=== PATIENT | female | born 1940 | race Caucasian/White ===

== ENCOUNTER 2024-09-06 16:48 | Emergency (ER) | payer MEDICARE, SELFPAY ==
[2024-09-06 17:10] VITALS: BP 185/87; PULSE 69; RESP 18; TEMP 36.6; O2SAT 98; BMI 27.4
--- NOTE | 2024-09-06 18:11 | ECG_ITS ---
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 Measurements Intervals [place] Rate: 67 P: 22 KS: 114 QRS: 13 QRSD: 90 T: 30 QT: 386 QTc: 410 Interpretive Statements SINUS RHYTHM WITH SHORT [place] INTERVAL MODERATE VOLTAGE CRITERIA FOR LVH, CONSIDER NORMAL VARIANT [MEETS CRITERIA IN ONE OF: R(aVL), S(V1), R(V5), R(V5/V6)+S(V1)] No previous ECG available for comparison Electronically Signed On 09-06-2024 22:31:36 CDT by Rell Palomo M.D. [email or web address]
--- NOTE | 2024-09-06 18:11 | XRR_ITS ---
PROCEDURE INFORMATION: Exam: XR Chest Exam date and time: 09/06/2024 8:06 PM Age: 84 years old Clinical indication: Chest pressure; Patient HX: Chest pain TECHNIQUE: Imaging protocol: Radiologic exam of the chest. Views: 1 view. COMPARISON: No relevant prior studies available. FINDINGS: Lungs: There is no consolidation. Pleural spaces: No pleural effusion or pneumothorax. Heart/Mediastinum: Retrocardiac lucency suggestive of a large hiatal hernia. The heart and mediastinum are normal in size. Bones/joints: Unremarkable. XR/XR chest 1V portable [id number] IMPRESSION: Retrocardiac lucency suggestive of a large hiatal hernia. This may be further evaluated by CT scan of the chest if clinically indicated.
[2024-09-06 18:30] LABS: Basophils # 0.1 10^3/uL (0.0-0.1); Basophils % 0.8 %; Eosinophils # 0.2 10^3/uL (0.0-0.8); Hematocrit 33.7 % (36-47); Lymphocytes # 1.7 10^3/uL (0.8-4.8); Lymphocytes % 18.9 %; Mean Corpuscular HGB Conc 27.6 g/dL (30-55); Mean Corpuscular Volume 72.6 fl (85-98); Mean Platelet Volume 11.8 fL (7.4-10.4); Monocytes # 0.8 10^3/uL (0.2-0.9); Neutrophils # 6.29 10^3/uL (1.8-7.7); Neutrophils % 69.2 %; Nucleated Red Blood Cells % 0 %; Platelet Count 216 10^3/cmm (157-399); Red Blood Count 4.64 10^6/uL (3.85-5.65); Red Cell Distribution Width 19.3 % (12.1-15.1); White Blood Count 9.09 10^3/uL (3.29-11.43)
[2024-09-06 18:49] LABS: Alanine Aminotransferase 24 U/L (0-33); Albumin Level 4.3 g/dL (3.5-5.2); Alkaline Phosphatase 74 U/L (35-105); Anion Gap 16.5 (5-19); Aspartate Amino Transferase 27 U/L (0-32); Blood Urea Nitrogen 18 mg/dL (8-23); Calcium 9.2 mg/dL (8.5-10.5); Carbon Dioxide 26 mmol/L (22-29); Chloride 102 mmol/L (98-107); Creatinine Clr Calc Pharmacy 52.0558; Globulin 2.8 g/dL (1.3-4.6); Glucose 102 mg/dL (65-115); Osmolality Calculated 292 mOsm/kg (285-295); Potassium 4.5 mmol/L (3.5-5.1); Sodium 140 mmol/L (136-145); Total Bilirubin 0.2 mg/dL (0.15-1.2); Total Protein 7.1 g/dL (6.6-8.7)
[2024-09-06 18:50] LABS: Troponin(5th) Baseline 9 ng/L (0-10)
[2024-09-06 20:34] VITALS: BP 181/82; PULSE 68; RESP 16; O2SAT 96
[2024-09-06 20:39] LABS: Troponin 5 2HR 9.95 ng/L (0-10); Troponin 5 2HR Delta 0.95 ABS# (0-10)
--- NOTE | 2024-09-06 21:24 | W.ED.CHESTPA ---
HPI - Chest Pain General: Chief Complaint: Chest Pain Stated Complaint: chest pain Time Seen by Provider: 09/06/24 19:51 History of Present Illness: 84-year-old female presents to the emergency department complaining of gradual onset of left posterolateral chest pain that started about 5 days ago. It hurts worse when she lays on her left side or with certain movements. She reports the chest pain is not associated with exertion. No associated diaphoresis, swelling, orthopnea, cough, fever, chills, rashes, extremity pain/swelling/redness, shortness of breath, palpitations or other associated symptoms. She does have a history of coronary artery disease and hypertension. Her blood pressure was elevated on arrival. She is asymptomatic. No tearing sensation or other concern for aortic dissection or rupture. Patient feels that just left of her spine under the scapular region. Palpation in this area is very tender with lots of spasm. Denies any urinary symptoms. Associated symptoms: Deny abdominal pain, dyspnea, fever(s), nausea, syncope or vomiting Related Data Previous Rx's Medication Instructions Recorded camphor-methyl salicylate-menthol 1 applic topical TID PRN pain 5 09/06/24 3 %-15 %-5 % topical cream ([place] days #60 grams [place] Muscle Rub) cyclobenzaprine 5 mg tablet 5 mg PO TID PRN muscle spasm #14 09/06/24 tabs hydrocodone 5 mg-acetaminophen 325 0.5 tab PO Q6H PRN pain, severe 7 09/06/24 mg tablet days #14 tabs lidocaine 5 % topical patch 1 patch topical Q24H #15 ea 09/06/24 (Lidoderm) naproxen 250 mg tablet 250 mg PO BID PRN pain #14 tabs 09/06/24 Allergies Allergy/AdvReac Type Severity Reaction Status Date / Time No Known Allergies Allergy Verified 09/06/24 17:17 Review of Systems General: Reports: 10 or more systems reviewed and unremarkable except in HPI and below Const: Denies: fever(s), chills or body aches Eyes: Denies: change in vision ENMT: Denies: throat pain Card: Denies: chest pain, edema or syncope Resp: Denies: dyspnea or productive cough GI: Denies: abdominal pain, nausea, vomiting or diarrhea : Denies: flank pain, dysuria or urinary frequency Musc: Denies: neck pain, extremity pain or extremity swelling Skin/Breast: Denies: rash or erythema Neuro: Denies: headache(s), numbness in extremities, weakness in extremities, lack of coordination or difficulty walking Physical Exam Const: COMMON NORMALS: no limitations, alert and well nourished EXAM LIMITATIONS: no altered mental status HENMT: COMMON NORMALS: normocephalic, atraumatic and external ears normal HEAD & SCALP: normocephalic and atraumatic EXTERNAL EAR: Yes external ears normal MOUTH: no muffled voice Eye: COMMON NORMALS: EOMs intact bilaterally, conjunctivae normal and no scleral icterus CONJUNCTIVA: Yes conjunctivae normal Neck/C-Spine: COMMON NORMALS: no JVD GENERAL: Yes normal visual inspection and Yes trachea midline Resp: COMMON NORMALS: normal respiratory effort, No use of accessory muscles and clear to auscultation bilaterally AUSCULTATION: clear to auscultation bilaterally Cardio: COMMON NORMALS: no JVD, regular rate and regular rhythm RATE: regular rate RHYTHM: regular rhythm GI: COMMON NORMALS: Soft to palpation and non-tender PALPATION: Yes Soft to palpation and No Guarding due to palpation present (GI) Back/Pelvis: OTHER: Patient has significant myofascial spasm in her left thoracic paraspinal muscles. Patient endorses this is the pain she is feeling. The tenderness extends through the paraspinals up into the rhomboids and trapezius. No midline tenderness. The patient's ribs are nontender. Lungs are clear. Extremity: COMMON NORMALS: normal to inspection Neuro: COMMON NORMALS: moves all extremities, no focal motor deficits and no sensory deficits noted SENSORIUM/ORIENTATION: Yes alert SPEECH: speech normal Psych: COMMON NORMALS: mental status grossly normal, Normal thought process present, cooperative, normal affect and speech normal SPEECH: Yes normal speech THOUGHT PROCESS: Normal thought process present Skin: COMMON NORMALS: no rashes or lesions noted, turgor normal and no jaundice GENERAL SKIN EXAM: no rashes or lesions noted and turgor normal Course Vital Signs: Vital signs: Vital Signs Temperature 97.8 F 09/06/24 17:10 Pulse Rate 68 09/06/24 20:34 Respiratory Rate 16 09/06/24 20:34 Blood Pressure 181/82 09/06/24 20:34 Pulse Oximetry 96 09/06/24 20:34 Oxygen Delivery Me thod Room Air 09/06/24 20:34 MDM - Chest Pain Medical Decision Making Patient has reproducible tenderness in the periscapular and thoracic paraspinal muscles extending up into the lower paracervical myofascial regions. There is spasm and trigger points . Patient endorses this is reproducing her pain. When she said chest pain she was referring to this area of her posterior chest. She has not had any anterior chest pain. She does not have any anginal symptoms. She does not endorse any symptoms of having pneumonia or infectious etiology. Low suspicion for dissection. Because of her age I went ahead and did a workup. The troponin and delta troponin are normal. The chest x-ray my interpretation is no acute disease and no widened mediastinum. Her blood pressure is up. She seems to be asymptomatic in this regard. Ragona control her pain rather than treat the blood pressure at this time. EKG was obtained at 1702 and shows a sinus rhythm, rate 67, normal axis, LVH pattern, no concerning ST segment elevations or depressions, no ectopy. Discussed different options for pain treatment. 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 Will start with naproxen, Lidoderm, muscle rub. If this is not helping she can have Flexeril and half dose [place]. Will go ahead and give her a 5 mg Flexeril and a [place] tonight to get acute pain control so she can sleep well. Patient provided specific return precautions Patient was noted to have anemia with a hemoglobin of 9.3. MCV less than 80. She will need outpatient follow-up for this. She does not endorse any bleeding Lab Data 09/06/24 18:23 09/06/24 18: Laboratory Results WBC 9.09 10^3/uL (3.29-11.43) 09/06/24 18: RBC 4.64 10^6/uL (3.85-5.65) 09/06/24 18: Hgb 9.30 g/dL (11.27-16.99) L 09/06/24 18: Hct 33.7 % (36-47) L 09/06/24 18: MCV 72.6 fl (85-98) L 09/06/24 18: MCH 20.0 pg (27-33) L 09/06/24 18:23 MCHC 27.6 g/dL (30-55) L 09/06/24 18: RDW 19.3 % (12.1-15.1) H 09/06/24 18:23 Plt Count 216 10^3/cmm (157-399) 09/06/24 18:23 MPV 11.8 fL (7.4-10.4) H 09/06/24 18:23 Neut % (Auto) 69.2 % 09/06/24 18:23 Lymph % (Auto) 18.9 % 09/06/24 18:23 [place] % (Auto) 9.0 % 09/06/24 18:23 Eos % (Auto) 2.0 % 09/06/24 18: Baso % (Auto) 0.8 % 09/06/24 18: Neut # (Auto) 6.29 10^3/uL (1.8-7.7) 09/06/24 18: Lymph # (Auto) 1.7 10^3/uL (0.8-4.8) 09/06/24 18:23 Murray # (Auto) 0.8 10^3/uL (0.2-0.9) 09/06/24 18:23 Eos # (Auto) 0.2 10^3/uL (0.0-0.8) 09/06/24 18: Baso # (Auto) 0.1 10^3/uL (0.0-0.1) 09/06/24 18:23 Nucleated RBC % (auto) 0 % 09/06/24 18: Nucleated RBCs # 0.0 /100WBC 09/06/24 18:23 Sodium 140 mmol/L (136-145) 09/06/24 18:23 Potassium 4.5 mmol/L (3.5-5.1) 09/06/24 18:23 Chloride 102 mmol/L (98-107) 09/06/24 18:23 Carbon Dioxide 26 mmol/L (22-29) 09/06/24 18:23 Anion Gap 16.5 (5-19) 09/06/24 18:23 BUN 18 mg/dL (8-23) 09/06/24 18:23 Creatinine 0.7 mg/dL (0.5-0.9) 09/06/24 18:23 GFR Calculation Not Reportable 09/06/24 18:23 Glucose 102 mg/dL (65-115) 09/06/24 18:23 Calculated Osmolality 292 mOsm/kg (285-295) 09/06/24 18:23 Calcium 9.2 mg/dL (8.5-10.5) 09/06/24 18:23 Total Bilirubin 0.2 mg/dL (0.15-1.2) 09/06/24 18:23 AST 27 U/L (0-32) 09/06/24 18:23 ALT 24 U/L (0-33) 09/06/24 18:23 Alkaline Phosphatase 74 U/L (35-105) 09/06/24 18:23 Troponin T Baseline 9 ng/L (0-10) 09/06/24 18:23 Troponin T 120 Minute 9.95 ng/L (0-10) 09/06/24 20:15 Delta Troponin T 0.95 ABS# (0-10) 09/06/24 20:15 Total Protein 7.1 g/dL (6.6-8.7) 09/06/24 18:23 Albumin 4.3 g/dL (3.5-5.2) 09/06/24 18:23 Globulin 2.8 g/dL (1.3-4.6) 09/06/24 18:23 XR interpretation done by ED provider, pending radiology final review Discharge Plan Discharge Patient Disposition: Home Clinical Impression: Musculoskeletal chest pain, Elevated blood pressure reading, Microcytic anemia Condition: Stable Prescriptions: New cyclobenzaprine 5 mg tablet 5 mg PO TID PRN (Reason: muscle spasm) Qty: 14 0RF naproxen 250 mg tablet 250 mg PO BID PRN (Reason: pain) Qty: 14 0RF hydrocodone-acetaminophen 5-325 mg tablet 0.5 tab PO Q6H PRN (Reason: pain, severe) 7 Days Qty: 14 0RF lidocaine [Lidoderm] 5 % adhesive patch,medicated 1 patch topical Q24H Qty: 15 0RF Rx Instructions: leave on most painful area for up to 12 hrs [place] Muscle Rub 3-15-5 % cream 1 applic topical TID PRN (Reason: pain) 5 Days Qty: 60 0RF Discharge Orders: Discharge ED (Routine); Ordered 09/06/24 Ordered By: Edward Lam Patient Instructions: Chest Pain - Chest Wall, Chest Pain (ED), Hypertension (ED) Activity Restrictions/Additional Instructions: You did not have any signs of heart attack, heart failure, or pneumonia. You have significant muscle spasm and tenderness along the posterior chest. We suspect this is musculoskeletal cause. You may use a combination of lighted Derm patch, naproxen, and muscle rub for primary pain control. If you are having more severe pain you may take Flexeril muscle relaxer or hydrocodone. If the pain is changing, rapidly worsening, or becomes associated with shortness of breath, sweating, nausea, tearing sensation, passing out, dizziness, extreme weakness then you need to call 911 or return to the ER. Follow-up with your primary care doctor in 3 days to see how you are doing. Coding Level of Care Code ED [employer] for Jeevan Mcintosh
[2024-09-06] MEDS: HYDROcodone-acetaminophen 5-325 mg Tablet 1 TAB PO (21:35)
[2024-09-06] MEDS: cyclobenzaprine 10 mg Tablet 5 MG PO (21:35)
[2024-09-06] MEDS: ibuprofen 200 mg Tablet 400 MG PO (21:35)
[2024-09-06] MEDS: lidocaine 5% Patch 1 PATCH TOPICAL (21:35)
[2024-09-06 21:39] VITALS: BP 168/76; PULSE 86; RESP 16; O2SAT 98
[2024-09-06 21:40] VITALS: BP 168/76; PULSE 85; RESP 16; O2SAT 98
== END 2024-09-06 21:43 | disposition home or self-care (01) ==
PROVIDERS: Emergency Medicine; Emergency Provider Emergency Medicine
DX: R07.89 Other chest pain (principal); R03.0 Elevated blood-pressure reading, without diagnosis of hypertension; D50.9 Iron deficiency anemia, unspecified; M62.830 Muscle spasm of back
CPT/HCPCS: 36415; 71045; 80053; 84484; 85025; 93005; 99285

== ENCOUNTER 2024-11-23 03:05 | Inpatient (IN) | payer MEDICARE, SELFPAY ==
[2024-11-23] VITALS (17 sets, daily range): BP systolic 142–194; BP diastolic 60–93; PULSE 78–95; RESP 16–22; TEMP 36.7–37.3; O2SAT 91–98; BMI 28.6
--- NOTE | 2024-11-23 03:10 | XRR_ITS ---
PROCEDURE INFORMATION: Exam: XR Chest Exam date and time: 11/23/2024 3:30 AM Age: 84 years old Clinical indication: Other: Poss CVA; Patient HX: EMS arrival for possible CVA. ; Additional info: Stroke TECHNIQUE: Imaging protocol: Radiologic exam of the chest. Views: 1 view. COMPARISON: CR XR chest 1V portable [id number] 09/06/2024 8:06 PM FINDINGS: Lungs: Minimal bibasilar infiltrates versus atelectasis. Pleural spaces: Unremarkable. No pleural effusion. No pneumothorax. Heart/Mediastinum: Small hiatal hernia. Bones/joints: Unremarkable. XR/XR chest 1V portable [id number] IMPRESSION: Minimal bibasilar infiltrates versus atelectasis.
--- NOTE | 2024-11-23 03:10 | CTR_ITS ---
PROCEDURE INFORMATION: Exam: CTA Head With Contrast, Arteriography Exam date and time: 11/23/2024 3:12 AM Age: 84 years old Clinical indication: Stroke-like symptoms; Speech disturbance; Left facial droop; Lt upper extremity and lt lower extremity weakness; Additional info: EMS arrival for possible CVA. Left side facial droop, slurred speech, with left upper and lower ext weakness. Unknown last known well time. TECHNIQUE: Imaging protocol: Computed tomographic angiography of the head with contrast. Exam focused on the arteries. 3D rendering (Not supervised by radiologist): MIP and/or 3D reconstructed images were created by the technologist. Radiation optimization: All CT scans at this facility use at least one of these dose optimization techniques: automated exposure control; mA and/or kV adjustment per patient size (includes targeted exams where dose is matched to clinical indication); or iterative reconstruction. Contrast material: OMNI 350; Contrast volume: 100 ml; Contrast route: INTRAVENOUS (IV); COMPARISON: CT head thrombolytic [id number] 11/23/2024 3:07 AM RADIATION DOSE METRICS: Total DLP (mGy-cm): 471.31 FINDINGS: ANTERIOR CIRCULATION: Right internal carotid artery: Intracranial segment is patent with no significant stenosis. No aneurysm. Right middle cerebral artery: No occlusion or significant stenosis. No aneurysm. Right anterior cerebral artery: No occlusion or significant stenosis. No aneurysm. Left internal carotid artery: Intracranial segment is patent with no significant stenosis. No aneurysm. Left middle cerebral artery: No occlusion or significant stenosis. No aneurysm. Left anterior cerebral artery: No occlusion or significant stenosis. No aneurysm. POSTERIOR CIRCULATION: Right vertebral artery: No occlusion or significant stenosis. No aneurysm. Left vertebral artery: No occlusion or significant stenosis. No aneurysm. Smaller in caliber than the right vertebral artery although no focal stenosis Basilar artery: No occlusion or significant stenosis. No aneurysm. Right posterior cerebral artery: No occlusion or significant stenosis. No aneurysm. Left posterior cerebral artery: No occlusion or significant stenosis. No aneurysm. Brain: No definite mass, mass effect, or midline shift. Chronic small-vessel white matter changes bilaterally Cerebral ventricles: Mild ventricular prominence evidence for atrophy. Bones/joints: Unremarkable. No acute fracture. Soft tissues: Unremarkable. PROCEDURE INFORMATION: Exam: CTA Neck With Contrast Exam date and time: 11/23/2024 3:12 AM Age: 84 years old Clinical indication: Stroke-like symptoms; Speech disturbance; Left facial droop; Lt upper extremity and lt lower extremity weakness; Additional info: EMS arrival for possible CVA. Left side facial droop, slurred speech, with left upper and lower ext weakness. Unknown last known well time. TECHNIQUE: Imaging protocol: Computed tomographic angiography of the neck with contrast. Exam focused on the cervical segments of the vasculature. 3D rendering (Not supervised by radiologist): MIP and/or 3D reconstructed images were created by the technologist. Radiation optimization: All CT scans at this facility use at least one of these dose optimization techniques: automated exposure control; mA and/or kV adjustment per patient size (includes targeted exams where dose is matched to clinical indication); or iterative reconstruction. Contrast material: OMNI 350; Contrast volume: 100 ml; Contrast route: INTRAVENOUS (IV); COMPARISON: CT head thrombolytic [id number] 11/23/2024 3:07 AM RADIATION DOSE METRICS: Total DLP (mGy-cm): 471.31 FINDINGS: Right common carotid artery: No stenosis. No dissection or occlusion. Right internal carotid artery: No stenosis of the extracranial segment. No dissection or occlusion. Right external carotid artery: No occlusion or stenosis of the origin. Left common carotid artery: No stenosis. No dissection or occlusion. Left internal carotid artery: No stenosis of the extracranial segment. No dissection or occlusion. Left external carotid artery: No occlusion or stenosis of the origin. Right vertebral artery: No stenosis. No dissection or occlusion. Left vertebral artery: No stenosis. No dissection or occlusion. Soft tissues: Normal. No significant soft tissue swelling. Bones/joints: No acute fracture. CT/CT angio headne* [id number] IMPRESSION: No large vessel stenosis or occlusion. IMPRESSION: No stenosis or occlusion. REFERENCES: NASCET CRITERIA. The degree of stenosis in the cervical segment of the internal carotid artery is based on NASCET criteria. Normal is no stenosis. Mild is less than 50% stenosis. Moderate is 50-69% stenosis. Severe is 70% to 99% stenosis. Total occlusion is no detectable patent lumen.
[2024-11-23 03:11] LABS: Glucose Point of Care 134 mg/dL (70-110)
--- NOTE | 2024-11-23 03:11 | PC.NURSE ---
Per MD, pt doesn't have a witnessed LKWT, so no stroke activation at this time. Pt taken directly to CT on arrival.
--- NOTE | 2024-11-23 03:11 | CTR_ITS ---
PROCEDURE INFORMATION: Exam: CT Head Without Contrast Exam date and time: 11/23/2024 3:07 AM Age: 84 years old Clinical indication: Stroke-like symptoms; Speech disturbance; Left facial droop; Lt upper extremity and lt lower extremity weakness; Additional info: EMS arrival for possible CVA. Left side facial droop with left upper and lower ext weakness. Unknown last known well time. TECHNIQUE: Imaging protocol: Computed tomography of the head without contrast. Radiation optimization: All CT scans at this facility use at least one of these dose optimization techniques: automated exposure control; mA and/or kV adjustment per patient size (includes targeted exams where dose is matched to clinical indication); or iterative reconstruction. Other technique: STROKE PROTOCOL was implemented. COMPARISON: No relevant prior studies available. RADIATION DOSE METRICS: Total DLP (mGy-cm): 1268.18 FINDINGS: Brain: There is generalized atrophy. mild periventricular white matter low densities without mass effect compatible with chronic small vessel ischemic changes. No mass effect or midline shift. No hemorrhage. Cerebral ventricles: Prominence of the ventricles and cortical sulci. Paranasal sinuses: Visualized sinuses are unremarkable. No fluid levels. Mastoid air cells: Visualized mastoid air cells are well aerated. Bones: Unremarkable. No acute fracture. Soft tissues: Unremarkable. Vasculature: There are vascular atherosclerotic calcifications carotid siphons. Notes: If there is further clinical concern for intracranial pathology, MRI of the brain may be performed for further assessment. CT/CT head thrombolytic [id number] IMPRESSION: Genralized atrophy, No acute intracranial abnormality. ASSESSMENT: ASPECTS ([place] Stroke Program Early CT Score) is 10.
[2024-11-23] MEDS: iohexol 350 mg/mL 500 mL Btl (per mL) IV ×2 (03:23→15:34)
--- NOTE | 2024-11-23 03:43 | ED_ITS ---
HPI - Neuro Symptoms/Deficit 2 General: Chief Complaint: Neuro Symptoms/Deficit Stated Complaint: FALLS Time Seen by Provider: 11/23/24 03:10 History of Present Illness: Patient went to bed around 9:00 without deficits. Patient woke up from sleep around 2 AM and when she tried to get a bed she fell multiple times. There is no person in there to notify her last known well. Patient has obvious left- sided facial droop left arm and leg flaccidity. Patient does have slurred speech but has a Glascow coma score of 15 and is alert oriented x 3. Patient is not on any anticoagulation. Patient has no history of the same. Related Data Previous Rx's Medication Instructions Recorded cyclobenzaprine 5 mg tablet 5 mg PO TID PRN muscle spasm #14 09/06/24 tabs lidocaine 5 % topical patch 1 patch topical Q24H #15 ea 09/06/24 (Lidoderm) naproxen 250 mg tablet 250 mg PO BID PRN pain #14 tabs 09/06/24 Allergies Allergy/AdvReac Type Severity Reaction Status Date / Time No Known Allergies Allergy Verified 11/23/24 03:24 Review of Systems 2 General: Reports: 10 or more systems reviewed and unremarkable except in HPI and below NIH stroke score 2 NIHSS: Level Of Consciousness - 1a: 0 Level Of Consciousness Questions - 1b: Both Correct Level Of Consciousness Commands - 1c: Both Correct Best Gaze - 2: Normal Visual Byers - 3: No Visual Loss Facial Palsy - 4: P artial Paralysis Motor Arm Right - 5: No Drift Motor Arm Left - 5: Drift Motor Leg Right - 6: No Drift Motor Leg Left - 6: Drift Limb Ataxia - 7: Absent Sensory - 8: Normal Best Language - 9: No Aphasia Dysarthia - 10: Mild/Moderate Dysarthia Extinction And Inattention - 11: 0 Score: Total Score: 5 Physical Exam 2 Const: COMMON NORMALS: no acute distress, average body habitus, patient oriented x3, no limitations, healthy appearing, alert and well nourished HENMT: COMMON NORMALS: normocephalic, atraumatic, hearing grossly normal bilaterally, external ears normal, Normal external nose present and Normal nasal mucous membranes and turbinates present; oral mucous membranes not moist (Dry oral mucosal membranes) HEAD & SCALP: n ormocephalic and atraumatic NOSE: Normal external nose present and Normal nasal mucous membranes and turbinates present EXTERNAL EAR: Yes external ears normal Eye: COMMON NORMALS: Equal, round and reactive pupils present, EOMs intact bilaterally, conjunctivae normal and no scleral icterus CONJUNCTIVA: Yes conjunctivae normal PUPIL: Yes Equal, round and reactive pupils present Neck/C-Spine: COMMON NORMALS: full ROM, no lymphadenopathy, supple, no meningeal signs, no JVD and Thyroid normal THYROID: Thyroid normal Chest: COMMONS NORMALS: normal inspection of the chest and normal palpation of entire chest wall Resp: COMMON NORMALS: normal respiratory effort, No retractions, No use of accessory muscles and clear to auscultation bilaterally AUSCULTATION: clear to auscultation bilaterally Cardio: COMMON NORMALS: no JVD, regular rate, regular rhythm, S1 normal heart sound present, S2 normal heart sound present, No gallops present (Cardio), No clicks present (Cardio), No murmurs present (Cardio) and No rub (Cardio) R ATE: regular rate RHYTHM: regular rhythm HEART SOUNDS: S1 normal heart sound present and S2 normal heart sound present GI: COMMON NORMALS: Normal to inspection, nondistended, normoactive bowel sounds present, Soft to palpation, non-tender, No hepatosplenomegaly present and no masses PALPATION: Yes Soft to palpation and Yes No hepatosplenomegaly present Neuro: COMMON NORMALS: patient oriented x3 SENSORIUM/ORIENTATION: Yes alert MENINGEAL SIGNS: Yes no meningeal signs Course 2 Vital Signs: Vital signs: Vital Signs Temperature 98.6 F 11/23/24 03:22 Pulse Rate 87 11/23/24 03:22 Respiratory Rate 20 H 11/23/24 03:22 Blood Pressure 164/81 11/23/24 03:22 Pulse Oximetry 92 11/23/24 03:22 Oxygen Delivery Me thod Room Air 11/23/24 03:22 MDM - Neuro Symptoms/Deficit Medical Decision Making Chest x-ray, head CT, head and neck CTA, all essentially negative, chest x-ray showed minimal basilar infiltrates versus atelectasis. Patient's white count is normal. Patient is anemic with a hemoglobin of 6.71 approximately 2 months ago he was up in the nines. Patient does have left facial droop left arm weakness, Dr.Adimora Alessandro Barba was consulted who agreed to place patient inpatient [facility] for further evaluation and treatment. Medical Records I reviewed the patient's medical records. Lab Data I reviewed the patient's lab results. 11/23/24 03:40 11/23/24 03:40 Radiology Impressions Chest X-Ray 11/23/24 03:10 IMPRESSION: Minimal bibasilar infiltrates versus atelectasis. Head/Neck CTA 11/23/24 03:10 IMPRESSION: No large vessel stenosis or occlusion. IMPRESSION: No stenosis or occlusion. REFERENCES: NASCET CRITERIA. The degree of stenosis in the cervical segment of the internal carotid artery is based on NASCET criteria. Normal is no stenosis. Mild is less than 50% stenosis. Moderate is 50-69% stenosis. Severe is 70% to 99% stenosis. Total occlusion is no detectable patent lumen. ADDENDUM: 11/23/245 Addendum: Findings discussed with Dr. Rubalcava at 3:43 a.m. central time on 11/23/[address] 11/23/24 03:11 IMPRESSION: Genralized atrophy, No acute intracranial abnormality. ASSESSMENT: ASPECTS ([place] Stroke Program Early CT Score) is 10. ADDENDUM: 11/23/24 0332 Addendum: Exam discussed with Dr. Rubalcava at 3:30 a.m. central time on 11/23/2024 Laboratory Results WBC 5.08 10^3/uL (3.29-11.43) 11/23/24 03:40 RBC 3.44 10^6/uL (3.85-5.65) L 11/23/24 03:40 Hgb 6.70 g/dL (11.27-16.99) L 11/23/24 03:40 Hct 24.3 % (36-47) L 11/23/24 03:40 MCV 70.6 fl (85-98) L 11/23/24 03:40 MCH 19.5 pg (27-33) L 11/23/24 03:40 MCHC 27.6 g/dL (30-55) L 11/23/24 03:40 RDW 19.3 % (12.1-15.1) H 11/23/24 03:40 Plt Count 159 10^3/cmm (157-399) 11/23/24 03:40 MPV Not Reportable 11/23/24 03:40 Neut % (Auto) 73.8 % 11/23/24 03:40 Lymph % (Auto) 15.7 % 11/23/24 03:40 [place] % (Auto) 8.9 % 11/23/24 03:40 Eos % (Auto) 0.2 % 11/23/24 03:40 Baso % (Auto) 0.4 % 11/23/24 03:40 Neut # (Auto) 3.75 10^3/uL (1.8-7.7) 11/23/24 03:40 Lymph # (Auto) 0.8 10^3/uL (0.8-4.8) 11/23/24 03:40 [place] # (Auto) 0.5 10^3/uL (0.2-0.9) 11/23/24 03:40 Eos # (Auto) 0.0 10^3/uL (0.0-0.8) 11/23/24 03:40 Baso # (Auto) 0.0 10^3/uL (0.0-0.1) 11/23/24 03:40 Nucleated RBC % (auto) 0 % 11/23/24 03:40 Nucleated RBCs # 0.0 /100WBC 11/23/24 03:40 POC Glucose 134 mg/dL (70-110) H 11/23/24 03:07 All radiology interpretation(s) finalized by discharge Discharge Plan Discharge Patient Disposition: Admitted As Inpatient Clinical Impression: Cerebrovascular accident Qualifiers: CVA mechanism: unspecified Qualified Code(s): I63.9 - Cerebral infarction, unspecified Anemia Qualifiers: Anemia type: unspecified type Qualified Code(s): D64.9 - Anemia, unspecified Condition: Stable Coding Level of Care Code ED Swimmer for Jeevan Mcintosh
--- NOTE | 2024-11-23 04:01 | ECG_ITS ---
[facility] Date: 2024-11-23 Pat Name: Debby Velez Department: Room: Gender: Female Efficiency Expert: : 1940 Requested By: Danny Rubalcava Order Number: [id number] Amrit MD: Steven Gamez M.D. Measurements Intervals [place] Rate: 82 P: -8 OR: 130 QRS: 51 QRSD: 84 T: 53 QT: 389 QTc: 457 Interpretive Statements SINUS RHYTHM WITH OCCASIONAL SUPRAVENTRICULAR PREMATURE COMPLEXES Compared to ECG 09/06/2024 17:02:29 Short OR interval no longer present Electronically Signed On 11-24-2024 20:08:52 RESEARCH PHYSICIST by Steven Gamez M.D. [id number]
[2024-11-23 04:03] LABS: Basophils % 0.4 %; Eosinophils % 0.2 %; Hematocrit 24.3 % (36-47); Lymphocytes # 0.8 10^3/uL (0.8-4.8); Lymphocytes % 15.7 %; Mean Corpuscular HGB Conc 27.6 g/dL (30-55); Mean Corpuscular Hemoglobin 19.5 pg (27-33); Mean Corpuscular Volume 70.6 fl (85-98); Monocytes # 0.5 10^3/uL (0.2-0.9); Monocytes % 8.9 %; Neutrophils # 3.75 10^3/uL (1.8-7.7); Neutrophils % 73.8 %; Nucleated Red Blood Cells % 0 %; Platelet Count 159 10^3/cmm (157-399); Red Blood Count 3.44 10^6/uL (3.85-5.65); Red Cell Distribution Width 19.3 % (12.1-15.1); White Blood Count 5.08 10^3/uL (3.29-11.43)
[2024-11-23 04:13] LABS: INR 1.06 (0.8-1.2)
--- NOTE | 2024-11-23 04:13 | P.HP_ITS ---
Providers/Chief Complaint 2 Primary Care Provider: Cat Martínez DO Chief Complaint: FALLS History of Present Illness Debby Velez is a 84 year old female w/o much medical history, who was brought via the EMS on 11/23/2024 with concerns for an Acute CVA. The patient states that she went to bed at 9pm not feeling well and nauseated. She woke up at 2am to use the restroom. After using the restroom she attempted to get up, but fell backwards and hit the back of the toilet seat with her back. She denies any head trauma. Realizing that she could not walk, she crawled back to her bedroom where she then called EMS. She is AOx3. She has never had a CVA before. She endorses having a fever this weekend. She complains of constant nausea since 11/21 and she had dry heaves on 11/22, but she had no emesis, diarrhea, abdominal pain, melena, hematochezia, dysuria, hematuria, increased urinary urgency/frequency. She does say that she urinates a lot. She endorses constant dizziness, light headedness since 11/21, but she does not know whether she lost consciousness. She denies CP, palpitations, headaches, blurry vision, & she does not but she e In the ED, vital signs were significant for BP as high as 164/81mmHg and RR of up to 22. Her labs were significant for K+ of 3.6, Mag 1.4, Iron sat of 3.2% w/ ferritin of 2. Her CXR was concerning for infiltrates vs infection. CT head w/ no acute intracranial findings. CTA head and neck was negative for large vessel stenosis or occlusion. On admission, she complained of chest pain and was given Morphine w/ resolution of her CP. Her EKG showed NSR w/ no ST changes. 2 units prbc was ordered for blood transfusion. Review of Systems 2 Const: Reports: malaise; Denies: fever(s) or chills Eyes: Denies: change in vision ENMT: Reports: other (no sorethroat or dysphagia); Denies: odynophagia, ear or mastoid pain, ear discharge, nasal discharge or nasal congestion Card: Reports: lightheadedness; Denies: chest pain or palpitations Resp: Reports: non-productive cough; Denies: dyspnea or wheezing GI: Reports: nausea; Denies: abdominal pain, vomiting, diarrhea, hematochezia or melena : Denies: difficulty voiding, dysuria, urinary frequency, urinary urgency or hematuria Musc: Reports: other (no myalgias); Denies: joint pain Skin/Breast: Denies: rash or new lesions Neuro: Reports: dizziness, Slurred speech present and other (falls); Denies: headache(s) Psych: Denies: anxiety, depression, suicidal ideation or homicidal ideation Endo: Denies: cold intolerance or heat intolerance [place]/Lymph: Denies: easy bruising or easy bleeding All/Imm: Denies: food intolerance Medications/Allergies Home Medications Medication Instructions Recorded Confirmed Last Taken Type cyclobenzaprine 5 mg tablet 5 mg PO TID PRN muscle spasm #14 09/06/24 Unknown Rx tabs lidocaine 5 % topical patch 1 patch topical Q24H #15 ea 09/06/24 Unknown Rx (Lidoderm) naproxen 250 mg tablet 250 mg PO BID PRN pain #14 tabs 09/06/24 Unknown Rx Allergies Allergy/AdvReac Type Severity Reaction Status Date / Time No Known Allergies Allergy Verified 11/23/24 03:24 PFSH Acute 2 PFSH: Surgical History (Updated 11/23/24 @ 07:17 by Jen Miranda MD) History of right knee joint replacement Family History (Updated 11/23/24 @ 07:18 by Jen Miranda MD) Mother Leukemia Social History (Updated 11/23/24 @ 07:18 by Jen Miranda MD) Smoking and tobacco/nicotine status: never used tobacco/nicotine Alcohol intake: never Substance/Drug Use: never Vitals/I&O/Wt Last Vital Signs Temp 98.6 F 11/23/24 03:22 Pulse 87 11/23/24 03:22 Resp 20 H 11/23/24 03:22 BP 164/81 11/23/24 03:22 Pulse Ox 92 11/23/24 03:22 O2 Del Method Room Air 11/23/24 03:22 Weight last 48 hrs Weight 78.018 kg Physical Exam 2 Const: GENERAL APPEARANCE: cooperative and comfortable NUTRITIONAL APPEARANCE: overweight ORIENTATION/CONSCIOUSNESS: Yes awake, Yes oriented to person, Yes oriented to place and Yes oriented to time HENMT: HEAD & SCALP: normocephalic and atraumatic NOSE: Normal external nose present EXTERNAL EAR: Yes external ears normal MOUTH: Normal oral and palatal mucosa present THROAT: posterior oropharynx normal Eye: CONJUNCTIVA: Yes conjunctival abnormal positive bilateral pallor P UPIL: Yes Equal, round and reactive pupils present EOM: No EOM abnormal Neck/C-Spine: GENERAL: Yes normal visual inspection and Yes trachea midline THYROID: Thyroid normal CAROTIDS: No bruit CERVICAL SPINE: Yes cervical ROM normal Lymph: OTHER: No cervical or supraclavicular LAD Resp: OTHER: CTAB, no w/r/r. Cardio: OTHER: RRR, 2+ systolic murmurs in the RUSB and the LUSB. GI: AUSCULTATION: Yes normoactive bowel sounds PALPATION: Yes Soft to palpation, No Tenderness to palpation present (GI), No Guarding due to palpation present (GI), No Rigid due to palpation and Yes No hepatosplenomegaly present Extremity: GENERAL: No clubbing, No cyanosis and No edema Neuro: SENSORIUM/ORIENTATION: Yes alert, Yes oriented to person, Yes oriented to place and Yes oriented to time CRANIAL NERVES: Yes CN III (oculomotor) CN III laterality: bilateral (R. eye droop), Yes CN VII (facial) (L. facial droop), Yes CN XI (spinal accessory) and Yes CN XII (hypoglossal) SPEECH: abnormal speech Details: slurred SENSORY EXAM: Yes sensory level loss detected O THER: 0/5 strength and no sensation in L. uppe r extremity, Loss of sensation in L. lower extremity. Psych: APPEARANCE: Yes grossly normal ATTITUDE: Yes calm and Yes engaged ACTIVITY/MOTOR BEHAVIOR: Yes appropriate eye contact SPEECH: Yes slurred M OOD & AFFECT: Yes euthymic mood THOUGHT PROCESS: Normal thought process present THOUGHT CONTENT: Yes Normal thought content present A TTENTION/CONCENTRATION: Yes attention grossly intact MEMORY/COGNITION: Yes memory grossly intact Skin: GENERAL SKIN EXAM: no rashes or lesions noted Data 11/23/24 03:40 11/23/24 03:40 A&P Assessment and plan (1) Acute CVA (cerebrovascular accident): (2) Iron deficiency anemia: (3) Hypomagnesemia: Plan Debby Velez is a 84 year old female w/o much medical history, who was brought via the EMS on 11/23/2024 with concerns for an Acute CVA. In the ED, vital signs were significant for BP as high as 164/81mmHg and RR of up to 22. Her labs were significant for K+ of 3.6, Mag 1.4, Iron sat of 3.2% w/ ferritin of 2. Her CXR was concerning for infiltrates vs infection. CTA head and neck was negative for large vessel stenosis or occlusion. #Acute CVA: - MRI brain, ECHO, swallow study, A1c, lipid, TSH/free T4, COVID- 19/RSV/Influenza A&B, UA, UTox, & Trop T. -If MRI brain is done within the next 6 hours, and patient has a large vessel occlusion noted on MRI, consider transfer to intervention. - Continue Telemonitoring. - Aspirin #Acute Iron Deficiency Anemia -If patient has no infection consider IV iron - Nurse was instructed to order 2 prbcs. #Hypomagnesemia - 4g MgSO4 administered. #Infiltrate vs Pneumonia - F/u CT chest w/o contrast. DVT ppx: SCD for now Attestations 2 Medical Necessity Statement*: Patient is to be admitted for her acute stroke. Time Spent in Patient Care: >75mins spent on patient interview/exam, lab review/image review, plan formulation and coordination of care. Coding Level of Care Code 69605 Diagnoses Acute CVA (cerebrovascular accident) I63.9 Iron deficiency anemia D50.9 Hypomagnesemia E83.42
[2024-11-23 04:14] LABS: Partial Thromboplastin Time 26.3 SECONDS (23.9-36.7)
[2024-11-23 04:22] LABS: Alanine Aminotransferase 17 U/L (0-33); Albumin Level 3.5 g/dL (3.5-5.2); Alkaline Phosphatase 64 U/L (35-105); Anion Gap 15.6 (5-19); Aspartate Amino Transferase 25 U/L (0-32); Blood Urea Nitrogen 22 mg/dL (8-23); Calcium 8.2 mg/dL (8.5-10.5); Carbon Dioxide 25 mmol/L (22-29); Chloride 99 mmol/L (98-107); Creatinine Clr Calc Pharmacy 53.0866; Globulin 2.1 g/dL (1.3-4.6); Glucose 146 mg/dL (65-115); Magnesium 1.4 mg/dL (1.7-2.3); Osmolality Calculated 288 mOsm/kg (285-295); Potassium 3.6 mmol/L (3.5-5.1); Sodium 136 mmol/L (136-145); Total Bilirubin 0.3 mg/dL (0.15-1.2); Total Protein 5.6 g/dL (6.6-8.7)
[2024-11-23 04:24] LABS: Alcohol Level < 10 mg/dL (0-10)
[2024-11-23 04:25] LABS: Troponin(5th) Baseline 27 ng/L (0-10)
[2024-11-23 04:29] LABS: Lactic Sepsis W/Reflex 1.9 mmol/L (0.5-2.2)
[2024-11-23 04:45] LABS: Thyroid Stimulating Hormone 2.14 uIU/mL (0.27-4.20)
[2024-11-23 04:53] LABS: Folate Level 13.4 ng/mL (4.8-37.3)
[2024-11-23 04:54] LABS: Ferritin 20 ng/mL (15-150); Iron 12 ug/dL (37-145); Percent Saturation 3.2 % (20-50); Total Iron Binding Capacity 374 mcg/dl; Unsaturated Iron Binding 362 ug/dL (112-347); Vitamin B12 471 pg/mL (232-1245)
--- NOTE | 2024-11-23 05:13 | ECG_ITS ---
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 Measurements Intervals [place] Rate: 81 P: 47 ID: 139 QRS: 63 QRSD: 85 T: 60 QT: 386 QTc: 451 Interpretive Statements SINUS RHYTHM Compared to ECG 11/23/2024 04:01:58 No significant changes Electronically Signed On 11-24-2024 20:16:44 TEACHER'S ASSISTANT by Steven Gamez M.D. [email or web address]
[2024-11-23 05:33] LABS: Procalcitonin 0.14 ng/mL (0-0.5)
[2024-11-23] MEDS: morphine 4 mg/mL SDV 1 mL 2 MG IVP ×2 (05:50→12:02)
--- NOTE | 2024-11-23 06:07 | ECG_ITS ---
[facility] Date: 2024-11-23 Pat Name: Debby Velez Department: Room: 254 Gender: Female Rn New Graduate: : 1940 Requested By: Jen Miranda Order Number: [id number] Amrit MD: Steven Gamez M.D. Measurements Intervals [place] Rate: 80 P: 38 [place]: 143 QRS: 40 QRSD: 86 T: 31 QT: 396 QTc: 459 Interpretive Statements SINUS RHYTHM Compared to ECG 11/23/2024 05:13:30 No significant changes Electronically Signed On 11-24-2024 20:08:48 AIRLINE RESERVATION AGENT by Steven Gamez M.D. [email or web address]
--- NOTE | 2024-11-23 06:30 | MRR_ITS ---
PROCEDURE INFORMATION: Exam: MR Head Without Contrast Exam date and time: 11/23/2024 9:40 AM Age: 84 years old Clinical indication: Altered mental status/memory loss; Confusion or disorientation; Additional info: Concern for acute CVA TECHNIQUE: Imaging protocol: Magnetic resonance imaging of the head without contrast. COMPARISON: 1. CT head thrombolytic [id number] 11/23/2024 3:[address] angio headneck* [id number] 11/23/2024 3:12 AM FINDINGS: Brain: Large area of restricted diffusion in the posterior right frontal lobe deep white matter and suero matter, consistent with an acute right MCA territory infarct. There is subtle increased signal on T2 and FLAIR in this same. No intra-axial or extra-axial masses. No midline shift. No extra-axial fluid collections. The basilar cisterns are unremarkable. Normal flow voids are present. Seventh and eighth cranial nerve complexes are unremarkable. Multiple areas of increased signal intensity on T2 and FLAIR in the deep white matter, consistent with moderate microangiopathic change. No evidence for Chiari 1 malformation. No evidence for mesial temporal sclerosis. Cerebral ventricles: Insert new hydrocephalusThe ventricles are unremarkable. Bones: Multilevel degenerative changes of varying severity in the visualized spine. Paranasal sinuses: Paranasal sinuses are clear. Mastoid air cells: Mastoid air cells are clear bilaterally. Orbital cavities: Globes and lenses, extraocular muscles, and optic nerves are intact bilaterally. No acute intraorbital abnormality. Nasal cavity: Stable moderate left nasal septal deviation. Soft tissues: No acute abnormality of the extracranial soft tissues. MR/MR head wo con* [id number] IMPRESSION: 1. Consistent with a large, acute right MCA territory infarct involving the right frontal lobe. 2. Moderate white matter microangiopathic change.
--- NOTE | 2024-11-23 06:31 | USCV_ITS ---
Agustin Elliotdamien Age: 84 Gender: F : 1940 Exam Date: 11/23/2024 10:45 Ordering Phys: Jen Miranda MD Technologist: Alex Acosta [place] [facility] [place]: cva BP: 165 / 76 HR: 80 Rhythm: Sinus Technical Quality: Adequate MEASUREMENTS (Male / Female) Normal Values 2D ECHO LV Diastolic Diameter PLAX 3.8 cm 4.2 - 5.9 / 3.9 - 5.3 cm IVS Diastolic Thickness 1.2 cm 0.6 - 1.0 / 0.6 - 0.9 cm IVS Systolic Thickness 1.5 cm LVPW Diastolic Thickness 1.9 cm 0.6 - 1.0 / 0.6 - 0.9 cm LVPW Systolic Thickness 1.7 cm LVOT Diameter 2.0 cm LV Ejection Fraction 2D Teich 67.2 % LV Ejection Fraction MOD 4C 57.9 % LV Ejection Fraction MOD 2C 54.2 % LV Ejection Fraction 2C AL 54.0 % LA Diameter 3.2 cm RA Systolic Volume 4C AL 38.3 ml RA Systolic Volume 4C MOD 36.7 ml LA Sys Volume AL 66.7 cm cubed LA Sys Volume Index AL 36.7 cm cubed/m squared Aorta at Sinotubular Diameter 1.9 cm IVC Diameter 1.7 cm M-MODE LA Ao Ratio MM 1.3 AV Cusp Separation MM 1.7 cm DOPPLER AV Peak Velocity 148.0 cm/s LVOT Peak Velocity 139.0 cm/s AV Area Cont Eq vti 1.9 cm squared AV Area Cont Eq pk 3.0 cm squared MV Peak Velocity 125.0 cm/s MV Area PHT 4.0 cm squared Mitral E to A Ratio 0.8 TV Peak Velocity 265.7 cm/s TR Peak Velocity 300.0 cm/s TR Peak Gradient 36.0 mmHg TR Mean Velocity 259.0 cm/s TR Mean Gradient 27.4 mmHg TR Velocity Time Integral 101.3 cm PV Peak Velocity 123.7 cm/s RV Ejection Time 0.3 s FINDINGS Left Ventricle Left ventricle is normal size. LV systolic function is normal with EF of 55 to 60%. No regional wall motion abnormalities are seen. Grade 1 diastolic dysfunction. Right Ventricle Normal in size and function Right Atrium Normal in size Left Atrium Dilated Mitral Valve Moderate mitral annular calcification. Trace mitral regurgitation. Aortic Valve Grossly normal. No significant stenosis or regurgitation. Tricuspid Valve Mild tricuspid regurgitation. Insufficient TR jet to calculate RVSP Pulmonic Valve Trace pulmonic regurgitation. Pericardium Normal Aorta Normal in size IVC Appears to be normal CONCLUSIONS LV systolic function is normal with EF of 55-60% Grade 1 diastolic dysfunction Trace mitral regurgitation Mild tricuspid regurgitation Trace pulmonic regurgitation No comparison studies are available. Steven Gamez MD (Electronically Signed) Final Date: 23 November 2024 12:30 S
[2024-11-23 06:41] LABS: Troponin 5 2HR 30.99 ng/L (0-10); Troponin 5 2HR Delta 3.99 ABS# (0-10)
[2024-11-23] MEDS: magnesium sulfate premix 4 GM/100 ML PREMIX IV (06:45)
[2024-11-23 06:46] LABS: Phosphorus 2.5 mg/dL (2.5-4.5)
--- NOTE | 2024-11-23 07:57 | CTR_ITS ---
PROCEDURE INFORMATION: Exam: CT Chest Without Contrast; Diagnostic Exam date and time: 11/23/2024 9:21 AM Age: 84 years old Clinical indication: Shortness of breath; Additional info: Infiltrates vs infection TECHNIQUE: Imaging protocol: Diagnostic computed tomography of the chest without contrast. Radiation optimization: All CT scans at this facility use at least one of these dose optimization techniques: automated exposure control; mA and/or kV adjustment per patient size (includes targeted exams where dose is matched to clinical indication); or iterative reconstruction. COMPARISON: CR (CHEST, ) 11/23/2024 3:30 AM RADIATION DOSE METRICS: Total DLP (mGy-cm): 476.12 FINDINGS: Trachea: Tracheobronchial structures are patent. Lungs: There is a pleural-based area of ground-glass opacification in the lateral/inferior right upper lobe. While this could represent an area of pneumonitis, the appearance also raises suspicion for a pulmonary infarct. Evaluation for possible pulmonary embolism is limited due to lack of intravenous contrast. Dependent atelectasis in the lungs bilaterally. There is linear scarring in the right middle lobe, left lingula, and right lower lobe. No pulmonary parenchymal nodules or masses. Pleural spaces: No pneumothorax. Trace bilateral pleural effusions. Heart: Stable moderate enlargement of the heart. Calcification of the aortic valve and mitral valve annulus. Coronary arteries: Extensive atherosclerotic calcification in the coronary arteries. Esophagus: The esophagus is unremarkable. Mediastinal space: No mediastinal hematoma. No pneumomediastinum. Lymph nodes: Calcified subcarinal lymph node. No lymphadenopathy. Vasculature: Moderate atherosclerotic changes in the visualized arteries. No evidence for aortic aneurysm. Diaphragm: Large hiatal hernia. Liver: The visualized liver is unremarkable. Gallbladder and biliary ducts: Multiple stones in the gallbladder. No gallbladder wall thickening. No biliary ductal dilatation. Pancreas: The visualized pancreas is unremarkable. No pancreatic ductal dilatation. Spleen: The visualized spleen is unremarkable. Adrenal glands: The right and left adrenal glands are unremarkable. Kidneys: Multiple nonobstructing stones in the upper right kidney, the largest measures 5.1 mm. The visualized left kidney is unremarkable. Bones/joints: Degenerative changes in the spine and shoulders. 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 Soft tissues: No acute abnormality in the extrathoracic soft tissues. CT/CT chest wo con [id number] IMPRESSION: 1. There is a pleural-based area of ground-glass opacification in the lateral/inferior right upper lobe. While this could represent an area of pneumonitis, the appearance also raises suspicion for a pulmonary infarct. Evaluation for possible pulmonary embolism is limited due to lack of intravenous contrast. Further evaluation with CT angiogram of the chest or V/Q scan may be obtained as clinically indicated. 2. Trace bilateral pleural effusions. 3. Cholelithiasis. 4. Multiple nonobstructing stones in the upper right kidney, the largest measures 5.1 mm. 5. Large hiatal hernia. 6. Incidental/nonacute findings are listed in the report. COMMENTS: Urgent results were discussed with Dr. Kemp on 11/23/2024 at 11:14 AM SENIOR RESEARCH SCIENTIST.
[2024-11-23 08:36] LABS: Estmated Average Glucose 131; Hemoglobin A1C 6.2 % (4.0-6.0)
[2024-11-23 08:46] LABS: Chol HDL Ratio 3.37 mg/dL (0.0-4.40); Cholesterol 91 mg/dL (0-200); HDL Cholesterol 27 mg/dL (60-100); LDL Cholesterol Calculated 42 mg/dL (50-129); LDL HDL Ratio 1.56 RATIO (0.00-3.22); NT Pro B Type Natriuretic Pept 464 pg/mL (0-450); Thyroid Stimulating Hormone 2.18 uIU/mL (0.27-4.20); Triglycerides 110 mg/dL (0-150)
[2024-11-23] MEDS: sucralfate 1 gm/10 mL Oral Liq UDC PO ×2 (09:00→14:44)
[2024-11-23] MEDS: pantoprazole 40 mg SDV IVP ×2 (09:00→19:52)
[2024-11-23] MEDS: sodium chloride 0.9% 1,000 ML 75 ML IV (09:01)
[2024-11-23 09:07] LABS: Free T4 Free Thyroxine 1.19 ng/dL (0.82-1.77)
--- NOTE | 2024-11-23 11:10 | USR_ITS ---
PROCEDURE INFORMATION: Exam: US Duplex Lower Extremity Veins, Bilateral Exam date and time: 11/23/2024 12:49 PM Age: 84 years old Clinical indication: Edema, localized; Lower extremity, bilateral; Additional info: Swelling TECHNIQUE: Imaging protocol: Real-time duplex ultrasound of the bilateral extremities with 2-D suero scale, color Doppler flow and spectral waveform analysis including responses to compression and other maneuvers (when performed) with image documentation. Complete exam focused on the lower extremity veins. COMPARISON: No relevant prior studies available. FINDINGS: Right deep veins: The common femoral, femoral, proximal profunda femoral, popliteal, posterior tibial, and peroneal veins are patent without thrombus. Normal compressibility and/or augmentation response. Left deep veins: The common femoral, femoral, proximal profunda femoral, popliteal, posterior tibial, and peroneal veins are patent without thrombus. Normal compressibility and/or augmentation response. Superficial veins: Greater saphenous veins at the saphenofemoral junctions are patent bilaterally without thrombus. Soft tissues: Unremarkable as visualized. US/CV venous duplex [facility] [id number] IMPRESSION: No evidence for deep venous thrombosis in the right or left lower extremities.
--- NOTE | 2024-11-23 14:37 | P.PN_ITS ---
Subjective 2 Subjective: Patient was examined this morning, grandson is at bedside, she is alert to person, to place, not to time she has significant left facial droop, left-sided hemiplegia, she does have some motion in her left leg but significantly diminished compared to the right, does have word finding difficulty, slurring of her words, discussed with patient and grandson at bedside, she does report NSAID use at home, denies bloody or black stools, she is requiring oxygen, has not required oxygen at home -Discussed with patient and grandson, th at she has had a large right CVA, likely MCA territory MRI of the brain is pending, continue to conservatively manage, fluid therapy, statin therapy, permissive hypertension PT OT and continue to clinically monitor -The issue is is that her hemoglobin is down to 6.7 and she has evidence of iron deficiency anemia, which may be evidence of slow GI bleed I placed on Protonix, will transfuse her 1 unit PRBC, monitor hemoglobin closely, maintain hemoglobin greater than 7 -However other interventions such as asp irin or Plavix are relatively contraindicated given her acute anemia, it would be ideal to do an EGD, however given her acute CVA she has a high risk of complications, but will consider based on clinical progress at least aspirin -CT of the chest shows right upper lobe lateral inferior groundglass opacification, likely aspiration, but could be pneumonitis, there is concern for pulmonary infarct, elevated troponins, D-dimer 2, patient did complain of chest pain the afternoon, we will go ahead and proceed with CT angiogram the chest -Chest pain complaints this afternoon, w orkup as above, repeat EKG, continue troponin series, - will keep patient n.p.o. as given her significant left-sided facial droop, slurring her words, Vitals/I&O/Wt Last Vital Signs Temp 98.1 F 11/23/24 12:25 Pulse 83 11/23/24 12:25 Resp 16 11/23/24 12:25 BP 163/72 11/23/24 12:25 Pulse Ox 96 11/23/24 12:47 O2 Del Method Nasal Cannula 11/23/24 12:47 O2 Flow Rate 2 11/23/24 12:47 11/22/24 11/23/24 11/23/24 22:59 06:59 14:59 Intake Total 100 / 100 Balance 100 / 100 Weight last 48 hrs Weight 77.201 kg Weight 78.018 kg Weight 77.201 kg Weight 78.018 kg Physical Exam 2 Const: COMMON NORMALS: no acute distress ORIENTATION/CONSCIOUSNESS: Yes awake, Yes oriented to person and Yes oriented to place; not oriented to time Eye: COMMON NORMALS: Equal, round and reactive pupils present PUPIL: Yes Equal, round and reactive pupils present Neck/C-Spine: OTHER: Left facial droop, slurring of the words Resp: COMMON NORMALS: normal respiratory effort, No retractions, No use of accessory muscles and clear to auscultation bilaterally AUSCULTATION: clear to auscultation bilaterally Cardio: COMMON NORMALS: regular rate, regular rhythm, S1 normal heart sound present and S2 normal heart sound present RATE: regular rate RHYTHM: r egular rhythm HEART SOUNDS: S1 normal heart sound present and S2 normal heart sound present GI: COMMON NORMALS: Normal to inspection, nondistended, normoactive bowel sounds present and non-tender Extremity: COMMON NORMALS: no pedal edema Neuro: SENSORIUM/ORIENTATION: Yes oriented to person, Yes oriented to place and No oriented to time OTHER: Left upper extremity strength significantly diminished strength DGR to 5 Psych: COMMON NORMALS: mental status grossly normal Data 11/23/24 03:40 11/23/24 03:40 A&P Assessment and plan (1) Acute right MCA stroke: (2) Acute anemia: (3) GI bleed: (4) Acute hypoxic respiratory failure: (5) COVID-19: (6) NSTEMI (non-ST elevated myocardial infarction): (7) D-dimer, elevated: (8) Aspiration pneumonia: Plan Acute right MCA CVA MR/MR head wo con* [id number] IMPRESSION: 1. Consistent with a large, acute right MCA territory infarct involving the right frontal lobe. 2. Moderate white matter microangiopathic change. -CTA head and neck no large vessel occlusion -CT had no acute bleed -Out of tPA window -Plan -IV fluids -Statins -Transfuse 1 unit PRBC -Neuro checks, NIH stroke scale, aspiration precautions -PT OT -Cardiac -Allow for permissive hypertension treat systolic of greater than 220?if greater than 120 -Will consider aspirin however there is concerns for acute anemia and GI bleed -Full code -S CDs for DVT prophylaxis, Lovenox on hold given acute anemia Acute anemia -Concerns for slow GI bleed -Evidence of iron deficiency anemia -Continue Protonix 40 IV twice daily -Hemoccult stool, monitor hemodynamics -Transfuse 1 unit PRBC recheck hemoglobin COVID-19 -Is on 2 L, afebrile no leukocytosis CT chest findings given groundglass opacities -Given acute CVA we will hold off on treatment with steroids, remdesivir -But will consider based on clinical progress CT chest 1. There is a pleural-based area of ground-glass opacification in the lateral/inferior right upper lobe. While this could represent an area of pneumonitis, the appearance also raises suspicion for a pulmonary infarct. Evaluation for possible pulmonary embolism is limited due to lack of intravenous contrast. Further evaluation with CT angiogram of the chest or V/Q scan may be obtained as clinically indicated. -Given chest pain complaints, elevated D-dimer, elevated troponins, order CT angiogram the chest -Continue IV fluids Concerns for aspiration pneumonia -Given CVA as above, CT chest findings -Aspiration precautions, n.p.o. -Continue Zosyn Elevated D-dimer, as above NSTEMI, chest pain complaints -Serial EKGs,*troponins, telemetry monitoring Attestations 2 Medical Necessity Statement*: Patient requires hospitalization for acute right MCA CVA, acute anemia, COVID- 19, aspiration pneumonia, elevated D-dimer, NSTEMI Diagnoses Acute right MCA stroke I63.511 Acute anemia D64.9 GI bleed K92.2 Acute hypoxic respiratory failure J96.01 COVID-19 U07.1 NSTEMI (non-ST elevated myocardial infarction) I21.4 D-dimer, elevated R79.89 Aspiration pneumonia J69.0
--- NOTE | 2024-11-23 14:59 | PC.NURSE ---
at approx. 1450 pt c/o cp, notified dr. liriano, recieved order for ekg.
[2024-11-23 15:02] LABS: D Dimer 2.03 ug/mLFEU (0-0.59)
--- NOTE | 2024-11-23 15:07 | ECG_ITS ---
[facility] Date: 2024-11-23 Pat Name: Debby Velez Department: Room: 254 Gender: Female Kinesiology Internship: : 1940 Requested By: Santhosh Kemp Order Number: [id number] Marcus MD: Steven Gamez M.D. Measurements Intervals [place] Rate: 82 P: 26 SD: 138 QRS: 26 QRSD: 89 T: 29 QT: 403 QTc: 472 Interpretive Statements SINUS RHYTHM Compared to ECG 11/23/2024 06:07:54 No significant changes Electronically Signed On 11-24-2024 20:07:08 LOG PROCESSOR OPERATOR by Steven Gamez M.D. [email or web address]
--- NOTE | 2024-11-23 15:09 | CTR_ITS ---
PROCEDURE INFORMATION: Exam: CTA Chest With Contrast Exam date and time: 11/23/2024 3:23 PM Age: 84 years old Clinical indication: Pain; Chest pressure; Additional info: Chest pain, hypoxia, nstemi TECHNIQUE: Imaging protocol: Computed tomographic angiography of the chest with contrast. Exam focused on the arteries. 3D rendering (Not supervised by radiologist): MIP and/or 3D reconstructed images were created by the technologist. Radiation optimization: All CT scans at this facility use at least one of these dose optimization techniques: automated exposure control; mA and/or kV adjustment per patient size (includes targeted exams where dose is matched to clinical indication); or iterative reconstruction. Contrast material: [id number]; Contrast volume: 74 ml; Contrast route: INTRAVENOUS (IV); COMPARISON: CT chest wo con [id number] 11/23/2024 9:21 AM RADIATION DOSE METRICS: Total DLP (mGy-cm): 365.51 FINDINGS: Pulmonary arteries: Normal. No pulmonary emboli. Aorta: Unremarkable. No aortic aneurysm. No aortic dissection. Lungs: There is mild bilateral lower lobe and right upper lobe atelectasis. There is also mild compressive atelectasis within the medial left lower lobe secondary to a hiatal hernia. No consolidating infiltrates. Pleural spaces: There is a small anterior left pneumothorax. There are trace bilateral pleural effusions, [id number]-right Heart: The heart is mildly enlarged. Lymph nodes: Calcified mediastinal lymph nodes are noted. No pathologically enlarged lymph nodes Diaphragm: A large hiatal hernia is noted Gallbladder and biliary ducts: There is cholelithiasis and probable gallbladder sludge with mild gallbladder distension. Bones/joints: There are acute, mildly displaced fractures of the left lateral 6th, 7th, 8th, and 9th ribs which are nonsegmental. There are degenerative changes of the thoracic spine with calcification of the anterior longitudinal ligament which can be seen with diffuse idiopathic skeletal hyperostosis Soft tissues: Unremarkable. CT/CT angio chest PE protcl [id number] IMPRESSION: 1. Acute, mildly displaced nonsegmental fractures of the left lateral 6th, 7th, 8th and 9th ribs with a small anterior left pneumothorax. 2. Trace bilateral pleural effusions and mild bilateral lower lobe and right upper lobe atelectasis. 3. No CT evidence of pulmonary embolus 4. Cholelithiasis with probable gallbladder sludge and mild gallbladder distension. Clinical correlation is suggested and if further evaluation is indicated, follow-up gallbladder ultrasound could be obtained 5. Large hiatal hernia
[2024-11-23 15:26] LABS: Influenza A NEGATIVE (Negative); Influenza B NEGATIVE (Negative); Respiratory Syncytial Virus Ce NEGATIVE (Negative)
[2024-11-23 15:29] LABS: Covid PCR Positive (Negative)
[2024-11-23 16:51] LABS: Basophils % 0.2 %; Hematocrit 29.7 % (36-47); Lymphocytes # 0.9 10^3/uL (0.8-4.8); Lymphocytes % 14.9 %; Mean Corpuscular HGB Conc 28.6 g/dL (30-55); Mean Corpuscular Hemoglobin 20.6 pg (27-33); Mean Corpuscular Volume 72.1 fl (85-98); Mean Platelet Volume 11.3 fL (7.4-10.4); Monocytes # 0.6 10^3/uL (0.2-0.9); Monocytes % 9.8 %; Neutrophils # 4.53 10^3/uL (1.8-7.7); Nucleated Red Blood Cells % 0 %; Platelet Count 155 10^3/cmm (157-399); Red Blood Count 4.12 10^6/uL (3.85-5.65); Red Cell Distribution Width 20.6 % (12.1-15.1); White Blood Count 6.12 10^3/uL (3.29-11.43)
[2024-11-23 17:08] LABS: Troponin 5 6HR 24.45 ng/L (0-10)
[2024-11-23 17:09] LABS: Troponin 5 6HR Delta -2.5 ng/L (0-12)
[2024-11-23] MEDS: piperacillin-tazobactam 3.375 GM in sodium chloride 0.9% (plus) 50 ML IV (17:13)
[2024-11-23] MEDS: HYDROmorphone 1 mg/mL INJ 1 mL IVP ×2 (17:18→21:06)
--- NOTE | 2024-11-23 21:00 | XRR_ITS ---
PROCEDURE INFORMATION: Exam: XR Chest Exam date and time: 11/23/2024 8:54 PM Age: 84 years old Clinical indication: Shortness of breath; Additional info: Small anterior left pneumothorax; Multiple lt rib fractures; Covid+ TECHNIQUE: Imaging protocol: Radiologic exam of the chest. Views: 1 view. COMPARISON: CT angio chest PE protcl [id number] 11/23/2024 3:23 PM FINDINGS: Lungs: Mild bibasilar atelectasis. Pleural spaces: Miniscule left apical pneumothorax with 3 mm maximum pleural separation. Trace bilateral pleural effusions. Heart/Mediastinum: Unremarkable. No cardiomegaly. Vasculature: Tortuous thoracic aorta with atherosclerotic calcifications. Bones/joints: Several left lateral rib fractures are again seen, better assessed on recent prior CTA. XR/XR chest 1V portable [id number] IMPRESSION: 1. Miniscule left apical pneumothorax with 3 mm pleural separation. 2. Bibasilar atelectasis with trace bilateral pleural effusions.
[2024-11-24] VITALS (15 sets, daily range): BP systolic 136–185; BP diastolic 60–83; PULSE 68–100; RESP 14–20; TEMP 36.7–37.1; O2SAT 92–97
[2024-11-24] MEDS: piperacillin-tazobactam 3.375 GM in sodium chloride 0.9% (plus) 50 ML IV ×3 (00:50→17:32)
[2024-11-24] MEDS: sodium chloride 0.9% 1,000 ML 75 ML IV ×2 (03:48→17:33)
[2024-11-24 03:50] LABS: Bilirubin Urine Negative (Negative); Blood Urine Negative (Negative); Glucose Urine UA Negative (Normal); Ketones Urine 1+ (Negative); Leukocyte Esterase Urine Negative (Negative); Nitrate Urine Negative (Negative); Protein Urine Trace (Negative); Urine Appearance Clear (CLEAR); Urine Color Yellow (Yellow); Urobilinogen Urine 0.2 mg/dL (Negative); pH Urine 5.5 (5-7)
[2024-11-24 03:55] LABS: Add Urine Microscopic? YES; Bacteria Urine None Seen /hpf; Hyaline Casts Urine 0-4 /lpf; RBC Urine 0-2 /hpf (0-2); Squamous Epithelial Cell Urine 0-5 /hpf (0-5); WBC Urine 0-5 /hpf (0-5)
[2024-11-24 03:59] LABS: Amphetamines Screen Urine Negative (Negative); Barbiturates Screen Urine Negative (Negative); Benzodiazepines Screen Urine Negative (Negative); Cocaine Screen Urine Negative (Negative); Opiate Screen Urine Positive (Negative); PCP Screen Urine Negative (Negative); THC Screen Urine Negative (Negative)
[2024-11-24 04:04] LABS: Specific Gravity, Urine 1.051 (1.005-1.030)
[2024-11-24] MEDS: HYDROmorphone 1 mg/mL INJ 1 mL IVP ×2 (04:43→19:47)
[2024-11-24 05:44] LABS: Basophils % 0.2 %; Hematocrit 28.9 % (36-47); Lymphocytes % 16.9 %; Mean Corpuscular HGB Conc 27.3 g/dL (30-55); Mean Corpuscular Hemoglobin 20.3 pg (27-33); Mean Corpuscular Volume 74.3 fl (85-98); Monocytes # 0.8 10^3/uL (0.2-0.9); Monocytes % 13.7 %; Neutrophils # 4.06 10^3/uL (1.8-7.7); Neutrophils % 68.7 %; Nucleated Red Blood Cells % 0 %; Platelet Count 137 10^3/cmm (157-399); Red Blood Count 3.89 10^6/uL (3.85-5.65); Red Cell Distribution Width 20.7 % (12.1-15.1); White Blood Count 5.91 10^3/uL (3.29-11.43)
[2024-11-24 05:48] LABS: Mean Platelet Volume 10.6 fL (7.4-10.4)
--- NOTE | 2024-11-24 06:00 | XRR_ITS ---
PROCEDURE INFORMATION: Exam: XR Chest Exam date and time: 11/24/2024 7:01 AM Age: 84 years old Clinical indication: Condition or disease; Lung condition and disease; Pneumothorax; Additional info: Ptx TECHNIQUE: Imaging protocol: Radiologic exam of the chest. Views: 1 view. COMPARISON: CR (CHEST, ) 11/23/2024 8:54 PM FINDINGS: Lungs: No large focal consolidation. Pleural spaces: No large pleural effusion. Questionable trace residual left apical pneumothorax. Heart/Mediastinum: Cardiomediastinal silhouette is midline and stable in size. Vasculature: Mild calcific disease of the aortic knob. Bones/joints: Osseous structures are unchanged. Known rib fracture deformities are poorly visualized. XR/XR chest 1V portable [id number] IMPRESSION: Questionable trace residual left apical pneumothorax.
[2024-11-24 06:02] LABS: Anion Gap 18.2 (5-19); Blood Urea Nitrogen 18 mg/dL (8-23); Calcium 7.9 mg/dL (8.5-10.5); Carbon Dioxide 23 mmol/L (22-29); Chloride 103 mmol/L (98-107); Glucose 115 mg/dL (65-115); Osmolality Calculated 293 mOsm/kg (285-295); Phosphorus 3.9 mg/dL (2.5-4.5); Potassium 4.2 mmol/L (3.5-5.1); Sodium 140 mmol/L (136-145)
[2024-11-24] MEDS: pantoprazole 40 mg SDV IVP ×2 (10:39→19:30)
[2024-11-24] MEDS: acetaminophen 325 mg Tablet 650 MG PO (12:12)
--- NOTE | 2024-11-24 15:20 | P.PN_ITS ---
Subjective 2 Subjective: Patient was seen this morning, she is more alert and awake she can follow commands she has more mobility of her left upper and left lower extremity, she is able to raise both against gravity, she can follow commands, continues to have word finding difficulty left facial droop, slurring of her words, afebrile overnight, on 2 L, hypertensive Vitals/I&O/Wt Last Vital Signs Temp 98.3 F 11/24/24 12:00 Pulse 84 11/24/24 12:00 Resp 18 11/24/24 12:00 BP 182/81 11/24/24 12:00 Pulse Ox 93 11/24/24 12:00 O2 Del Method Nasal Cannula 11/24/24 09:14 O2 Flow Rate 2 11/24/24 09:14 11/24/24 11/24/24 11/24/24 06:59 14:59 22:59 Intake Total 625 / 1550 0 / 0 Balance 625 / 1550 0 / 0 Weight last 48 hrs Weight 76.43 kg Weight 77.201 kg Weight 78.018 kg Weight 77.201 kg Weight 78.018 kg Physical Exam 2 Const: COMMON NORMALS: no acute distress Eye: COMMON NORMALS: Equal, round and reactive pupils present PUPIL: Yes Equal, round and reactive pupils present Resp: COMMON NORMALS: normal respiratory effort, No retractions, No use of accessory muscles and clear to auscultation bilaterally AUSCULTATION: clear to auscultation bilaterally Cardio: COMMON NORMALS: regular rate, regular rhythm, S1 normal heart sound present and S2 normal heart sound present RATE: regular rate RHYTHM: r egular rhythm HEART SOUNDS: S1 normal heart sound present and S2 normal heart sound present GI: COMMON NORMALS: Normal to inspection, nondistended, normoactive bowel sounds present and non-tender Extremity: COMMON NORMALS: no pedal edema Neuro: OTHER: Left facial droop, left upper extremity strength 1 out of 5, left lower extremity strength 1 out of 5, but can follow commands can hold them against gravity, word finding difficulty Urinary Catheter Management: Cu[place]ra: Cath Placed During This Visit: yes Reason for Continuing Indwelling Catheter: Acute Urinary Retention or Obstruction Urinary Catheter Date of Insertion: 11/24/24 Urinary Catheter Time of Insertion: 03:42 Data 11/24/24 03:30 11/24/24 03:30 A&P Assessment and plan (1) Acute right MCA stroke: (2) Acute anemia: (3) GI bleed: (4) Acute hypoxic respiratory failure: (5) COVID-19: (6) NSTEMI (non-ST elevated myocardial infarction): (7) D-dimer, elevated: (8) Aspiration pneumonia: (9) Pneumothorax on left: (10) Left rib fracture: Plan Acute right MCA CVA MR/MR head wo con* [id number] IMPRESSION: 1. Consistent with a large, acute right MCA territory infarct involving the right frontal lobe. 2. Moderate white matter microangiopathic change. -CTA head and neck no large vessel occlusion -CT had no acute bleed -Out of tPA window -Left-sided hemiplegia -Plan -IV fluids -Statins -Neuro checks, NIH stroke scale, aspiration precautions -PT OT -Cardiac -Allow for permissive hypertension treat systolic of greater than 220?if greater than 120 -Will consider aspirin however there is concerns for acute anemia and GI bleed -Full code -S CDs for DVT prophylaxis, Lovenox on hold given acute anemia Acute anemia -Concerns for slow GI bleed -Evidence of iron deficiency anemia -Continue Protonix 40 IV twice daily -Hemoccult stool, monitor hemodynamics -Status post 1 unit PRBC, ? Hemoglobin now 7.9 will transfuse another unit PRBC COVID-19 -Is on 2 L, afebrile no leukocytosis CT chest findings given groundglass opacities -Given acute CVA we will hold off on treatment with steroids, remdesivir -But will consider based on clinical progress Small anterior left pneumothorax -Chest x-ray this morning questionable trace residual left apical pneumothorax -Likely traumatic from rib fractures -Continue to do daily chest x-rays -Currently on 2 L, resting comfortably Rib fractures Acute, mildly displaced nonsegmental fractures of the left lateral 6th, 7th, 8th and 9th ribs -Continue conservative intervention -Morphine for pain control Concerns for aspiration pneumonia -Given CVA as above, CT chest findings -Aspiration precautions, n.p.o. -Continue Zosyn Elevated D-dimer, as above NSTEMI, chest pain complaints -Serial EKGs,*troponins, telemetry monitoring Attestations 2 Medical Necessity Statement*: Patient requires hospitalization for acute right MCA CVA, acute anemia, small anterior left pneumothorax, rib fractures, aspiration pneumonia Diagnoses Acute right MCA stroke I63.511 Acute anemia D64.9 GI bleed K92.2 Acute hypoxic respiratory failure J96.01 COVID-19 U07.1 NSTEMI (non-ST elevated myocardial infarction) I21.4 D-dimer, elevated R79.89 Aspiration pneumonia J69.0 Pneumothorax on left J93.9 Left rib fracture S22.32XA
[2024-11-24 16:45] LABS: Hematocrit 33.4 % (36-47)
[2024-11-24] MEDS: hyDRALAzine 20 mg/mL INJ 1 mL IVP (20:16)
[2024-11-24 21:01] LABS: Glucose Point of Care 118 mg/dL (70-110)
[2024-11-24] MEDS: hyDRALAzine 20 mg/mL INJ 1 mL 10 MG IVP (23:46)
[2024-11-25] VITALS (13 sets, daily range): BP systolic 161–189; BP diastolic 69–85; PULSE 87–108; RESP 14–20; TEMP 36.6–37.3; O2SAT 92–100
[2024-11-25] MEDS: piperacillin-tazobactam 3.375 GM in sodium chloride 0.9% (plus) 50 ML IV ×3 (00:31→18:00)
[2024-11-25] MEDS: HYDROmorphone 1 mg/mL INJ 1 mL IVP ×3 (00:43→22:39)
[2024-11-25 00:56] LABS: Glucose Point of Care 117 mg/dL (70-110)
[2024-11-25 03:52] LABS: Basophils % 0.4 %; Eosinophils % 0.3 %; Hematocrit 34.8 % (36-47); Lymphocytes % 13.7 %; Mean Corpuscular HGB Conc 28.4 g/dL (30-55); Mean Corpuscular Hemoglobin 21.5 pg (27-33); Mean Corpuscular Volume 75.5 fl (85-98); Monocytes # 0.9 10^3/uL (0.2-0.9); Monocytes % 12.2 %; Neutrophils # 5.18 10^3/uL (1.8-7.7); Neutrophils % 70.8 %; Nucleated Red Blood Cells % 0 %; Platelet Count 124 10^3/cmm (157-399); Positive M 1; Red Blood Count 4.61 10^6/uL (3.85-5.65); Red Cell Distribution Width 20.6 % (12.1-15.1); White Blood Count 7.31 10^3/uL (3.29-11.43)
[2024-11-25 04:17] LABS: Mean Platelet Volume 10.6 fL (7.4-10.4)
[2024-11-25 04:23] LABS: Blood Urea Nitrogen 18 mg/dL (8-23); Calcium 8.2 mg/dL (8.5-10.5); Carbon Dioxide 21 mmol/L (22-29); Chloride 105 mmol/L (98-107); Creatinine Clr Calc Pharmacy 53.6463; Glucose 132 mg/dL (65-115); Magnesium 1.8 mg/dL (1.7-2.3); Osmolality Calculated 296 mOsm/kg (285-295); Phosphorus 2.8 mg/dL (2.5-4.5); Sodium 141 mmol/L (136-145)
[2024-11-25 04:24] LABS: Anion Gap 19.3 (5-19); Potassium 4.3 mmol/L (3.5-5.1)
[2024-11-25] MEDS: sodium chloride 0.9% 1,000 ML 75 ML IV (04:35)
[2024-11-25 04:37] LABS: Glucose Point of Care 117 mg/dL (70-110)
--- NOTE | 2024-11-25 06:33 | FL_ITS ---
WS: [id number] Modified barium swallow, 11/25/2024 Clinical Data: Oropharyngeal dysphagia Comparison: None. Fluoroscopy time: 2min [id number] # of spot films: 0 Findings: The patient had increased oral preparation but there was premature spillage to the vallecula and even tually piriform sinuses. There is penetration with thin liquids but no aspiration. There is minimal p haryngeal residue which did clear with swallowing. The barium tablet passed normally from the oral ca vity into the hypopharynx and then the esophagus. The esophagus demonstrated dysmotility with persist ent tertiary contractions and the barium tablet remained at the gastroesophageal junction. FL/FL barium swallow modifd [id number] Impression: 1. Increased oral preparation. 2. Premature spillage into the vallecula and piriform sinuses. 3. Penetration with thin liquids but no aspiration. 4. Long hesitation of the barium tablet at the gastroesophageal junction.
--- NOTE | 2024-11-25 08:41 | XR_ITS ---
WS: [id number] Portable AP upright chest, 11/25/2024 Clinical Data: pneumthorax Comparison: Portable chest, 11/24/2024 Findings: The minimal left apical pneumothorax has not changed. No nodules, masses or effusions are s een. The heart is normal. The pulmonary vascularity is not increased. No pneumonia is seen. The left lateral rib fractures remain the same. The aortic arch shows tortuosity as does the descending thora cic aorta. There are monitor leads on the chest wall. XR/XR chest 1V portable [id number] Impression: 1. No change in small apical left pneumothorax. 2. No change in multiple left lateral rib fractures. 3. Atherosclerosis.
[2024-11-25 08:42] LABS: Glucose Point of Care 117 mg/dL (70-110)
[2024-11-25] MEDS: pantoprazole 40 mg SDV IVP ×2 (08:44→21:07)
--- NOTE | 2024-11-25 10:27 | PC.CHAP ---
Pastoral Care Encounter/Spiritual Assessment Type of Contact [] Declined assessment technician visit [] Patient/Family/Request visit [] Outpatient visit [] Follow-up visit [] Physician referral [] Code/Alert [x] Routine visit [] Staff referral [] Actively dying [] Patient sleeping [] Family support [] [] Out of room [] Palliative care [] [] Receiving care in room [] Pre-surgical visit [] Trauma [] Long length of stay [] ICU visit [] Other: Relational/Emotional Strength [] Patient feels connected with others/family/visitors/staff [] Distress [] Loneliness/isolation [] Abandonment Spirituality of Patient [] Person of Katherine [] Attends Judaism of their Katherine [] Believes in Prayer [] Reads Bible or Buddhism materials [] There are Spiritual issues to be addressed Garage Hand Interventions [x] Prayer [] Active listening [] Non-anxious presence [] Spiritual/emotional support [] Crisis/trauma care [] Spiritual counseling [] Bereavement support [] Provided bereavement packet [] Provided Bible/devotional materials [] Provided toy/stuffed animal, coloring book to patient or family member [] Provided Communion [] Anointing/[place] [] Salvation [] Completed spiritual assessment [] Other: Impact on Illness or Injury [] Angry [] Fearful [] Anxious [] Often cries [] Exhaustion [] Unable to work [] Unable to attend cheondoism [] Unable to walk/stand [] Unable to read [] Unable to drive [] Unable to eat/drink [] Unable to sleep [] Unable to be with family [] Patient intubated [] Other: Summary precaution Time spent with patient
--- NOTE | 2024-11-25 10:28 | PC.CHAP ---
Pastoral Care Encounter/Spiritual Assessment Type of Contact [] Declined project engineering director visit [] Patient/Family/Request visit [] Outpatient visit [] Follow-up visit [] Physician referral [] Code/Alert [x] Routine visit [] Staff referral [] Actively dying [x] Patient sleeping [] Family support [] [] Out of room [] Palliative care [] [] Receiving care in room [] Pre-surgical visit [] Trauma [] Long length of stay [] ICU visit [] Other: Relational/Emotional Strength [] Patient feels connected with others/family/visitors/staff [] Distress [] Loneliness/isolation [] Abandonment Spirituality of Patient [] Person of Katherine [] Attends Confucianism of their [place] [] Believes in Prayer [] Reads Bible or Episcopalian materials [] There are Spiritual issues to be addressed Client Advisor Interventions [x] Prayer [] Active listening [] Non-anxious presence [] Spiritual/emotional support [] Crisis/trauma care [] Spiritual counseling [] Bereavement support [] Provided bereavement packet [] Provided Bible/devotional materials [] Provided toy/stuffed animal, coloring book to patient or family member [] Provided Communion [] Anointing/[place] [] Salvation [] Completed spiritual assessment [] Other: Impact on Illness or Injury [] Angry [] Fearful [] Anxious [] Often cries [] Exhaustion [] Unable to work [] Unable to attend yarsanism [] Unable to walk/stand [] Unable to read [] Unable to drive [] Unable to eat/drink [] Unable to sleep [] Unable to be with family [] Patient intubated [] Other: Summary Time spent with patient
--- NOTE | 2024-11-25 12:35 | PC.OT ---
OT tx attempted at 1145. Pt off the floor for barium swallow study. Therapist will attempt again at later time if possible.
--- NOTE | 2024-11-25 12:59 | PC.SOCIAL ---
IMM Updated Updated pt's daughter on IMM. No questions voiced. Provided pt a copy. Initialed, dated, & timed a copy & placed in chart.
[2024-11-25 13:13] LABS: Glucose Point of Care 143 mg/dL (70-110)
[2024-11-25] MEDS: sucralfate 1 gm/10 mL Oral Liq UDC PO ×2 (14:39→21:07)
[2024-11-25] MEDS: dextrose 5%-sod chloride 0.9% 1,000 ML 50 ML IV (14:39)
[2024-11-25] MEDS: aspirin 81 mg EC Tablet PO (14:39)
--- NOTE | 2024-11-25 16:27 | P.PN_ITS ---
Subjective 2 Subjective: - Patient was examined this morning, fam luis members at bedside, -She she is sitting up to the side of e bed, her left upper left lower extremity strength is improving, she is much more alert and awake to person, to place, not to time she can follow commands -Discussed with the patient about trying I have modified barium swallow today, swallow eval -Discussed with family that overall she is clinically improving, hemoglobin has stabilized, she is on 2 L, has been a febrile, -Ultimately the question is that will mingo e require a PEG tube placement will have speech therapy work with her, will see how she does with a swallow eval -She does have a daughter and a son who I spoke to today, each personally, and individually, as they do not get along, - Vitals/I&O/Wt Last Vital Signs Temp 99 F 11/25/24 12:00 Pulse 100 11/25/24 12:00 Resp 14 11/25/24 12:00 BP 189/69 11/25/24 12:00 Pulse Ox 97 11/25/24 12:00 O2 Del Method Nasal Cannula 11/25/24 08:00 O2 Flow Rate 2 11/25/24 07:49 11/25/24 11/25/24 11/25/24 06:59 14:59 22:59 Intake Total 1050 / 2500 50 / 50 Output Total 300 / 1050 Balance 750 / 1450 50 / 50 Weight last 48 hrs Weight 79.742 kg Weight 76.43 kg Physical Exam 2 Const: COMMON NORMALS: no acute distress ORIENTATION/CONSCIOUSNESS: Yes awake, Yes oriented to person and Yes oriented to place; not oriented to time Resp: COMMON NORMALS: normal respiratory effort, No retractions, No use of accessory muscles and clear to auscultation bilaterally AUSCULTATION: clear to auscultation bilaterally Cardio: COMMON NORMALS: regular rate, regular rhythm, S1 normal heart sound present and S2 normal heart sound present RATE: regular rate RHYTHM: r egular rhythm HEART SOUNDS: S1 normal heart sound present and S2 normal heart sound present GI: COMMON NORMALS: Normal to inspection, nondistended, normoactive bowel sounds present and non-tender Extremity: COMMON NORMALS: no pedal edema Neuro: SENSORIUM/ORIENTATION: Yes oriented to person, Yes oriented to place and No oriented to time OTHER: Left facial droop, slurring of her words, pupils equal round reactive to light, left upper extremity strength 2 out of 5 left lower extremity length 2 out of 5, able to sit up in a chair Psych: COMMON NORMALS: mental status grossly normal Urinary Catheter Management: Cuadra: Cath Placed During This Visit: yes Reason for Continuing Indwelling Catheter: Acute Urinary Retention or Obstruction Urinary Catheter Date of Insertion: 11/24/24 Urinary Catheter Time of Insertion: 03:42 Data 11/25/24 03:01 11/25/24 03:01 A&P Assessment and plan (1) Acute right MCA stroke: (2) Acute anemia: (3) GI bleed: (4) Acute hypoxic respiratory failure: (5) COVID-19: (6) NSTEMI (non-ST elevated myocardial infarction): (7) D-dimer, elevated: (8) Aspiration pneumonia: (9) Pneumothorax on left: (10) Left rib fracture: Plan Acute right MCA CVA MR/MR head wo con* [id number] IMPRESSION: 1. Consistent with a large, acute right MCA territory infarct involving the right frontal lobe. 2. Moderate white matter microangiopathic change. -CTA head and neck no large vessel occlusion -CT had no acute bleed -Out of tPA window -Left-sided hemiplegia, improving -Plan -IV fluids -Statins -Aspirin -Neuro checks, NIH stroke scale, aspiration precautions -PT OT -Allow for permissive hypertension treat systolic of greater than 220?if greater than 120 -Will consider aspirin however there is concerns for acute anemia and GI bleed -Full code -S CDs for DVT prophylaxis, Lovenox on hold given acute anemia Acute anemia -Concerns for slow GI bleed -Evidence of iron deficiency anemia -Continue Protonix 40 IV twice daily -Hemoccult stool, monitor hemodynamics -Status post 2 unit PRBC, ? Hemoglobin now 9.9 will transfuse another unit PRBC COVID-19 -Is on 2 L, afebrile no leukocytosis CT chest findings given groundglass opacities -Given acute CVA we will hold off on treatment with steroids, remdesivir -But will consider based on clinical progress Small anterior left pneumothorax -Chest x-ray this morning questionable trace residual left apical pneumothorax -Likely traumatic from rib fractures -Continue to do daily chest x-rays -Currently on 2 L, resting comfortably Rib fractures Acute, mildly displaced nonsegmental fractures of the left lateral 6th, 7th, 8th and 9th ribs -Continue conservative intervention -Morphine for pain control Concerns for aspiration pneumonia -Given CVA as above, CT chest findings -Aspiration precautions, n.p.o. modified barium swallow speech therapy eval -Continue Zosyn Elevated D-dimer, as above NSTEMI, chest pain complaints -Serial EKGs,*troponins, telemetry monitoring Plan for today IV fluids, IV antibiotics, monitor hemoglobin, modified barium swallow speech therapy eval PT OT eval, spoke to patient's daughter extensively, extensive family meeting, spoke to patient's son extensive family meeting, will await decision about PEG tube placement hopefully by tomorrow after patient's speech therapy eval Attestations 2 Medical Necessity Statement*: Patient requires hospitalization for acute CVA, acute anemia, COVID-19 left anterior left pneumothorax, rib fractures, aspiration pneumonia and High MDM includes number and complexity of problems actively addressed during encounter, amount and/or complexity of data reviewed/ordered and described risk of complication, morbidity or mortality of management as documented Diagnoses Acute right MCA stroke I63.511 Acute anemia D64.9 GI bleed K92.2 Acute hypoxic respiratory failure J96.01 COVID-19 U07.1 NSTEMI (non-ST elevated myocardial infarction) I21.4 D-dimer, elevated R79.89 Aspiration pneumonia J69.0 Pneumothorax on left J93.9 Left rib fracture S22.32XA
[2024-11-25 16:41] LABS: Glucose Point of Care 139 mg/dL (70-110)
[2024-11-25 20:09] LABS: Glucose Point of Care 150 mg/dL (70-110)
[2024-11-25] MEDS: amlodipine 5 mg Tablet PO (21:07)
[2024-11-25] MEDS: ondansetron 2 mg/ML SDV 2 mL 4 MG IVP (21:25)
[2024-11-25 23:12] LABS: Glucose Point of Care 151 mg/dL (70-110)
[2024-11-26] VITALS (8 sets, daily range): BP systolic 150–180; BP diastolic 73–88; PULSE 66–96; RESP 14–18; TEMP 36.7–36.9; O2SAT 95–98
[2024-11-26] MEDS: sucralfate 1 gm/10 mL Oral Liq UDC PO ×4 (01:08→19:42)
[2024-11-26] MEDS: piperacillin-tazobactam 3.375 GM in sodium chloride 0.9% (plus) 50 ML IV ×3 (01:08→16:47)
[2024-11-26 03:19] LABS: Glucose Point of Care 115 mg/dL (70-110)
[2024-11-26 05:32] LABS: Blood Urea Nitrogen 18 mg/dL (8-23); Calcium 8.1 mg/dL (8.5-10.5); Carbon Dioxide 19 mmol/L (22-29); Chloride 109 mmol/L (98-107); Creatinine Clr Calc Pharmacy 53.6463; Glucose 126 mg/dL (65-115); Magnesium 1.8 mg/dL (1.7-2.3); Osmolality Calculated 293 mOsm/kg (285-295); Phosphorus 2.8 mg/dL (2.5-4.5); Sodium 140 mmol/L (136-145)
[2024-11-26 06:37] LABS: Glucose Point of Care 124 mg/dL (70-110)
[2024-11-26] MEDS: pantoprazole 40 mg SDV IVP ×2 (07:59→19:42)
[2024-11-26] MEDS: aspirin 81 mg EC Tablet PO (07:59)
[2024-11-26 09:07] LABS: Basophils % 0.4 %; Eosinophils % 0.6 %; Lymphocytes # 0.9 10^3/uL (0.8-4.8); Lymphocytes % 16.1 %; Mean Corpuscular HGB Conc 27.9 g/dL (30-55); Mean Corpuscular Hemoglobin 21.2 pg (27-33); Mean Corpuscular Volume 75.9 fl (85-98); Monocytes # 0.5 10^3/uL (0.2-0.9); Monocytes % 10.1 %; Neutrophils # 3.77 10^3/uL (1.8-7.7); Neutrophils % 71.5 %; Nucleated Red Blood Cells % 0 %; Platelet Count 145 10^3/cmm (157-399); Red Blood Count 4.48 10^6/uL (3.85-5.65); Red Cell Distribution Width 21.7 % (12.1-15.1); White Blood Count 5.27 10^3/uL (3.29-11.43)
[2024-11-26] MEDS: dextrose 5%-sod chloride 0.9% 1,000 ML 50 ML IV (10:49)
[2024-11-26 11:14] LABS: Glucose Point of Care 151 mg/dL (70-110)
--- NOTE | 2024-11-26 15:22 | P.PN_ITS ---
Subjective 2 Subjective: - Patient was seen this morning -She is alert to person, to place, to ti me she follows commands she is sitting up in a chair -She reports her left upper extremity st rength has significantly improved, she is able to squeeze my finger her strength is about 3 out of 5 -Her left lower extremity strength is si gnificant improved she is able to raise her leg against gravity -She does have a persistent left facial droop, no slurring of her words, does have some degree of word finding difficulty -But follows all commands, ? She is participating with speech therapy, her diet has been advanced to dysphagia level 6 diet, however she does have coughing episodes, nausea episodes, does have a poor appetite -Spoke to speech therapy, as patient's d iet is advanced but continues to have poor appetite, minimal feeding -I spoke to Asha in detail about her s troke, her right MCA stroke residual left-sided deficits the issue being her swallowing her poor appetite, if she wants to do well I do not believe that the diet that she is currently on will provide enough nutrition for her given that she has increased demands with physical therapy, she is about 4 days out of her stroke, I would recommend for her to have a PEG tube placed for minimal nutrition, we could continue to work with speech therapy, and as her appetite improves, her diet is advanced, and her oral intake improves hopefully that will be enough nutrition to satisfy her increased requirements # After discussing risks and benefits, she voiced understanding, all questions answered, she tells me she wants to go ahead and proceed with PEG tube placement, she does have good understanding -I have had multiple discussions with jhon sweet's family member her daughter is not at bedside currently I do not have a number for her to discuss the case in detail -But patient's son was present, I also s poke to patient's son in detail, he does feel that Krupa is improving, we discussed the need for PEG tube placement so that she can have her minimal nutritional requirements, while speech therapy worked with her swallowing hopefully her diet improves so that she does not require the PEG tube long-term however she is 4 days out of her stroke and her appetite remains poor her intake is poor, she continues to require IV fluids she is going to need a form of nutrition for the next few weeks, and fluid intake -After discussing the risk and benefits of all options he voiced understanding, all questions answered, agreed to proceed -Patient's son wants patient to be trans ferred to detention closer to the rest of the family, near [facility] -Mathematical Statistician present, discussed transfer, case management will help in transfer -Spoke to general surgery about the case n.p.o. over midnight for PEG tube placement hopefully tomorrow, given her GI bleed and her anemia, hopefully EGD can be done at the same time, Vitals/I&O/Wt Last Vital Signs Temp 98.4 F 11/26/24 11:38 Pulse 91 11/26/24 11:38 Resp 15 11/26/24 11:38 BP 150/73 11/26/24 11:38 Pulse Ox 95 11/26/24 11:38 O2 Del Method Nasal Cannula 11/26/24 11:38 O2 Flow Rate 2 11/26/24 08:02 11/26/24 11/26/24 11/26/24 06:59 14:59 22:59 Intake Total 50 / 1150 1170 / 1170 Output Total 200 / 900 Balance -150 / 250 1170 / 1170 Weight last 48 hrs Weight 80.195 kg Weight 79.742 kg Physical Exam 2 Const: COMMON NORMALS: no acute distress and patient oriented x3 Resp: COMMON NORMALS: normal respiratory effort, No retractions, No use of accessory muscles and clear to auscultation bilaterally AUSCULTATION: clear to auscultation bilaterally Cardio: COMMON NORMALS: regular rate, regular rhythm, S1 normal heart sound present and S2 normal heart sound present RATE: regular rate RHYTHM: r egular rhythm HEART SOUNDS: S1 normal heart sound present and S2 normal heart sound present GI: COMMON NORMALS: Normal to inspection, nondistended, normoactive bowel sounds present and non-tender Extremity: COMMON NORMALS: no pedal edema Neuro: COMMON NORMALS: patient oriented x3 Psych: COMMON NORMALS: mental status grossly normal Urinary Catheter Management: Cuadra: Cath Placed During This Visit: yes Reason for Continuing Indwelling Catheter: Acute Urinary Retention or Obstruction Urinary Catheter Date of Insertion: 11/24/24 Urinary Catheter Time of Insertion: 03:42 Data 11/26/24 08:51 11/26/24 04:31 A&P Assessment and plan (1) Acute right MCA stroke: (2) Acute anemia: (3) GI bleed: (4) Acute hypoxic respiratory failure: (5) COVID-19: (6) NSTEMI (non-ST elevated myocardial infarction): (7) D-dimer, elevated: (8) Aspiration pneumonia: (9) Pneumothorax on left: (10) Left rib fracture: Plan Acute right MCA CVA MR/MR head wo con* [id number] IMPRESSION: 1. Consistent with a large, acute right MCA territory infarct involving the right frontal lobe. 2. Moderate white matter microangiopathic change. -CTA head and neck no large vessel occlusion -CT had no acute bleed -Out of tPA window -Left-sided hemiplegia, improving -Plan -IV fluids -Statins -Aspirin -Neuro checks, NIH stroke scale, aspiration precautions -PT OT -Allow for permissive hypertension treat systolic of greater than 220?if greater than 120 -Will consider aspirin however there is concerns for acute anemia and GI bleed -Full code -S CDs for DVT prophylaxis, Lovenox on hold given acute anemia Acute anemia -Concerns for slow GI bleed -Evidence of iron deficiency anemia -Continue Protonix 40 IV twice daily -Hemoccult stool, monitor hemodynamics -Status post 2 unit PRBC, ? Hemoglobin now 9.9 COVID-19 -Is on 2 L, afebrile no leukocytosis CT chest findings given groundglass opacities -Given acute CVA we will hold off on treatment with steroids, remdesivir -But will consider based on clinical progress Small anterior left pneumothorax -Chest x-ray this morning pending -Likely traumatic from rib fractures -Continue to do daily chest x-rays -Currently on 2 L, resting comfortably Rib fractures Acute, mildly displaced nonsegmental fractures of the left lateral 6th, 7th, 8th and 9th ribs -Continue conservative intervention -Morphine for pain control Concerns for aspiration pneumonia -Given CVA as above, CT chest findings -Aspiration precautions, seen by speech therapy FL/FL barium swallow modifd [id number] Impression: 1. Increased oral preparation. 2. Premature spillage into the vallecula and piriform sinuses. 3. Penetration with thin liquids but no aspiration. 4. Long hesitation of the barium tablet at the gastroesophageal junction. -Continue Zosyn -Currently on dysphagia level 4 diet Elevated D-dimer, as above NSTEMI, chest pain complaints -Serial EKGs,*troponins, telemetry monitoring Plan for today IV fluids,Monitor respiratory status closely, continue PT OT, speech therapy eval, IV fluids Attestations 2 Medical Necessity Statement*: Patient requires hospitalization for acute CVA, residual right-sided deficits, pneumothorax, anemia, rib fractures, Diagnoses Acute right MCA stroke I63.511 Acute anemia D64.9 GI bleed K92.2 Acute hypoxic respiratory failure J96.01 COVID-19 U07.1 NSTEMI (non-ST elevated myocardial infarction) I21.4 D-dimer, elevated R79.89 Aspiration pneumonia J69.0 Pneumothorax on left J93.9 Left rib fracture S22.32XA
--- NOTE | 2024-11-26 15:31 | XRR_ITS ---
PROCEDURE INFORMATION: Exam: XR Chest Exam date and time: 11/26/2024 3:39 PM Age: 84 years old Clinical indication: Other: F/u pneumothorax; Additional info: Left anterior ptx TECHNIQUE: Imaging protocol: Radiologic exam of the chest. Views: 1 view. COMPARISON: CR XR chest 1V portable [id number] 11/25/2024 9:05 AM FINDINGS: Lungs: No focal consolidation. Focal airspace opacity in the peripheral mid right lung, slightly more prominent in comparison to prior exams. Pleural spaces: Suspected trace residual left apical pneumothorax, decreased since prior, and may be better appreciable by CT. No evidence of pleural effusion. Heart/Mediastinum: Cardiomediastinal silhouette is within normal limits. Bones/joints: Multiple left-sided rib fractures. XR/XR chest 1V portable [id number] IMPRESSION: 1. Suspected trace residual left apical pneumothorax, decreased since prior, and may be better appreciable by CT. 2. Focal airspace opacity in the peripheral mid right lung, slightly more prominent in comparison to prior exams. Developing infection or a pulmonary infarct secondary to a subsegmental PE beyond the resolution of CT would be difficult to exclude.
--- NOTE | 2024-11-26 17:20 | PC.NUTR ---
if PEG is placed, intiatite enteral nutrition following desired needs 100% of needs via EN: -continuous: jevity 1.5 @ 60 ml/hr x24 hours (1440 ml/day) (2160 kcals and 93 g/pro) -bolus: jevity 1.5 @ 360 ml q4 -FWF: 150 ml q4 50% of needs via EN: -continuous: Jevity 1.5 @ 30 ml/hr x24 hours (720 ml/day) -bolus: Jevity 1.5 @ 240 ml q8 -FWF: 75 ml q4
[2024-11-26 17:21] LABS: Glucose Point of Care 140 mg/dL (70-110)
--- NOTE | 2024-11-26 18:39 | PC.NURSE ---
Bibi's daughter is Lila Velez her phone number is [phone].
[2024-11-26] MEDS: amlodipine 5 mg Tablet PO (19:42)
[2024-11-26 20:16] LABS: Glucose Point of Care 139 mg/dL (70-110)
[2024-11-26 23:44] LABS: Glucose Point of Care 134 mg/dL (70-110)
[2024-11-27] VITALS (8 sets, daily range): BP systolic 129–157; BP diastolic 63–73; PULSE 80–91; RESP 14–17; TEMP 36.7–37; O2SAT 92–98
[2024-11-27] MEDS: piperacillin-tazobactam 3.375 GM in sodium chloride 0.9% (plus) 50 ML IV ×2 (01:05→10:36)
[2024-11-27] MEDS: sucralfate 1 gm/10 mL Oral Liq UDC PO ×4 (01:05→20:26)
[2024-11-27 03:24] LABS: Glucose Point of Care 131 mg/dL (70-110)
[2024-11-27] MEDS: dextrose 5%-sod chloride 0.9% 1,000 ML 50 ML IV (05:33)
--- NOTE | 2024-11-27 06:00 | XRR_ITS ---
PROCEDURE INFORMATION: Exam: XR Chest Exam date and time: 11/27/2024 7:40 AM Age: 84 years old Clinical indication: Other: F/u; Additional info: Left anterior ptx TECHNIQUE: Imaging protocol: Radiologic exam of the chest. Views: 1 view. COMPARISON: CR XR chest 1V portable [id number] 11/26/2024 3:39 PM FINDINGS: Lungs: Persistent mild patchy airspace opacities in the bilateral lung bases. Pleural spaces: No large pleural effusion. No evidence of pneumothorax on current study. Heart/Mediastinum: Cardiomediastinal silhouette is midline and stable in size. Bones/joints: No distinct acute osseous findings. XR/XR chest 1V portable [id number] IMPRESSION: 1. Persistent mild patchy airspace opacities in the bilateral lung bases. 2. No evidence of pneumothorax on current study.
[2024-11-27 06:22] LABS: Basophils % 0.3 %; Eosinophils # 0.1 10^3/uL (0.0-0.8); Hematocrit 29.3 % (36-47); Lymphocytes # 0.6 10^3/uL (0.8-4.8); Lymphocytes % 20.8 %; Mean Corpuscular Hemoglobin 22.1 pg (27-33); Mean Corpuscular Volume 76.1 fl (85-98); Monocytes # 0.4 10^3/uL (0.2-0.9); Neutrophils # 1.92 10^3/uL (1.8-7.7); Neutrophils % 62.6 %; Nucleated Red Blood Cells % 0 %; Platelet Count 134 10^3/cmm (157-399); Red Blood Count 3.85 10^6/uL (3.85-5.65); Red Cell Distribution Width 21.8 % (12.1-15.1); White Blood Count 3.07 10^3/uL (3.29-11.43)
[2024-11-27 06:34] LABS: Anion Gap 12.4 (5-19); Blood Urea Nitrogen 15 mg/dL (8-23); Calcium 8.1 mg/dL (8.5-10.5); Carbon Dioxide 25 mmol/L (22-29); Chloride 106 mmol/L (98-107); Creatinine Clr Calc Pharmacy 54.1173; Glucose 129 mg/dL (65-115); Osmolality Calculated 293 mOsm/kg (285-295); Potassium 3.4 mmol/L (3.5-5.1); Sodium 140 mmol/L (136-145)
[2024-11-27 07:07] LABS: Glucose Point of Care 120 mg/dL (70-110)
--- NOTE | 2024-11-27 07:37 | P.CONIM_ITS ---
Providers/Reason For Consult 2 Consulting Physician/Specialty*: Dr. Saúl Bowman, DO/General Surgery Reason for Consult*: Dysphagia secondary to CVA Attending Physician: Santhosh Kemp MD Primary Care Provider: Cat Martínez DO History of Present Illness History of Present Illness Debby Velez is a 84 year old female who presented to the hospital with hemiparesis secondary to a an acute right MCA CVA. She also has acute iron deficiency anemia along with COVID. She is on isolation precautions. She is awake alert and oriented x 3 however she is slightly confused. HPI and review of systems are limited secondary to this.. She reports that ever since 11/21/2024 she has had epigastric pain in a band across her upper abdomen. She is unsure when her last bowel movement was. Review of Systems 2 General: Reports: 10 or more systems reviewed and unremarkable except in HPI and below (Review of systems is limited secondary to patient's confusion following CVA) Medications/Allergies Home Medications Medication Instructions Recorded Confirmed Last Taken Type metoprolol succinate 50 mg 50 mg PO DAILY 11/23/24 11/23/24 Unknown History tablet,extended release 24 hr simvastatin 20 mg tablet 20 mg PO DAILY 11/23/24 11/23/24 Unknown History Allergies Allergy/AdvReac Type Severity Reaction Status Date / Time No Known Allergies Allergy Verified 11/23/24 03:24 Current Medications Generic Name Dose Route Start Last Admin Trade Name Freq PRN Reason Stop Dose Admin Acetaminophen 650 mg 11/23/24 08:06 11/24/24 12:12 Acetaminophen 325 Mg Tablet PO 650 mg Q6H PRN Administration Mild/Mod Pain Or Temp >/= 101 Amlodipine Besylate 5 mg 11/25/24 21:00 11/26/24 19:42 Amlodipine 5 Mg Tablet PO 5 mg Q24H YAQUELIN Administration Aspirin 81 mg 11/25/24 13:50 11/26/24 07:59 Aspirin 81 Mg Ec Tablet PO 81 mg DAILY YAQUELIN Administration Hydromorphone HCl 1 mg 11/23/24 16:37 11/25/24 22:39 Hydromorphone 1 Mg/Ml Inj 1 Ml IVP 1 mg Q4H PRN Administration PAIN Piperacillin Sod/Tazobactam 50 mls @ 12.5 mls/hr 11/23/24 15:00 11/27/24 05:14 Sod 3.375 gm/ Sodium Chloride IV Infused Q8H YAQUELIN Infusion Dextrose/Sodium Chloride 1,000 mls @ 50 mls/hr 11/25/24 13:45 11/27/24 05:33 Dextrose 5%-Sod Chloride 0.9% IV 50 mls/hr .Q20H YAQUELIN Administration Ondansetron HCl 4 mg 11/23/24 08:06 11/25/24 21:25 Ondansetron 2 Mg/Ml Sdv 2 Ml IVP 4 mg Q8H PRN Administration vomiting, or N/V if npo Pantoprazole Sodium 40 mg 11/23/24 08:15 11/26/24 19:42 Pantoprazole 40 Mg Sdv IVP 40 mg Q12H YAQUELIN Administration Sucralfate 1 gm 11/25/24 14:00 11/27/24 01:05 Sucralfate 1 Gm/10 Ml Oral Liq Udc PO 1 gm Q6H YAQUELIN Administration PFSH Acute 2 PFSH: Surgical History History of right knee joint replacement Family History Mother Leukemia Social History Smoking and tobacco/nicotine status: never used tobacco/nicotine Alcohol intake: never Substance/Drug Use: never Vitals/I&O/Wt Last Vital Signs Temp 98.6 F 11/27/24 04:00 Pulse 91 11/27/24 04:00 Resp 17 11/27/24 04:00 BP 156/69 11/27/24 04:00 Pulse Ox 92 11/27/24 04:00 O2 Del Method Nasal Cannula 11/27/24 04:00 O2 Flow Rate 2 11/27/24 04:00 11/26/24 11/27/24 11/27/24 22:59 06:59 14:59 Intake Total 170 / 1340 1106.667 / 2446.667 Output Total 1000 / 1000 200 / 1200 Balance -830 / 340 906.667 / 1246.667 Weight last 48 hrs Weight 179 lb Weight 176 lb 12.8 oz Physical Exam 2 Narrative: General : Patient is well developed , no acute distress, oriented x3 Head : Normal cephalic, a-traumatic. Ears : Pinnae and external canal are normal. Hearing is normal. Eyes : PERRLA, Sclera and injection are normal. No conjunctival discharge. Nose : Mucous membranes are without erythema. Throat : buccal mucosa is normal, gums are without significant recession or hypertrophy. Lungs : Equal chest rise bilaterally, no use of accessory muscles, trachea is midline. Cor : Rate and rhythm are normal. Abdomen : Soft, ND, NT, no g/r/m Extremities : No edema, no cyanosis or clubbing, dorsalis pedis pulses are present bilaterally, non-tender to palpation of calves. . Back : non-tender to palpation, no CVA tenderness. Neuro : Right MCA CVA Urinary Catheter Management: Cuadra: Cath Placed During This Visit: yes Reason for Continuing Indwelling Catheter: Acute Urinary Retention or Obstruction Urinary Catheter Date of Insertion: 11/24/24 Urinary Catheter Time of Insertion: 03:42 Data 11/27/24 06:00 11/27/24 06:00 A&P Assessment and plan (1) GI bleed: (2) Iron deficiency anemia: (3) Acute anemia: (4) Dysphagia: (5) Acute right MCA stroke: Plan I am going out of town and Dr. Conteh will be covering for general surgery. I have discussed this patient with him. Plan is for EGD and PEG tube placement tomorrow morning Okay for diet today N.p.o. after midnight Medical management per hospitalist Coding Level of Care Code 99687 Diagnoses GI bleed K92.2 Iron deficiency anemia D50.9 Acute anemia D64.9 Dysphagia R13.10 Acute right MCA stroke I63.511
--- NOTE | 2024-11-27 10:31 | PC.SOCIAL ---
IMM Update Pg. 2 of IMM updated. Initialed, dated, and timed, copy placed in chart. Copy provided at bedside.
[2024-11-27] MEDS: pantoprazole 40 mg SDV IVP ×2 (10:36→20:26)
[2024-11-27] MEDS: aspirin 81 mg EC Tablet PO (10:36)
[2024-11-27] MEDS: HYDROmorphone 1 mg/mL INJ 1 mL IVP (10:37)
[2024-11-27 11:24] LABS: Glucose Point of Care 129 mg/dL (70-110)
--- NOTE | 2024-11-27 14:14 | P.PN_ITS ---
Subjective 2 Subjective: patient was seen this morning, daughter at bedside, i again had a detail discussion. Debby has had a poor appetitie and coutinue to have episodes of cough with her meals. Daughter at bedside is giving her water, discussed with daughter the importance of adhering to mild to moderately thickened fluids to decrease risk of aspiration. Her cxray shows bilateral infiltrates and continuous to have a cough i am high suspicious that she coutinue to have microaspiration. Patient and daughter are would like to avoid peg tube and are hesitant. I had a detailed discussion that as she is on a dysphagia level diet, she has a poor appetite, and she has a risk of aspiration she will need a peg tube placement for feeding so she can get her calorie intake, protein intake, eletrolytes she needs. My worries is that she needs the energy, muscle, calories for increased demands of physical therapy and rehab.If we want her to do well overall she will need peg tiue feeding, for her minimal requirements, while speech therapy continuos to work on her swallowing over a few weeks. If we want her to do well after her stroke in terms of rehab, energy, decrease risk of readmission, decrease risk of dehydration, muscle loss, malnutrition, risk of aspiration, she will need temporary nutrition via peg tube. Patient has developed stage 1 pressure sore, we need to ensure repositioning and increased protein intake. Patient would like to go to [facility] after extensive discussion. Vitals/I&O/Wt Last Vital Signs Temp 98.0 F 11/27/24 11:46 Pulse 87 11/27/24 11:46 Resp 14 11/27/24 11:46 BP 144/67 11/27/24 11:46 Pulse Ox 94 11/27/24 11:46 O2 Del Method Nasal Cannula 11/27/24 11:46 O2 Flow Rate 2 11/27/24 08:42 11/26/24 11/27/24 11/27/24 22:59 06:59 14:59 Intake Total 170 / 1340 1106.667 / 2446.667 Output Total 1000 / 1000 200 / 1200 Balance -830 / 340 906.667 / 1246.667 Weight last 48 hrs Weight 81.193 kg Weight 80.195 kg Physical Exam 2 Const: COMMON NORMALS: no acute distress ORIENTATION/CONSCIOUSNESS: Yes awake, Yes oriented to person and Yes oriented to place Neck/C-Spine: COMMON NORMALS: no JVD Resp: COMMON NORMALS: normal respiratory effort, No retractions, No use of accessory muscles and clear to auscultation bilaterally AUSCULTATION: clear to auscultation bilaterally Cardio: COMMON NORMALS: no JVD, regular rate, regular rhythm, S1 normal heart sound present and S2 normal heart sound present RATE: regular rate RHYTHM: regular rhythm HEART SOUNDS: S1 normal heart sound present and S2 normal heart sound present GI: COMMON NORMALS: Normal to inspection, nondistended, normoactive bowel sounds present and non-tender Extremity: COMMON NORMALS: no pedal edema Neuro: SENSORIUM/ORIENTATION: Yes oriented to person and Yes oriented to place Urinary Catheter Management: Cuadra: Cath Placed During This Visit: yes Reason for Continuing Indwelling Catheter: Acute Urinary Retention or Obstruction Urinary Catheter Date of Insertion: 11/24/24 Urinary Catheter Time of Insertion: 03:42 Data 11/27/24 06:00 11/27/24 06:00 A&P Assessment and plan (1) Acute right MCA stroke: (2) Acute anemia: (3) GI bleed: (4) Acute hypoxic respiratory failure: (5) COVID-19: (6) NSTEMI (non-ST elevated myocardial infarction): (7) D-dimer, elevated: (8) Aspiration pneumonia: (9) Pneumothorax on left: (10) Left rib fracture: Plan Acute right MCA CVA MR/MR head wo con* [id number] IMPRESSION: 1. Consistent with a large, acute right MCA territory infarct involving the right frontal lobe. 2. Moderate white matter microangiopathic change. -CTA head and neck no large vessel occlusion -CT had no acute bleed -Out of tPA window -Left-sided hemiplegia, improving -Plan -Statins -Aspirin -Neuro checks, NIH stroke scale, aspiration precautions -PT OT -Allow for permissive hypertension treat systolic of greater than 220?if greater than 120 -Will consider aspirin however there is concerns for acute anemia and GI bleed -Full code -S CDs for DVT prophylaxis, Lovenox on hold given acute anemia Acute anemia -Concerns for slow GI bleed -Evidence of iron deficiency anemia -Continue Protonix 40 IV twice daily -Hemoccult stool, monitor hemodynamics -Status post 2 unit PRBC, ? Hemoglobin now 9.9 COVID-19 -Is on 2 L, afebrile no leukocytosis CT chest findings given groundglass opacities -Given acute CVA we will hold off on treatment with steroids, remdesivir -But will consider based on clinical progress Small anterior left pneumothorax -Chest x-ray this morning resolved -Likely traumatic from rib fractures -Continue to do daily chest x-rays -Currently on 2 L, resting comfortably Rib fractures Acute, mildly displaced nonsegmental fractures of the left lateral 6th, 7th, 8th and 9th ribs -Continue conservative intervention -Morphine for pain control Concerns for aspiration pneumonia -Given CVA as above, CT chest findings -Aspiration precautions, seen by speech therapy FL/FL barium swallow modifd [id number] Impression: 1. Increased oral preparation. 2. Premature spillage into the vallecula and piriform sinuses. 3. Penetration with thin liquids but no aspiration. 4. Long hesitation of the barium tablet at the gastroesophageal junction. -Continue Zosyn -Currently on dysphagia level 4 diet Elevated D-dimer, as above NSTEMI, chest pain complaints -Serial EKGs,*troponins, telemetry monitoring Plan for today pt ot, speech therapy Attestations 2 Medical Necessity Statement*: patient requires hospitalization for acute cva Diagnoses Acute right MCA stroke I63.511 Acute anemia D64.9 GI bleed K92.2 Acute hypoxic respiratory failure J96.01 COVID-19 U07.1 NSTEMI (non-ST elevated myocardial infarction) I21.4 D-dimer, elevated R79.89 Aspiration pneumonia J69.0 Pneumothorax on left J93.9 Left rib fracture S22.32XA
[2024-11-27] MEDS: metoclopramide 5 mg/mL SDV 2 mL IVP (14:45)
[2024-11-27] MEDS: HYDROcodone-acetaminophen 5-325 mg Tablet 1 TAB PO (14:46)
[2024-11-27 16:48] LABS: Glucose Point of Care 133 mg/dL (70-110)
[2024-11-27] MEDS: amoxicillin-clav 875-125 mg Tablet 1 TAB PO (17:21)
[2024-11-27] MEDS: atorvastatin 40 mg Tablet PO (20:26)
[2024-11-27] MEDS: mirtazapine 15 mg Tablet PO (20:26)
[2024-11-27] MEDS: amlodipine 5 mg Tablet PO (20:26)
[2024-11-27 23:27] LABS: Glucose Point of Care 102 mg/dL (70-110)
[2024-11-28] VITALS (8 sets, daily range): BP systolic 135–179; BP diastolic 69–78; PULSE 83–103; RESP 15–18; TEMP 36.4–37.4; O2SAT 93–98
[2024-11-28] MEDS: sucralfate 1 gm/10 mL Oral Liq UDC PO ×4 (01:39→20:01)
[2024-11-28 04:42] LABS: Glucose Point of Care 115 mg/dL (70-110)
[2024-11-28 05:25] LABS: Basophils % 0.4 %; Eosinophils # 0.1 10^3/uL (0.0-0.8); Eosinophils % 4.3 %; Hematocrit 29.7 % (36-47); Lymphocytes # 0.7 10^3/uL (0.8-4.8); Lymphocytes % 24.3 %; Monocytes # 0.4 10^3/uL (0.2-0.9); Neutrophils # 1.56 10^3/uL (1.8-7.7); Neutrophils % 56.6 %; Nucleated Red Blood Cells % 0 %; Platelet Count 133 10^3/cmm (157-399); Red Blood Count 3.91 10^6/uL (3.85-5.65); Red Cell Distribution Width 21.9 % (12.1-15.1); White Blood Count 2.76 10^3/uL (3.29-11.43)
[2024-11-28 05:46] LABS: Anion Gap 9.3 (5-19); Blood Urea Nitrogen 15 mg/dL (8-23); Calcium 8.4 mg/dL (8.5-10.5); Carbon Dioxide 27 mmol/L (22-29); Chloride 108 mmol/L (98-107); Creatinine Clr Calc Pharmacy 54.2057; Glucose 100 mg/dL (65-115); Osmolality Calculated 293 mOsm/kg (285-295); Potassium 3.3 mmol/L (3.5-5.1); Sodium 141 mmol/L (136-145)
[2024-11-28] MEDS: pantoprazole 40 mg SDV IVP ×2 (08:41→20:01)
[2024-11-28] MEDS: lidocaine 1% 5 ML in potassium chloride premix 100 ML 52.5 ML IV (08:41)
[2024-11-28] MEDS: aspirin 81 mg EC Tablet PO (08:42)
[2024-11-28] MEDS: amoxicillin-clav 875-125 mg Tablet 1 TAB PO ×2 (08:42→17:22)
[2024-11-28] MEDS: chlorthalidone 25 mg Tablet PO (08:45)
[2024-11-28 10:54] LABS: Glucose Point of Care 96 mg/dL (70-110)
--- NOTE | 2024-11-28 14:22 | P.PN_ITS ---
Subjective 2 Subjective: - Patient was examined this morning -She is alert to person, to place, not t o time, but follows commands -Overnight afebrile, normotensive, -She has no significant complaints this morning -We had a detailed discussion with her a bout her malnutrition, her poor oral intake, and her CVA her risk of aspiration -She is unsure about PEG tube placement -I asked her what is her reservations ar e about her PEG tube placement to help with nutrition, she tells me she does not know about it, she is worried about it hurting -I had a detailed discussion with her ab out the risks and benefits of PEG tube placement, and have had these multiple discussion with her and her family, however at the end of that she tells me that she is still unsure and for now she would hope want to hold off on PEG tube placement -I discussed with her that certainly thi s is up to her, she is of sound mind and she can make her own decisions -And we can continue to encourage p.o. i ntake monitor nutritional status and certainly can consider PEG tube placement as outpatient -However my concern is her present malnu trition and her poor oral intake her risk of dehydration muscle loss, we would rather prevent this from happening and get ahead of this then starting it too late -I would rather optimize her nutrition s o she does well with physical therapy, does well with rehab, so that she could hopefully progress with physical therapy, and do well for from her CVA, and do well overall -But my worry is is that if her nutritio nal status is not progressing or is the same as it has been over the last few days she will develop bedsores, protein calorie malnutrition, physical deconditioning, dehydration, electrolyte abnormalities, vitamin deficiencies and overall not do well after her acute CVA, and I am also worried about her high risk of aspiration as her chest x-ray continues to show bilateral infiltrates in both lungs, and we have to adhere to her dysphagia level 6 diet moderately thickened -However after this detailed discussion she tells me she wants to think about it, and see how she does with oral nutrition -I discussed her case in detail with sagar araujo, who also feels that patient is not getting enough calorie/ nutritions, not enough protein, will try to optimize her protein shakes, different regimens to ensure that she can get her protein shakes potentially mixed with milkshake -Discussed with speech therapy who is al so concerned about patient is aspiration risk, her not getting enough nutrition, -I also discussed the case with patient' s daughter, I discussed my concerns and nutritions concerns, speech therapy is concerned however they want to continue working on oral nutrition, discussed plans on working on placing her at [place], agreeable there was plans on EGD placement today family is wondering why it was canceled, discussed anesthesia's concerns of aerosolization of COVID Vitals/I&O/Wt Last Vital Signs Temp 98.1 F 11/28/24 11:15 Pulse 83 11/28/24 13:23 Resp 16 11/28/24 11:15 BP 158/78 11/28/24 11:15 Pulse Ox 96 11/28/24 11:15 O2 Del Method Room Air 11/28/24 11:15 O2 Flow Rate 2 11/28/24 08:03 11/27/24 11/28/24 11/28/24 22:59 06:59 14:59 Intake Total 240 / 876.667 465 / 465 Output Total 800 / 800 400 / 1200 Balance -560 / 76.667 -400 / -323.333 465 / 465 Weight last 48 hrs Weight 82.724 kg Weight 81.465 kg Weight 81.193 kg Physical Exam 2 Const: COMMON NORMALS: no acute distress HENMT: OTHER: Left facial droop Resp: COMMON NORMALS: normal respiratory effort, No retractions and No use of accessory muscles AUSCULTATION: wheezes Cardio: COMMON NORMALS: regular rate, regular rhythm, S1 normal heart sound present and S2 normal heart sound present RATE: regular rate RHYTHM: r egular rhythm HEART SOUNDS: S1 normal heart sound present and S2 normal heart sound present GI: COMMON NORMALS: Normal to inspection, nondistended, normoactive bowel sounds present and non-tender Extremity: COMMON NORMALS: no pedal edema Neuro: OTHER: Alert to person, to place, not to time Psych: COMMON NORMALS: mental status grossly normal Urinary Catheter Management: Cuadra: Cath Placed During This Visit: yes Reason for Continuing Indwelling Catheter: Acute Urinary Retention or Obstruction Urinary Catheter Date of Insertion: 11/24/24 Urinary Catheter Time of Insertion: 03:42 Data 11/28/24 04:59 11/28/24 04:59 A&P Assessment and plan (1) Acute right MCA stroke: (2) Acute anemia: (3) GI bleed: (4) Acute hypoxic respiratory failure: (5) COVID-19: (6) NSTEMI (non-ST elevated myocardial infarction): (7) D-dimer, elevated: (8) Aspiration pneumonia: (9) Pneumothorax on left: (10) Left rib fracture: Plan Acute right MCA CVA MR/MR head wo con* [id number] IMPRESSION: 1. Consistent with a large, acute right MCA territory infarct involving the right frontal lobe. 2. Moderate white matter microangiopathic change. -CTA head and neck no large vessel occlusion -CT had no acute bleed -Out of tPA window -Left-sided hemiplegia, improving -Plan -Statins -Aspirin -Neuro checks, NIH stroke scale, aspiration precautions -PT OT ? Will require intermediate placement ? Patient declines PEG tube placement for nutrition ? Speech therapy consulted ? Dietary consulted ? Patient is high risk of malnutrition, dehydration, aspiration -Completed permissive hypertension add on p.o. blood pressure medications -\ -S CDs for DVT prophylaxis, Lovenox on hold given acute anemia Acute anemia -Concerns for slow GI bleed -Evidence of iron deficiency anemia -Continue Protonix 40 IV twice daily -Hemoccult stool, monitor hemodynamics -Status post 2 unit PRBC, ? Hemoglobin now 8.5 COVID-19, relatively asymptomatic -Is on 2 L, afebrile no leukocytosis, no shortness of breath CT chest findings given groundglass opacities -Given acute CVA we will hold off on treatment with steroids, remdesivir Small anterior left pneumothorax -Chest x-ray this morning resolved -Likely traumatic from rib fractures -Continue to do daily chest x-rays -Currently on 2 L, resting comfortably Rib fractures Acute, mildly displaced nonsegmental fractures of the left lateral 6th, 7th, 8th and 9th ribs -Continue conservative intervention -Morphine for pain control Concerns for aspiration pneumonia -Given CVA as above, CT chest findings -Aspiration precautions, seen by speech therapy FL/FL barium swallow modifd [id number] Impression: 1. Increased oral preparation. 2. Premature spillage into the vallecula and piriform sinuses. 3. Penetration with thin liquids but no aspiration. 4. Long hesitation of the barium tablet at the gastroesophageal junction. -De-escalate to Augmentin -Currently on dysphagia level 6 diet, mildly thickened, discussed with family to not give her thin liquids due to high aspiration risk Elevated D-dimer, as above NSTEMI, chest pain complaints -Serial EKGs,*troponins, telemetry monitoring Plan for today pt ot, speech therapy Attestations 2 Medical Necessity Statement*: Patient requires hospitalization for acute CVA Diagnoses Acute right MCA stroke I63.511 Acute anemia D64.9 GI bleed K92.2 Acute hypoxic respiratory failure J96.01 COVID-19 U07.1 NSTEMI (non-ST elevated myocardial infarction) I21.4 D-dimer, elevated R79.89 Aspiration pneumonia J69.0 Pneumothorax on left J93.9 Left rib fracture S22.32XA
--- NOTE | 2024-11-28 14:52 | ECG_ITS ---
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 Measurements Intervals [place] Rate: 100 P: 34 IA: 124 QRS: 43 QRSD: 86 T: 53 QT: 363 QTc: 470 Interpretive Statements SINUS TACHYCARDIA WITH OCCASIONAL VENTRICULAR PREMATURE COMPLEXES NONSPECIFIC ST & T-WAVE ABNORMALITY Compared to ECG 11/23/2024 15:07:24 Ventricular premature complex(es) now present T-wave abnormality now present Sinus rhythm no longer present Electronically Signed On 11-28-2024 16:07:50 STORAGE MANAGER by Steven Gamez M.D. [email or web address]
--- NOTE | 2024-11-28 15:01 | PC.NURSE ---
Pt complaining of chest pain, midsternal and non raidiating. States, Feels like my chest is caving in. EKG done at this time. Dr. Kemp advised. Awaiting further orders.
--- NOTE | 2024-11-28 15:03 | XRR_ITS ---
PROCEDURE INFORMATION: Exam: XR Chest Exam date and time: 11/28/2024 3:44 PM Age: 84 years old Clinical indication: Shortness of breath; Additional info: SOB TECHNIQUE: Imaging protocol: Radiologic exam of the chest. Views: 1 view. COMPARISON: CR (CHEST, ) 11/27/2024 7:40 AM FINDINGS: Lungs: New/increasing left basilar consolidation is present, consistent with atelectasis, edema, and/or pneumonia. There is mild right basilar atelectasis versus pneumonitis improved compared to the prior film. Pulmonary vascularity is within normal limits. Pleural spaces: There is a probable small left pleural effusion. There is no evidence of pneumothorax. Heart/Mediastinum: The heart is enlarged. Bones/joints: No acute abnormality. XR/XR chest 1V portable [id number] IMPRESSION: 1. New/increasing left basilar consolidation is present, consistent with atelectasis, edema, and/or pneumonia. Larger left pleural effusion. 2. There is mild right basilar atelectasis versus pneumonitis improved compared to the prior film.
--- NOTE | 2024-11-28 15:03 | USCV_ITS ---
Agustin Elliotdamien Age: 84 Gender: F : 1940 Exam Date: 11/28/2024 15:21 Ordering Phys: Santhosh Kemp MD Technologist: NANO Exam Location: [facility] – [place] Indication: Swelling HISTORY: Lower extremity swelling. PROCEDURES: Venous duplex imaging was performed in bilateral lower extremities. The following venous structures were evaluated: common femoral vein, profunda vein, proximal portion of the greater saphenous vein, superficial femoral vein, and the popliteal vein. In addition, the posterior tibial and peroneal trunk were evaluated. Serial compression, augmentation maneuvers, and spectral Doppler flow evaluation were performed. FINDINGS: No evidence of DVT seen in any vessel visualized at this time. CONCLUSIONS No evidence of right lower extremity DVT. No evidence of left lower extremity DVT. Nestor Parada MD (Electronically Signed) Final Date: 29 November 2024 08:50 S
[2024-11-28] MEDS: HYDROcodone-acetaminophen 5-325 mg Tablet 1 TAB PO (15:12)
[2024-11-28 16:29] LABS: Troponin(5th) Baseline 13 ng/L (0-10)
[2024-11-28 16:37] LABS: NT Pro B Type Natriuretic Pept 785 pg/mL (0-450)
[2024-11-28 16:40] LABS: Glucose Point of Care 105 mg/dL (70-110)
--- NOTE | 2024-11-28 17:03 | ECG_ITS ---
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 Measurements Intervals [place] Rate: 95 P: 40 VA: 139 QRS: 48 QRSD: 84 T: 36 QT: 364 QTc: 458 Interpretive Statements SINUS RHYTHM NONSPECIFIC T-WAVE ABNORMALITY Compared to ECG 11/28/2024 14:58:42 Sinus tachycardia no longer present Ventricular premature complex(es) no longer present T-wave abnormality still present Electronically Signed On 12-01-2024 13:35:55 BUSINESS ANALYTICS SPECIALIST by Rell Palomo M.D. [id number]
[2024-11-28 18:20] LABS: Troponin 5 2HR 13.67 ng/L (0-10); Troponin 5 2HR Delta 0.67 ABS# (0-10)
[2024-11-28] MEDS: atorvastatin 40 mg Tablet PO (20:01)
[2024-11-28] MEDS: mirtazapine 15 mg Tablet PO (20:01)
[2024-11-28] MEDS: amlodipine 5 mg Tablet PO (20:01)
[2024-11-28 20:25] LABS: Glucose Point of Care 100 mg/dL (70-110)
--- NOTE | 2024-11-28 21:03 | ECG_ITS ---
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 Measurements Intervals [place] Rate: 88 P: 28 MS: 134 QRS: 47 QRSD: 84 T: 10 QT: 373 QTc: 452 Interpretive Statements SINUS RHYTHM NONSPECIFIC T-WAVE ABNORMALITY Compared to ECG 11/28/2024 16:59:07 No significant changes Electronically Signed On 12-01-2024 13:35:58 BUN PANNER by Rell Palomo M.D. [id number]
[2024-11-28 22:24] LABS: Troponin 5 6HR 13.36 ng/L (0-10); Troponin 5 6HR Delta 0.36 ng/L (0-12)
[2024-11-29] VITALS (9 sets, daily range): BP systolic 110–183; BP diastolic 57–81; PULSE 88–95; RESP 16–24; TEMP 36.4–37.1; O2SAT 92–96
[2024-11-29 01:23] LABS: Glucose Point of Care 93 mg/dL (70-110)
[2024-11-29 05:00] LABS: Basophils % 0.3 %; Eosinophils % 1.3 %; Hematocrit 31.4 % (36-47); Lymphocytes # 0.7 10^3/uL (0.8-4.8); Lymphocytes % 22.9 %; Mean Corpuscular HGB Conc 28.7 g/dL (30-55); Mean Corpuscular Hemoglobin 21.4 pg (27-33); Mean Corpuscular Volume 74.8 fl (85-98); Mean Platelet Volume 11.2 fL (7.4-10.4); Monocytes # 0.4 10^3/uL (0.2-0.9); Monocytes % 13.8 %; Neutrophils # 1.94 10^3/uL (1.8-7.7); Neutrophils % 60.8 %; Nucleated Red Blood Cells % 0 %; Platelet Count 130 10^3/cmm (157-399); Red Cell Distribution Width 21.8 % (12.1-15.1); White Blood Count 3.19 10^3/uL (3.29-11.43)
[2024-11-29 05:22] LABS: Alanine Aminotransferase 19 U/L (0-33); Alkaline Phosphatase 63 U/L (35-105); Anion Gap 15.4 (5-19); Aspartate Amino Transferase 29 U/L (0-32); Blood Urea Nitrogen 15 mg/dL (8-23); Calcium 8.5 mg/dL (8.5-10.5); Carbon Dioxide 26 mmol/L (22-29); Chloride 103 mmol/L (98-107); Creatinine Clr Calc Pharmacy 54.6475; Globulin 2.8 g/dL (1.3-4.6); Glucose 94 mg/dL (65-115); Magnesium 1.5 mg/dL (1.7-2.3); Osmolality Calculated 293 mOsm/kg (285-295); Phosphorus 3.3 mg/dL (2.5-4.5); Potassium 3.4 mmol/L (3.5-5.1); Sodium 141 mmol/L (136-145); Total Bilirubin 0.5 mg/dL (0.15-1.2); Total Protein 5.8 g/dL (6.6-8.7)
[2024-11-29 05:23] LABS: Slide Review Slide Review Perform
[2024-11-29 05:58] LABS: Glucose Point of Care 90 mg/dL (70-110)
[2024-11-29] MEDS: lidocaine 1% 5 ML in potassium chloride premix 100 ML 52.5 ML IV (09:25)
[2024-11-29] MEDS: amoxicillin-clav 875-125 mg Tablet 1 TAB PO (09:25)
[2024-11-29] MEDS: HYDROcodone-acetaminophen 5-325 mg Tablet 1 TAB PO (09:26)
[2024-11-29] MEDS: aspirin 81 mg EC Tablet PO (09:26)
[2024-11-29] MEDS: magnesium sulfate premix 1 GM/100 ML PIGGYBACK IV (09:26)
[2024-11-29] MEDS: pantoprazole 40 mg SDV IVP ×2 (09:26→21:29)
[2024-11-29] MEDS: FUROsemide 10 mg/mL SDV 2mL 20 MG IVP ×2 (09:27→14:48)
[2024-11-29] MEDS: amlodipine 5 mg Tablet PO ×2 (09:27)
[2024-11-29] MEDS: amlodipine 5 mg Tablet 10 MG PO (09:27)
[2024-11-29] MEDS: sucralfate 1 gm/10 mL Oral Liq UDC PO (09:27)
[2024-11-29] MEDS: chlorthalidone 25 mg Tablet PO (10:15)
--- NOTE | 2024-11-29 10:18 | PC.SOCIAL ---
IMM Updated Updated pt on IMM. No questions voiced. Provided pt a copy. Initialed, dated, & timed copy in chart.
[2024-11-29 10:50] LABS: Glucose Point of Care 103 mg/dL (70-110)
[2024-11-29 11:16] LABS: NT Pro B Type Natriuretic Pept 525 pg/mL (0-450); Procalcitonin 0.12 ng/mL (0-0.5)
[2024-11-29 11:27] LABS: C Reactive Protein 16.1 mg/L (0.0-4.9)
[2024-11-29] MEDS: piperacillin-tazobactam 3.375 GM in sodium chloride 0.9% (plus) 50 ML IV ×2 (11:39→16:51)
--- NOTE | 2024-11-29 13:48 | PC.NURSE ---
Daughter administered thinned liquids to the patient, despite the care plan indicating thickened liquids. This RN discussed importance of adhering to the thickened liquid protocol to prevent aspiration and ensure safety. Daughter states, there is thickener in the window if we need it. Notified Dr. Kemp.
--- NOTE | 2024-11-29 14:27 | P.PN_ITS ---
Subjective 2 Subjective: Patient was seen this morning, he is alert to person, to place, not to time, she did work with physical therapy this morning, does complain of left-sided chest wall pain, discussed her rib fractures, she does report that her cough is increasing, discussed my concerns for her developing a left lower lobe infiltrate pneumonia, likely related to aspiration in combination related to atelectasis from her rib fractures, will start antibiotics 1 dose IV Lasix, will monitor her respiratory status closely, discussed with nursing staff up out of bed into a chair, reposition every 2 hours, as her pneumothorax has resolved, she has been started on flutter valve, incentive spirometer Vitals/I&O/Wt Last Vital Signs Temp 98.6 F 11/29/24 11:16 Pulse 93 11/29/24 14:03 Resp 18 11/29/24 14:03 BP 163/81 11/29/24 11:16 Pulse Ox 93 11/29/24 14:03 O2 Del Method Nasal Cannula 11/29/24 14:03 O2 Flow Rate 3 11/29/24 14:03 11/28/24 11/29/24 11/29/24 22:59 06:59 14:59 Intake Total 160 / 625 120 / 745 305 / 305 Output Total 1200 / 1200 400 / 1600 Balance -1040 / -575 -280 / -855 305 / 305 Weight last 48 hrs Weight 82.826 kg Weight 82.724 kg Weight 81.465 kg Physical Exam 2 Const: COMMON NORMALS: no acute distress Resp: COMMON NORMALS: normal respiratory effort, No retractions and No use of accessory muscles OTHER: Left lower extremity, wheezing, crackles Cardio: COMMON NORMALS: regular rate, regular rhythm, S1 normal heart sound present and S2 normal heart sound present RATE: regular rate RHYTHM: r egular rhythm HEART SOUNDS: S1 normal heart sound present and S2 normal heart sound present GI: COMMON NORMALS: Normal to inspection, nondistended, normoactive bowel sounds present and non-tender Extremity: COMMON NORMALS: capillary refill normal and no pedal edema Psych: COMMON NORMALS: mental status grossly normal Urinary Catheter Management: Cuadra: Cath Placed During This Visit: yes Reason for Continuing Indwelling Catheter: Acute Urinary Retention or Obstruction Urinary Catheter Date of Insertion: 11/24/24 Urinary Catheter Time of Insertion: 03:42 Data 11/29/24 04:31 11/29/24 04:31 A&P Assessment and plan (1) Acute right MCA stroke: (2) Acute anemia: (3) GI bleed: (4) Acute hypoxic respiratory failure: (5) COVID-19: (6) NSTEMI (non-ST elevated myocardial infarction): (7) D-dimer, elevated: (8) Aspiration pneumonia: (9) Pneumothorax on left: (10) Left rib fracture: Plan Acute right MCA CVA MR/MR head wo con* [id number] IMPRESSION: 1. Consistent with a large, acute right MCA territory infarct involving the right frontal lobe. 2. Moderate white matter microangiopathic change. -CTA head and neck no large vessel occlusion -CT had no acute bleed -Out of tPA window -Left-sided hemiplegia, improving -Plan -Statins -Aspirin -Neuro checks, NIH stroke scale, aspiration precautions -PT OT ? Will require group home placement ? Patient declines PEG tube placement for nutrition ? Speech therapy consulted ? Dietary consulted ? Patient is high risk of malnutrition, dehydration, aspiration -Completed permissive hypertension add on p.o. blood pressure medications -SCDs for DVT prophylaxis, Lovenox on hold given acute anemia Acute anemia -Concerns for slow GI bleed -Evidence of iron deficiency anemia -Continue Protonix 40 IV twice daily -Hemoccult stool, monitor hemodynamics -Status post 2 unit PRBC, ? Hemoglobin now 8.5 COVID-19, relatively asymptomatic -Is on 2 L, afebrile no leukocytosis, no shortness of breath CT chest findings given groundglass opacities -Given acute CVA we will hold off on treatment with steroids, remdesivir Small anterior left pneumothorax -Chest x-ray this morning resolved -Likely traumatic from rib fractures -Continue to do daily chest x-rays -Currently on 2 L, resting comfortably Rib fractures, complains of left-sided chest discomfort Acute, mildly displaced nonsegmental fractures of the left lateral 6th, 7th, 8th and 9th ribs -Continue conservative intervention -Morphine for pain control Concerns for aspiration pneumonia -Given CVA as above, CT chest findings -Aspiration precautions, seen by speech therapy FL/FL barium swallow modifd 10060 Impression: 1. Increased oral preparation. 2. Premature spillage into the vallecula and piriform sinuses. 3. Penetration with thin liquids but no aspiration. 4. Long hesitation of the barium tablet at the gastroesophageal junction. -De-escalate to Augmentin -Currently on dysphagia level 6 diet, mildly thickened, discussed with family to not give her thin liquids due to high aspiration risk Now with developing pneumonia left lower lobe with pulmonary edema, left pleural effusion -Start Zosyn -Incentive spirometer -Flutter valve -Up out of bed -Lasix Elevated D-dimer, as above NSTEMI, chest pain complaints -Serial EKGs,*troponins, telemetry monitoring Sacral DTI, monitor Plan for today pt ot, speech therapy Attestations 2 Medical Necessity Statement*: Patient requires hospitalization for acute right-sided CVA, acute anemia, small anterior left pneumothorax, rib fractures, aspiration pneumonia now developing left lower lobe pneumonia with pulm edema left pleural effusion Diagnoses Acute right MCA stroke I63.511 Acute anemia D64.9 GI bleed K92.2 Acute hypoxic respiratory failure J96.01 COVID-19 U07.1 NSTEMI (non-ST elevated myocardial infarction) I21.4 D-dimer, elevated R79.89 Aspiration pneumonia J69.0 Pneumothorax on left J93.9 Left rib fracture S22.32XA
[2024-11-29] MEDS: lisinopril 20 mg Tablet 10 MG PO (14:48)
[2024-11-29] MEDS: potassium chloride ER 20 mEq Tablet PO (14:48)
[2024-11-29 15:04] LABS: Glucose Point of Care 98 mg/dL (70-110)
[2024-11-29] MEDS: morphine 4 mg/mL SDV 1 mL 2 MG IVP (17:20)
[2024-11-29 18:08] LABS: Bilirubin Urine Negative (Negative); Blood Urine Negative (Negative); Glucose Urine UA Negative (Normal); Ketones Urine 2+ (Negative); Leukocyte Esterase Urine Negative (Negative); Nitrate Urine Negative (Negative); Protein Urine Negative (Negative); Specific Gravity, Urine 1.015 (1.005-1.030); Urine Appearance Clear (CLEAR); Urine Color Yellow (Yellow); pH Urine 5.5 (5-7)
[2024-11-29 18:11] LABS: Add Urine Microscopic? YES; Bacteria Urine None Seen /hpf; Hyaline Casts Urine 8.26 /lpf; RBC Urine 0-2 /hpf (0-2); Squamous Epithelial Cell Urine 0-5 /hpf (0-5); WBC Urine 0-5 /hpf (0-5)
[2024-11-29 18:22] LABS: Add Urine Culture? No; UA Slide Review UA Slide Review Perf
[2024-11-29] MEDS: mirtazapine 15 mg Tablet PO (21:29)
[2024-11-29] MEDS: atorvastatin 40 mg Tablet PO (21:29)
[2024-11-30] VITALS (11 sets, daily range): BP systolic 106–119; BP diastolic 50–84; PULSE 87–101; RESP 15–22; TEMP 36.4–37.6; O2SAT 90–95
[2024-11-30] MEDS: morphine 4 mg/mL SDV 1 mL 2 MG IVP ×2 (01:02→14:56)
[2024-11-30] MEDS: piperacillin-tazobactam 3.375 GM in sodium chloride 0.9% (plus) 50 ML IV ×3 (02:55→18:00)
[2024-11-30] MEDS: lisinopril 20 mg Tablet 10 MG PO ×2 (02:55→14:19)
[2024-11-30 03:21] LABS: Basophils % 0.8 %; Eosinophils % 0.8 %; Hematocrit 33.1 % (36-47); Lymphocytes # 0.7 10^3/uL (0.8-4.8); Lymphocytes % 19.3 %; Mean Corpuscular Hemoglobin 21.6 pg (27-33); Mean Corpuscular Volume 74.5 fl (85-98); Mean Platelet Volume 11.5 fL (7.4-10.4); Monocytes # 0.6 10^3/uL (0.2-0.9); Monocytes % 14.4 %; Neutrophils # 2.46 10^3/uL (1.8-7.7); Neutrophils % 64.2 %; Nucleated Red Blood Cells % 0 %; Platelet Count 141 10^3/cmm (157-399); Red Blood Count 4.44 10^6/uL (3.85-5.65); Red Cell Distribution Width 22.4 % (12.1-15.1); White Blood Count 3.83 10^3/uL (3.29-11.43)
[2024-11-30 03:46] LABS: Alanine Aminotransferase 19 U/L (0-33); Albumin Level 3.2 g/dL (3.5-5.2); Alkaline Phosphatase 74 U/L (35-105); Aspartate Amino Transferase 32 U/L (0-32); Blood Urea Nitrogen 25 mg/dL (8-23); Calcium 8.3 mg/dL (8.5-10.5); Carbon Dioxide 24 mmol/L (22-29); Chloride 98 mmol/L (98-107); Creatinine Clr Calc Pharmacy 54.6475; Globulin 2.4 g/dL (1.3-4.6); Glucose 93 mg/dL (65-115); Magnesium 1.8 mg/dL (1.7-2.3); Osmolality Calculated 292 mOsm/kg (285-295); Phosphorus 4.9 mg/dL (2.5-4.5); Sodium 139 mmol/L (136-145); Total Bilirubin 0.5 mg/dL (0.15-1.2); Total Protein 5.6 g/dL (6.6-8.7)
[2024-11-30 04:04] LABS: Anion Gap 20.5 (5-19); Potassium 3.5 mmol/L (3.5-5.1)
[2024-11-30] MEDS: chlorthalidone 25 mg Tablet PO (08:36)
[2024-11-30] MEDS: aspirin 81 mg EC Tablet PO (08:36)
[2024-11-30] MEDS: pantoprazole 40 mg SDV IVP ×2 (08:36→20:21)
[2024-11-30] MEDS: amlodipine 5 mg Tablet 10 MG PO (08:36)
[2024-11-30] MEDS: ondansetron 2 mg/ML SDV 2 mL 4 MG IVP (08:39)
[2024-11-30 09:27] LABS: NT Pro B Type Natriuretic Pept 447 pg/mL (0-450)
[2024-11-30 10:34] LABS: Glucose Point of Care 92 mg/dL (70-110)
--- NOTE | 2024-11-30 14:35 | P.PN_ITS ---
Subjective 2 Subjective: Patient was seen this morning she is alert to person, to place, not to time she follows all commands, no acute events overnight she tells me she is breathing much easier, reports poor appetite she did not have much of her breakfast this morning, nursing staff report that she had a little bit of dinner, no breakfast this morning, discussed importance with patient about proving her diet improving protein intake, as she has a high risk of developing dehydration, protein calorie malnutrition, physical deconditioning after acute CVA and she is declining PEG tube placement, she voices understanding she does not like the protein shakes, discussed changing out the flavor Vitals/I&O/Wt Last Vital Signs Temp 98.2 F 11/30/24 11:56 Pulse 98 11/30/24 11:56 Resp 15 11/30/24 11:56 BP 113/56 11/30/24 11:56 Pulse Ox 90 11/30/24 11:56 O2 Del Method Room Air 11/30/24 11:56 O2 Flow Rate 3 11/30/24 08:32 11/29/24 11/30/24 11/30/24 22:59 06:59 14:59 Intake Total 180 / 485 80 / 80 Output Total 1600 / 1600 275 / 1875 Balance -1420 / -1115 -275 / -1390 80 / 80 Weight last 48 hrs Weight 79.52 kg Weight 82.826 kg Physical Exam 2 Const: COMMON NORMALS: no acute distress and patient oriented x3 Resp: COMMON NORMALS: normal respiratory effort, No retractions, No use of accessory muscles and clear to auscultation bilaterally AUSCULTATION: clear to auscultation bilaterally Cardio: COMMON NORMALS: regular rate, regular rhythm, S1 normal heart sound present and S2 normal heart sound present RATE: regular rate RHYTHM: r egular rhythm HEART SOUNDS: S1 normal heart sound present and S2 normal heart sound present GI: COMMON NORMALS: Normal to inspection, nondistended, normoactive bowel sounds present and non-tender Extremity: COMMON NORMALS: no pedal edema Neuro: COMMON NORMALS: patient oriented x3 Psych: COMMON NORMALS: mental status grossly normal Urinary Catheter Management: Cuadra: Cath Placed During This Visit: yes Reason for Continuing Indwelling Catheter: Other Urinary Catheter Date of Insertion: 11/24/24 Urinary Catheter Time of Insertion: 03:42 Data 11/30/24 03:12 11/30/24 03:12 A&P Assessment and plan (1) Acute right MCA stroke: (2) Acute anemia: (3) GI bleed: (4) Acute hypoxic respiratory failure: (5) COVID-19: (6) NSTEMI (non-ST elevated myocardial infarction): (7) D-dimer, elevated: (8) Aspiration pneumonia: (9) Pneumothorax on left: (10) Left rib fracture: Plan Acute right MCA CVA MR/MR head wo con* [id number] IMPRESSION: 1. Consistent with a large, acute right MCA territory infarct involving the right frontal lobe. 2. Moderate white matter microangiopathic change. -CTA head and neck no large vessel occlusion -CT had no acute bleed -Out of tPA window -Left-sided hemiplegia, improving -Plan -Statins -Aspirin -Neuro checks, NIH stroke scale, aspiration precautions -PT OT ? Will require correction placement ? Patient declines PEG tube placement for nutrition -Continues to have poor oral nutrition, poor oral intake ? Speech therapy consulted ? Dietary consulted ? Patient is high risk of malnutrition, dehydration, aspiration -Completed permissive hypertension add on p.o. blood pressure medications -SCDs for DVT prophylaxis, Lovenox on hold given acute anemia Fluid overload -Status post 2 doses of IV Lasix -Fluid overload has resolved, looks euvolemic Acute anemia -Concerns for slow GI bleed -Evidence of iron deficiency anemia -Continue Protonix 40 IV twice daily -Hemoccult stool, monitor hemodynamics -Status post 2 unit PRBC, ? Hemoglobin now 8.5 COVID-19, relatively asymptomatic -Is on 2 L, afebrile no leukocytosis, no shortness of breath CT chest findings given groundglass opacities -Given acute CVA we will hold off on treatment with steroids, remdesivir Small anterior left pneumothorax -Chest x-ray this morning resolved -Likely traumatic from rib fractures -Continue to do daily chest x-rays -Currently on 2 L, resting comfortably Rib fractures, complains of left-sided chest discomfort Acute, mildly displaced nonsegmental fractures of the left lateral 6th, 7th, 8th and 9th ribs -Continue conservative intervention -Morphine for pain control Concerns for aspiration pneumonia -Given CVA as above, CT chest findings -Aspiration precautions, seen by speech therapy FL/FL barium swallow modifd [id number] Impression: 1. Increased oral preparation. 2. Premature spillage into the vallecula and piriform sinuses. 3. Penetration with thin liquids but no aspiration. 4. Long hesitation of the barium tablet at the gastroesophageal junction. -De-escalate to Augmentin -Currently on dysphagia level 6 diet, mildly thickened, discussed with family to not give her thin liquids due to high aspiration risk Now with developing pneumonia left lower lobe with pulmonary edema, left pleural effusion -Start Zosyn -Incentive spirometer -Flutter valve -Up out of bed -Lasix Elevated D-dimer, as above NSTEMI, chest pain complaints -Serial EKGs,*troponins, telemetry monitoring Sacral DTI, monitor Plan for today pt ot, speech therapy, continue IV antibiotics, PT OT encourage p.o. intake continue Remeron Attestations 2 Medical Necessity Statement*: Patient requires hospitalization for acute CVA, left-sided weakness, poor oral intake, aspiration ammonia, fluid overload Diagnoses Acute right MCA stroke I63.511 Acute anemia D64.9 GI bleed K92.2 Acute hypoxic respiratory failure J96.01 COVID-19 U07.1 NSTEMI (non-ST elevated myocardial infarction) I21.4 D-dimer, elevated R79.89 Aspiration pneumonia J69.0 Pneumothorax on left J93.9 Left rib fracture S22.32XA
[2024-11-30 16:33] LABS: Glucose Point of Care 96 mg/dL (70-110)
[2024-11-30] MEDS: atorvastatin 40 mg Tablet PO (20:21)
[2024-11-30] MEDS: mirtazapine 15 mg Tablet PO (20:21)
[2024-12-01] VITALS (10 sets, daily range): BP systolic 118–151; BP diastolic 51–73; PULSE 87–102; RESP 15–20; TEMP 36.3–37.5; O2SAT 90–96
[2024-12-01] MEDS: piperacillin-tazobactam 3.375 GM in sodium chloride 0.9% (plus) 50 ML IV ×3 (02:33→19:10)
[2024-12-01] MEDS: lisinopril 20 mg Tablet 10 MG PO ×2 (02:34→14:02)
[2024-12-01 02:38] LABS: Glucose Point of Care 107 mg/dL (70-110)
[2024-12-01 04:42] LABS: Basophils % 0.3 %; Eosinophils % 0.9 %; Hematocrit 31.9 % (36-47); Lymphocytes # 0.8 10^3/uL (0.8-4.8); Lymphocytes % 21.7 %; Mean Corpuscular HGB Conc 28.8 g/dL (30-55); Mean Corpuscular Hemoglobin 21.4 pg (27-33); Mean Corpuscular Volume 74.2 fl (85-98); Monocytes # 0.5 10^3/uL (0.2-0.9); Neutrophils # 2.11 10^3/uL (1.8-7.7); Neutrophils % 60.9 %; Nucleated Red Blood Cells % 0 %; Platelet Count 126 10^3/cmm (157-399); White Blood Count 3.46 10^3/uL (3.29-11.43)
[2024-12-01 04:45] LABS: Mean Platelet Volume 10.4 fL (7.4-10.4)
[2024-12-01 05:12] LABS: Alanine Aminotransferase 16 U/L (0-33); Alkaline Phosphatase 66 U/L (35-105); Anion Gap 25.4 (5-19); Aspartate Amino Transferase 28 U/L (0-32); Blood Urea Nitrogen 41 mg/dL (8-23); Calcium 8.3 mg/dL (8.5-10.5); Carbon Dioxide 28 mmol/L (22-29); Chloride 94 mmol/L (98-107); Creatinine Clr Calc Pharmacy 42.3633; Globulin 2.7 g/dL (1.3-4.6); Glucose 86 mg/dL (65-115); Osmolality Calculated 307 mOsm/kg (285-295); Potassium 3.4 mmol/L (3.5-5.1); Sodium 144 mmol/L (136-145); Total Bilirubin 0.5 mg/dL (0.15-1.2); Total Protein 5.7 g/dL (6.6-8.7)
[2024-12-01 06:23] LABS: Glucose Point of Care 93 mg/dL (70-110)
[2024-12-01] MEDS: pantoprazole 40 mg SDV IVP ×2 (09:31→20:49)
[2024-12-01] MEDS: potassium chloride ER 20 mEq Tablet 40 MEQ PO (09:31)
[2024-12-01] MEDS: aspirin 81 mg EC Tablet PO (09:32)
[2024-12-01] MEDS: chlorthalidone 25 mg Tablet PO (09:32)
[2024-12-01] MEDS: amlodipine 5 mg Tablet 10 MG PO (09:32)
[2024-12-01] MEDS: metoclopramide 5 mg/mL SDV 2 mL IVP (09:32)
[2024-12-01 11:57] LABS: Glucose Point of Care 96 mg/dL (70-110)
--- NOTE | 2024-12-01 14:13 | PM.CONSULT ---
Providers/Reason For Consult Consulting Physician/Specialty*: dr. vega general surgery Reason for Consult*: PEG tube placement Attending Physician: Santhosh Kemp MD Primary Care Provider: Cat Martínez DO History of Present Illness History of Present Illness Debby Velez is a 84 year old female who presented with an acute stroke. Surgery consulted for PEG placement. Patient has to some extent tolerated a dysphagia diet. Patient has been unsure about proceeding with PEG. In addition, she tested positive for COVID and per nursing had been coughing. She is now off COVID precautions. Oral intake is now minimal and patient and family would now like to reconsider a PEG tube for feeding access. No abdominal surgeries. Albumin 3.0. Medications/Allergies Home Medications Medication Instructions Recorded Confirmed Last Taken Type metoprolol succinate 50 mg 50 mg PO DAILY 11/23/24 11/23/24 Unknown History tablet,extended release 24 hr simvastatin 20 mg tablet 20 mg PO DAILY 11/23/24 11/23/24 Unknown History Allergies Allergy/AdvReac Type Severity Reaction Status Date / Time No Known Allergies Allergy Verified 11/23/24 03:24 Current Medications Generic Name Dose Route Start Last Admin Trade Name Freq PRN Reason Stop Dose Admin Acetaminophen 650 mg 11/23/24 08:06 11/24/24 12:12 Acetaminophen 325 Mg Tablet PO 650 mg Q6H PRN Administration Mild/Mod Pain Or Temp >/= 101 Amlodipine Besylate 10 mg 11/29/24 09:00 12/01/24 09:32 Amlodipine 5 Mg Tablet PO 10 mg Q24H YAQUELIN Administration Aspirin 81 mg 11/25/24 13:50 12/01/24 09:32 Aspirin 81 Mg Ec Tablet PO 81 mg DAILY YAQUELIN Administration Atorvastatin Calcium 40 mg 11/27/24 21:00 11/30/24 20:21 Atorvastatin 40 Mg Tablet PO 40 mg BEDTIME YAQUELIN Administration Chlorthalidone 25 mg 11/28/24 09:00 12/01/24 09:32 Chlorthalidone 25 Mg Tablet PO 25 mg DAILY YAQUELIN Administration Piperacillin Sod/Tazobactam 50 mls @ 12.5 mls/hr 11/29/24 11:00 12/01/24 11:02 Sod 3.375 gm/ Sodium Chloride IV 12.5 mls/hr Q8H YAQUELIN Administration Protocol Lisinopril 10 mg 11/29/24 14:30 12/01/24 14:02 Lisinopril 20 Mg Tablet PO 10 mg Q12H YAQUELIN Administration Metoclopramide HCl 5 mg 11/25/24 13:47 12/01/24 09:32 Metoclopramide 5 Mg/Ml Sdv 2 Ml IVP 5 mg Q6H PRN Administration NAUSEA AND VOMITING Mirtazapine 15 mg 11/27/24 21:00 11/30/24 20:21 Mirtazapine 15 Mg Tablet PO 15 mg BEDTIME YAQUELIN Administration Morphine Sulfate 2 mg 11/29/24 10:44 11/30/24 14:56 Morphine 4 Mg/Ml Sdv 1 Ml IVP 2 mg Q4H PRN Administration SEVERE PAIN Ondansetron HCl 4 mg 11/23/24 08:06 11/30/24 08:39 Ondansetron 2 Mg/Ml Sdv 2 Ml IVP 4 mg Q8H PRN Administration vomiting, or N/V if npo Pantoprazole Sodium 40 mg 11/23/24 08:15 12/01/24 09:31 Pantoprazole 40 Mg Sdv IVP 40 mg Q12H YAQUELIN Administration PFSH Acute PFSH: Surgical History History of right knee joint replacement Family History Mother Leukemia Social History Smoking and tobacco/nicotine status: never used tobacco/nicotine Alcohol intake: never Substance/Drug Use: never Vitals/I&O/Wt Last Vital Signs Temp 97.9 F 12/01/24 11:46 Pulse 88 12/01/24 11:46 Resp 18 12/01/24 11:46 BP 131/73 12/01/24 11:46 Pulse Ox 96 12/01/24 11:46 O2 Del Method Nasal Cannula 12/01/24 11:46 O2 Flow Rate 3 12/01/24 11:46 11/30/24 12/01/24 12/01/24 22:59 06:59 14:59 Intake Total 220 / 300 50 / 350 60 / 60 Output Total 500 / 500 400 / 900 Balance -280 / -200 -350 / -550 60 / 60 Weight last 48 hrs Weight 171 lb 1.6 oz Weight 175 lb 5 oz Physical Exam Narrative: 2L NC unlabored breathing RRR Abdomen soft, nt, nd Urinary Catheter Management: Cuadra: Cath Placed During This Visit: yes Reason for Continuing Indwelling Catheter: Other Urinary Catheter Date of Insertion: 11/24/24 Urinary Catheter Time of Insertion: 03:42 Data 12/01/24 02:47 12/01/24 02:47 A&P Assessment and plan (1) Acute right MCA stroke: Plan 84 yo female whom surgery was consulted for PEG placement. I had a discussion with the daughter. She is concerned that the patient has had reservations with regards to proceeding with PEG placement. I explained that one option is to place a dubhoff tube for feeding access. If after 6 weeks she is not able to swallow, we can proceed with PEG tube placement. Patient's daughter and patient agreed with this plan. I also explained that if she is unable to be placed becuase of the dubhoff tube, we can plan to place the PEG tube on Monday. Discussed with hospitalist and correctional casework specialist. mountain services manager will look into options Monday and present them to the family. Coding Level of Care Code 25591 Diagnoses Acute right MCA stroke I63.511 Time Spent (min) 30
--- NOTE | 2024-12-01 14:57 | CTR_ITS ---
PROCEDURE INFORMATION: Exam: CT Head Without Contrast Exam date and time: 12/01/2024 4:21 PM Age: 84 years old Clinical indication: Altered mental status/memory loss; Additional info: AMS TECHNIQUE: Imaging protocol: Computed tomography of the head without contrast. Radiation optimization: All CT scans at this facility use at least one of these dose optimization techniques: automated exposure control; mA and/or kV adjustment per patient size (includes targeted exams where dose is matched to clinical indication); or iterative reconstruction. COMPARISON: MR head wo con* [id number] 11/23/2024 9:40 AM RADIATION DOSE METRICS: Total DLP (mGy-cm): 1127.08 FINDINGS: Brain: Evolving infarct in the posterior right MCA territory involving the right frontal lobe with no hemorrhagic transformation. No new infarct. There are bilateral periventricular white matter and centrum semiovale hypodensities, consistent with chronic ischemic small vessel disease. No intracranial bleed or mass effect. Cerebral ventricles: No ventriculomegaly. Paranasal sinuses: Mild mucosal disease of the right maxillary sinus and bilateral ethmoid air cells. Mastoid air cells: Visualized mastoid air cells are well aerated. Bones: Benign hyperostosis frontalis is present. Soft tissues: Unremarkable. CT/CT head wo con* [id number] IMPRESSION: Evolving right posterior MCA territory infarct with no hemorrhagic transformation. No new infarct. No significant mass effect.
--- NOTE | 2024-12-01 15:44 | XRR_ITS ---
PROCEDURE INFORMATION: Exam: XR Chest Exam date and time: 12/01/2024 4:09 PM Age: 84 years old Clinical indication: Device placement; Ng tube; Additional info: Dobhoff placement TECHNIQUE: Imaging protocol: Radiologic exam of the chest. Views: 1 view. COMPARISON: CR XR chest 1V portable [id number] 11/28/2024 3:44 PM FINDINGS: Tubes, catheters and devices: Tip of the feeding tube is in the distal mediastinum, likely in the hiatal herniated stomach. Lungs: Improved aeration of the left lung base consolidation. Pleural spaces: Small left pleural effusion. Heart/Mediastinum: Unremarkable. No cardiomegaly. Bones/joints: Unremarkable. Soft tissues: Surgical changes in the left upper chest. XR/XR chest 1V portable [id number] IMPRESSION: Tip of the feeding tube is in the distal mediastinum, likely in the hiatal herniated stomach.
[2024-12-01 15:48] LABS: Glucose Point of Care 110 mg/dL (70-110)
--- NOTE | 2024-12-01 16:10 | P.PN_ITS ---
Subjective 2 Subjective: - Patient was seen this morning -According to nursing staff patient did not have much of an appetite last night for dinner, and has not had much of an appetite this morning for breakfast as poor oral intake -I spoke to Asha in detail this jamie tam, she continues to have a poor appetite, her creatinine is up to 1.0, some component could be from diuresis, however she continues to have a poor appetite, despite being put on an appetite stimulant, speech therapy, dietary eval -Although she has made progress in my op inion with speech therapy, she is just not getting enough calories has poor appetite -Discussed the risk and benefits of PEG tube placement, discussed her initial reservations, after extensive discussion she was agreeable but will have family meeting with her daughter in the afternoon -Patient and daughter was seen this afte rnoon, daughter voices concern that her mom conditioning is worsening, her appetite has declined, she is less mobile, she is more bedbound, she tells me her mom was doing well on Monday but her condition has decreased over the last few days, she is observed her mom's poor appetite, her repeat coughing with liquids, discussed with me about proceeding with PEG tube placement -I had a detailed discussion with falguni t and daughter about PEG tube placement, risks and benefits discussed, they voiced understanding, all questions are, agreed to proceed -Discussed my opinion the PEG tube would serve to allow for her to get good nutrition, so that she could do well with physical therapy, so we could optimize her progress and improvement from her stroke optimize her physical therapy meanwhile speech therapy could continue to work on her swallowing so her diet could be advanced -I am still highly suspicious as she con tinues to aspirate as her x-ray seems to show worsening infiltrate on the left, I had to put her on Zosyn due to concern for aspiration discussed adhering to moderately thickened, also she is third spacing fluids that she received fluid therapy when she came in I had to diurese her, -She also has a stage II decubitus ulcer now, will have to reposition optimize her nutritional status, optimize her protein status -I understands patient's family's initia l hesitation about placing a PEG tube, now it has been about 8 days since her initial stroke, she has suffered complications of recurrent aspiration, recurrent pneumonia requiring IV antibiotics, deconditioning, decrease in her progress from her stroke, protein calorie malnutrition, poor appetite, in my opinion she is developing muscle loss, as she is developing temporal muscle wasting, thinning of her muscle and of her under her clavicles, she is developing stage II decubitus ulcer, -In my opinion optimizing her nutrition with a PEG tube would help with her clinical condition, allow her to work with speech therapy, physical therapy optimize her nutritional status and allow her to progress forward from her stroke -Discussed other options of hospice, how ever they want to continue with medical intervention -Spoke to general surgery DR. Conteh, Dr Bhaskar Conteh wants to wait 6 weeks from her stroke to put in a PEG tube, he tells me that he would prefer a Dobbhoff tube in the short-term, in his practice he feels uncomfortable placing a PEG tube so soon after a stroke, also expressed concerns of anesthesia of patient's COVID positivity, -Discussed my concerns about putting a D obbhoff tube in terms of adequate nutrition, risk of aspiration with Dobbhoff tube, speech therapy would have trouble working with her swallowing as she has a Dobbhoff tube in, she would have trouble with speech therapy, as she is already progressed to dysphagia level 6 diet moderately thickened, discussed long-term complications of Dobbhoff tube including erosion of the nasal bone, discomfort, she is already quite discomfortable with the rib fractures, risk of her pulling out the tube, risk of esophageal perforation, my initial concerns for GI bleed and irritation with a Dobbhoff tube, and local nursing homes will not likely take her due to no good long-term source of nutrition and they will not likely take her with the Dobbhoff tube in place -After detailed discussion with general surgery, Dr. Conteh wanted me to discus with family possibility of Dobbhoff tube -I went up and spoke to patient's daught er and patient about Dobbhoff tube, they are worried about her not progressing from her stroke specifically with her swallowing and the risk of aspiration, they have elected to decline Dobbhoff tube -Spoke to nursing staff patient has had behaviors of pulling on her IVs, her in discomfort, high risk of her pulling out Dobbhoff tube -Dr. Conteh and we had the discussion ab out this, discussion about the long-term complications of Dobbhoff tube, issues with nursing homes taking patient with Dobbhoff tube, I do not believe nursing homes will take her with a Dobbhoff tube Dr. Conteh said he would talk to the patient and daughter about this -I was told by Dr. Conteh that after dis cussion with patient's family that they want to do a trial of Dobbhoff tube, Dobbhoff tube be placed and managed by Dr. Conteh Vitals/I&O/Wt Last Vital Signs Temp 99.0 F 12/01/24 15:15 Pulse 89 12/01/24 15:15 Resp 17 12/01/24 15:15 BP 118/70 12/01/24 15:15 Pulse Ox 91 12/01/24 15:15 O2 Del Method Nasal Cannula 12/01/24 15:15 O2 Flow Rate 3 12/01/24 15:15 12/01/24 12/01/24 12/01/24 06:59 14:59 22:59 Intake Total 50 / 350 90 / 90 Output Total 400 / 900 Balance -350 / -550 90 / 90 Weight last 48 hrs Weight 77.61 kg Weight 79.52 kg Physical Exam 2 Const: COMMON NORMALS: no acute distress ORIENTATION/CONSCIOUSNESS: Yes awake, Yes oriented to person and Yes oriented to place; not oriented to time Resp: COMMON NORMALS: normal respiratory effort, No retractions, No use of accessory muscles and clear to auscultation bilaterally AUSCULTATION: clear to auscultation bilaterally Cardio: COMMON NORMALS: regular rate, regular rhythm, S1 normal heart sound present and S2 normal heart sound present RATE: regular rate RHYTHM: r egular rhythm HEART SOUNDS: S1 normal heart sound present and S2 normal heart sound present GI: COMMON NORMALS: Normal to inspection, nondistended, normoactive bowel sounds present and non-tender Extremity: COMMON NORMALS: no pedal edema Neuro: SENSORIUM/ORIENTATION: Yes oriented to person, Yes oriented to place and No oriented to time Psych: COMMON NORMALS: mental status grossly normal Skin: NARRATIVE SKIN EXAM: Stage II decubitus ulcer Urinary Catheter Management: Cuadra: Cath Placed During This Visit: yes Reason for Continuing Indwelling Catheter: Other Urinary Catheter Date of Insertion: 11/24/24 Urinary Catheter Time of Insertion: 03:42 Data 12/02/24 05:30 01/06/25 05:30 A&P Assessment and plan (1) Acute right MCA stroke: (2) Acute anemia: (3) GI bleed: (4) Acute hypoxic respiratory failure: (5) COVID-19: (6) NSTEMI (non-ST elevated myocardial infarction): (7) D-dimer, elevated: (8) Aspiration pneumonia: (9) Pneumothorax on left: (10) Left rib fracture: Plan Acute right MCA CVA MR/MR head wo con* [id number] IMPRESSION: 1. Consistent with a large, acute right MCA territory infarct involving the right frontal lobe. 2. Moderate white matter microangiopathic change. -CTA head and neck no large vessel occlusion -CT had no acute bleed -Out of tPA window -Left-sided hemiplegia, improving -Plan -Statins -Aspirin -Neuro checks, NIH stroke scale, aspiration precautions -PT OT ? Will require chcf placement ? Plan on top of tube placement -Continues to have poor oral nutrition, poor oral intake ? Speech therapy consulted ? Dietary consulted ? Patient is high risk of malnutrition, dehydration, aspiration -Completed permissive hypertension add on p.o. blood pressure medications -SCDs for DVT prophylaxis, Lovenox on hold given acute anemia Fluid overload -Status post 2 doses of IV Lasix -Fluid overload has resolved, looks euvolemic Acute anemia -Concerns for slow GI bleed -Evidence of iron deficiency anemia -Continue Protonix 40 IV twice daily -Hemoccult stool, monitor hemodynamics -Status post 2 unit PRBC, ? Hemoglobin now 8.5 COVID-19, relatively asymptomatic -Is on 2 L, afebrile no leukocytosis, no shortness of breath CT chest findings given groundglass opacities -Given acute CVA we will hold off on treatment with steroids, remdesivir Small anterior left pneumothorax -Chest x-ray this morning resolved -Likely traumatic from rib fractures -Continue to do daily chest x-rays -Currently on 2 L, resting comfortably Rib fractures, complains of left-sided chest discomfort Acute, mildly displaced nonsegmental fractures of the left lateral 6th, 7th, 8th and 9th ribs -Continue conservative intervention -Morphine for pain control Concerns for aspiration pneumonia -Given CVA as above, CT chest findings -Aspiration precautions, seen by speech therapy FL/FL barium swallow modifd [id number] Impression: 1. Increased oral preparation. 2. Premature spillage into the vallecula and piriform sinuses. 3. Penetration with thin liquids but no aspiration. 4. Long hesitation of the barium tablet at the gastroesophageal junction. -De-escalate to Augmentin -Currently on dysphagia level 6 diet, mildly thickened, discussed with family to not give her thin liquids due to high aspiration risk Now with developing pneumonia left lower lobe with pulmonary edema, left pleural effusion -Start Zosyn -Incentive spirometer -Flutter valve -Up out of bed -Lasix Elevated D-dimer, as above NSTEMI, chest pain complaints -Serial EKGs,*troponins, telemetry monitoring Sacral DTI, stage II, continue repositioning Plan for today pt ot, speech therapy, continue IV antibiotics, PT OT encourage p.o. intake continue Remeron Attestations 2 Medical Necessity Statement*: Patient requires hospitalization for CVA, poor appetite, aspiration pneumonia Diagnoses Acute right MCA stroke I63.511 Acute anemia D64.9 GI bleed K92.2 Acute hypoxic respiratory failure J96.01 COVID-19 U07.1 NSTEMI (non-ST elevated myocardial infarction) I21.4 D-dimer, elevated R79.89 Aspiration pneumonia J69.0 Pneumothorax on left J93.9 Left rib fracture S22.32XA
--- NOTE | 2024-12-01 20:29 | PC.NURSE ---
Addendum entered by Alla Del Toro RN 12/01/24 20:54: IV access reinstated. Patient states she does not think she can swallow her medications at this time and did not want to attempt to do so, until feeding tube has been properly placed. Original Note: Medication Administration: Zosyn paused due to loss of IV access.
--- NOTE | 2024-12-01 21:00 | XRR_ITS ---
PROCEDURE INFORMATION: Exam: XR Chest Exam date and time: 12/01/2024 9:12 PM Age: 84 years old Clinical indication: Device placement; Patient HX: Check placement of dobhoff ng tube. ; Additional info: Tube placement TECHNIQUE: Imaging protocol: Radiologic exam of the chest. Views: 1 view. COMPARISON: CR (CHEST, ) 12/01/2024 4:09 PM FINDINGS: Tubes, catheters and devices: Enteric tube tip seen in the region of the mid thorax, repositioning advised. Lungs: Patchy bilateral mid to lower lung field [id number]-right airspace infiltrates. Pleural spaces: Trace left pleural effusion. Heart/Mediastinum: Cardiomegaly. Vasculature: Aortic atherosclerotic calcifications. Diaphragm: Air density seen beneath the right hemidiaphragm new compared to prior exam, findings may reflect colonic interposition, consider further evaluation with CT if concern for free air exists. Bones/joints: Unremarkable. XR/XR chest 1V portable [id number] IMPRESSION: 1. Enteric tube tip seen in the region of the mid thorax, repositioning advised. 2. Air density seen beneath the right hemidiaphragm new compared to prior exam, findings may reflect colonic interposition, consider further evaluation with CT if concern for free air exists. 3. Cardiomegaly. 4. Aortic atherosclerotic calcifications. 5. Patchy bilateral mid to lower lung field [id number]-right airspace infiltrates. 6. Trace left pleural effusion.
--- NOTE | 2024-12-01 23:16 | PC.NURSE ---
Addendum entered by Alla Del Toro RN 12/02/24 00:12: Post X-Ray, gave telephone order to advance tube an additional 10cm and reobtain xray. Original Note: Per Dr. Alexandra, feeding tube is in mid thorax region, via xray. Gave this nurse telephone orders to advance feeding tube 6-7 cm and reobtain xray for placement.
--- NOTE | 2024-12-01 23:35 | XRR_ITS ---
PROCEDURE INFORMATION: Exam: XR Chest Exam date and time: 12/01/2024 11:47 PM Age: 84 years old Clinical indication: Device placement; Patient HX: Check S/P repositioning of dobhoff ng tube. ; Additional info: Feeding tube placement TECHNIQUE: Imaging protocol: Radiologic exam of the chest. Views: 1 view. COMPARISON: CR (CHEST, ) 12/01/2024 9:12 PM FINDINGS: Tubes, catheters and devices: Dobbhoff tube is again seen above the diaphragm, advancement advised. Lungs: Patchy bilateral mid to lower lung field airspace infiltrates. Pleural spaces: Small left pleural effusion. Heart/Mediastinum: Unremarkable. No cardiomegaly. Bones/joints: Unremarkable. XR/XR chest 1V portable [id number] IMPRESSION: 1. Dobbhoff tube is again seen above the diaphragm, advancement advised. 2. Patchy bilateral mid to lower lung field airspace infiltrates. 3. Small left pleural effusion.
[2024-12-01] MEDS: morphine 4 mg/mL SDV 1 mL 2 MG IVP (23:44)
[2024-12-01] MEDS: ketorolac 30 mg/mL INJ 15 MG IVP (23:59)
[2024-12-02] VITALS (11 sets, daily range): BP systolic 113–148; BP diastolic 58–76; PULSE 78–100; RESP 14–18; TEMP 36.4–37.2; O2SAT 90–97
[2024-12-02 00:39] LABS: Glucose Point of Care 102 mg/dL (70-110)
--- NOTE | 2024-12-02 00:43 | XRR_ITS ---
PROCEDURE INFORMATION: Exam: XR Chest Exam date and time: 12/02/2024 12:31 AM Age: 84 years old Clinical indication: Device placement; Patient HX: Check S/P further repositioning of dobhoff ng tube. ; Additional info: Feeding tube placement TECHNIQUE: Imaging protocol: Radiologic exam of the chest. Views: 1 view. COMPARISON: CR (CHEST, ) 12/01/2024 11:47 PM FINDINGS: Tubes, catheters and devices: Dobbhoff tube is again seen above the diaphragm, advancement advised. Finding may be within a hiatal hernia, however, this is not seen with certainty on this exam. Lungs: Patchy bilateral mid to lower lung field airspace infiltrates again seen. Pleural spaces: Small left pleural effusion. Heart/Mediastinum: See Tubes, catheters and devices finding. Bones/joints: Unremarkable. Other findings: Stable additional findings. XR/XR chest 1V portable [id number] IMPRESSION: 1. Dobbhoff tube is again seen above the diaphragm, advancement advised. Finding may be within a hiatal hernia, however, this is not seen with certainty on this exam. 2. Stable additional findings.
[2024-12-02] MEDS: piperacillin-tazobactam 3.375 GM in sodium chloride 0.9% (plus) 50 ML IV ×3 (03:00→19:08)
[2024-12-02 06:22] LABS: Basophils % 0.8 %; Eosinophils % 0.8 %; Hematocrit 32.8 % (36-47); Lymphocytes # 0.9 10^3/uL (0.8-4.8); Lymphocytes % 21.9 %; Mean Corpuscular HGB Conc 28.4 g/dL (30-55); Mean Corpuscular Hemoglobin 21.5 pg (27-33); Mean Corpuscular Volume 75.9 fl (85-98); Monocytes # 0.6 10^3/uL (0.2-0.9); Monocytes % 15.4 %; Neutrophils # 2.36 10^3/uL (1.8-7.7); Neutrophils % 60.6 %; Nucleated Red Blood Cells % 0 %; Platelet Count 150 10^3/cmm (157-399); Red Blood Count 4.32 10^6/uL (3.85-5.65); Red Cell Distribution Width 22.3 % (12.1-15.1); White Blood Count 3.89 10^3/uL (3.29-11.43)
[2024-12-02 06:25] LABS: Glucose Point of Care 91 mg/dL (70-110)
[2024-12-02 06:39] LABS: Alanine Aminotransferase 16 U/L (0-33); Alkaline Phosphatase 72 U/L (35-105); Anion Gap 20.1 (5-19); Aspartate Amino Transferase 30 U/L (0-32); Blood Urea Nitrogen 56 mg/dL (8-23); C Reactive Protein 13.7 mg/L (0.0-4.9); Calcium 8.7 mg/dL (8.5-10.5); Carbon Dioxide 25 mmol/L (22-29); Chloride 105 mmol/L (98-107); Creatinine Clr Calc Pharmacy 35.0279; Globulin 2.9 g/dL (1.3-4.6); Glucose 93 mg/dL (65-115); Magnesium 2.3 mg/dL (1.7-2.3); Osmolality Calculated 317 mOsm/kg (285-295); Phosphorus 3.9 mg/dL (2.5-4.5); Potassium 4.1 mmol/L (3.5-5.1); Sodium 146 mmol/L (136-145); Total Bilirubin 0.6 mg/dL (0.15-1.2); Total Protein 5.9 g/dL (6.6-8.7)
[2024-12-02 06:42] LABS: Slide Review Slide Review Perform
--- NOTE | 2024-12-02 07:00 | XR_ITS ---
WS: [id number] PORTABLE CHEST HISTORY: sob COMPARISON: Earlier the same day and 12/01/2024 Dobbhoff tube remains above the diaphragm and may potentially be within the hernia. Large hernia was previously noted on the CT from 11/23/2024. Patchy opacifications throughout both lungs without improvement. Mild thickening along the RIGHT fiss ure. No pleural effusion or pneumothorax. Cardiac size: Normal. Mediastinum/Aorta: Atherosclerosis aorta. Osteopenia. [employer] shunt catheter noted over the RIGHT chest. XR/XR chest 1V portable [id number] IMPRESSION: 1. Continued bilateral scattered opacifications. Combination of pneumonia and pneumonitis possible edema. No progression. Mild improvement since 12/01/2023. 2. Dobbhoff tube continues to terminate above the diaphragm. This is probably within a large hiatal hernia.
[2024-12-02 07:17] LABS: NT Pro B Type Natriuretic Pept 348 pg/mL (0-450); Procalcitonin 0.25 ng/mL (0-0.5)
--- NOTE | 2024-12-02 08:49 | PC.NUTR ---
Consult for tube feeds received. Recommend Jevity 1.5 beginning @ 20mls/hr, increasing 10mls Q8H as tolerated, monitoring electrolytes 2/2 poor appetite x 9 days, with water flushes of 120mls Q4H or per MD discretion.
[2024-12-02] MEDS: aspirin 81 mg EC Tablet PO (10:49)
[2024-12-02] MEDS: chlorthalidone 25 mg Tablet PO (10:49)
[2024-12-02] MEDS: sennosides-docusate Tablet 2 TAB PO (10:49)
[2024-12-02] MEDS: amlodipine 5 mg Tablet 10 MG PO (10:49)
[2024-12-02] MEDS: pantoprazole 40 mg SDV IVP ×2 (10:50→20:44)
[2024-12-02] MEDS: polyethylene glycol 3350 Pkt 17 gm PO (10:50)
[2024-12-02] MEDS: sodium chloride 0.9% 1,000 ML 50 ML IV (10:53)
[2024-12-02 11:29] LABS: Glucose Point of Care 114 mg/dL (70-110)
--- NOTE | 2024-12-02 11:30 | P.PN_ITS ---
Subjective 2 Subjective: TFs were not started. Tip in hiatal hernia. Tube removed. Daughter at bedside Vitals/I&O/Wt Last Vital Signs Temp 98.0 F 12/02/24 07:21 Pulse 88 12/02/24 07:21 Resp 17 12/02/24 07:21 BP 126/63 12/02/24 07:21 Pulse Ox 90 12/02/24 07:21 O2 Del Method Nasal Cannula 12/02/24 07:21 O2 Flow Rate 3 12/02/24 07:21 12/01/24 12/02/24 12/02/24 22:59 06:59 14:59 Intake Total 66.458 / 156.458 33.542 / 190.000 50 / 50 Output Total 300 / 300 Balance 66.458 / 156.458 -266.458 / -110.000 50 / 50 Weight last 48 hrs Weight 168 lb 4.8 oz Weight 171 lb 1.6 oz Physical Exam 2 Narrative: Chest: Unlabored breathing room air. No lymphadenopathy. Heart: Regular rate and rhythm. Abdomen: Soft, nontender, nondistended. No masses or lymphadenopathy. Urinary Catheter Management: Cuadra: Cath Placed During This Visit: yes Reason for Continuing Indwelling Catheter: Assist Healing of Perineal & Sacral Wounds- Incontinent Patients Urinary Catheter Date of Insertion: 11/24/24 Urinary Catheter Time of Insertion: 03:42 Data 12/02/24 05:30 12/02/24 05:30 A&P Assessment and plan (1) Acute right MCA stroke: Plan 84-year-old female whom surgery was consulted for PEG placement. Will proceed with PEG placement 12/03/24. Discussed risk and benefits with daughter who agrees to proceed. Attestations 2 Medical Necessity Statement*: NA Coding Level of Care Code 81483 Diagnoses Acute right MCA stroke I63.511 Time Spent (min) 30
--- NOTE | 2024-12-02 12:39 | PC.SOCIAL ---
IMM Update pg 2 of IMM Updated and reviewed w/ patient and her daughter. Copy provided and copy dated, initialed and placed in chart.
--- NOTE | 2024-12-02 14:47 | P.PN_ITS ---
Subjective 2 Subjective: Patient was seen this morning -She is sitting up to a chair alert to natalia pablo, to place, she follows all commands -She was also seen with her daughter at bedside -Her Dobbhoff tube, terminates likely wi thin the hiatal hernia, trouble advancing overnight -Discussed with general surgery, plan on PEG tube placement tomorrow, -Discussed with patient and daughter abo ut removing Dobbhoff tube starting on dysphagia level 6 diet, proceeding with PEG tube placement tomorrow -With daughter at bedside I did detailed discussion with Debby about PEG tube placement -Overall for her right posterior MCA str bozena she has made significant progress although in the last few days, it has been a bit stagnant -However she continues to have poor appe tite, she is developing dehydration, HEATHER, DTI's, poor appetite, protein calorie malnutrition, muscle loss -I think overall in order for her to hav e positive gains, positive outcome from her PT OT, to optimize her physical therapy, her nutritional status, and ultimately her swallowing and speech therapy status I think that this will help her overall ? Discussed with risk and benefits of PEG tube placement, she voiced understanding, all questions answered, daughter and Elliotla agreed to proceed -Plan on PEG tube placement tomorrow Vitals/I&O/Wt Last Vital Signs Temp 98.0 F 12/02/24 11:29 Pulse 93 12/02/24 12:43 Resp 16 12/02/24 12:43 BP 148/72 12/02/24 11:29 Pulse Ox 94 12/02/24 14:00 O2 Del Method Nasal Cannula 12/02/24 14:00 O2 Flow Rate 3 12/02/24 14:00 12/01/24 12/02/24 12/02/24 22:59 06:59 14:59 Intake Total 66.458 / 156.458 33.542 / 190.000 90 / 90 Output Total 300 / 300 Balance 66.458 / 156.458 -266.458 / -110.000 90 / 90 Weight last 48 hrs Weight 76.34 kg Weight 77.61 kg Physical Exam 2 Const: COMMON NORMALS: no acute distress and patient oriented x3 Resp: COMMON NORMALS: normal respiratory effort, No retractions and No use of accessory muscles AUSCULTATION: wheezes Cardio: COMMON NORMALS: regular rate, regular rhythm, S1 normal heart sound present and S2 normal heart sound present RATE: regular rate RHYTHM: r egular rhythm HEART SOUNDS: S1 normal heart sound present and S2 normal heart sound present GI: COMMON NORMALS: Normal to inspection, nondistended, normoactive bowel sounds present and non-tender Extremity: COMMON NORMALS: no pedal edema Neuro: COMMON NORMALS: patient oriented x3 Psych: COMMON NORMALS: mental status grossly normal Urinary Catheter Management: Cuadra: Cath Placed During This Visit: yes Reason for Continuing Indwelling Catheter: Assist Healing of Perineal & Sacral Wounds- Incontinent Patients Urinary Catheter Date of Insertion: 11/24/24 Urinary Catheter Time of Insertion: 03:42 Data 12/02/24 05:30 12/02/24 05:30 A&P Assessment and plan (1) Acute right MCA stroke: (2) Acute anemia: (3) GI bleed: (4) Acute hypoxic respiratory failure: (5) COVID-19: (6) NSTEMI (non-ST elevated myocardial infarction): (7) D-dimer, elevated: (8) Aspiration pneumonia: (9) Pneumothorax on left: (10) Left rib fracture: Plan Acute right MCA CVA MR/MR head wo con* [id number] IMPRESSION: 1. Consistent with a large, acute right MCA territory infarct involving the right frontal lobe. 2. Moderate white matter microangiopathic change. -CTA head and neck no large vessel occlusion -CT had no acute bleed -Out of tPA window -Repeat head CT 12/01/2024 - CT/CT head wo con* [id number] IMPRESSION: Evolving right posterior MCA territory infarct with no hemorrhagic transformation. No new infarct. No significant mass effect. -Left-sided hemiplegia, improving, continues to have dysphagia -Plan -Statins -Aspirin -Neuro checks, NIH stroke scale, aspiration precautions -PT OT ? Will require shelter placement, has been approved, awaiting PEG tube placement ? Failed trial of Dobbhoff -Plan on PEG tube placement tomorrow, n.p.o. midnight -Continues to have poor oral nutrition, poor oral intake ? Speech therapy consulted ? Dietary consulted ? Patient is high risk of malnutrition, dehydration, aspiration -Completed permissive hypertension add on p.o. blood pressure medications -SCDs for DVT prophylaxis, Lovenox on hold given acute anemia Fluid overload -Status post 2 doses of IV Lasix -Fluid overload has resolved, looks euvolemic Acute anemia -Concerns for slow GI bleed -Evidence of iron deficiency anemia -Continue Protonix 40 IV twice daily -Hemoccult stool, monitor hemodynamics -Status post 2 unit PRBC, ? Hemoglobin now 8.5 -Plan on EGD tomorrow with PEG tube placement COVID-19, relatively asymptomatic -Is on 2 L, afebrile no leukocytosis, no shortness of breath CT chest findings given groundglass opacities -Given acute CVA we will hold off on treatment with steroids, remdesivir Small anterior left pneumothorax -Chest x-ray this morning resolved -Likely traumatic from rib fractures -Currently on 2 L, resting comfortably Rib fractures, complains of left-sided chest discomfort Acute, mildly displaced nonsegmental fractures of the left lateral 6th, 7th, 8th and 9th ribs -Continue conservative intervention -Morphine for pain control Concerns for aspiration pneumonia -Given CVA as above, CT chest findings -Aspiration precautions, seen by speech therapy FL/FL barium swallow modifd [id number] Impression: 1. Increased oral preparation. 2. Premature spillage into the vallecula and piriform sinuses. 3. Penetration with thin liquids but no aspiration. 4. Long hesitation of the barium tablet at the gastroesophageal junction. -De-escalate to Augmentin -Currently on dysphagia level 6 diet, mildly thickened, discussed with family to not give her thin liquids due to high aspiration risk Now with developing pneumonia left lower lobe with pulmonary edema, left pleural effusion - Zosyn -Incentive spirometer -Flutter valve -Up out of bed -Lasix on hold Elevated D-dimer, as above NSTEMI, chest pain complaints -Serial EKGs,*troponins, telemetry monitoring Sacral DTI, stage II, continue repositioning Plan for today pt ot, speech therapy, remove Dobbhoff, continue IV Zosyn, creatinine up to 1.2 will start her on gentle IV hydration Attestations 2 Medical Necessity Statement*: Patient requires hospitalization for CVA, pneumonia, aspiration, rib fractures Diagnoses Acute right MCA stroke I63.511 Acute anemia D64.9 GI bleed K92.2 Acute hypoxic respiratory failure J96.01 COVID-19 U07.1 NSTEMI (non-ST elevated myocardial infarction) I21.4 D-dimer, elevated R79.89 Aspiration pneumonia J69.0 Pneumothorax on left J93.9 Left rib fracture S22.32XA
[2024-12-02 15:45] LABS: Glucose Point of Care 98 mg/dL (70-110)
[2024-12-02] MEDS: lisinopril 20 mg Tablet 10 MG PO (15:55)
[2024-12-02] MEDS: atorvastatin 40 mg Tablet PO (20:44)
[2024-12-02] MEDS: mirtazapine 15 mg Tablet PO (20:44)
[2024-12-02 21:07] LABS: Glucose Point of Care 90 mg/dL (70-110)
[2024-12-02] MEDS: morphine 4 mg/mL SDV 1 mL 2 MG IVP (23:48)
[2024-12-03] VITALS (21 sets, daily range): BP systolic 118–157; BP diastolic 57–73; PULSE 77–95; RESP 16–20; TEMP 36.3–36.9; O2SAT 90–99
[2024-12-03] MEDS: lisinopril 20 mg Tablet 10 MG PO ×2 (03:20→16:25)
[2024-12-03] MEDS: piperacillin-tazobactam 3.375 GM in sodium chloride 0.9% (plus) 50 ML IV ×2 (03:20→12:07)
[2024-12-03] MEDS: sodium chloride 0.9% 1,000 ML 50 ML IV ×2 (03:24→22:48)
[2024-12-03 03:36] LABS: Glucose Point of Care 103 mg/dL (70-110)
[2024-12-03 06:11] LABS: Basophils % 0.8 %; Eosinophils % 0.8 %; Hematocrit 37.8 % (36-47); Lymphocytes # 0.9 10^3/uL (0.8-4.8); Lymphocytes % 22.4 %; Mean Corpuscular HGB Conc 27.5 g/dL (30-55); Mean Corpuscular Hemoglobin 21.8 pg (27-33); Mean Corpuscular Volume 79.1 fl (85-98); Monocytes # 0.6 10^3/uL (0.2-0.9); Monocytes % 14.8 %; Neutrophils # 2.38 10^3/uL (1.8-7.7); Neutrophils % 60.4 %; Nucleated Red Blood Cells % 0 %; Platelet Count 159 10^3/cmm (157-399); Red Blood Count 4.78 10^6/uL (3.85-5.65); Red Cell Distribution Width 22.6 % (12.1-15.1); White Blood Count 3.93 10^3/uL (3.29-11.43)
[2024-12-03 06:41] LABS: Alanine Aminotransferase 19 U/L (0-33); Albumin Level 3.2 g/dL (3.5-5.2); Alkaline Phosphatase 82 U/L (35-105); Anion Gap 16.5 (5-19); Aspartate Amino Transferase 30 U/L (0-32); Blood Urea Nitrogen 47 mg/dL (8-23); C Reactive Protein 13.1 mg/L (0.0-4.9); Calcium 9.1 mg/dL (8.5-10.5); Carbon Dioxide 26 mmol/L (22-29); Chloride 108 mmol/L (98-107); Creatinine Clr Calc Pharmacy 46.4551; Globulin 3.3 g/dL (1.3-4.6); Glucose 99 mg/dL (65-115); Magnesium 2.1 mg/dL (1.7-2.3); Osmolality Calculated 316 mOsm/kg (285-295); Phosphorus 2.8 mg/dL (2.5-4.5); Potassium 3.5 mmol/L (3.5-5.1); Sodium 147 mmol/L (136-145); Total Bilirubin 0.7 mg/dL (0.15-1.2); Total Protein 6.5 g/dL (6.6-8.7)
[2024-12-03 06:48] LABS: NT Pro B Type Natriuretic Pept 324 pg/mL (0-450); Procalcitonin 0.16 ng/mL (0-0.5)
--- NOTE | 2024-12-03 06:49 | P.ANESASSM_ITS ---
Pre-Anesthetic Assessment Height/Weight: Height 1.65 m Weight 75.478 kg Temp Pulse Resp BP Pulse Ox O2 Del Method O2 Flow Rate 97.4 F L 94 18 157/73 94 Nasal Cannula 3 12/03/24 06:29 12/03/24 06:29 12/03/24 06:29 12/03/24 06:29 12/03/24 06:29 12/03/24 06:29 12/03/24 06:29 Operation Date: 11/28/24 08:15 Proposed Procedures p PEG Tube Insertion(Not Applicable) - Ron Conteh MD Operation Date: 11/28/24 15:10 Proposed Procedures p EGD(Not Applicable) - Ron Conteh MD s PEG Tube Insertion(Not Applicable) - Ron Conteh MD Operation Date: 12/03/24 07:00 Proposed Procedures p PEG Tube Insertion(Not Applicable) - Ron Conteh MD Familial anesthetic complications: none Was Beta Fito taken within 24 hours: N/A Was Clonidine taken within 24 hours: N/A Last intake: Intake Last Liquid Date 12/02/24 Last Liquid Time 22:00 Last Solid Date 12/02/24 Last Solid Time 20:00 Social No alcohol and No tobacco Exam alert, oriented x 3 and regular rate & rhythm Diminished BBS Airway Submandibular: within normal limits Cervical ROM: within normal limits Mallampati: Class II Dentition: false History/ROS No significant history except as noted and No significant complaints Pulmonary Cough and Shortness of Breath CV/HEM Anemia, Coronary Artery Disease, Congestive Heart Failure and Hypertension None reported Hepatic None reported GI GI bleed Dysphagia Metabolic None reported Musc/skel Lower Back Pain, Osteoarthritis/DJD and Weakness (left sided weakness post stroke) Right sided mouth drooping left sided rib fractures Neuropsych Cerebrovascular Accident Anesthetic Plan ASA status: 4 Anesthesia: General and MAC Risk of > 500 ml blood loss (7ml/kg in children): No Medications/Allergies Home Medications Medication Instructions Recorded Confirmed Last Taken Type metoprolol succinate 50 mg 50 mg PO DAILY 11/23/24 11/23/24 Unknown History tablet,extended release 24 hr simvastatin 20 mg tablet 20 mg PO DAILY 11/23/24 11/23/24 Unknown History Allergies Allergy/AdvReac Type Severity Reaction Status Date / Time No Known Allergies Allergy Verified 11/23/24 03:24 Current Medications Generic Name Dose Route Start Last Admin Trade Name Freq PRN Reason Stop Dose Admin Acetaminophen 650 mg 11/23/24 08:06 11/24/24 12:12 Acetaminophen 325 Mg Tablet PO 650 mg Q6H PRN Administration Mild/Mod Pain Or Temp >/= 101 Amlodipine Besylate 10 mg 11/29/24 09:00 12/02/24 10:49 Amlodipine 5 Mg Tablet PO 10 mg Q24H YAQUELIN Administration Aspirin 81 mg 11/25/24 13:50 12/02/24 10:49 Aspirin 81 Mg Ec Tablet PO 81 mg DAILY YAQUELIN Administration Atorvastatin Calcium 40 mg 11/27/24 21:00 12/02/24 20:44 Atorvastatin 40 Mg Tablet PO 40 mg BEDTIME YAQUELIN Administration Chlorthalidone 25 mg 11/28/24 09:00 12/02/24 10:49 Chlorthalidone 25 Mg Tablet PO 25 mg DAILY YAQUELIN Administration Piperacillin Sod/Tazobactam 50 mls @ 12.5 mls/hr 11/29/24 11:00 12/03/24 03:20 Sod 3.375 gm/ Sodium Chloride IV 12.5 mls/hr Q8H YAQUELIN Administration Protocol Sodium Chloride 1,000 mls @ 50 mls/hr 12/02/24 08:45 12/03/24 03:24 Sodium Chloride 0.9% IV 50 mls/hr .Q20H YAQUELIN Administration Lisinopril 10 mg 11/29/24 14:30 12/03/24 03:20 Lisinopril 20 Mg Tablet PO 10 mg Q12H YAQUELIN Administration Metoclopramide HCl 5 mg 11/25/24 13:47 12/01/24 09:32 Metoclopramide 5 Mg/Ml Sdv 2 Ml IVP 5 mg Q6H PRN Administration NAUSEA AND VOMITING Mirtazapine 15 mg 11/27/24 21:00 12/02/24 20:44 Mirtazapine 15 Mg Tablet PO 15 mg BEDTIME YAQUELIN Administration Morphine Sulfate 2 mg 11/29/24 10:44 12/02/24 23:48 Morphine 4 Mg/Ml Sdv 1 Ml IVP 2 mg Q4H PRN Administration SEVERE PAIN Ondansetron HCl 4 mg 11/23/24 08:06 11/30/24 08:39 Ondansetron 2 Mg/Ml Sdv 2 Ml IVP 4 mg Q8H PRN Administration vomiting, or N/V if npo Pantoprazole Sodium 40 mg 11/23/24 08:15 12/02/24 20:44 Pantoprazole 40 Mg Sdv IVP 40 mg Q12H YAQUELIN Administration Polyethylene Glycol 17 gm 12/01/24 15:25 12/02/24 10:50 Polyethylene Glycol 3350 Pkt 17 Gm PO 17 gm DAILY YAQUELIN Administration Senna/Docusate Sodium 2 tab 12/02/24 09:00 12/02/24 10:49 Sennosides-Docusate Tablet PO 2 tab DAILY YAQUELIN Administration PFSH Anesthesia Surgical History History of right knee joint replacement Family History Mother Leukemia Social History Smoking and tobacco/nicotine status: never used tobacco/nicotine Alcohol intake: never Substance/Drug Use: never Data Anesthesia 12/02/24 05:30 12/03/24 05:42 Short CBC 12/02/24 Range/Units 05:30 WBC 3.89 (3.29-11.43) 10^3/uL Hgb 9.30 L (11.27-16.99) g/dL Hct 32.8 L (36-47) % MCV 75.9 L (85-98) fl Plt Count 150 L (157-399) 10^3/cmm Neut % (Auto) 60.6 % Neut # (Auto) 2.36 (1.8-7.7) 10^3/uL BMP 12/02/24 12/03/24 05:30 05:42 Sodium 146 H 147 H Potassium 4.1 3.5 Chloride 105 108 H Carbon Dioxide 25 26 BUN 56 H 47 H Creatinine 1.2 H 0.9 Glucose 93 99 Calcium 8.7 9.1 Cardiac Enzymes 12/02/24 12/03/24 Range/Units 05:30 05:42 NT-Pro-B Natriuret Pep 348 324 (0-450) pg/mL Liver Function 12/02/24 12/03/24 Range/Units 05:30 05:42 Total Bilirubin 0.6 0.7 (0.15-1.2) mg/dL AST 30 30 (0-32) U/L ALT 16 19 (0-33) U/L Alkaline Phosphatase 72 82 (35-105) U/L Albumin 3.0 L 3.2 L (3.5-5.2) g/dL Coags 12/02/24 12/03/24 05:30 05:42 C-Reactive Protein 13.7 H 13.1 H Cardiac Studies: 2 Echocardiogram 11/23/24
--- NOTE | 2024-12-03 06:59 | W.PM.OPSFHP ---
Same Day Surgery H&P Indication for Procedure/HPI DATE OF PROCEDURE: December 03, 2024 CHIEF COMPLAINT/INDICATIONFOR SURGICAL PROCEDURE: dysphagia PREOP DIAGNOSIS: stroke PLANNED PROCEDURE: Operation Date: 11/28/24 08:15 Proposed Procedures p PEG Tube Insertion(Not Applicable) - Ron Conteh MD Operation Date: 11/28/24 15:10 Proposed Procedures p EGD(Not Applicable) - Ron Conteh MD s PEG Tube Insertion(Not Applicable) - Ron Conteh MD Operation Date: 12/03/24 07:00 Proposed Procedures p PEG Tube Insertion(Not Applicable) - Ron Conteh MD Medications/Allergies* Home Medications Medication Instructions Recorded Confirmed Type metoprolol succinate 50 mg 50 mg PO DAILY 11/23/24 11/23/24 History tablet,extended release 24 hr simvastatin 20 mg tablet 20 mg PO DAILY 11/23/24 11/23/24 History Allergies/Adverse Reactions Allergy/AdvReac Type Severity Reaction Status Date / Time No Known Allergies Allergy Verified 11/23/24 03:24 Current Medications: Generic Name Dose Route Start Last Admin Trade Name Freq PRN Reason Stop Dose Admin Acetaminophen 650 mg 11/23/24 08:06 11/24/24 12:12 Acetaminophen 325 Mg Tablet PO 650 mg Q6H PRN Administration Mild/Mod Pain Or Temp >/= 101 Amlodipine Besylate 10 mg 11/29/24 09:00 12/02/24 10:49 Amlodipine 5 Mg Tablet PO 10 mg Q24H YAQUELIN Administration Aspirin 81 mg 11/25/24 13:50 12/02/24 10:49 Aspirin 81 Mg Ec Tablet PO 81 mg DAILY YAQUELIN Administration Atorvastatin Calcium 40 mg 11/27/24 21:00 12/02/24 20:44 Atorvastatin 40 Mg Tablet PO 40 mg BEDTIME YAQUELIN Administration Chlorthalidone 25 mg 11/28/24 09:00 12/02/24 10:49 Chlorthalidone 25 Mg Tablet PO 25 mg DAILY YAQUELIN Administration Piperacillin Sod/Tazobactam 50 mls @ 12.5 mls/hr 11/29/24 11:00 12/03/24 03:20 Sod 3.375 gm/ Sodium Chloride IV 12.5 mls/hr Q8H YAQUELIN Administration Protocol Sodium Chloride 1,000 mls @ 50 mls/hr 12/02/24 08:45 12/03/24 03:24 Sodium Chloride 0.9% IV 50 mls/hr .Q20H YAQUELIN Administration Lisinopril 10 mg 11/29/24 14:30 12/03/24 03:20 Lisinopril 20 Mg Tablet PO 10 mg Q12H YAQUELIN Administration Metoclopramide HCl 5 mg 11/25/24 13:47 12/01/24 09:32 Metoclopramide 5 Mg/Ml Sdv 2 Ml IVP 5 mg Q6H PRN Administration NAUSEA AND VOMITING Mirtazapine 15 mg 11/27/24 21:00 12/02/24 20:44 Mirtazapine 15 Mg Tablet PO 15 mg BEDTIME YAQUELIN Administration Morphine Sulfate 2 mg 11/29/24 10:44 12/02/24 23:48 Morphine 4 Mg/Ml Sdv 1 Ml IVP 2 mg Q4H PRN Administration SEVERE PAIN Ondansetron HCl 4 mg 11/23/24 08:06 11/30/24 08:39 Ondansetron 2 Mg/Ml Sdv 2 Ml IVP 4 mg Q8H PRN Administration vomiting, or N/V if npo Pantoprazole Sodium 40 mg 11/23/24 08:15 12/02/24 20:44 Pantoprazole 40 Mg Sdv IVP 40 mg Q12H YAQUELIN Administration Polyethylene Glycol 17 gm 12/01/24 15:25 12/02/24 10:50 Polyethylene Glycol 3350 Pkt 17 Gm PO 17 gm DAILY YAQUELIN Administration Senna/Docusate Sodium 2 tab 12/02/24 09:00 12/02/24 10:49 Sennosides-Docusate Tablet PO 2 tab DAILY YAQUELIN Administration Pertinent History/Comorbid Conditions* Surgical History (Updated 11/23/24 @ 07:17 by Jen Miranda MD) History of right knee joint replacement Family History (Updated 11/23/24 @ 07:18 by Jen Miranda MD) Leukemia Mother Social History Smoking and tobacco/nicotine status: never used tobacco/nicotine Alcohol intake: never Substance/Drug Use: never Pertinent Exam Findings alert, oriented x 3, clear to auscultation bilaterally, regular rate & rhythm and procedure specific exam findings abdomen soft, nt, nd Recommendations Surgery/Procedure today Other Plans: Proceed with PEG. Consented daughter Coding Level of Care Code Acute Code for Chg Fwjerry
[2024-12-03 07:09] LABS: Slide Review Slide Review Perform
--- NOTE | 2024-12-03 08:09 | P.PN_ITS ---
Subjective 2 Subjective: PEG placed today EGD normal Vitals/I&O/Wt Last Vital Signs Temp 97.4 F L 12/03/24 06:29 Pulse 94 12/03/24 06:29 Resp 18 12/03/24 06:29 BP 157/73 12/03/24 06:29 Pulse Ox 94 12/03/24 06:29 O2 Del Method Nasal Cannula 12/03/24 06:29 O2 Flow Rate 3 12/03/24 06:29 12/02/24 12/03/24 12/03/24 22:59 06:59 14:59 Intake Total 150 / 240 875.833 / 1115.833 Output Total 950 / 950 Balance 150 / 240 -74.167 / 165.833 Weight last 48 hrs Weight 166 lb 6.4 oz Weight 168 lb 4.8 oz Physical Exam 2 Narrative: Abdomen soft, nt, nd. PEG 4.5cm at the skin level. Urinary Catheter Management: Cuadra: Cath Placed During This Visit: yes Reason for Continuing Indwelling Catheter: Other Urinary Catheter Date of Insertion: 11/24/24 Urinary Catheter Time of Insertion: 03:42 Data 12/03/24 05:42 12/03/24 05:42 A&P Assessment and plan (1) Dysphagia: Plan PEG placed. EGD normal. Ok to use PEG for meds first 24hrs. OK to star feeds after 24hrs. Advance feeds as tolerated. Attestations 2 Medical Necessity Statement*: NA Coding Level of Care Code 11949 Diagnoses Dysphagia R13.10 Time Spent (min) 30
[2024-12-03] MEDS: morphine 4 mg/mL SDV 1 mL 2 MG IVP ×3 (11:04→22:52)
--- NOTE | 2024-12-03 13:43 | P.PN_ITS ---
Subjective 2 Subjective: Patient was seen this morning, status post PEG tube placement, she is alert to person, place not to time she is complaining of left-sided rib pain discussed giving her IV morphine, daughters at bedside, plan on monitoring her today, but start tube feeding tomorrow morning, seeing how she tolerates that, potentially discharging 24-48 hrs. thereafter Vitals/I&O/Wt Last Vital Signs Temp 97.8 F 12/03/24 12:15 Pulse 87 12/03/24 12:15 Resp 17 12/03/24 12:15 BP 129/66 12/03/24 12:15 Pulse Ox 93 12/03/24 12:15 O2 Del Method Nasal Cannula 12/03/24 12:15 O2 Flow Rate 3 12/03/24 11:15 12/02/24 12/03/24 12/03/24 22:59 06:59 14:59 Intake Total 150 / 240 875.833 / 1115.833 50 / 50 Output Total 950 / 950 Balance 150 / 240 -74.167 / 165.833 50 / 50 Weight last 48 hrs Weight 75.478 kg Weight 76.34 kg Physical Exam 2 Const: COMMON NORMALS: no acute distress ORIENTATION/CONSCIOUSNESS: Yes awake, Yes oriented to person and Yes oriented to place Resp: COMMON NORMALS: normal respiratory effort, No retractions, No use of accessory muscles and clear to auscultation bilaterally AUSCULTATION: clear to auscultation bilaterally Cardio: COMMON NORMALS: regular rate, regular rhythm, S1 normal heart sound present and S2 normal heart sound present RATE: regular rate RHYTHM: r egular rhythm HEART SOUNDS: S1 normal heart sound present and S2 normal heart sound present GI: COMMON NORMALS: Normal to inspection, nondistended, normoactive bowel sounds present and non-tender Extremity: COMMON NORMALS: no pedal edema Neuro: SENSORIUM/ORIENTATION: Yes oriented to person and Yes oriented to place Psych: COMMON NORMALS: mental status grossly normal Urinary Catheter Management: Cuadra: Cath Placed During This Visit: yes Reason for Continuing Indwelling Catheter: Other Urinary Catheter Date of Insertion: 11/24/24 Urinary Catheter Time of Insertion: 03:42 Data 12/03/24 05:42 12/03/24 05:42 A&P Assessment and plan (1) Acute right MCA stroke: (2) Acute anemia: (3) GI bleed: (4) Acute hypoxic respiratory failure: (5) COVID-19: (6) NSTEMI (non-ST elevated myocardial infarction): (7) D-dimer, elevated: (8) Aspiration pneumonia: (9) Pneumothorax on left: (10) Left rib fracture: Plan Acute right MCA CVA MR/MR head wo con* [id number] IMPRESSION: 1. Consistent with a large, acute right MCA territory infarct involving the right frontal lobe. 2. Moderate white matter microangiopathic change. -CTA head and neck no large vessel occlusion -CT had no acute bleed -Out of tPA window -Repeat head CT 12/01/2024 - CT/CT head wo con* [id number] IMPRESSION: Evolving right posterior MCA territory infarct with no hemorrhagic transformation. No new infarct. No significant mass effect. -Left-sided hemiplegia, improving, continues to have dysphagia -Plan -Statins -Aspirin -Neuro checks, NIH stroke scale, aspiration precautions -PT OT ? PEG tube placed, will start tube feeds tomorrow -Continues to have poor oral nutrition, poor oral intake ? Speech therapy consulted ? Dietary consulted ? Patient is high risk of malnutrition, dehydration, aspiration -Completed permissive hypertension add on p.o. blood pressure medications -SCDs for DVT prophylaxis, Lovenox on hold given acute anemia Fluid overload, resolved -Status post 2 doses of IV Lasix -Fluid overload has resolved, looks euvolemic Acute anemia -Concerns for slow GI bleed -Evidence of iron deficiency anemia -Continue Protonix 40 IV twice daily -Hemoccult stool, monitor hemodynamics -Status post 2 unit PRBC, ? Hemoglobin improving -EGD no acute findings COVID-19, relatively asymptomatic -Is on 2 L, afebrile no leukocytosis, no shortness of breath CT chest findings given groundglass opacities -Given acute CVA we will hold off on treatment with steroids, remdesivir Small anterior left pneumothorax -Chest x-ray this morning resolved -Likely traumatic from rib fractures -Currently on 2 L, resting comfortably Rib fractures, complains of left-sided chest discomfort Acute, mildly displaced nonsegmental fractures of the left lateral 6th, 7th, 8th and 9th ribs -Continue conservative intervention -Morphine for pain control Concerns for aspiration pneumonia -Given CVA as above, CT chest findings -Aspiration precautions, seen by speech therapy FL/FL barium swallow modifd [id number] Impression: 1. Increased oral preparation. 2. Premature spillage into the vallecula and piriform sinuses. 3. Penetration with thin liquids but no aspiration. 4. Long hesitation of the barium tablet at the gastroesophageal junction. -De-escalate to Augmentin -Currently on dysphagia level 6 diet, mildly thickened, discussed with family to not give her thin liquids due to high aspiration risk Now with developing pneumonia left lower lobe with pulmonary edema, left pleural effusion - Zosyn -Incentive spirometer -Flutter valve -Up out of bed -Lasix on hold Elevated D-dimer, as above NSTEMI, chest pain complaints -Serial EKGs,*troponins, telemetry monitoring Sacral DTI, stage II, continue repositioning Plan for today a tube placed today, EGD no acute findings, as EGD is within normal limits, will start Lovenox for DVT prophylaxis, continue IV antibiotics today this evening and switch to p.o. antibiotics Attestations 2 Medical Necessity Statement*: Patient requires hospitalization for acute CVA, poor nutrition, aspiration overnight, rib fractures, pneumothorax Diagnoses Acute right MCA stroke I63.511 Acute anemia D64.9 GI bleed K92.2 Acute hypoxic respiratory failure J96.01 COVID-19 U07.1 NSTEMI (non-ST elevated myocardial infarction) I21.4 D-dimer, elevated R79.89 Aspiration pneumonia J69.0 Pneumothorax on left J93.9 Left rib fracture S22.32XA
--- NOTE | 2024-12-03 13:48 | ANE.PACU2 ---
Inpatient post-anesthesia follow up: Airway intact: Yes Vital signs: Temperature 97.8 F Pulse Rate 87 Respiratory Rate 17 Blood Pressure 129/66 Pulse Oximetry 93 Oxygen Delivery Me thod Nasal Cannula Oxygen Flow Rate 3 Fraction of Inspir ed Oxygen Hydration adequate: Yes Pain level: 2 Mental status: Baseline
[2024-12-03] MEDS: enoxaparin 40 mg/0.4 mL Syringe SUBCUT (17:32)
[2024-12-03] MEDS: amoxicillin-clav 875-125 mg Tablet 1 TAB PO (17:33)
[2024-12-03] MEDS: mirtazapine 15 mg Tablet PO (21:13)
[2024-12-03] MEDS: atorvastatin 40 mg Tablet PO (21:13)
[2024-12-03] MEDS: pantoprazole 40 mg SDV IVP (21:13)
[2024-12-04] VITALS (17 sets, daily range): BP systolic 121–159; BP diastolic 58–86; PULSE 81–108; RESP 15–22; TEMP 36.4–37.1; O2SAT 93–97
[2024-12-04] MEDS: lisinopril 20 mg Tablet 10 MG PO ×2 (03:14→16:24)
[2024-12-04] MEDS: morphine 4 mg/mL SDV 1 mL 2 MG IVP ×3 (03:35→20:51)
[2024-12-04 05:51] LABS: Basophils % 0.6 %; Eosinophils % 1.1 %; Hematocrit 33.6 % (36-47); Lymphocytes # 0.8 10^3/uL (0.8-4.8); Lymphocytes % 22.8 %; Mean Corpuscular Hemoglobin 21.1 pg (27-33); Mean Corpuscular Volume 75.5 fl (85-98); Monocytes # 0.4 10^3/uL (0.2-0.9); Monocytes % 11.9 %; Neutrophils # 2.28 10^3/uL (1.8-7.7); Neutrophils % 63.3 %; Nucleated Red Blood Cells % 0 %; Platelet Count 183 10^3/cmm (157-399); Red Blood Count 4.45 10^6/uL (3.85-5.65); Red Cell Distribution Width 22.5 % (12.1-15.1)
[2024-12-04 06:15] LABS: Alanine Aminotransferase 15 U/L (0-33); Albumin Level 3.2 g/dL (3.5-5.2); Alkaline Phosphatase 81 U/L (35-105); Anion Gap 17.5 (5-19); Aspartate Amino Transferase 25 U/L (0-32); Blood Urea Nitrogen 41 mg/dL (8-23); C Reactive Protein 10.1 mg/L (0.0-4.9); Calcium 8.8 mg/dL (8.5-10.5); Carbon Dioxide 26 mmol/L (22-29); Chloride 109 mmol/L (98-107); Creatinine Clr Calc Pharmacy 71.2733; Globulin 2.9 g/dL (1.3-4.6); Glucose 93 mg/dL (65-115); Magnesium 1.9 mg/dL (1.7-2.3); Osmolality Calculated 318 mOsm/kg (285-295); Phosphorus 2.6 mg/dL (2.5-4.5); Potassium 3.5 mmol/L (3.5-5.1); Sodium 149 mmol/L (136-145); Total Bilirubin 0.5 mg/dL (0.15-1.2); Total Protein 6.1 g/dL (6.6-8.7)
[2024-12-04 06:21] LABS: NT Pro B Type Natriuretic Pept 320 pg/mL (0-450); Procalcitonin 0.15 ng/mL (0-0.5)
[2024-12-04 07:08] LABS: Slide Review Slide Review Perform
--- NOTE | 2024-12-04 08:12 | PC.NUTR ---
Consult for tube feeds received. Recommend Jevity 1.5 beginning @ 20mls/hr, increasing 10mls Q8H as tolerated to goal rate of 40 mls/hr, monitoring electrolytes, with water flushes of 120mls Q4H or per MD discretion.
[2024-12-04] MEDS: amlodipine 5 mg Tablet 10 MG PO (09:36)
[2024-12-04] MEDS: pantoprazole 40 mg SDV IVP ×2 (09:36→20:52)
[2024-12-04] MEDS: sennosides-docusate Tablet 2 TAB PO (09:36)
[2024-12-04] MEDS: aspirin 81 mg EC Tablet PO (09:36)
[2024-12-04] MEDS: polyethylene glycol 3350 Pkt 17 gm PO (09:36)
[2024-12-04] MEDS: amoxicillin-clav 875-125 mg Tablet 1 TAB PO ×2 (09:37→17:57)
--- NOTE | 2024-12-04 10:19 | PC.SOCIAL ---
IMM Update pg 2 of IMM Updated and reviewed w/ patient. Copy provided and copy dated, initialed and placed in chart.
[2024-12-04] MEDS: chlorthalidone 25 mg Tablet PO (10:33)
--- NOTE | 2024-12-04 12:54 | P.PN_ITS ---
Subjective 2 Subjective: PEG tube in place 4.5 cm at skin level. Vitals/I&O/Wt Last Vital Signs Temp 98.2 F 12/04/24 08:00 Pulse 81 12/04/24 09:16 Resp 16 12/04/24 10:33 BP 138/62 12/04/24 08:00 Pulse Ox 94 12/04/24 10:33 O2 Del Method Nasal Cannula 12/04/24 09:16 O2 Flow Rate 2 12/04/24 09:16 12/03/24 12/04/24 12/04/24 22:59 06:59 14:59 Intake Total 950 / 1000 120 / 1120 Output Total 850 / 850 400 / 1250 Balance 100 / 150 -280 / -130 Weight last 48 hrs Weight 295 lb 8 oz Weight 166 lb 6.4 oz Physical Exam 2 Narrative: Chest: Unlabored breathing room air. No lymphadenopathy. Heart: Regular rate and rhythm. Abdomen: Soft, nontender, nondistended. No masses or lymphadenopathy. Back 4.5 cm skin level. Abdominal binder reapplied. Urinary Catheter Management: Cuadra: Cath Placed During This Visit: yes Reason for Continuing Indwelling Catheter: Other Urinary Catheter Date of Insertion: 11/24/24 Urinary Catheter Time of Insertion: 03:42 Data 12/04/24 05:10 12/04/24 05:10 A&P Assessment and plan (1) Dysphagia: Plan 84-year-old female who presented with a CVA. Okay to use PEG for feeds. Advance as tolerated. Attestations 2 Medical Necessity Statement*: N/A Coding Level of Care Code Acute Code for Chg Fwd Diagnoses Dysphagia R13.10
--- NOTE | 2024-12-04 15:29 | P.PN_ITS ---
Subjective 2 Subjective: Patient was seen this morning Vitals/I&O/Wt Last Vital Signs Temp 97.6 F 12/04/24 15:02 Pulse 94 12/04/24 15:02 Resp 17 12/04/24 15:02 BP 121/71 12/04/24 15:02 Pulse Ox 93 12/04/24 12:00 O2 Del Method Nasal Cannula 12/04/24 12:00 O2 Flow Rate 2 12/04/24 09:16 12/04/24 12/04/24 12/04/24 06:59 14:59 22:59 Intake Total 120 / 1120 Output Total 400 / 1250 Balance -280 / -130 Weight last 48 hrs Weight 134.037 kg Weight 75.478 kg Physical Exam 2 Const: COMMON NORMALS: no acute distress ORIENTATION/CONSCIOUSNESS: Yes awake, Yes oriented to person and Yes oriented to place Resp: COMMON NORMALS: normal respiratory effort, No retractions, No use of accessory muscles and clear to auscultation bilaterally AUSCULTATION: clear to auscultation bilaterally Cardio: COMMON NORMALS: regular rate, regular rhythm, S1 normal heart sound present and S2 normal heart sound present RATE: regular rate RHYTHM: r egular rhythm HEART SOUNDS: S1 normal heart sound present and S2 normal heart sound present GI: COMMON NORMALS: Normal to inspection, nondistended, normoactive bowel sounds present and non-tender OTHER: peg tube in place Extremity: COMMON NORMALS: no pedal edema Neuro: SENSORIUM/ORIENTATION: Yes oriented to person and Yes oriented to place Urinary Catheter Management: Cuadra: Cath Placed During This Visit: yes Reason for Continuing Indwelling Catheter: Other Urinary Catheter Date of Insertion: 11/24/24 Urinary Catheter Time of Insertion: 03:42 Data 12/04/24 05:10 12/04/24 05:10 A&P Assessment and plan (1) Acute right MCA stroke: (2) Acute anemia: (3) GI bleed: (4) Acute hypoxic respiratory failure: (5) COVID-19: (6) NSTEMI (non-ST elevated myocardial infarction): (7) D-dimer, elevated: (8) Aspiration pneumonia: (9) Pneumothorax on left: (10) Left rib fracture: Plan Acute right MCA CVA MR/MR head wo con* [id number] IMPRESSION: 1. Consistent with a large, acute right MCA territory infarct involving the right frontal lobe. 2. Moderate white matter microangiopathic change. -CTA head and neck no large vessel occlusion -CT had no acute bleed -Out of tPA window -Repeat head CT 12/01/2024 - CT/CT head wo con* [id number] IMPRESSION: Evolving right posterior MCA territory infarct with no hemorrhagic transformation. No new infarct. No significant mass effect. -Left-sided hemiplegia, improving, continues to have dysphagia -Plan -Statins -Aspirin -Neuro checks, NIH stroke scale, aspiration precautions -PT OT ? PEG tube placed, will start tube feeds, titrate as tolerated -Continues to have poor oral nutrition, poor oral intake ? Speech therapy consulted ? Dietary consulted -Completed permissive hypertension add on p.o. blood pressure medications -SCDs for DVT prophylaxis, Lovenox Fluid overload, resolved -Status post 2 doses of IV Lasix -Fluid overload has resolved, looks euvolemic Acute anemia -Concerns for slow GI bleed -Evidence of iron deficiency anemia -Continue Protonix 40 IV twice daily -Hemoccult stool, monitor hemodynamics -Status post 2 unit PRBC, ? Hemoglobin improving -EGD no acute findings COVID-19, relatively asymptomatic -Is on 2 L, afebrile no leukocytosis, no shortness of breath CT chest findings given groundglass opacities -Given acute CVA we will hold off on treatment with steroids, remdesivir Small anterior left pneumothorax -Chest x-ray this morning resolved -Likely traumatic from rib fractures -Currently on 2 L, resting comfortably Rib fractures, complains of left-sided chest discomfort Acute, mildly displaced nonsegmental fractures of the left lateral 6th, 7th, 8th and 9th ribs -Continue conservative intervention -Morphine for pain control Concerns for aspiration pneumonia -Given CVA as above, CT chest findings -Aspiration precautions, seen by speech therapy FL/FL barium swallow modifd [id number] Impression: 1. Increased oral preparation. 2. Premature spillage into the vallecula and piriform sinuses. 3. Penetration with thin liquids but no aspiration. 4. Long hesitation of the barium tablet at the gastroesophageal junction. -De-escalate to Augmentin -Currently on dysphagia level 6 diet, mildly thickened, discussed with family to not give her thin liquids due to high aspiration risk Now with developing pneumonia left lower lobe with pulmonary edema, left pleural effusion -Augmentin -Incentive spirometer -Flutter valve -Up out of bed -Lasix on hold Elevated D-dimer, as above NSTEMI, chest pain complaints -Serial EKGs,*troponins, telemetry monitoring Sacral DTI, stage II, continue repositioning Plan for today continue PEG tube Feedings, PT OT, speech therapy eval Attestations 2 Medical Necessity Statement*: Patient requires hospitalization for malnutrition requiring PEG tube placement acute CVA Diagnoses Acute right MCA stroke I63.511 Acute anemia D64.9 GI bleed K92.2 Acute hypoxic respiratory failure J96.01 COVID-19 U07.1 NSTEMI (non-ST elevated myocardial infarction) I21.4 D-dimer, elevated R79.89 Aspiration pneumonia J69.0 Pneumothorax on left J93.9 Left rib fracture S22.32XA
--- NOTE | 2024-12-04 15:29 | PC.NURSE ---
Stroke coordingator- rounds on patient today. Gave family stroke booklet.
[2024-12-04] MEDS: enoxaparin 40 mg/0.4 mL Syringe SUBCUT (17:57)
[2024-12-04 20:45] LABS: Glucose Point of Care 123 mg/dL (70-110)
[2024-12-04] MEDS: mirtazapine 15 mg Tablet PO (20:52)
[2024-12-04] MEDS: atorvastatin 40 mg Tablet PO (20:52)
[2024-12-05 03:31] VITALS: BP 155/73; PULSE 87; RESP 17; TEMP 36.9; O2SAT 96
[2024-12-05 05:43] LABS: Basophils % 0.4 %; Eosinophils % 0.6 %; Hematocrit 37.4 % (36-47); Lymphocytes # 0.8 10^3/uL (0.8-4.8); Lymphocytes % 16.1 %; Mean Corpuscular HGB Conc 27.8 g/dL (30-55); Mean Corpuscular Hemoglobin 21.4 pg (27-33); Monocytes # 0.6 10^3/uL (0.2-0.9); Monocytes % 11.2 %; Neutrophils # 3.56 10^3/uL (1.8-7.7); Neutrophils % 70.9 %; Nucleated Red Blood Cells % 0 %; Platelet Count 214 10^3/cmm (157-399); Red Blood Count 4.86 10^6/uL (3.85-5.65); Red Cell Distribution Width 22.8 % (12.1-15.1); White Blood Count 5.02 10^3/uL (3.29-11.43)
[2024-12-05 06:04] LABS: Alanine Aminotransferase 16 U/L (0-33); Albumin Level 3.1 g/dL (3.5-5.2); Alkaline Phosphatase 89 U/L (35-105); C Reactive Protein 9.5 mg/L (0.0-4.9); Chloride 109 mmol/L (98-107); Potassium 3.1 mmol/L (3.5-5.1); Sodium 147 mmol/L (136-145)
[2024-12-05 06:27] LABS: Anion Gap 15.1 (5-19); Aspartate Amino Transferase 25 U/L (0-32); Blood Urea Nitrogen 32 mg/dL (8-23); Calcium 9.3 mg/dL (8.5-10.5); Carbon Dioxide 26 mmol/L (22-29); Creatinine Clr Calc Pharmacy 51.7613; Globulin 3.2 g/dL (1.3-4.6); Glucose 165 mg/dL (65-115); Magnesium 1.8 mg/dL (1.7-2.3); Osmolality Calculated 315 mOsm/kg (285-295); Phosphorus 1.8 mg/dL (2.5-4.5); Total Bilirubin 0.5 mg/dL (0.15-1.2); Total Protein 6.3 g/dL (6.6-8.7)
[2024-12-05 06:51] LABS: NT Pro B Type Natriuretic Pept 444 pg/mL (0-450)
[2024-12-05 08:00] VITALS: BP 152/74; PULSE 97; RESP 18; TEMP 36.6; O2SAT 95
[2024-12-05 08:38] VITALS: PULSE 82; RESP 16; O2SAT 96
[2024-12-05] MEDS: chlorthalidone 25 mg Tablet PO (09:22)
[2024-12-05] MEDS: amlodipine 5 mg Tablet 10 MG PO (09:22)
[2024-12-05] MEDS: amoxicillin-clav 875-125 mg Tablet 1 TAB PO ×2 (09:22→16:53)
[2024-12-05] MEDS: lisinopril 20 mg Tablet 10 MG PO (09:23)
[2024-12-05] MEDS: pantoprazole 40 mg SDV IVP (09:23)
[2024-12-05] MEDS: aspirin 81 mg EC Tablet PO (09:24)
[2024-12-05] MEDS: potassium phosphate (mEq K) 40 MEQ in sodium chloride 0.9% (100 ml) 100 ML 27.25 MEQ IV (11:11)
[2024-12-05 11:49] VITALS: BP 155/95; PULSE 91; RESP 16; TEMP 36.8; O2SAT 98
[2024-12-05] MEDS: acetaminophen 325 mg Tablet 650 MG PO (14:42)
--- NOTE | 2024-12-05 14:51 | PM.DCS ---
Discharge Providers Date of Admission: 11/23/24 04:17 Date of Discharge: December 05, 2024 Attending Provider at Admission: Jen Miranda MD Attending Provider at Discharge: Santhosh Melo MD Primary Care Provider: Cat Martínez DO Diagnoses at Discharge Discharge Diagnosis (1) Acute right MCA stroke: Status: Acute (2) Acute anemia: Status: Acute (3) GI bleed: Status: Acute (4) Acute hypoxic respiratory failure: Status: Acute (5) COVID-19: Status: Acute (6) NSTEMI (non-ST elevated myocardial infarction): Status: Acute (7) D-dimer, elevated: Status: Acute (8) Aspiration pneumonia: Status: Acute (9) Pneumothorax on left: Status: Acute (10) Left rib fracture: Status: Acute Reason for Visit Reason for Visit: FALLS Hospital Course Hospital Course This is a 84-year-old female who presents [facility]'s for concerns for acute CVA Patient was admitted to [facility] for acute MCA CVA, left-sided hemiplegia, CTA no large vessel occlusion, out of tPA window, medically managed on aspirin, statin, permissive hypertension, PT OT, speech therapy eval. Overall patient has slow clinical improvement, improving left upper left lower extremity strength, speech slowly improving, continue to have intermittent dysphagia, managed on dysphagia level 6 diet mildly thickened. At times she would have a mild left facial droop, mild slurring of her words, mild word finding difficulty and receptive aphasia which is overall improving. Her left upper left lower extremity strength continues to improve. Due to persistent intermittent dysphagia, episodes of aspiration, poor appetite, PEG tube was placed. Level she was discharged to assisted facility for PT OT, speech therapy, PEG tube feedings, follow-up with neurology as outpatient. Discharged on aspirin, statin, blood pressure medications with a close follow-up with neurology as outpatient Patient's hospitalization was complicated by acute anemia, evidence of iron deficiency anemia, EGD no acute findings, she did require 2 units PRBC during hospitalization, discharged with Protonix, iron supplementation with close follow-up with primary care provider as outpatient COVID-19, relative asymptomatic Found to have a small anterior left pneumothorax likely secondary to traumatic rib fractures, has resolved on imaging Rib fractures, left-sided chest pain, medically managed, discharged on hydrocodone for pain control Concerns for aspiration pneumonia, discharged on p.o. antibiotics, PEG tube feedings as above, aspiration precautions, dysphagia level 6 diet mildly thickened Sacral DTI, stage II, continue repositioning, wound care Physical Exam Const: COMMON NORMALS: no acute distress ORIENTATION/CONSCIOUSNESS: Yes awake, Yes oriented to person and Yes oriented to place; not oriented to time HENMT: COMMON NORMALS: normocephalic HEAD & SCALP: normocephalic Resp: COMMON NORMALS: normal respiratory effort, No retractions, No use of accessory muscles and clear to auscultation bilaterally AUSCULTATION: clear to auscultation bilaterally Cardio: COMMON NORMALS: regular rate, regular rhythm, S1 normal heart sound present and S2 normal heart sound present RATE: regular rate RHYTHM: regular rhythm HEART SOUNDS: S1 normal heart sound present and S2 normal heart sound present GI: COMMON NORMALS: Normal to inspection, nondistended, normoactive bowel sounds present OTHER: PEG tube in place Extremity: COMMON NORMALS: no pedal edema Neuro: SENSORIUM/ORIENTATION: Yes oriented to person, Yes oriented to place and No oriented to time OTHER: Left upper extremity strength 3 out of 5, decreased coordination Left lower extremity strength 3 out of 5, decreased coordination Left facial droop mild Does at times have word finding difficulty Urinary Catheter Management: Cuadra: Cath Placed During This Visit: yes Reason for Continuing Indwelling Catheter: Acute Urinary Retention or Obstruction Urinary Catheter Date of Insertion: 11/24/24 Urinary Catheter Time of Insertion: 03:42 Discharge Data Studies Completed and Pending Completed Studies During Hospitalization Category Date Time Status CT angio chest PE protcl 29089 Stat Cat Scan 11/23/24 15:[address] angio headneck* 79797/[id number] Stat Cat Scan 11/23/24 03:[address] chest wo con 22935 Routine Cat Scan 11/23/24 07:[address] head thrombolytic 80104 Stat Cat Scan 11/23/24 03:[address] head wo con* 64083 Routine Cat Scan 12/01/24 14:57 Completed CXRP [XR chest 1V portable 42444] Routine Exams 12/01/24 21:00 Completed CXRP [XR chest 1V portable 31508] Stat Exams 12/01/24 15:44 Completed FL barium swallow modifd 38852 Routine Exams 11/25/24 06:33 Completed XR chest 1V portable 47980 QAM Exams 11/27/24 06:00 Completed XR chest 1V portable 65508 QAM Exams 11/24/24 06:00 Completed XR chest 1V portable 36450 Routine Exams 11/28/24 15:03 Completed XR chest 1V portable [id number] Routine Exams 12/02/24 07:00 Completed XR chest 1V portable 39921 Routine Exams 11/23/24 21:00 Completed XR chest 1V portable 60994 Routine Exams 11/25/24 08:41 Completed XR chest 1V portable 93142 Routine Exams 11/26/24 15:31 Completed XR chest 1V portable 52408 Stat Exams 12/01/24 23:35 Completed XR chest 1V portable 85926 Stat Exams 12/02/24 00:43 Completed XR chest 1V portable 68802 Stat Exams 11/23/24 03:10 Completed MR head wo con* 75866 Stat MRI 11/23/24 06:30 [place] [id number] Routine Ultrasound 11/28/24 15:03 [place] [address] Routine Ultrasound 11/23/24 11:10 Completed CV. echo complete* 67612 Routine Ultrasound 11/23/24 06:31 Completed Pending at discharge Category Date Time Status C Reactive Protein AM LABS Lab 12/06/24 04:00 Ordered C Reactive Protein AM LABS Lab 12/07/24 04:00 Ordered Complete Blood Count w/Auto AM LABS Lab 12/06/24 04:00 Ordered Complete Blood Count w/Auto AM LABS Lab 12/07/24 04:00 Ordered Comprehensive Metabolic Panel AM LABS Lab 12/06/24 04:00 Ordered Comprehensive Metabolic Panel AM LABS Lab 12/07/24 04:00 Ordered Magnesium AM LABS Lab 12/06/24 04:00 Ordered Magnesium AM LABS Lab 12/07/24 04:00 Ordered NT Pro B Type Natriuretic Pept QAM Lab 12/06/24 06:00 Ordered NT Pro B Type Natriuretic Pept QAM Lab 12/07/24 06:00 Ordered Occult Blood Stool [Immunochemical Fecal OCB] Routine Lab 11/23/24 15:35 Uncollected Phosphorus AM LABS Lab 12/06/24 04:00 Ordered Phosphorus AM LABS Lab 12/07/24 04:00 Ordered Radiology Impressions Head/Neck CTA 11/23/24 03:10 IMPRESSION: No large vessel stenosis or occlusion. IMPRESSION: No stenosis or occlusion. REFERENCES: NASCET CRITERIA. The degree of stenosis in the cervical segment of the internal carotid artery is based on NASCET criteria. Normal is no stenosis. Mild is less than 50% stenosis. Moderate is 50-69% stenosis. Severe is 70% to 99% stenosis. Total occlusion is no detectable patent lumen. ADDENDUM: 11/23/24 6105 Addendum: Findings discussed with Dr. Rubalcava at 3:43 a.m. central time on 11/23/2024 Head MRI 11/23/24 06:30 IMPRESSION: 1. Consistent with a large, acute right MCA territory infarct involving the right frontal lobe. 2. Moderate white matter microangiopathic change. ADDENDUM: 11/23/24 1112 THIS REPORT CONTAINS FINDINGS THAT MAY BE CRITICAL TO PATIENT CARE. The findings were verbally communicated via telephone conference with Dr. Melo at 11:10 AM [employer] on 11/23/2024. The findings were acknowledged and understood. Chest CT 11/23/24 07:57 IMPRESSION: 1. There is a pleural-based area of ground-glass opacification in the lateral/inferior right upper lobe. While this could represent an area of pneumonitis, the appearance also raises suspicion for a pulmonary infarct. Evaluation for possible pulmonary embolism is limited due to lack of intravenous contrast. Further evaluation with CT angiogram of the chest or V/Q scan may be obtained as clinically indicated. 2. Trace bilateral pleural effusions. 3. Cholelithiasis. 4. Multiple nonobstructing stones in the upper right kidney, the largest measures 5.1 mm. 5. Large hiatal hernia. 6. Incidental/nonacute findings are listed in the report. COMMENTS: Urgent results were discussed with Dr. Melo on 11/23/2024 at 11:14 AM [employer]. Chest CTA 11/23/24 15:09 IMPRESSION: 1. Acute, mildly displaced nonsegmental fractures of the left lateral 6th, 7th, 8th and 9th ribs with a small anterior left pneumothorax. 2. Trace bilateral pleural effusions and mild bilateral lower lobe and right upper lobe atelectasis. 3. No CT evidence of pulmonary embolus 4. Cholelithiasis with probable gallbladder sludge and mild gallbladder distension. Clinical correlation is suggested and if further evaluation is indicated, follow-up gallbladder ultrasound could be obtained 5. Large hiatal hernia ADDENDUM: 11/23/24 7624 COMMENT: THIS REPORT CONTAINS FINDINGS THAT MAY BE CRITICAL TO PATIENT CARE. The exam findings were verbally communicated by me to SANTHOSH MELO via telephone conference at 4:05 PM [employer] on 11/23/2024. The findings were acknowledged and understood. Modified Barium Swallow 11/25/24 06:33 Impression: 1. Increased oral preparation. 2. Premature spillage into the vallecula and piriform sinuses. 3. Penetration with thin liquids but no aspiration. 4. Long hesitation of the barium tablet at the gastroesophageal junction. Head CT 12/01/24 14:57 IMPRESSION: Evolving right posterior MCA territory infarct with no hemorrhagic transformation. No new infarct. No significant mass effect. Chest X-Ray 12/02/24 07:00 IMPRESSION: 1. Continued bilateral scattered opacifications. Combination of pneumonia and pneumonitis possible edema. No progression. Mild improvement since 12/01/2023. 2. Dobbhoff tube continues to terminate above the diaphragm. This is probably within a large hiatal hernia. Laboratory Results WBC 5.02 10^3/uL (3.29-11.43) 12/05/24 04:35 RBC 4.86 10^6/uL (3.85-5.65) 12/05/24 04:35 Hgb 10.40 g/dL (11.27-16.99) L 12/05/24 04:35 Hct 37.4 % (36-47) 12/05/24 04:35 MCV 77.0 fl (85-98) L 12/05/24 04:35 MCH 21.4 pg (27-33) L 12/05/24 04:35 MCHC 27.8 g/dL (30-55) L 12/05/24 04:35 RDW 22.8 % (12.1-15.1) H 12/05/24 04:35 Plt Count 214 10^3/cmm (157-399) 12/05/24 04:35 MPV Not Reportable 12/05/24 04:35 Neut % (Auto) 70.9 % 12/05/24 04:35 Lymph % (Auto) 16.1 % 12/05/24 04:35 Lucas % (Auto) 11.2 % 12/05/24 04:35 Eos % (Auto) 0.6 % 12/05/24 04:35 Baso % (Auto) 0.4 % 12/05/24 04:35 Neut # (Auto) 3.56 10^3/uL (1.8-7.7) 12/05/24 04:35 Lymph # (Auto) 0.8 10^3/uL (0.8-4.8) 12/05/24 04:35 Lucas # (Auto) 0.6 10^3/uL (0.2-0.9) 12/05/24 04:35 Eos # (Auto) 0.0 10^3/uL (0.0-0.8) 12/05/24 04:35 Baso # (Auto) 0.0 10^3/uL (0.0-0.1) 12/05/24 04:35 Nucleated RBC % (auto) 0 % 12/05/24 04:35 Nucleated RBCs # 0.0 /100WBC 12/05/24 04:35 PT 14.20 SECONDS (12.1-14.9) 11/23/24 03:40 INR 1.06 (0.8-1.2) 11/23/24 03:40 APTT 26.3 SECONDS (23.9-36.7) 11/23/24 03:40 D-Dimer 2.03 ug/mLFEU (0-0.59) H 11/23/24 03:40 Sodium 147 mmol/L (136-145) H 12/05/24 04:35 Potassium 3.1 mmol/L (3.5-5.1) L 12/05/24 04:35 Chloride 109 mmol/L (98-107) H 12/05/24 04:35 Carbon Dioxide 26 mmol/L (22-29) 12/05/24 04:35 Anion Gap 15.1 (5-19) 12/05/24 04:35 BUN 32 mg/dL (8-23) H 12/05/24 04:35 Creatinine 0.7 mg/dL (0.5-0.9) 12/05/24 04:35 GFR Calculation Not Reportable 12/05/24 04:35 Glucose 165 mg/dL (65-115) H 12/05/24 04:35 POC Glucose 123 mg/dL (70-110) H 12/04/24 20:30 Estimat Average Glucose 131 11/23/24 03:40 Hemoglobin A1c 6.2 % (4.0-6.0) H 11/23/24 03:40 Calculated Osmolality 315 mOsm/kg (285-295) H 12/05/24 04:35 Lactic Acid 1.9 mmol/L (0.5-2.2) 11/23/24 03:40 Calcium 9.3 mg/dL (8.5-10.5) 12/05/24 04:35 Phosphorus 1.8 mg/dL (2.5-4.5) L 12/05/24 04:35 Magnesium 1.8 mg/dL (1.7-2.3) 12/05/24 04:35 Iron 12 ug/dL (37-145) L 11/23/24 03:40 TIBC 374 mcg/dl 11/23/24 03:40 % Saturation 3.2 % (20-50) L 11/23/24 03:40 Unsat Iron Binding 362 ug/dL (112-347) H 11/23/24 03:40 Ferritin 20 ng/mL (15-150) 11/23/24 03:40 Total Bilirubin 0.5 mg/dL (0.15-1.2) 12/05/24 04:35 AST 25 U/L (0-32) 12/05/24 04:35 ALT 16 U/L (0-33) 12/05/24 04:35 Alkaline Phosphatase 89 U/L (35-105) 12/05/24 04:35 Troponin T Baseline 13 ng/L (0-10) H 11/28/24 15:51 Troponin T 120 Minute 13.67 ng/L (0-10) H 11/28/24 17:32 Delta Troponin T 0.67 ABS# (0-10) 11/28/24 17:32 Troponin T Hi Sens 6Hr 13.36 ng/L (0-10) H 11/28/24 21:50 Troponin T Hi Sens 6Hr Delta 0.36 ng/L (0-12) 11/28/24 21:50 C-Reactive Protein 9.5 mg/L (0.0-4.9) H 12/05/24 04:35 NT-Pro-B Natriuret Pep 444 pg/mL (0-450) 12/05/24 04:35 Total Protein 6.3 g/dL (6.6-8.7) L 12/05/24 04:35 Albumin 3.1 g/dL (3.5-5.2) L 12/05/24 04:35 Globulin 3.2 g/dL (1.3-4.6) 12/05/24 04:35 Triglycerides 110 mg/dL (0-150) 11/23/24 03:40 Cholesterol 91 mg/dL (0-200) 11/23/24 03:40 LDL Cholesterol, Calc 42 mg/dL (50-129) L 11/23/24 03:40 HDL Cholesterol 27 mg/dL (60-100) L 11/23/24 03:40 LDL/HDL Ratio 1.56 RATIO (0.00-3.22) 11/23/24 03:40 Cholesterol/HDL Ratio 3.37 mg/dL (0.0-4.40) 11/23/24 03:40 Vitamin B12 471 pg/mL (232-1245) 11/23/24 03:40 Folate 13.4 ng/mL (4.8-37.3) 11/23/24 03:40 Procalcitonin 0.15 ng/mL (0-0.5) 12/04/24 05:10 TSH 2.14 uIU/mL (0.27-4.20) 11/23/24 03:40 TSH 2.18 uIU/mL (0.27-4.20) 11/23/24 03:40 Free T4 1.19 ng/dL (0.82-1.77) 11/23/24 03:40 Urine Color Yellow (Yellow) 11/29/24 15:12 Urine Appearance Clear (CLEAR) 11/29/24 15:12 Urine pH 5.5 (5-7) 11/29/24 15:12 Ur Specific [place] 1.015 (1.005-1.030) 11/29/24 15:12 Urine Protein Negative (Negative) 11/29/24 15:12 Urine Glucose (UA) Negative (Normal) 11/29/24 15:12 Urine Ketones 2+ (Negative) H 11/29/24 15:12 Urine Blood Negative (Negative) 11/29/24 15:12 Urine Nitrate Negative (Negative) 11/29/24 15:12 Urine Bilirubin Negative (Negative) 11/29/24 15:12 Urine Urobilinogen 1.0 mg/dL (Negative) 11/29/24 15:12 Ur Leukocyte Esterase Negative (Negative) 11/29/24 15:12 Urine RBC 0-2 /hpf (0-2) 11/29/24 15:12 Urine WBC 0-5 /hpf (0-5) 11/29/24 15:12 Ur Squamous Epith Cells 0-5 /hpf (0-5) 11/29/24 15:12 Amorphous Sediment Not Reportable 11/29/24 15:12 Urine Bacteria None seen /hpf (NONE) 11/29/24 15:12 Hyaline Casts 8.26 /lpf 11/29/24 15:12 Urine Opiates Screen Positive ng/mL (Negative) H 11/24/24 03:35 Ur Barbiturates Screen Negative ng/mL (Negative) 11/24/24 03:35 Ur Phencyclidine Scrn Negative ng/mL (Negative) 11/24/24 03:35 Ur Amphetamines Screen Negative ng/mL (Negative) 11/24/24 03:35 U Benzodiazepines Scrn Negative ng/mL (Negative) 11/24/24 03:35 Urine Cocaine Screen Negative ng/mL (Negative) 11/24/24 03:35 U Marijuana (THC) Screen Negative ng/mL (Negative) 11/24/24 03:35 Ethyl Alcohol < 10 mg/dL (0-10) 11/23/24 03:40 Coronavirus (PCR) Positive (Negative) A 11/23/24 12:25 Influenza A (PCR) Negative (Negative) 11/23/24 12:25 Influenza Type B (PCR) Negative (Negative) 11/23/24 12:25 RSV (PCR) Negative (Negative) 11/23/24 12:25 Blood Type A Positive 11/23/24 06:15 Rho(D) Type Rh positive 11/23/24 06:15 Antibody Screen Negative 11/23/24 06:15 Crossmatch See Detail 11/23/24 06:15 Vitals Last Vital Signs Temp 98.2 F 12/05/24 11:49 Pulse 91 12/05/24 11:49 Resp 16 12/05/24 11:49 BP 155/95 12/05/24 11:49 Pulse Ox 98 12/05/24 11:49 O2 Del Method Nasal Cannula 12/05/24 14:00 O2 Flow Rate 2 12/05/24 14:00 Discharge Plan Discharge Patient Disposition: Xfer SNF Condition: Stable Prescriptions: New hydrocodone-acetaminophen 5-325 mg tablet 1 tab PO Q8H PRN (Reason: pain) 7 Days Qty: 21 0RF aspirin 81 mg Tablet,Delayed Release (Dr/Ec) 81 mg PO DAILY 30 Days Qty: 30 0RF amlodipine 10 mg tablet 10 mg PO Q24H 30 Days Qty: 30 0RF sennosides-docusate sodium [Stool Softener-Laxative] 8.6-50 mg Tablet 1 tab PO DAILY 30 Days Qty: 30 0RF mirtazapine 15 mg Tablet 15 mg PO BEDTIME 30 Days Qty: 30 0RF atorvastatin 40 mg Tablet 40 mg PO BEDTIME 30 Days Qty: 30 0RF chlorthalidone 25 mg Tablet 25 mg PO DAILY 30 Days Qty: 30 0RF lisinopril 20 mg Tablet 20 mg PO Q12H 30 Days Qty: 60 0RF polyethylene glycol 3350 17 gram Powder In Packet 17 g PO DAILY PRN (Reason: constipation) 30 Days Qty: 30 0RF amoxicillin-pot clavulanate 875-125 mg Tablet 1 tab PO BID 3 Days Qty: 6 0RF pantoprazole [Protonix] 40 mg tablet,delayed release (DR/EC) 40 mg PO DAILY 28 Days Qty: 28 0RF ferrous sulfate 324 mg (65 mg iron) tablet,delayed release (DR/EC) 324 mg PO BID 30 Days Qty: 60 0RF Discontinued metoprolol succinate 50 mg tablet extended release 24 hr 50 mg PO DAILY simvastatin 20 mg tablet 20 mg PO DAILY Discharge Orders: Discharge Order (Routine); Ordered 12/05/24 Ordered By: Santhosh Melo Referrals: [facility] [Outside] Trever Alejandro MD [Physician] - 1 week Discharge Diet: As Directed Discharge Activity: Increase activity as tolerated Patient Instructions: Opioid Safety Activity Restrictions/Additional Instructions: - Dysphagia level 6 diet, mildly thickened, work with speech therapy, aspiration precautions -PEG tube feedings -Bolus tube feedings, Jevity 1.5, 4.5 cartons per day, with free water flushes 60 mL before and after feedings, -Regimen 8 AM 1 carton (240 mL) Noon 1 carton 4 PM 1 carton 8 PM 1.5 cartons (360 mL) -Continue aspirin, statin, blood pressure management -Follow-up with neurology -Follow-up with primary care 1 week -Monitor blood pressures closely -As she has rib fractures, monitor for pain, requires 2 L -Monitor hemoglobin -A1c 6.2, she is prediabetic, monitor blood sugars -Please use hydrocodone sparingly for pain -Patient has a stage I 2 sacral DTI, continue repositioning every 2 hours, continue to monitor closely, wound care Discharge Attestations Time Spent in Discharge Care*: greater than 30 min Quality Metrics Clinical Quality Measures [ Cerebrovascular Accident { Contraindication to Antithrombotic: None; antithrombotic prescribed; Contraindication to Anticoagulation: Overlap treatment not indicated; Contraindication to Statin: None; Statin prescribed; Reason stroke education not provided: Stroke education provided to patient;}. No reported AMI, CVA or VTE this stay] Coding Level of Care Code 72893 Total time (in minutes) for Discharge: 45 Diagnoses Acute right MCA stroke I63.511 Acute anemia D64.9 GI bleed K92.2 Acute hypoxic respiratory failure J96.01 COVID-19 U07.1 NSTEMI (non-ST elevated myocardial infarction) I21.4 D-dimer, elevated R79.89 Aspiration pneumonia J69.0 Pneumothorax on left J93.9 Left rib fracture S22.32XA
[2024-12-05 15:39] VITALS: BP 146/72; PULSE 100; RESP 17; TEMP 36.9; O2SAT 97
[2024-12-05] MEDS: enoxaparin 40 mg/0.4 mL Syringe SUBCUT (16:53)
== END 2024-12-05 18:03 | disposition skilled nursing facility (03) | DRG 64 ==
LOC: ER 04:17 → MEDSURG 04:34
PROVIDERS: Student in an Organized Health Care Education/Training Program; Admitting Provider Internal Medicine; Emergency Provider Emergency Medicine; PCP Family Medicine; Visit Provider Family Medicine
PROC: 0DH63UZ Insertion of Feeding Device into Stomach, Percutaneous Approach (ICD-10-PCS; CPT 43246; principal; 2024-12-03 07:00)
DX: I63.511 Cerebral infarction due to unspecified occlusion or stenosis of right middle cerebral artery (principal); I21.4 Non-ST elevation (NSTEMI) myocardial infarction; J96.01 Acute respiratory failure with hypoxia; U07.1 COVID-19; J69.0 Pneumonitis due to inhalation of food and vomit; J18.9 Pneumonia, unspecified organism; S22.42XA Multiple fractures of ribs, left side, initial encounter for closed fracture; G81.94 Hemiplegia, unspecified affecting left nondominant side; K92.2 Gastrointestinal hemorrhage, unspecified; J93.9 Pneumothorax, unspecified; E46 Unspecified protein-calorie malnutrition; J90 Pleural effusion, not elsewhere classified; R29.810 Facial weakness; R47.01 Aphasia; R29.715 NIHSS score 15; D50.9 Iron deficiency anemia, unspecified; R79.1 Abnormal coagulation profile; R13.10 Dysphagia, unspecified; L89.322 Pressure ulcer of left buttock, stage 2; L89.312 Pressure ulcer of right buttock, stage 2; E83.42 Hypomagnesemia; I10 Essential (primary) hypertension; E87.70 Fluid overload, unspecified; W18.30XA Fall on same level, unspecified, initial encounter; Y92.002 Bathroom of unspecified non-institutional (private) residence as the place of occurrence of the external cause; Z68.27 Body mass index [BMI] 27.0-27.9, adult
CPT/HCPCS: 36415; 36416; 36430; 43246; 51702; 70450; 70496; 70498; 70551; 71045; 71250; 71275; 74230; 80048; 80053; 80061; 80306; 80307; 81001; 82607; 82728; 82746; 82962; 83036; 83540; 83550; 83605; 83735; 83880; 84100; 84145; 84439; 84443; 84484; 85014; 85018; 85025; 85378; 85610; 85730; 86140; 86850; 86900; 86920; 87637; 92507; 92523; 92526; 92610; 92611; 93005; 93010; 93306; 93970; 94664; 96372; 97110; 97116; 97161; 97165; 97530; 97535; 99232; 99254; 99285; J0360; J1171; J1650; J1885; J1940; J2270; J2405; J2470; J2543; J2704; J2765; J3475; J3480; J7030; J7042; P9016

== ENCOUNTER → 2025-01-10 07:53 | Outpatient (BNVA) | payer MEDICARE, SELFPAY | PROVIDERS: PCP Family Medicine; Visit Provider Student in an Organized Health Care Education/Training Program | DX: Z93.1 Gastrostomy status (principal) | CPT/HCPCS: 99214 ==

== ENCOUNTER 2025-01-17 16:37 | Outpatient (CLI) | payer MEDICARE, SELFPAY ==
[2025-01-17 17:09] LABS: Basophils % 0.5 %; Eosinophils # 0.1 10^3/uL (0.0-0.8); Eosinophils % 0.8 %; Hematocrit 43.5 % (36-47); Lymphocytes # 1.1 10^3/uL (0.8-4.8); Lymphocytes % 12.6 %; Mean Corpuscular HGB Conc 30.6 g/dL (30-55); Mean Corpuscular Hemoglobin 23.5 pg (27-33); Monocytes # 0.8 10^3/uL (0.2-0.9); Monocytes % 8.9 %; Nucleated Red Blood Cells % 0 %; Platelet Count 292 10^3/cmm (157-399); Red Blood Count 5.65 10^6/uL (3.85-5.65); Red Cell Distribution Width 27.5 % (12.1-15.1)
[2025-01-17 17:26] LABS: Alanine Aminotransferase 207 U/L (0-33); Albumin Level 3.4 g/dL (3.5-5.2); Alkaline Phosphatase 946 U/L (35-105); Anion Gap 22.8 (5-19); Aspartate Amino Transferase 243 U/L (0-32); Blood Urea Nitrogen 21 mg/dL (8-23); Carbon Dioxide 23 mmol/L (22-29); Chloride 92 mmol/L (98-107); Globulin 4.6 g/dL (1.3-4.6); Glucose 157 mg/dL (65-115); Osmolality Calculated 284 mOsm/kg (285-295); Potassium 3.8 mmol/L (3.5-5.1); Sodium 134 mmol/L (136-145)
[2025-01-17 17:31] LABS: Slide Review Slide Review Perform; Total Bilirubin 7.7 mg/dL (0.15-1.2)
== END 2025-01-17 16:38 | disposition home or self-care (01) ==
LOC: LAB 16:38
PROVIDERS: PCP Family Medicine; Visit Provider Family Medicine
DX: R17 Unspecified jaundice (principal); D64.9 Anemia, unspecified
CPT/HCPCS: 80053; 85025

== ENCOUNTER 2025-01-17 18:44 | Emergency (ER) | payer MEDICARE, SELFPAY ==
[2025-01-17 18:50] VITALS: BP 118/81; PULSE 112; RESP 18; TEMP 36.9; O2SAT 98; BMI 23.3
--- NOTE | 2025-01-17 19:00 | ECG_ITS ---
[facility] [place] [facility] Date: 2025-01[facility]17 Pat Name: Debby Velez Department: Room: Gender: Female Reed Dipper: : 1940 Requested By: Cat Alvarez Order Number: [id number] Reading MD: SHAWNA HENDERSON Measurements Intervals [place] Rate: 113 P: 67 NJ: 142 QRS: 61 QRSD: 93 T: 211 QT: 319 QTc: 438 Interpretive Statements SINUS TACHYCARDIA ST DEVIATION AND MODERATE T-WAVE ABNORMALITY, CONSIDER ANTEROLATERAL ISCHEMIA [-0.1+ mV T-WAVE IN V3-V6] ST DEVIATION AND MODERATE T-WAVE ABNORMALITY, CONSIDER INFERIOR ISCHEMIA [-0.1+ mV T-WAVE IN II/aVF] Compared to ECG 11/28/2024 21:04:50 Possible ischemia now present Sinus rhythm no longer present T-wave abnormality still present Electronically Signed On 01-21-2025 23:51:52 BISQUE KILN DRAWER by SHAWNA HENDERSON [email or web address]
== END 2025-01-17 21:06 | disposition left against medical advice (07) ==
PROVIDERS: Emergency Provider Family Medicine; PCP Family Medicine
DX: Z53.21 Procedure and treatment not carried out due to patient leaving prior to being seen by health care provider (principal)
CPT/HCPCS: 93005

== ENCOUNTER 2025-01-22 10:31 | Emergency (ER) | payer MEDICARE, SELFPAY ==
[2025-01-22] VITALS (7 sets, daily range): BP systolic 95–128; BP diastolic 61–77; PULSE 86–98; RESP 16–18; TEMP 36.3; O2SAT 93–95; BMI 24.1
--- NOTE | 2025-01-22 10:43 | CT_ITS ---
WS: [id number] CT ABDOMEN PELVIS TECHNIQUE: Contrast-enhanced CT of the abdomen and pelvis with coronal and sagittal reformatted images. CLINICAL INFORMATION: vomiting COMPARISON: CT PE 11/23/2024 DLP: 507.[address] scans at [facility] use at least one of these dose optimization techniques: automated exposure control; mA and/or kV adjustment per patient size (includes targeted exams where dose is matched to clinical indication); or iterative reconstruction. FINDINGS: Hydropic gallbladder. Increased attenuation in the gallbladder with inspissated sludge and calculi as seen on the ultrasound. Mild gallbladder wall calcification. Suspected masslike tumefactive sludge seen on the ultrasound although intraluminal mass difficult to entirely exclude. No pericholecystic fl uid or gallbladder wall thickening. Dilatation of the intrahepatic and extraparotid bile ducts are new since the prior study 11/23/2024. Slight increased attenuation of the distal common bile duct may represent obstructing sludge. No mass in the pancreatic head. Atrophy of the pancreas. Bibasilar atele ctasis. Diffuse endometrial thickening in the uterus measuring 25 mm suspicious for carcinoma or neoplasia. Recommend [employer]ER consultation. Adrenal glands are normal. LEFT renal cyst. Normal spleen. Aortic calcification. Normal caliber abdominal aorta. Sigmoid diverticulosis. Tiny fat-containing umbilical hernia. Osteopenia. Moderate to severe central canal stenosis due to disc osteophyte complex L2-3. Lobulated RIGHT ovarian cyst measuring 3.[address]/CT abdomen pelvis w con* [id number] IMPRESSION: 1. Intra and extrahepatic biliary ductal dilatation is new since 11/23/2024. D ilatation of the common bile duct at the pancreatic head with some increased de nsity in the distal common bile duct may be due to inspissated sludge. 2. Common bile duct measures 14 mm. 3. Intrahepatic biliary ductal dilatation is also new compared to previous wit h dilatation of the common hepatic duct. 4. Hydropic gallbladder with increased central attenuation likely due to inspi ssated sludge and calculi as seen on the ultrasound. Suspected tumefactive slud ge on the ultrasound. Intraluminal mass is difficult to entirely exclude and re commend cholecystectomy and ERCP. No significant gallbladder wall thickening or pericholecystic fluid. Small amount of gallbladder wall calcification. 5. Diffuse masslike thickening of the endometrium with patchy enhancement susp icious for endometrial carcinoma or neoplasia in a patient of this age. This me asures approximately 25 mm. 6. Moderate to large esophageal hiatal hernia. 7. PEG tube in place in the distal stomach. 8. Moderate esophageal hiatal hernia. 9. No other acute findings. Notified Carolin Lizarraga MD at 01/22/2025 1:16 PM.
--- NOTE | 2025-01-22 10:43 | US_ITS ---
WS: [id number] RIGHT UPPER QUADRANT ULTRASOUND HISTORY: jaundice abd pain COMPARISON: None available. Liver: 13.4 cm in length. Normal size liver and echogenicity. Mild central bile duct dilatation. Portal Vein: Normal hepatopetal flow with monophasic waveform. Gallbladder: Gallbladder is hydropic. There is a large soft tissue mass within the gallbladder with no increased vascularity. In the central portion of the solid-appearing mass is shadowing. On prior imaging studies cholelithiasis was evident. Mass within the gallbladder measures 9.7 x 5.8 x 4.7 cm. No gallbladder wall thickening. No adjacent edema. CBD: 1.1 cm Pancreas: Obscured by bowel gas. Right kidney: 11.0 cm in length. Normal size and echogenicity. No hydronephrosis or mass. Nonobstructing calcification central kidney measures 3 mm. Aorta and IVC: Unremarkable abdominal aorta and IVC. No ascites. US/US gall bladder [id number] IMPRESSION: 1. Mildly hydropic gallbladder with a nondistended vascular soft tissue mass e ncasing gallstones. Mass measures 9.7 x 5.8 x 4.7 cm. Without vascularity this is most likely tumefactive sludge ball. Patient also has known cholelithiasis. This can be further evaluated by CT with contrast. 2. Dilated common bile duct at 1.1 cm. Obstructing common bile duct stone shou ld be considered. Suspect there is mild central hepatic duct dilatation. This c an be further evaluated by CT with IV contrast.
--- NOTE | 2025-01-22 10:49 | W.ED.NAVMDI ---
HPI - Nausea/Vomiting/Diarrhea General: Chief complaint: Nausea/Vomiting/Diarrhea Stated complaint: vomiting,had stroke 2 months ago, dr sent Time Seen by Provider: 01/22/25 10:37 Source: patient and family Mode of arrival: ambulatory Limitations: no limitations History of Present Illness: 85-year-old female history of stroke couple months ago family states over the last 2 weeks she has been having some increasing weakness she also been having vomiting she has became quite jaundiced as well. She has no history of any liver issues she still has her gallbladder. Patient's bilirubin last week was 7 here she is quite jaundiced she denies any pain or fever states she has had some vomiting. Associated nausea: Yes Associated symtoms: Reports nausea; Denies chest pain, dysuria or headache(s) Related Data Home Medications ?Medication ?Instructions ?Recorded ?Confirmed aspirin 81 mg capsule 81 mg PO DAILY 01/10/25 01/22/25 atorvastatin 40 mg tablet 40 mg PO DAILY 01/22/25 01/22/25 lisinopril 10 mg tablet 10 mg PO DAILY 01/22/25 01/22/25 mirtazapine 15 mg tablet 15 mg PO BEDTIME 01/22/25 01/22/25 Allergies Allergy/AdvReac Type Severity Reaction Status Date / Time No Known Allergies Allergy Verified 01/22/25 10:41 Review of Systems Const: Denies: fever(s), chills, body aches or change in appetite ENMT: Denies: throat pain or dental pain Card: Denies: chest pain Resp: Denies: dyspnea GI: Reports: nausea and vomiting; Denies: abdominal pain or diarrhea : Denies: dysuria Musc: Denies: neck pain or back pain Skin/Breast: Reports: jaundice; Denies: rash Neuro: Denies: headache(s) PFS ED PFSH: Surgical History History of right knee joint replacement Family History Mother Leukemia Social History Smoking and tobacco/nicotine status: never used tobacco/nicotine Alcohol intake: never Substance/Drug Use: never Physical Exam Const: COMMON NORMALS: patient oriented x3 GENERAL APPEARANCE: ill appearing HENMT: COMMON NORMALS: normocephalic and atraumatic HEAD & SCALP: normocephalic and atraumatic Eye: OTHER: scleral icterus Neck/C-Spine: COMMON NORMALS: full ROM and supple Chest: COMMONS NORMALS: normal inspection of the chest Resp: COMMON NORMALS: normal respiratory effort, No retractions, No use of accessory muscles and clear to auscultation bilaterally AUSCULTATION: clear to auscultation bilaterally Cardio: COMMON NORMALS: regular rate, regular rhythm and No murmurs present (Cardio) RATE: regular rate RHYTHM: regular rhythm GI: COMMON NORMALS: Normal to inspection, nondistended, normoactive bowel sounds present, Soft to palpation, non-tender and no masses PALPATION: Yes Soft to palpation Extremity: COMMON NORMALS: normal to inspection and full ROM Neuro: COMMON NORMALS: patient oriented x3, moves all extremities and no focal motor deficits Psych: COMMON NORMALS: mental status grossly normal, Normal thought process present and cooperative THOUGHT PROCESS: Normal thought process present Skin: NARRATIVE SKIN EXAM: jaundiced Course Vital Signs: Vital signs: Vital Signs Temperature 97.4 F L 01/22/25 10:34 Pulse Rate 88 01/22/25 16:56 Respiratory Rate 16 01/22/25 16:56 Blood Pressure 118/67 01/22/25 16:56 Pulse Oximetry 93 01/22/25 16:56 Oxygen Delivery Me thod Room Air 01/22/25 16:56 MDM - Nausea/Vomiting/Diarrhea Medical Decision Making Patient presents here with nausea vomiting was found to be jaundiced elevated bilirubin CT ultrasound shows a dilated common bile duct, with enlarged gallbladder likely has an obstructed common bile duct did speak to [facility] will transfer there for higher level care for GI capabilities and ERCP Medical Records I reviewed the patient's medical records. Lab Data I reviewed the patient's lab results. 01/22/25 11:00 01/22/25 11:00 Radiology Impressions Abdomen/Pelvis CT 01/22/25 10:43 IMPRESSION: 1. Intra and extrahepatic biliary ductal dilatation is new since 11/23/2024. Dilatation of the common bile duct at the pancreatic head with some increased density in the distal common bile duct may be due to inspissated sludge. 2. Common bile duct measures 14 mm. 3. Intrahepatic biliary ductal dilatation is also new compared to previous with dilatation of the common hepatic duct. 4. Hydropic gallbladder with increased central attenuation likely due to inspissated sludge and calculi as seen on the ultrasound. Suspected tumefactive sludge on the ultrasound. Intraluminal mass is difficult to entirely exclude and recommend cholecystectomy and ERCP. No significant gallbladder wall thickening or pericholecystic fluid. Small amount of gallbladder wall calcification. 5. Diffuse masslike thickening of the endometrium with patchy enhancement suspicious for endometrial carcinoma or neoplasia in a patient of this age. This measures approximately 25 mm. 6. Moderate to large esophageal hiatal hernia. 7. PEG tube in place in the distal stomach. 8. Moderate esophageal hiatal hernia. 9. No other acute findings. Notified Carolin Lizarraga MD at 01/22/2025 1:16 PM. Gallbladder Ultrasound 01/22/25 10:43 IMPRESSION: 1. Mildly hydropic gallbladder with a nondistended vascular soft tissue mass encasing gallstones. Mass measures 9.7 x 5.8 x 4.7 cm. Without vascularity this is most likely tumefactive sludge ball. Patient also has known cholelithiasis. This can be further evaluated by CT with contrast. 2. Dilated common bile duct at 1.1 cm. Obstructing common bile duct stone should be considered. Suspect there is mild central hepatic duct dilatation. This can be further evaluated by CT with IV contrast. Laboratory Results WBC 9.04 10^3/uL (3.29-11.43) 01/22/25 11:00 RBC 5.12 10^6/uL (3.85-5.65) 01/22/25 11:00 Hgb 12.80 g/dL (11.27-16.99) 01/22/25 11:00 Hct 41.4 % (36-47) 01/22/25 11:00 MCV 80.9 fl (85-98) L 01/22/25 11:00 MCH 25.0 pg (27-33) L 01/22/25 11:00 MCHC 30.9 g/dL (30-55) 01/22/25 11:00 RDW 25.0 % (12.1-15.1) H 01/22/25 11:00 Plt Count 210 10^3/cmm (157-399) 01/22/25 11:00 MPV Not Reportable 01/22/25 11:00 Neut % (Auto) 79.2 % 01/22/25 11:00 Lymph % (Auto) 9.2 % 01/22/25 11:00 Carver % (Auto) 9.0 % 01/22/25 11:00 Eos % (Auto) 1.5 % 01/22/25 11:00 Baso % (Auto) 0.8 % 01/22/25 11:00 Neut # (Auto) 7.16 10^3/uL (1.8-7.7) 01/22/25 11:00 Lymph # (Auto) 0.8 10^3/uL (0.8-4.8) 01/22/25 11:00 Carver # (Auto) 0.8 10^3/uL (0.2-0.9) 01/22/25 11:00 Eos # (Auto) 0.1 10^3/uL (0.0-0.8) 01/22/25 11:00 Baso # (Auto) 0.1 10^3/uL (0.0-0.1) 01/22/25 11:00 Nucleated RBC % (auto) 0 % 01/22/25 11:00 Nucleated RBCs # 0.0 /100WBC 01/22/25 11:00 PT 16.70 SECONDS (12.1-14.9) H 01/22/25 11:00 INR 1.26 (0.8-1.2) H 01/22/25 11:00 Sodium 140 mmol/L (136-145) 01/22/25 11:00 Potassium 3.7 mmol/L (3.5-5.1) 01/22/25 11:00 Chloride 100 mmol/L (98-107) 01/22/25 11:00 Carbon Dioxide 25 mmol/L (22-29) 01/22/25 11:00 Anion Gap 18.7 (5-19) 01/22/25 11:00 BUN 27 mg/dL (8-23) H 01/22/25 11:00 Creatinine 1.7 mg/dL (0.5-0.9) H 01/22/25 11:00 GFR Calculation Not Reportable 01/22/25 11:00 Glucose 118 mg/dL (65-115) H 01/22/25 11:00 Calculated Osmolality 296 mOsm/kg (285-295) H 01/22/25 11:00 Lactic Acid 1.8 mmol/L (0.5-2.2) 01/22/25 11:00 Calcium 9.0 mg/dL (8.5-10.5) 01/22/25 11:00 Total Bilirubin 11.5 mg/dL (0.15-1.2) H* 01/22/25 11:00 AST 311 U/L (0-32) H 01/22/25 11:00 ALT 206 U/L (0-33) H 01/22/25 11:00 Alkaline Phosphatase 1177 U/L (35-105) H* 01/22/25 11:00 Total Protein 7.2 g/dL (6.6-8.7) 01/22/25 11:00 Albumin 3.1 g/dL (3.5-5.2) L 01/22/25 11:00 Globulin 4.1 g/dL (1.3-4.6) 01/22/25 11:00 Lipase 203 U/L (13-60) H 01/22/25 11:00 All radiology interpretation(s) finalized by discharge EKG Data EKG 1: I personally reviewed and interpreted this EKG as follows: EKG interpretation date: 01/22/25 EKG interpretation time: 11:45 Interpretation: nsr hr [address] elevation qrs 94 qtc 418 Discharge Plan Discharge Patient Disposition: Admitted As Inpatient Clinical Impression: Jaundice, Common bile duct (CBD) obstruction Condition: Stable Prescriptions: No Action aspirin 81 mg capsule 81 mg PO DAILY atorvastatin 40 mg tablet 40 mg PO DAILY lisinopril 10 mg tablet 10 mg PO DAILY mirtazapine 15 mg tablet 15 mg PO BEDTIME Referrals: Cat Martínez DO [Primary Care Provider] - Print Language: [place] Coding Level of Care Code ED Movie Extra for Chg Arnaldo
[2025-01-22] MEDS: sodium chloride 0.9% 1,000 ML 999 ML IV (11:04)
[2025-01-22 11:21] LABS: Basophils # 0.1 10^3/uL (0.0-0.1); Basophils % 0.8 %; Eosinophils # 0.1 10^3/uL (0.0-0.8); Eosinophils % 1.5 %; Hematocrit 41.4 % (36-47); Lymphocytes # 0.8 10^3/uL (0.8-4.8); Lymphocytes % 9.2 %; Mean Corpuscular HGB Conc 30.9 g/dL (30-55); Mean Corpuscular Volume 80.9 fl (85-98); Monocytes # 0.8 10^3/uL (0.2-0.9); Neutrophils # 7.16 10^3/uL (1.8-7.7); Neutrophils % 79.2 %; Nucleated Red Blood Cells % 0 %; Platelet Count 210 10^3/cmm (157-399); Red Blood Count 5.12 10^6/uL (3.85-5.65); White Blood Count 9.04 10^3/uL (3.29-11.43)
[2025-01-22 11:38] LABS: Alanine Aminotransferase 206 U/L (0-33); Albumin Level 3.1 g/dL (3.5-5.2); Anion Gap 18.7 (5-19); Aspartate Amino Transferase 311 U/L (0-32); Blood Urea Nitrogen 27 mg/dL (8-23); Carbon Dioxide 25 mmol/L (22-29); Chloride 100 mmol/L (98-107); Creatinine Clr Calc Pharmacy 22.6907; Globulin 4.1 g/dL (1.3-4.6); Glucose 118 mg/dL (65-115); Lipase 203 U/L (13-60); Osmolality Calculated 296 mOsm/kg (285-295); Potassium 3.7 mmol/L (3.5-5.1); Sodium 140 mmol/L (136-145); Total Protein 7.2 g/dL (6.6-8.7)
[2025-01-22 11:39] LABS: Lactic Sepsis W/Reflex 1.8 mmol/L (0.5-2.2)
--- NOTE | 2025-01-22 11:45 | ECG_ITS ---
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
[2025-01-22 11:47] LABS: Alkaline Phosphatase 1177 U/L (35-105); Total Bilirubin 11.5 mg/dL (0.15-1.2)
[2025-01-22 11:49] LABS: Slide Review Slide Review Perform
[2025-01-22 11:58] LABS: INR 1.26 (0.8-1.2)
[2025-01-22] MEDS: iohexol 350 mg/mL 500 mL Btl (per mL) IV (12:23)
[2025-01-22] MEDS: piperacillin-tazobactam 3.375 GM in sodium chloride 0.9% (plus) 50 ML IV (12:56)
[2025-01-22] MEDS: sodium chloride 0.9% 1,000 ML 100 ML IV (16:20)
== END 2025-01-22 18:36 | disposition admitted as inpatient to this hospital (09) ==
PROVIDERS: Emergency Provider Emergency Medicine; PCP Family Medicine
DX: R17 Unspecified jaundice (principal); K83.1 Obstruction of bile duct; Z79.82 Long term (current) use of aspirin; Z86.73 Personal history of transient ischemic attack (TIA), and cerebral infarction without residual deficits
CPT/HCPCS: 36415; 74177; 76705; 80053; 83605; 83690; 85025; 85610; 87040; 93005; 96365; 99285; J2543; J7030

== ENCOUNTER 2025-05-12 04:41 | Observation (INO) | payer MEDICARE, SELFPAY ==
[2025-05-12] VITALS (15 sets, daily range): BP systolic 114–147; BP diastolic 65–77; PULSE 73–100; RESP 16–24; TEMP 36.3–36.5; O2SAT 91–99
--- NOTE | 2025-05-12 04:51 | ECG_ITS ---
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 Measurements Intervals [place] Rate: 79 P: 44 VA: 146 QRS: 50 QRSD: 98 T: 64 QT: 419 QTc: 481 Interpretive Statements SINUS RHYTHM Compared to ECG 01/22/2025 11:45:33 T-wave abnormality no longer present Possible ischemia no longer present Electronically Signed On 05-12-2025 21:58:02 CDT by Rell Palomo M.D. [email or web address]
--- NOTE | 2025-05-12 05:11 | CTR_ITS ---
PROCEDURE INFORMATION: Exam: CT Head Without Contrast Exam date and time: 05/12/2025 5:41 AM Age: 85 years old Clinical indication: Stroke-like symptoms; Dizziness/giddiness and other: General weakness; Additional info: Awoke from sleep this morning with severe dizziness and and general weakness. Last known well time of 2000 hours yesterday. History of RT mca stroke. TECHNIQUE: Imaging protocol: Computed tomography of the head without contrast. Radiation optimization: All CT scans at this facility use at least one of these dose optimization techniques: automated exposure control; mA and/or kV adjustment per patient size (includes targeted exams where dose is matched to clinical indication); or iterative reconstruction. Other technique: STROKE PROTOCOL was implemented. COMPARISON: CT head wo con* [id number] 12/01/2024 4:21 PM RADIATION DOSE METRICS: Total DLP (mGy-cm): 1096.88 FINDINGS: Brain: There is moderate cerebral atrophy. There is moderate diffuse heterogeneity of the white matter attenuation, consistent with chronic white matter ischemic changes. Geographic chronic encephalomalacia in the right cerebral hemisphere representing previous completed ischemic infarct. Negative for mass effect on the brain. Negative for midline shift the brain. Negative for acute intracranial hemorrhage. Cerebral ventricles: No ventriculomegaly. Paranasal sinuses: Visualized sinuses are unremarkable. No fluid levels. Mastoid air cells: Visualized mastoid air cells are well aerated. Bones: Unremarkable. No acute fracture. Soft tissues: Unremarkable. CT/CT head thrombolytic [id number] IMPRESSION: Negative for acute intracranial pathology. ASSESSMENT: ASPECTS ([place] Stroke Program Early CT Score) is 10.
--- NOTE | 2025-05-12 05:11 | XRR_ITS ---
PROCEDURE INFORMATION: Exam: XR Chest Exam date and time: 05/12/2025 5:11 AM Age: 85 years old Clinical indication: Other: Dizziness/general weakness; Awoke from sleep this morning with severe dizziness and and general weakness. Last known well time of 2000 hours yesterday. History of RT mca stroke. ; Additional info: Dizzy TECHNIQUE: Imaging protocol: Radiologic exam of the chest. Views: 1 view. COMPARISON: CR XR chest 1V portable [id number] 12/02/2024 7:48 AM FINDINGS: Lungs: Unremarkable. No consolidation. Pleural spaces: Unremarkable. No pleural effusion. No pneumothorax. Heart/Mediastinum: Unremarkable. No cardiomegaly. Bones/joints: Bones demineralized. Multiple displaced left lateral rib fractures seem to be new from the comparison but are otherwise unknown chronicity. XR/XR chest 1V portable [id number] IMPRESSION: Several left lateral rib fractures are suspected which are new since 12/02/2024.
--- NOTE | 2025-05-12 05:11 | W.ED.WEAKNES ---
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 She has some residual left-sided weakness following this. She walks with a walker. She says that she felt well and normal for her when she went to bed around 8 PM last night. After waking this morning, she was intensely dizzy, a vertiginous type dizziness with room spinning. This is worse with head movement. She also says that the right side of her face feels swollen, and somewhat numb. She is generally weak, without focal weakness. She also states that her head hurts. PFS ED PFSH: Medical History CVA (cerebral vascular accident) Surgical History History of right knee joint replacement Family History Mother Leukemia Social History Smoking and tobacco/nicotine status: never used tobacco/nicotine Alcohol intake: never Substance/Drug Use: never Physical Exam Const: EXAM LIMITATIONS: behavioral limitations GENERAL APPEARANCE: cooperative (somewhat), ill appearing and frail appearing ORIENTATION/CONSCIOUSNESS: Yes awake, Yes oriented to person, Yes oriented to place and Yes oriented to time HENMT: COMMON NORMALS: normocephalic, atraumatic and Normal external nose present HEAD & SCALP: normocephalic and atraumatic NOSE: Normal external nose present Eye: COMMON NORMALS: Equal, round and reactive pupils present and EOMs intact bilaterally PUPIL: Yes Equal, round and reactive pupils present Neck/C-Spine: GENERAL: Yes trachea midline Resp: COMMON NORMALS: normal respiratory effort, No use of accessory muscles and clear to auscultation bilaterally AUSCULTATION: clear to auscultation bilaterally Cardio: COMMON NORMALS: regular rate and regular rhythm RATE: regular rate RHYTHM: regular rhythm Neuro: SENSORIUM/ORIENTATION: Yes oriented to person, Yes oriented to place and Yes oriented to time COORDINATION/BALANCE: [id number] test normal and No rtqu-[id number] test normal SPEECH: speech normal SENSORY EXAM: Yes extremities (intact) MOTOR EXAM: Pronator motor function present (on left upper extremity, from prior stroke. no right drift) COORDINATION: [id number] test normal and [id number] test abnormal Course Vital Signs: Vital signs: Vital Signs Temperature 97.8 F 05/13/25 07:00 Pulse Rate 87 05/13/25 11:47 Respiratory Rate 17 05/13/25 11:47 Blood Pressure 152/93 05/13/25 11:47 Pulse Oximetry 99 05/13/25 11:47 Oxygen Delivery Me thod Room Air 05/13/25 07:00 Oxygen Flow Rate 2 05/12/25 08:52 MDM - Weakness Medical Decision Making 85-year-old female with dizziness, right-sided facial droop, and weakness that is hard to localize. This is at least in part due to lack of participation with examination. Last known well time was 8 PM last night, well out of the thrombolytic window. CT head is pending. Laboratories pending. Lab Data 05/13/25 06:04 05/13/25 06:04 Radiology Impressions Chest X-Ray 05/12/25 05:11 IMPRESSION: Several left lateral rib fractures are suspected which are new since 12/02/2024. Head CT 05/12/25 05:11 IMPRESSION: Negative for acute intracranial pathology. ASSESSMENT: ASPECTS ([place] Stroke Program Early CT Score) is 10. ADDENDUM: 05/12/25601 Findings were discussed with MAGDALENO BOLTON at 05/12/2025 6:01 AM CDT. Head MRI 05/12/25 11:10 IMPRESSION: 1. No acute infarct or hemorrhage. 2. Remote RIGHT MCA territory infarct with encephalomalacia. 3. Advanced T2 and FLAIR signal hyperintensities throughout the white matter from chronic disease. Laboratory Results WBC 5.00 10^3/uL (3.29-11.43) 05/12/25 05:19 RBC 4.62 10^6/uL (3.85-5.65) 05/12/25 05:19 Hgb 11.70 g/dL (11.27-16.99) 05/12/25 05:19 Hct 37.7 % (36-47) 05/12/25 05:19 MCV 81.6 fl (85-98) L 05/12/25 05:19 MCH 25.3 pg (27-33) L 05/12/25 05:19 MCHC 31.0 g/dL (30-55) 05/12/25 05:19 RDW 22.5 % (12.1-15.1) H 05/12/25 05:19 Plt Count 206 10^3/cmm (157-399) 05/12/25 05:19 MPV 11.4 fL (7.4-10.4) H 05/12/25 05:19 Neut % (Auto) 59.0 % 05/12/25 05:19 Lymph % (Auto) 29.4 % 05/12/25 05:19 [place] % (Auto) 8.6 % 05/12/25 05:19 Eos % (Auto) 2.2 % 05/12/25 05:19 Baso % (Auto) 0.6 % 05/12/25 05:19 Neut # (Auto) 2.95 10^3/uL (1.8-7.7) 05/12/25 05:19 Lymph # (Auto) 1.5 10^3/uL (0.8-4.8) 05/12/25 05:19 [place] # (Auto) 0.4 10^3/uL (0.2-0.9) 05/12/25 05:19 Eos # (Auto) 0.1 10^3/uL (0.0-0.8) 05/12/25 05:19 Baso # (Auto) 0.0 10^3/uL (0.0-0.1) 05/12/25 05:19 Nucleated RBC % (auto) 0 % 05/12/25 05:19 Nucleated RBCs # 0.0 /100WBC 05/12/25 05:19 PT 13.80 SECONDS (12.1-14.9) 05/12/25 05:19 INR 0.99 (0.8-1.2) 05/12/25 05:19 APTT 22.8 SECONDS (23.9-36.7) L 05/12/25 05:19 Sodium 141 mmol/L (136-145) 05/12/25 05:19 Potassium 3.2 mmol/L (3.5-5.1) L 05/12/25 05:19 Chloride 103 mmol/L (98-107) 05/12/25 05:19 Carbon Dioxide 21 mmol/L (22-29) L 05/12/25 05:19 Anion Gap 20.2 (5-19) H 05/12/25 05:19 BUN 15 mg/dL (8-23) 05/12/25 05:19 Creatinine 0.7 mg/dL (0.5-0.9) 05/12/25 05:19 GFR Calculation Not Reportable 05/12/25 05:19 Glucose 91 mg/dL (65-115) 05/12/25 05:19 Calculated Osmolality 292 mOsm/kg (285-295) 05/12/25 05:19 Calcium 9.1 mg/dL (8.5-10.5) 05/12/25 05:19 Total Bilirubin 0.4 mg/dL (0.15-1.2) 05/12/25 05:19 AST 30 U/L (0-32) 05/12/25 05:19 ALT 18 U/L (0-33) 05/12/25 05:19 Alkaline Phosphatase 120 U/L (35-105) H 05/12/25 05:19 Total Protein 6.0 g/dL (6.6-8.7) L 05/12/25 05:19 Albumin 3.1 g/dL (3.5-5.2) L 05/12/25 05:19 Globulin 2.9 g/dL (1.3-4.6) 05/12/25 05:19 Urine Color Yellow (Yellow) 05/12/25 05:06 Urine Appearance Cloudy (CLEAR) A 05/12/25 05:06 Urine pH 5.5 (5-7) 05/12/25 05:06 Ur Specific [place] 1.017 (1.005-1.030) 05/12/25 05:06 Urine Protein 1+ (Negative) A 05/12/25 05:06 Urine Glucose (UA) Negative (Normal) 05/12/25 05:06 Urine Ketones Trace (Negative) 05/12/25 05:06 Urine Blood Trace (Negative) A 05/12/25 05:06 Urine Nitrate Negative (Negative) 05/12/25 05:06 Urine Bilirubin Negative (Negative) 05/12/25 05:06 Urine Urobilinogen 1.0 mg/dL (Negative) 05/12/25 05:06 Ur Leukocyte Esterase 3+ (Negative) A 05/12/25 05:06 Urine RBC 0-2 /hpf (0-2) 05/12/25 05:06 Urine WBC >100 /hpf (0-5) H 05/12/25 05:06 Ur Squamous Epith Cells 0-5 /hpf (0-5) 05/12/25 05:06 Amorphous Sediment Not Reportable 05/12/25 05:06 Urine Bacteria 4+ /hpf (NONE) H 05/12/25 05:06 Hyaline Casts 1.21 /lpf 05/12/25 05:06 Urine Opiates Screen Positive ng/mL (Negative) H 05/12/25 05:06 Ur Barbiturates Screen Negative ng/mL (Negative) 05/12/25 05:06 Ur Phencyclidine Scrn Negative ng/mL (Negative) 05/12/25 05:06 Ur Amphetamines Screen Negative ng/mL (Negative) 05/12/25 05:06 U Benzodiazepines Scrn Negative ng/mL (Negative) 05/12/25 05:06 Urine Cocaine Screen Negative ng/mL (Negative) 05/12/25 05:06 U Marijuana (THC) Screen Negative ng/mL (Negative) 05/12/25 05:06 Discharge Plan Discharge Patient Disposition: Admitted As Inpatient Admit Provider: Baldomero Vidal Clinical Impression: Acute UTI, Acute cerebrovascular accident (CVA), Left rib fracture Condition: Stable Discharge Diet: As Directed Discharge Activity: Increase activity as tolerated, Limit activity as instructed and Use walker/crutches as instructed Sign Out Sign Out Data: Patient Sign Out occurred on 05/12/25 at 07:23. Patient's care was discussed, and care was transferred from Magdaleno Bolton DO to Arya Quach DO. Coding Level of Care Code ED Broadcast Meteorologist for Chg Fwd Related Data Home Medications ?Medication ?Instructions ?Recorded ?Confirmed atorvastatin 40 mg tablet 40 mg PO DAILY 01/22/25 05/12/25 aspirin 81 mg tablet,delayed 81 mg PO DAILY 05/12/25 05/12/25 release ferrous sulfate 325 mg (65 mg 325 mg PO DAILY 05/12/25 05/12/25 iron) tablet mirtazapine 30 mg tablet 30 mg PO BEDTIME 05/12/25 05/12/25 pantoprazole 40 mg tablet,delayed 40 mg PO DAILY 05/12/25 05/12/25 release Previous Rx's ?Medication ?Instructions ?Recorded cefdinir 300 mg capsule 300 mg PO BID 5 days #10 caps 05/13/25 linezolid 600 mg tablet 600 mg PO BID #12 tabs 05/15/25 Allergies Allergy/AdvReac Type Severity Reaction Status Date / Time No Known Allergies Allergy Verified 01/22/25 10:41 NIH stroke score NIHSS Level Of Consciousness - 1a: 0 Level Of Consciousness Questions - 1b: Both Correct Level Of Consciousness Commands - 1c: Both Correct Best Gaze - 2: Normal Visual [place] - 3: No Visual Loss Facial Palsy - 4: Minor Paralysis Motor Arm Right - 5: No Drift Motor Arm Left - 5: Drift (from old stroke) Motor Leg Right - 6: No Drift Motor Leg Left - 6: No Drift Limb Ataxia - 7: Absent Sensory - 8: Normal Best Language - 9: No Aphasia Dysarthia - 10: Normal Extinction And Inattention - 11: 0 Score Total Score: 2 Documented by User: Arya Quach DO 05/12/25 17:44 HPI - Weakness General: Chief complaint: Weakness Stated complaint: Weakness Time Seen by Provider: 05/12/25 04:59 PFSH ED PFSH: Medical History CVA (cerebral vascular accident) Surgical History History of right knee joint replacement Family History Mother Leukemia Social History Smoking and tobacco/nicotine status: never used tobacco/nicotine Alcohol intake: never Substance/Drug Use: never Course Vital Signs: Vital signs: Vital Signs Temperature 97.8 F 05/13/25 07:00 Pulse Rate 87 05/13/25 11:47 Respiratory Rate 17 05/13/25 11:47 Blood Pressure 152/93 05/13/25 11:47 Pulse Oximetry 99 05/13/25 11:47 Oxygen Delivery Me thod Room Air 05/13/25 07:00 Oxygen Flow Rate 2 05/12/25 08:52 MDM - Weakness Medical Decision Making 85-year-old female with dizziness, right-sided facial droop, and weakness that is hard to localize. This is at least in part due to lack of participation with examination. Last known well time was 8 PM last night, well out of the thrombolytic window. CT head is pending. Laboratories pending. Care assumed at change of shift CT head is negative. Patient does have UTI. Discussed with hospitalist will admit for stroke she is outside the window for any TNKase. Patient has no rib fractures on the chest x-ray but no pain at this time. Lab Data 05/13/25 06:04 05/13/25 06:04 Radiology Impressions Chest X-Ray 05/12/25 05:11 IMPRESSION: Several left lateral rib fractures are suspected which are new since 12/02/2024. Head CT 05/12/25 05:11 IMPRESSION: Negative for acute intracranial pathology. ASSESSMENT: ASPECTS ([place] Stroke Program Early CT Score) is 10. ADDENDUM: 05/12/25601 Findings were discussed with MAGDALENO BOLTON at 05/12/2025 6:01 AM CDT. Head MRI 05/12/25 11:10 IMPRESSION: 1. No acute infarct or hemorrhage. 2. Remote RIGHT MCA territory infarct with encephalomalacia. 3. Advanced T2 and FLAIR signal hyperintensities throughout the white matter from chronic disease. Laboratory Results WBC 5.00 10^3/uL (3.29-11.43) 05/12/25 05:19 RBC 4.62 10^6/uL (3.85-5.65) 05/12/25 05:19 Hgb 11.70 g/dL (11.27-16.99) 05/12/25 05:19 Hct 37.7 % (36-47) 05/12/25 05:19 MCV 81.6 fl (85-98) L 05/12/25 05:19 MCH 25.3 pg (27-33) L 05/12/25 05:19 MCHC 31.0 g/dL (30-55) 05/12/25 05:19 RDW 22.5 % (12.1-15.1) H 05/12/25 05:19 Plt Count 206 10^3/cmm (157-399) 05/12/25 05:19 MPV 11.4 fL (7.4-10.4) H 05/12/25 05:19 Neut % (Auto) 59.0 % 05/12/25 05:19 Lymph % (Auto) 29.4 % 05/12/25 05:19 [place] % (Auto) 8.6 % 05/12/25 05:19 Eos % (Auto) 2.2 % 05/12/25 05:19 Baso % (Auto) 0.6 % 05/12/25 05:19 Neut # (Auto) 2.95 10^3/uL (1.8-7.7) 05/12/25 05:19 Lymph # (Auto) 1.5 10^3/uL (0.8-4.8) 05/12/25 05:19 [place] # (Auto) 0.4 10^3/uL (0.2-0.9) 05/12/25 05:19 Eos # (Auto) 0.1 10^3/uL (0.0-0.8) 05/12/25 05:19 Baso # (Auto) 0.0 10^3/uL (0.0-0.1) 05/12/25 05:19 Nucleated RBC % (auto) 0 % 05/12/25 05:19 Nucleated RBCs # 0.0 /100WBC 05/12/25 05:19 PT 13.80 SECONDS (12.1-14.9) 05/12/25 05:19 INR 0.99 (0.8-1.2) 05/12/25 05:19 APTT 22.8 SECONDS (23.9-36.7) L 05/12/25 05:19 Sodium 141 mmol/L (136-145) 05/12/25 05:19 Potassium 3.2 mmol/L (3.5-5.1) L 05/12/25 05:19 Chloride 103 mmol/L (98-107) 05/12/25 05:19 Carbon Dioxide 21 mmol/L (22-29) L 05/12/25 05:19 Anion Gap 20.2 (5-19) H 05/12/25 05:19 BUN 15 mg/dL (8-23) 05/12/25 05:19 Creatinine 0.7 mg/dL (0.5-0.9) 05/12/25 05:19 GFR Calculation Not Reportable 05/12/25 05:19 Glucose 91 mg/dL (65-115) 05/12/25 05:19 Calculated Osmolality 292 mOsm/kg (285-295) 05/12/25 05:19 Calcium 9.1 mg/dL (8.5-10.5) 05/12/25 05:19 Total Bilirubin 0.4 mg/dL (0.15-1.2) 05/12/25 05:19 AST 30 U/L (0-32) 05/12/25 05:19 ALT 18 U/L (0-33) 05/12/25 05:19 Alkaline Phosphatase 120 U/L (35-105) H 05/12/25 05:19 Total Protein 6.0 g/dL (6.6-8.7) L 05/12/25 05:19 Albumin 3.1 g/dL (3.5-5.2) L 05/12/25 05:19 Globulin 2.9 g/dL (1.3-4.6) 05/12/25 05:19 Urine Color Yellow (Yellow) 05/12/25 05:06 Urine Appearance Cloudy (CLEAR) A 05/12/25 05:06 Urine pH 5.5 (5-7) 05/12/25 05:06 Ur Specific [place] 1.017 (1.005-1.030) 05/12/25 05:06 Urine Protein 1+ (Negative) A 05/12/25 05:06 Urine Glucose (UA) Negative (Normal) 05/12/25 05:06 Urine Ketones Trace (Negative) 05/12/25 05:06 Urine Blood Trace (Negative) A 05/12/25 05:06 Urine Nitrate Negative (Negative) 05/12/25 05:06 Urine Bilirubin Negative (Negative) 05/12/25 05:06 Urine Urobilinogen 1.0 mg/dL (Negative) 05/12/25 05:06 Ur Leukocyte Esterase 3+ (Negative) A 05/12/25 05:06 Urine RBC 0-2 /hpf (0-2) 05/12/25 05:06 Urine WBC >100 /hpf (0-5) H 05/12/25 05:06 Ur Squamous Epith Cells 0-5 /hpf (0-5) 05/12/25 05:06 Amorphous Sediment Not Reportable 05/12/25 05:06 Urine Bacteria 4+ /hpf (NONE) H 05/12/25 05:06 Hyaline Casts 1.21 /lpf 05/12/25 05:06 Urine Opiates Screen Positive ng/mL (Negative) H 05/12/25 05:06 Ur Barbiturates Screen Negative ng/mL (Negative) 05/12/25 05:06 Ur Phencyclidine Scrn Negative ng/mL (Negative) 05/12/25 05:06 Ur Amphetamines Screen Negative ng/mL (Negative) 05/12/25 05:06 U Benzodiazepines Scrn Negative ng/mL (Negative) 05/12/25 05:06 Urine Cocaine Screen Negative ng/mL (Negative) 05/12/25 05:06 U Marijuana (THC) Screen Negative ng/mL (Negative) 05/12/25 05:06 All radiology interpretation(s) finalized by discharge Discharge Plan Discharge Patient Disposition: Admitted As Inpatient Admit Provider: Baldomero Vidal Clinical Impression: Acute UTI, Acute cerebrovascular accident (CVA), Left rib fracture Condition: Stable Discharge Diet: As Directed Discharge Activity: Increase activity as tolerated, Limit activity as instructed and Use walker/crutches as instructed Sign Out Sign Out Data: Patient Sign Out occurred on 05/12/25 at 07:23. Patient's care was discussed, and care was transferred from Magdaleno Bolton DO to Arya Quach DO. Coding Level of Care Code ED Broadcast Meteorologist for Chg Fwd Related Data Home Medications ?Medication ?Instructions ?Recorded ?Confirmed atorvastatin 40 mg tablet 40 mg PO DAILY 01/22/25 05/12/25 aspirin 81 mg tablet,delayed 81 mg PO DAILY 05/12/25 05/12/25 release ferrous sulfate 325 mg (65 mg 325 mg PO DAILY 05/12/25 05/12/25 iron) tablet mirtazapine 30 mg tablet 30 mg PO BEDTIME 05/12/25 05/12/25 pantoprazole 40 mg tablet,delayed 40 mg PO DAILY 05/12/25 05/12/25 release Previous Rx's ?Medication ?Instructions ?Recorded cefdinir 300 mg capsule 300 mg PO BID 5 days #10 caps 05/13/25 linezolid 600 mg tablet 600 mg PO BID #12 tabs 05/15/25 Allergies Allergy/AdvReac Type Severity Reaction Status Date / Time No Known Allergies Allergy Verified 01/22/25 10:41 NIH stroke score Score Total Score: 2
[2025-05-12 05:23] LABS: Bilirubin Urine Negative (Negative); Blood Urine Trace (Negative); Glucose Urine UA Negative (Normal); Ketones Urine Trace (Negative); Leukocyte Esterase Urine 3+ (Negative); Nitrate Urine Negative (Negative); Protein Urine 1+ (Negative); Specific Gravity, Urine 1.017 (1.005-1.030); Urine Appearance Cloudy (CLEAR); Urine Color Yellow (Yellow); pH Urine 5.5 (5-7)
[2025-05-12] MEDS: midazolam 1 mg/mL INJ 2 mL 0.5 MG IVP ×2 (05:25→06:41)
[2025-05-12 05:27] LABS: Basophils % 0.6 %; Eosinophils # 0.1 10^3/uL (0.0-0.8); Eosinophils % 2.2 %; Hematocrit 37.7 % (36-47); Lymphocytes # 1.5 10^3/uL (0.8-4.8); Lymphocytes % 29.4 %; Mean Corpuscular Hemoglobin 25.3 pg (27-33); Mean Corpuscular Volume 81.6 fl (85-98); Mean Platelet Volume 11.4 fL (7.4-10.4); Monocytes # 0.4 10^3/uL (0.2-0.9); Monocytes % 8.6 %; Neutrophils # 2.95 10^3/uL (1.8-7.7); Nucleated Red Blood Cells % 0 %; Platelet Count 206 10^3/cmm (157-399); Red Blood Count 4.62 10^6/uL (3.85-5.65); Red Cell Distribution Width 22.5 % (12.1-15.1)
[2025-05-12 05:28] LABS: Add Urine Microscopic? YES; Bacteria Urine 4+ /hpf; Hyaline Casts Urine 1.21 /lpf; RBC Urine 0-2 /hpf (0-2); Squamous Epithelial Cell Urine 0-5 /hpf (0-5); WBC Urine >100 /hpf (0-5)
[2025-05-12 05:30] LABS: Amphetamines Screen Urine Negative (Negative); Barbiturates Screen Urine Negative (Negative); Benzodiazepines Screen Urine Negative (Negative); Cocaine Screen Urine Negative (Negative); Opiate Screen Urine Positive (Negative); PCP Screen Urine Negative (Negative); THC Screen Urine Negative (Negative)
[2025-05-12 05:39] LABS: INR 0.99 (0.8-1.2)
[2025-05-12 05:40] LABS: Partial Thromboplastin Time 22.8 SECONDS (23.9-36.7)
[2025-05-12 05:43] LABS: Alanine Aminotransferase 18 U/L (0-33); Albumin Level 3.1 g/dL (3.5-5.2); Alkaline Phosphatase 120 U/L (35-105); Anion Gap 20.2 (5-19); Aspartate Amino Transferase 30 U/L (0-32); Blood Urea Nitrogen 15 mg/dL (8-23); Calcium 9.1 mg/dL (8.5-10.5); Carbon Dioxide 21 mmol/L (22-29); Chloride 103 mmol/L (98-107); Creatinine Clr Calc Pharmacy 45.4706; Globulin 2.9 g/dL (1.3-4.6); Glucose 91 mg/dL (65-115); Osmolality Calculated 292 mOsm/kg (285-295); Potassium 3.2 mmol/L (3.5-5.1); Sodium 141 mmol/L (136-145); Total Bilirubin 0.4 mg/dL (0.15-1.2)
[2025-05-12 05:46] LABS: Add Urine Culture? Yes; UA Slide Review UA Slide Review Perf
[2025-05-12] MEDS: cefTRIAXone 1,000 mg SDV 1000 MG IVP (06:27)
[2025-05-12] MEDS: potassium chloride oral liq 20 mEq/15 mL UDC 40 MEQ PO (06:29)
[2025-05-12] MEDS: sodium chloride 0.9% 1,000 ML 150 ML IV (06:36)
--- NOTE | 2025-05-12 07:37 | PC.NURSE ---
THIS NURSE ASSUMED CARE @ 0700.
[2025-05-12] MEDS: prochlorperazine 10 mg/2 mL Inj IVP (08:07)
[2025-05-12] MEDS: acetaminophen 500 mg Tablet 1000 MG PO (08:08)
--- NOTE | 2025-05-12 11:10 | MR_ITS ---
WS: [id number] MRI BRAIN WITHOUT CONTRAST HISTORY: assess for post circ cva COMPARISON: 11/23/2024, CT head 05/12/2025 TECHNIQUE: Diffusion imaging, multiplanar T1, T2 and FLAIR imaging obtained. Normal diffusion imaging. No acute infarct. Large remote RIGHT MCA territory infarct. Mild cerebral and cerebellar atrophy. Advanced T2 and FLAIR signal hyperintensities throughout the supratentorial white matter. Small focus of hemosiderin adjacent to the occipital horn of the LEFT lateral ventricle. Ventricles and extra-axial spaces are normal. No inferior displacement of cerebellar tonsils. The sella turcica and pituitary gland are unremarkable. Dural venous sinuses and red cliff of [place] demonstrate no abnormality on this unenhanced studies. Paranasal sinuses: Clear. Mastoid air cells: Normal. Calvarium and scalp: Hyperostosis frontalis interna. MR/MR head wo con* [id number] IMPRESSION: 1. No acute infarct or hemorrhage. 2. Remote RIGHT MCA territory infarct with encephalomalacia. 3. Advanced T2 and FLAIR signal hyperintensities throughout the white matter f rom chronic disease.
[2025-05-12] MEDS: enoxaparin 40 mg/0.4 mL Syringe SUBCUT (11:31)
--- NOTE | 2025-05-12 11:50 | P.HP_ITS ---
Providers/Chief Complaint 2 Admitting Physician: Baldomero Vidal Primary Care Provider: Cat Martínez DO Chief Complaint: Weakness History of Present Illness Debby Velez is a 85 year old female with a history of stroke in October 2024 with residual left-sided weakness, normally ambulatory with a walker, who presented after waking up at 8 a.m. with intense dizziness and vertigo described as the room spinning, worse with head movement. The patient also reported right- sided facial swelling and numbness, and generalized weakness without new focal deficits per initial assessment. There was no chest pain, abdominal pain, fever, chills, hearing loss, or recent ear infection, though one ear had previously bothered the patient but improved. No nausea, vomiting, diarrhea, or urinary symptoms were reported. The patient denied vision changes or worsening of baseline left-sided weakness. The patient has a history of gallbladder removal (cholecystectomy) in December or January 2025 for gallstones and gallbladder cancer, with ongoing evaluation for possible metastatic disease. The patient takes aspirin and a cholesterol medication, denies history of diabetes or atrial fibrillation, and has not had recent medication changes. The patient?s stool is dark, attributed to iron supplementation. Laboratory evaluation revealed evidence of a urinary tract infection. The patient?s dizziness is persistent and exacerbated by head movement. Head CT was negative for acute intracranial pathology. The patient also reported headache during the encounter. Review of Systems 2 Const: Denies: fever(s), chills, body aches or malaise ENMT: Denies: throat pain, oral sores or ear or mastoid pain Card: Denies: chest pain, edema, pre-syncope or dyspnea on exertion Resp: Denies: dyspnea, productive cough, change in phlegm color or hemoptysis GI: Denies: abdominal pain, nausea, vomiting, diarrhea, constipation, hematochezia or melena : Denies: flank pain, urinary frequency or hematuria Musc: Denies: back pain, joint swelling or joint redness Skin/Breast: Denies: rash or new lesions Neuro: Reports: headache(s) (mild), numbness in extremities, weakness in extremities, difficulty walking, dizziness and other (Gen weak); Denies: confusion or seizure-like activity Medications/Allergies Home Medications ?Medication ?Instructions ?Recorded ?Confirmed ?Last Taken ?Type atorvastatin 40 mg tablet 40 mg PO DAILY 02/26/25 06/05/2105/11/25 History aspirin 81 mg tablet,delayed 81 mg PO DAILY 05/12/25 0 05/12/25 05/11/25 History release ferrous sulfate 325 mg (65 mg 325 mg PO DAILY 05/12/25 05/12/25 05/11/25 History iron) tablet mirtazapine 30 mg tablet 30 mg PO BEDTIME 05/12/2505/11/25 History pantoprazole 40 mg tablet,delayed 40 mg PO DAILY 05/1205/12/25 05/11/25 History release Allergies Allergy/AdvReac Type Severity Reaction Status Date / Time No Known Allergies Allergy Verified 01/22/25 10:41 PFSH Acute 2 PFSH: Medical History CVA (cerebral vascular accident) Surgical History History of right knee joint replacement Family History Mother Leukemia Social History Smoking and tobacco/nicotine status: never used tobacco/nicotine Alcohol intake: never Substance/Drug Use: never Vitals/I&O/Wt Last Vital Signs Temp 97.5 F L 05/12/25 04:44 Pulse 90 05/12/25 09:48 Resp 16 05/12/25 08:52 BP 147/74 05/12/25 09:48 Pulse Ox 95 05/12/25 09:48 O2 Del Method Room Air 05/12/25 10:30 O2 Flow Rate 2 05/12/25 08:52 05/11/25 05/12/25 05/12/25 22:59 06:59 14:59 Intake Total 0 / 0 647.5 / 647.5 Balance 0 / 0 647.5 / 647.5 Weight last 48 hrs Weight 54.93 kg Weight 57.153 kg Physical Exam 2 Narrative: Accompanied by her daughter. Const: COMMON NORMALS: patient oriented x3 and alert GENERAL APPEARANCE: c ooperative ORIENTATION/CONSCIOUSNESS: Yes awake HENMT: COMMON NORMALS: oropharynx normal Neck/C-Spine: COMMON NORMALS: no JVD Resp: COMMON NORMALS: normal respiratory effort and clear to auscultation bilaterally AUSCULTATION: clear to auscultation bilaterally Cardio: COMMON NORMALS: no JVD, regular rhythm, S1 normal heart sound present, S2 normal heart sound present and No murmurs present (Cardio) RHYTHM: regular rhythm HEART SOUNDS: S1 normal heart sound present and S2 normal heart sound present GI: COMMON NORMALS: Normal to inspection, nondistended, normoactive bowel sounds present, Soft to palpation and non-tender PALPATION: Yes Soft to palpation Extremity: COMMON NORMALS: no joint enlargement and no pedal edema Neuro: COMMON NORMALS: patient oriented x3 and moves all extremities S ENSORIUM/ORIENTATION: Yes alert OTHER: She is awake, alert, uncomfortable due to dizziness, having to close her eyes. I do not appreciate gross nystagmus. She is alert to be able to follow commands. Mildly hard of hearing. No difficulty tracking horizontally. Bilateral end gaze nystagmus, no skew deviation, negative head impulse test. She did not feel well enough to try [place]-Hallpike. Visual [place] full to confrontation, without visual extinction. Sensory loss left side compared to the right, sensory extinction on the left. Without significant drift of left upper or lower extremity. FNF unremarkable. Skin: COMMON NORMALS: no rashes or lesions noted GENERAL SKIN EXAM: no rashes or lesions noted Data 05/12/25 05:19 05/12/25 05:19 Micro: Microbiology 05/12/25 06:24 Blood Culture - Preliminary Blood SPECIMEN COLLECTED 05/12/25 06:20 Blood Culture - Preliminary Blood SPECIMEN COLLECTED A&P Assessment and plan (1) Acute CVA (cerebrovascular accident): The patient awoke with acute, intense dizziness and vertigo, described as room spinning and worse with head movement. Differential diagnosis discussed includes posterior circulation stroke, inner ear pathology (such as BPPV or vestibular neuritis), and post-viral syndrome. The patient was outside the window for thrombolytic therapy. Head CT was negative for acute intracranial pathology. The provider discussed the difficulty in distinguishing between central (stroke) and peripheral (ear) causes. No evidence of hearing loss or ear infection. The patient continues to experience dizziness and vertigo at rest and with movement. Recently found gall bladder cancer after excision after cholecystitis. Reviewed prior note. Reviewed ED provider documentation, discussed with ED provider, UA reviewed CBC, CMP, INR, UA, U tox, head CT, chest x-ray, EKG. On my interpretation sinus rhythm, pending official read. - Obtain MRI to further evaluate for acute stroke or inner ear pathology. - Consider [place]-Hallpike maneuver if tolerated to assess for BPPV woth PT once able to tolerate - Symptomatic management with antiemetics and Tylenol for headache. - Fall precautions - PT, OT, ST assessment -Carotid duplex, monitor on tele, echo bubble study, lipid profile, A1c - ASA 162, statin - Monitor BPs, permissive HTN for now. Follow up MRI. Plan Urinary tract infection : Laboratory findings indicate a urinary tract infection (urinalysis with >100 WBCs, positive leukocyte esterase). No urinary symptoms reported. - Initiate ceftriaxone for UTI. - follow Cx Right facial droop and weakness : On assessment, the patient was found to have right-sided facial droop and weakness, which is a new finding compared to prior left-sided deficits. This raises concern for new neurological event versus other causes. The patient also reported right facial swelling and numbness. So far resolved. - Monitor for progression of neurological symptoms. - Bedside swallow, ST eval - Continue neurological assessments. History of stroke with residual left-sided weakness and numbness : History of stroke in October 2024 with persistent left-sided weakness and numbness. No reported worsening of baseline deficits. Left-sided neglect and decreased sensation persist, consistent with prior stroke. - Continue current secondary stroke prevention regimen (aspirin, statin). - Physical therapy consult for ongoing weakness and mobility. Left lateral rib fractures (new since November 2024) : Imaging revealed several left lateral rib fractures, suspected new since November 2024. Headache : Patient reported headache during the encounter, possibly related to vertigo or underlying neurological process. No prior history of similar headaches reported. - Symptomatic management with Tylenol. -Resp viral panel PDMP PDMP Reviewed: Not Reviewed Attestations 2 Medical Necessity Statement*: Place in observation for additional assessment management of suspected posterior discretion CVA, dizziness, difficulty with ambulation. and High MDM includes amount and/or complexity of data reviewed/ordered [ previous or external records, resulted lab(s)/test(s), ordered lab(s)/test(s), independent test interpretation and other healthcare professional discussion] as documented Diagnoses Acute CVA (cerebrovascular accident) I63.9
[2025-05-12] MEDS: aspirin 81 mg EC Tablet 162 MG PO (12:44)
[2025-05-12 14:47] LABS: Adenovirus Not Detected (NOT DETECT); Chlamydia Pneumoniae Not Detected (NOT DETECT); Coronavirus 229E,HKU1,NL63,OC4 Not Detected (NOT DETECT); Human Metapneumovirus Not Detected (NOT DETECT); Human Rhinovirus/Enterovirus Not Detected (NOT DETECT); Influenza A Not Detected (NOT DETECT); Influenza A H1 Not Detected (NOT DETECT); Influenza A H1-2009 Not Detected (NOT DETECT); Influenza A H3 Not Detected (NOT DETECT); Influenza B Not Detected (NOT DETECT); Mycoplasma Pneumoniae Not Detected (NOT DETECT); Parainfluenza Virus Type 1 Not Detected (NOT DETECT); Parainfluenza Virus Type 2 Not Detected (NOT DETECT); Parainfluenza Virus Type 3 Not Detected (NOT DETECT); Parainfluenza Virus Type 4 Not Detected (NOT DETECT); Respiratory Syncytial Virus A Not Detected (NOT DETECT); Respiratory Syncytial Virus B Not Detected (NOT DETECT); SARS-COV-2 Not Detected (NOT DETECT)
--- NOTE | 2025-05-12 16:21 | PC.NURSE ---
services coordinator rounds @ [phone]- [phone] patient and caregiver stroke education book
[2025-05-12] MEDS: atorvastatin 40 mg Tablet PO (20:20)
[2025-05-13] VITALS (8 sets, daily range): BP systolic 108–158; BP diastolic 69–93; PULSE 80–99; RESP 13–18; TEMP 36.6–36.7; O2SAT 94–99
--- NOTE | 2025-05-13 00:25 | USCV_ITS ---
Debby Velez Age: 85 Gender: F : 1940 Exam Date: 05/13/2025 00:31 Ordering Phys: Baldomero Vidal MD Technologist: STANISLAW Exam Location: [facility] – [place] Indication: new CVA with vertigo and RIGHT facial numbness. Prior CVA 10/2024 with LEFT hemiparesis residual Risk Factors: new CVA with vertigo and RIGHT facial numbness. Prior CVA 10/2024 with LEFT hemiparesis residual Previous Vascular Surgery: None Right Brachial BP: 136 / 73 Left Brachial BP: / Right Left Velocity (cm/s) Spectral Plaque Velocity (cm/s) Spectral Plaque Syst/Diast Broadening Syst/Diast Broadening 78.90/ 15.40 Min Homo Prox CCA 76.90 / 11.20 Min Homo 86.70/ 14.10 Min Homo Mid CCA 80.70 / 12.10 Min Homo 68.50/ 15.40 Min Hetro Distal CCA 47.70 / 7.30 Min Hetro 56.50/ 12.80 Min Oscar Prox ICA 48.40 / 10.20 Min Oscar 63.00/ 19.20 Min Homo Mid ICA 63.20 / 16.70 Min Homo 69.40/ 20.50 Min Homo Distal ICA 51.00 / 15.70 Min Hetro 72.30 None Homo ECA 57.20 None Homo 1.00 ICA/CCA 1.30 Antegrade Vertebral Antegrade 28.20/ 10.20 cm/s 16.80/ 0.00 cm/s Tri Subclavian Tri 74.50 59.00 CONCLUSIONS Right ICA stenosis <50%. Mild atheromatous plaque right carotid bulb/ICA. Left ICA stenosis <50%. Moderate atheromatous plaque left carotid bulb/ICA. Intimal thickening in the common carotid arteries and internal carotid arteries bilaterally. Normal antegrade Doppler flow noted in the right vertebral artery. Normal antegrade Doppler flow noted in the left vertebral artery. Nestor Parada MD (Electronically Signed) Final Date: 13 May 2025 08:48 S
[2025-05-13] MEDS: cefTRIAXone 1,000 mg SDV 1000 MG IVP (05:14)
[2025-05-13 06:48] LABS: Basophils % 0.6 %; Eosinophils # 0.1 10^3/uL (0.0-0.8); Eosinophils % 2.3 %; Hematocrit 35.7 % (36-47); Lymphocytes # 1.1 10^3/uL (0.8-4.8); Lymphocytes % 24.3 %; Mean Corpuscular HGB Conc 30.8 g/dL (30-55); Mean Corpuscular Hemoglobin 25.8 pg (27-33); Mean Corpuscular Volume 83.8 fl (85-98); Mean Platelet Volume 11.7 fL (7.4-10.4); Monocytes # 0.5 10^3/uL (0.2-0.9); Monocytes % 9.8 %; Neutrophils # 2.94 10^3/uL (1.8-7.7); Neutrophils % 62.8 %; Nucleated Red Blood Cells % 0 %; Platelet Count 194 10^3/cmm (157-399); Red Blood Count 4.26 10^6/uL (3.85-5.65); Red Cell Distribution Width 22.9 % (12.1-15.1); White Blood Count 4.69 10^3/uL (3.29-11.43)
[2025-05-13 07:15] LABS: Chol HDL Ratio 3.05 mg/dL (0.0-4.40); Cholesterol 119 mg/dL (0-200); HDL Cholesterol 39 mg/dL (60-100); LDL Cholesterol Calculated 55 mg/dL (50-129); LDL HDL Ratio 1.41 RATIO (0.00-3.22); Triglycerides 126 mg/dL (0-150)
[2025-05-13 07:47] LABS: Alanine Aminotransferase 19 U/L (0-33); Alkaline Phosphatase 108 U/L (35-105); Anion Gap 17.1 (5-19); Aspartate Amino Transferase 35 U/L (0-32); Blood Urea Nitrogen 16 mg/dL (8-23); Carbon Dioxide 23 mmol/L (22-29); Chloride 105 mmol/L (98-107); Creatinine Clr Calc Pharmacy 44.8921; Globulin 2.9 g/dL (1.3-4.6); Glucose 83 mg/dL (65-115); Osmolality Calculated 292 mOsm/kg (285-295); Potassium 4.1 mmol/L (3.5-5.1); Sodium 141 mmol/L (136-145); Total Protein 5.9 g/dL (6.6-8.7)
[2025-05-13 08:16] LABS: Estmated Average Glucose 108; Hemoglobin A1C 5.4 % (4.0-6.0)
[2025-05-13] MEDS: aspirin 81 mg EC Tablet 162 MG PO (09:22)
--- NOTE | 2025-05-13 11:24 | PC.OT ---
OT Eval held today due to d/c status
[2025-05-13 11:33] LABS: Total Bilirubin 0.4 mg/dL (0.15-1.2)
--- NOTE | 2025-05-15 11:22 | P.DS_ITS ---
Discharge Providers Date of Admission: 05/12/25 09:43 Date of Discharge: May 15, 2025 Attending Provider at Admission: Baldomero Vidal Attending Provider at Discharge: Baldomero Vidal Primary Care Provider: Cat Martínez DO Diagnoses at Discharge Discharge Diagnosis (1) Acute CVA (cerebrovascular accident): Status: Deleted Reason for Visit Reason for Visit: Weakness Brief History: Debby Velez is a 85 year old female with a history of stroke in October 2024 with residual left-sided weakness, normally ambulatory with a walker, who presented after waking up at 8 a.m. with intense dizziness and vertigo described as the room spinning, worse with head movement. The patient also reported right- sided facial swelling and numbness, and generalized weakness without new focal deficits per initial assessment. There was no chest pain, abdominal pain, fever, chills, hearing loss, or recent ear infection, though one ear had previously bothered the patient but improved. No nausea, vomiting, diarrhea, or urinary symptoms were reported. The patient denied vision changes or worsening of baseline left-sided weakness. The patient has a history of gallbladder removal (cholecystectomy) in December or January 2025 for gallstones and gallbladder cancer, with ongoing evaluation for possible metastatic disease. The patient takes aspirin and a cholesterol medication, denies history of diabetes or atrial fibrillation, and has not had recent medication changes. The patient?s stool is dark, attributed to iron supplementation. Laboratory evaluation revealed evidence of a urinary tract infection. The patient?s dizziness is persistent and exacerbated by head movement. Head CT was negative for acute intracranial pathology. The patient also reported headache during the encounter. Hospital Course Hospital Course She was admitted and further assessed after suspected posterior circulation CVA. Started treatment for urinary tract infection. Assessment with MRI revealed no acute CVA. She was assessed by physical, completion of speech therapy. She was able to ambulate. Her symptoms improved. On ear exam some bulging of tympanic membranes was noted, but without evidence of otitis media. She had no other otic symptoms. She had no recurrence of vertigo. She is continued on aspirin and atorvastatin for continued cardiovascular risk management with old CVA and as discussed with her hyperintensities throughout the white matter from chronic disease. She was noted to have a decreased score on mental status exam, 1630, although possible contribution from urinary tract infection was considered. It was discussed with her and her daughter would benefit from follow-up reassessment once she is improving. As vertigo episodes were associated with turning of the head, in case of recurrence of vertigo may benefit from additional vestibuilar assessment and managment by PT for suspected BPPV. Initially discharged with cefdinir, urine culture is coming back with resistant organism, Enterococcus resistant to ampicillin, quinolones, tetracycline and vancomycin. Prescription is sent for her for linezolid, although I have not been able to reach her or her daughter by phone at current time. Physical Exam Narrative: Sitting up in chair. No vertigo. Feeling much better. Ambulated. Const: COMMON NORMALS: patient oriented x3 and alert GENERAL APPEARANCE: cooperative ORIENTATION/CONSCIOUSNESS: Yes awake HENMT: COMMON NORMALS: oropharynx normal Neck/C-Spine: COMMON NORMALS: no JVD Resp: COMMON NORMALS: normal respiratory effort and clear to auscultation bilaterally AUSCULTATION: clear to auscultation bilaterally Cardio: COMMON NORMALS: no JVD, regular rhythm, S1 normal heart sound present, S2 normal heart sound present and No murmurs present (Cardio) RHYTHM: regular rhythm HEART SOUNDS: S1 normal heart sound present and S2 normal heart sound present GI: COMMON NORMALS: Normal to inspection, nondistended, normoactive bowel sounds present, Soft to palpation and non-tender PALPATION: Yes Soft to palpation Extremity: COMMON NORMALS: no joint enlargement and no pedal edema Neuro: COMMON NORMALS: patient oriented x3 and moves all extremities SENSORIUM/ORIENTATION: Yes alert Skin: COMMON NORMALS: no rashes or lesions noted GENERAL SKIN EXAM: no rashes or lesions noted Discharge Data Studies Completed and Pending Completed Studies During Hospitalization Category Date Time Status CT head thrombolytic 11301 Stat Cat Scan 05/12/25 05:11 Completed XR chest 1V portable [id number] Stat Exams 05/12/25 05:11 Completed MR head wo con* [id number] Routine MRI 05/12/25 11:10 Completed CV carotid duplex BI* [id number] Routine Ultrasound 05/13/25 00:25 Completed Pending at discharge Category Date Time Status Blood Culture Stat Lab 05/12/25 06:24 Results Urine Culture Stat Lab 05/12/25 05:06 Results Radiology Impressions Chest X-Ray 05/12/25 05:11 IMPRESSION: Several left lateral rib fractures are suspected which are new since 12/02/2024. Head CT 05/12/25 05:11 IMPRESSION: Negative for acute intracranial pathology. ASSESSMENT: ASPECTS ([place] Stroke Program Early CT Score) is 10. ADDENDUM: 05/12/25601 Findings were discussed with JHON BOLTON at 05/12/2025 6:01 AM CDT. Head MRI 05/12/25 11:10 IMPRESSION: 1. No acute infarct or hemorrhage. 2. Remote RIGHT MCA territory infarct with encephalomalacia. 3. Advanced T2 and FLAIR signal hyperintensities throughout the white matter from chronic disease. Laboratory Results WBC 4.69 10^3/uL (3.29-11.43) 05/13/25 06:04 RBC 4.26 10^6/uL (3.85-5.65) 05/13/25 06:04 Hgb 11.00 g/dL (11.27-16.99) L 05/13/25 06:04 Hct 35.7 % (36-47) L 05/13/25 06:04 MCV 83.8 fl (85-98) L 05/13/25 06:04 MCH 25.8 pg (27-33) L 05/13/25 06:04 MCHC 30.8 g/dL (30-55) 05/13/25 06:04 RDW 22.9 % (12.1-15.1) H 05/13/25 06:04 Plt Count 194 10^3/cmm (157-399) 05/13/25 06:04 MPV 11.7 fL (7.4-10.4) H 05/13/25 06:04 Neut % (Auto) 62.8 % 05/13/25 06:04 Lymph % (Auto) 24.3 % 05/13/25 06:04 [place] % (Auto) 9.8 % 05/13/25 06:04 Eos % (Auto) 2.3 % 05/13/25 06:04 Baso % (Auto) 0.6 % 05/13/25 06:04 Neut # (Auto) 2.94 10^3/uL (1.8-7.7) 05/13/25 06:04 Lymph # (Auto) 1.1 10^3/uL (0.8-4.8) 05/13/25 06:04 [place] # (Auto) 0.5 10^3/uL (0.2-0.9) 05/13/25 06:04 Eos # (Auto) 0.1 10^3/uL (0.0-0.8) 05/13/25 06:04 Baso # (Auto) 0.0 10^3/uL (0.0-0.1) 05/13/25 06:04 Nucleated RBC % (auto) 0 % 05/13/25 06:04 Nucleated RBCs # 0.0 /100WBC 05/13/25 06:04 PT 13.80 SECONDS (12.1-14.9) 05/12/25 05:19 INR 0.99 (0.8-1.2) 05/12/25 05:19 APTT 22.8 SECONDS (23.9-36.7) L 05/12/25 05:19 Sodium 141 mmol/L (136-145) 05/13/25 06:04 Potassium 4.1 mmol/L (3.5-5.1) 05/13/25 06:04 Chloride 105 mmol/L (98-107) 05/13/25 06:04 Carbon Dioxide 23 mmol/L (22-29) 05/13/25 06:04 Anion Gap 17.1 (5-19) 05/13/25 06:04 BUN 16 mg/dL (8-23) 05/13/25 06:04 Creatinine 0.8 mg/dL (0.5-0.9) 05/13/25 06:04 GFR Calculation Not Reportable 05/13/25 06:04 Glucose 83 mg/dL (65-115) 05/13/25 06:04 Estimat Average Glucose 108 05/13/25 06:04 Hemoglobin A1c 5.4 % (4.0-6.0) 05/13/25 06:04 Calculated Osmolality 292 mOsm/kg (285-295) 05/13/25 06:04 Calcium 9.0 mg/dL (8.5-10.5) 05/13/25 06:04 Total Bilirubin 0.4 mg/dL (0.15-1.2) 05/13/25 06:04 AST 35 U/L (0-32) H 05/13/25 06:04 ALT 19 U/L (0-33) 05/13/25 06:04 Alkaline Phosphatase 108 U/L (35-105) H 05/13/25 06:04 Total Protein 5.9 g/dL (6.6-8.7) L 05/13/25 06:04 Albumin 3.0 g/dL (3.5-5.2) L 05/13/25 06:04 Globulin 2.9 g/dL (1.3-4.6) 05/13/25 06:04 Triglycerides 126 mg/dL (0-150) 05/13/25 06:04 Cholesterol 119 mg/dL (0-200) 05/13/25 06:04 LDL Cholesterol, Calc 55 mg/dL (50-129) 05/13/25 06:04 HDL Cholesterol 39 mg/dL (60-100) L 05/13/25 06:04 LDL/HDL Ratio 1.41 RATIO (0.00-3.22) 05/13/25 06:04 Cholesterol/HDL Ratio 3.05 mg/dL (0.0-4.40) 05/13/25 06:04 Urine Color Yellow (Yellow) 05/12/25 05:06 Urine Appearance Cloudy (CLEAR) A 05/12/25 05:06 Urine pH 5.5 (5-7) 05/12/25 05:06 Ur Specific [place] 1.017 (1.005-1.030) 05/12/25 05:06 Urine Protein 1+ (Negative) A 05/12/25 05:06 Urine Glucose (UA) Negative (Normal) 05/12/25 05:06 Urine Ketones Trace (Negative) 05/12/25 05:06 Urine Blood Trace (Negative) A 05/12/25 05:06 Urine Nitrate Negative (Negative) 05/12/25 05:06 Urine Bilirubin Negative (Negative) 05/12/25 05:06 Urine Urobilinogen 1.0 mg/dL (Negative) 05/12/25 05:06 Ur Leukocyte Esterase 3+ (Negative) A 05/12/25 05:06 Urine RBC 0-2 /hpf (0-2) 05/12/25 05:06 Urine WBC >100 /hpf (0-5) H 05/12/25 05:06 Ur Squamous Epith Cells 0-5 /hpf (0-5) 05/12/25 05:06 Amorphous Sediment Not Reportable 05/12/25 05:06 Urine Bacteria 4+ /hpf (NONE) H 05/12/25 05:06 Hyaline Casts 1.21 /lpf 05/12/25 05:06 Urine Opiates Screen Positive ng/mL (Negative) H 05/12/25 05:06 Ur Barbiturates Screen Negative ng/mL (Negative) 05/12/25 05:06 Ur Phencyclidine Scrn Negative ng/mL (Negative) 05/12/25 05:06 Ur Amphetamines Screen Negative ng/mL (Negative) 05/12/25 05:06 U Benzodiazepines Scrn Negative ng/mL (Negative) 05/12/25 05:06 Urine Cocaine Screen Negative ng/mL (Negative) 05/12/25 05:06 U Marijuana (THC) Screen Negative ng/mL (Negative) 05/12/25 05:06 Adenovirus (PCR) Not detected (NOT DETECT) 05/12/25 12:45 C. pneumoniae DNA (PCR) Not detected (NOT DETECT) 05/12/25 12:45 Coronavirus 229E (PCR) Not detected (NOT DETECT) 05/12/25 12:45 Human Metapneumovir PCR Not detected (NOT DETECT) 05/12/25 12:45 Influenza A (H1) PCR Not detected (NOT DETECT) 05/12/25 12:45 Influ A (H1/09) PCR Not detected (NOT DETECT) 05/12/25 12:45 Influenza A (H3) PCR Not detected (NOT DETECT) 05/12/25 12:45 Influenza Type A (PCR) Not detected (NOT DETECT) 05/12/25 12:45 Influenza Type B (PCR) Not detected (NOT DETECT) 05/12/25 12:45 M. pneumoniae (PCR) Not detected (NOT DETECT) 05/12/25 12:45 Parainfluenza 1 (PCR) Not detected (NOT DETECT) 05/12/25 12:45 Parainfluenza 2 (PCR) Not detected (NOT DETECT) 05/12/25 12:45 Parainfluenza 3 (PCR) Not detected (NOT DETECT) 05/12/25 12:45 Parainfluenza 4 (PCR) Not detected (NOT DETECT) 05/12/25 12:45 RSV Type A (PCR) Not detected (NOT DETECT) 05/12/25 12:45 RSV Type B (PCR) Not detected (NOT DETECT) 05/12/25 12:45 Entero/Rhino (PCR) Not detected (NOT DETECT) 05/12/25 12:45 SARS-CoV-2 (PCR) Not detected (NOT DETECT) 05/12/25 12:45 Vitals Last Vital Signs Temp 97.8 F 05/13/25 07:00 Pulse 87 05/13/25 11:47 Resp 17 05/13/25 11:47 BP 152/93 05/13/25 11:47 Pulse Ox 99 05/13/25 11:47 O2 Del Method Room Air 05/13/25 07:00 O2 Flow Rate 2 05/12/25 08:52 Discharge Plan Discharge Patient Disposition: Home Condition: Stable Prescriptions: New cefdinir 300 mg capsule 300 mg PO BID 5 Days Qty: 10 0RF linezolid 600 mg tablet 600 mg PO BID Qty: 12 0RF Continued atorvastatin 40 mg tablet 40 mg PO DAILY aspirin 81 mg Tablet,Delayed Release (Dr/Ec) 81 mg PO DAILY pantoprazole 40 mg tablet,delayed release (DR/EC) 40 mg PO DAILY mirtazapine 30 mg tablet 30 mg PO BEDTIME ferrous sulfate 325 mg (65 mg iron) tablet 325 mg PO DAILY Discharge Orders: Discharge Order (Routine); Ordered 05/13/25 Ordered By: Baldomero Vidal Referrals: Cat Martínez DO [Primary Care Provider, FAX MACHINE REPAIRER] - 05/19/25 4:00 pm Discharge Diet: As Directed Discharge Activity: Increase activity as tolerated, Limit activity as instructed and Use walker/crutches as instructed Patient Instructions: Cefdinir (By mouth), Urinary Tract Infection in Women (DC), Stroke Stoplight Activity Restrictions/Additional Instructions: Please use your walker at all times as discussed. If dizziness recurs, please follow-up with outpatient physical therapy (contact either us or your primary do ctor for referral) to try repositioning therapy. Continue soft and bite sized foods. Follow-up with your primary doctor for reassessment of resolution of urinary tract infection. Follow-up for additional cognitive/memory testing due to finding of somewhat decreased score while in the hospital, although this may be affected by the urinary tract infection. Follow-up regarding chronic white matter disease. Continue to optimize cardiovascular risk factors. Discharge Attestations Time Spent in Discharge Care*: greater than 30 min Quality Metrics Clinical Quality Measures [ No reported AMI, CVA or VTE this stay] Coding Level of Care Code 54238 Total time (in minutes) for Discharge: 40 Diagnoses Acute CVA (cerebrovascular accident) I63.9
== END 2025-05-13 11:15 | disposition home or self-care (01) ==
LOC: ER 07:23 → MEDSURG 09:43
PROVIDERS: Emergency Medicine; Admitting Provider Internal Medicine; Emergency Provider Family Medicine; PCP Family Medicine; Visit Provider Internal Medicine
DX: N39.0 Urinary tract infection, site not specified (principal); B95.2 Enterococcus as the cause of diseases classified elsewhere; K21.9 Gastro-esophageal reflux disease without esophagitis; Z79.82 Long term (current) use of aspirin; I69.354 Hemiplegia and hemiparesis following cerebral infarction affecting left non-dominant side
CPT/HCPCS: 36415; 70450; 70551; 71045; 80053; 80061; 80306; 81001; 83036; 85025; 85610; 85730; 87040; 87077; 87086; 87186; 87486; 87581; 87633; 92523; 92610; 93005; 93880; 96372; 96374; 96375; 96376; 97161; 99285; G0378; J0696; J0780; J1650; J2250; J7030; J9999

== ENCOUNTER → 2025-07-03 14:03 | Outpatient (BNVA) | payer MEDICARE, SELFPAY | PROVIDERS: PCP Family Medicine; Visit Provider Student in an Organized Health Care Education/Training Program | DX: Z93.1 Gastrostomy status (principal) | CPT/HCPCS: 99214 ==

== ENCOUNTER 2025-07-07 19:52 | Inpatient (IN) | payer MEDICARE, SELFPAY ==
[2025-07-07] VITALS (27 sets, daily range): BP systolic 126–207; BP diastolic 76–138; PULSE 72–119; RESP 13–38; TEMP 35.7; O2SAT 88–98
--- NOTE | 2025-07-07 19:58 | CTR_ITS ---
PROCEDURE INFORMATION: Exam: CT Head Without Contrast Exam date and time: 07/07/2025 8:06 PM Age: 85 years old Clinical indication: Stroke-like symptoms; Left facial droop; Additional info: Symptoms of acute stroke TECHNIQUE: Imaging protocol: Computed tomography of the head without contrast. Radiation optimization: All CT scans at this facility use at least one of these dose optimization techniques: automated exposure control; mA and/or kV adjustment per patient size (includes targeted exams where dose is matched to clinical indication); or iterative reconstruction. Other technique: STROKE PROTOCOL was implemented. COMPARISON: MR head wo con* [id number] 05/12/2025 12:11 PM RADIATION DOSE METRICS: Total DLP (mGy-cm): 1047.88 FINDINGS: Brain: No evidence of intra-axial or extra-axial hemorrhage. No mass effect or midline shift. Focal right frontoparietal encephalomalacia. Ortiz-white differentiation is otherwise maintained. Basilar cisterns are patent. Cerebral ventricles: No hydrocephalus. Paranasal sinuses: The visualized paranasal sinuses are well aerated. Mastoid air cells: The visualized mastoids and middle ears are clear. Bones: Calvarium is intact. No evidence of acute fracture. Soft tissues: No gross soft tissue abnormality. CT/CT head thrombolytic 23081 IMPRESSION: 1. No acute intracranial abnormality. ASSESSMENT: ASPECTS ([place] Stroke Program Early CT Score) is 10.
--- NOTE | 2025-07-07 20:02 | ED_ITS ---
HPI - Altered Mental Status 2 General: Chief Complaint: Altered Mental Status Stated Complaint: Left Side Numbness Time Seen by Provider: 07/07/25 19:58 History of Present Illness: 85-year-old female with a history of str bozena in the past with some mild residual left sided weakness but is able to walk and do dishes according to family at baseline who presents the emergency room with worse left-sided weakness that came on acutely this evening. States she is having much more difficulty walking. She has difficulty lifting the left leg or arm off of the bed. No fevers. No cough. No speech deficits. She follows commands appropriately. Family states this started 30 minutes prior to arrival. That she had been complaining of some pain but then suddenly developed weakness Related Data Home Medications ?Medication ?Instructions ?Recorded ?Confirmed atorvastatin 40 mg tablet 40 mg PO DAILY 01/22/2506/20 aspirin 81 mg tablet,delayed 81 mg PO DAILY 05/12/25 0 07/03/25 release ferrous sulfate 325 mg (65 mg 325 mg PO DAILY 05/12/25 07/03/25 iron) tablet mirtazapine 30 mg tablet 30 mg PO BEDTIME 05/12/25 pantoprazole 40 mg tablet,delayed 40 mg PO DAILY 05/1207/03/25 release Previous Rx's ?Medication ?Instructions ?Recorded linezolid 600 mg tablet 600 mg PO BID #12 tabs 05/15 amoxicillin 875 mg-potassium 1 tab PO BID 7 days #14 t abs 07/03/25 clavulanate 125 mg tablet Allergies Allergy/AdvReac Type Severity Reaction Status Date / Time No Known Allergies Allergy Verified 07/03/25 14:04 Review of Systems 2 Narrative: Constitutional symptoms: Negative except as documented in HPI. Skin symptoms: Negative except as documented in HPI. Eye symptoms: Negative except as documented in HPI. ENMT symptoms: Negative except as documented in HPI. Respiratory symptoms: Negative except as documented in HPI. Cardiovascular symptoms: Negative except as documented in HPI. Gastrointestinal symptoms: Negative except as documented in HPI. Genitourinary symptoms: Negative except as documented in HPI. Musculoskeletal symptoms: Negative except as documented in HPI. Neurologic symptoms: Negative except as documented in HPI. Psychiatric symptoms: Negative except as documented in HPI. Endocrine symptoms: Negative except as documented in HPI. PFS ED 2 PFS: Medical History (Updated 07/07/25 @ 22:53 by Mabel Herring MD) CVA (cerebral vascular accident) Surgical History History of right knee joint replacement Family History Mother Leukemia Social History Smoking and tobacco/nicotine status: never used tobacco/nicotine Alcohol intake: never Substance/Drug Use: never Physical Exam 2 Narrative: General: Alert, no acute distress. Skin: Warm, dry. Head: Normocephalic, atraumatic. Neck: Supple, trachea midline. Eye: Extraocular movements are intact. Ears, nose, mouth and throat: mucosa moist. Cardiovascular: Regular, Normal peripheral perfusion. Respiratory: Lungs are clear to auscultation, respirations are non-labored, breath sounds are equal, Symmetrical chest wall expansion. Gastrointestinal: Soft, Nontender, Non distended Musculoskeletal: Normal ROM, no deformity. Neurological: Alert and oriented, patient has weakness and drift of the left leg and arm. No obvious visual field deficits. No dysarthria. She does have left- sided facial droop. Family states this is worse than normal today. Psychiatric: Cooperative, appropriate mood & affect. Course 2 Vital Signs: Vital signs: Vital Signs Temperature 96.3 F L 07/07/25 19:54 Pulse Rate 103 H 07/07/25 22:30 Respiratory Rate 13 07/07/25 21:20 Blood Pressure 173/89 07/07/25 22:30 Pulse Oximetry 93 07/07/25 22:30 Oxygen Delivery Me thod Room Air 07/07/25 20:45 MDM - Altered Mental Status Medical Decision Making Medical decision making: Differential diagnosis for patient with focal neurologic deficit(s) includes but not limited to and based on the above HPI, review of systems and physical exam: ischemic stroke, hemorrhagic stroke and embolic stroke secondary to atrial fibrillation), TIA, Kaminski's palsey, metabolic encephalopathy with previous stroke. Orders placed to evaluate differential diagnosis based on the above differential, HPI and physical exam NIH Stroke Scale/Score (NIHSS) from [email or web address] on 07/07/2025 All calculations should be rechecked by clinician prior to use RESULT SUMMARY: 5 points NIH Stroke Scale INPUTS: 1A: Level of consciousness ?> 0 = Alert; keenly responsive 1B: Ask month and age ?> 0 = Both questions right 1C: 'Blink eyes' & 'squeeze hands' ?> 0 = Performs both tasks 2: Horizontal extraocular movements ?> 0 = Normal 3: Visual alamo ?> 0 = No visual loss 4: Facial palsy ?> 2 = Partial paralysis (lower face) 5A: Left arm motor drift ?> 1 = Drift, but doesn't hit bed 5B: Right arm motor drift ?> 0 = No drift for 10 seconds 6A: Left leg motor drift ?> 1 = Drift, but doesn't hit bed 6B: Right leg motor drift ?> 0 = No drift for 5 seconds 7: Limb Ataxia ?> 1 = Ataxia in 1 Limb 8: Sensation ?> 0 = Normal; no sensory loss 9: Language/aphasia ?> 0 = Normal; no aphasia 10: Dysarthria ?> 0 = Normal 11: Extinction/inattention ?> 0 = No abnormality CT head: Old frontal parietal stroke. No acute intracranial process. no intracranial hemorrhage, no evidence of infarct. no evidence of acute fracture.This was reviewed and interpreted by myself the ER physician. Consultation: I consulted with the [facility] stroke center and discussed the patient and they evaluated the patient via telemedicine and got consent from the patient and family to give TNKase and this was administered. Stroke team does not advise a CTA at this time. Lab Review: Laboratory results were reviewed and interpreted by myself the emergency room physician. No leukocytosis. No anemia. No renal failure. Urinalysis is negative for infection. Drug screen is positive for opiates. I reviewed the patient's medical record. Reexamination: Patient says she is having pain in her left extremities and says she does not think they are working much better but she seems to be moving them much better on exam than she was earlier. No headache. No new deficits. No increased work of breathing. Assessment and plan: Acute cerebrovascular accident History of parietal stroke Accelerated hypertension ?tPA given per instructions of [facility] neurology. ?IV labetalol given for high blood pressure and mild tachycardia. -I discussed the patient with the hospitalist on-call who is admitting the patient. - Discussed findings and plan with patient. Answered any questions. - All laboratory values were reviewed and interpreted personally by myself, the ER physician - All imaging was reviewed and interpreted personally by myself, the ER physician. - Evaluation and treatment of this problem were appropriate in the emergency setting Critical Care: -I spent a total of >35 minutes of critical care time managing the patient, independent of any other practitioner. -The time involved in the performance of separately reportable procedures was not counted towards critical care time. Lab Data 07/07/25 20:07 07/07/25 20:[address] 07/07/25 19:58 IMPRESSION: 1. No acute intracranial abnormality. ASSESSMENT: ASPECTS ([place] Stroke Program Early CT Score) is 10. ADDENDUM: 07/07/252024 The findings were verbally communicated by telephone with Dr. HERRING at 8:24 PM CDT on 07/07/2025. Laboratory Results WBC 6.48 10^3/uL (3.29-11.43) 07/07/25 20:07 RBC 4.74 10^6/uL (3.85-5.65) 07/07/25 20:07 Hgb 13.10 g/dL (11.27-16.99) 07/07/25 20:07 Hct 39.9 % (36-47) 07/07/25 20:07 MCV 84.2 fl (85-98) L 07/07/25 20:07 MCH 27.6 pg (27-33) 07/07/25 20:07 MCHC 32.8 g/dL (30-55) 07/07/25 20:07 RDW 18.0 % (12.1-15.1) H 07/07/25 20:07 Plt Count 243 10^3/cmm (157-399) 07/07/25 20:07 MPV 11.9 fL (7.4-10.4) H 07/07/25 20:07 Neut % (Auto) 48.4 % 07/07/25 20:07 Lymph % (Auto) 38.3 % 07/07/25 20:07 [place] % (Auto) 10.0 % 07/07/25 20:07 Eos % (Auto) 2.3 % 07/07/25 20:07 Baso % (Auto) 0.8 % 07/07/25 20:07 Neut # (Auto) 3.14 10^3/uL (1.8-7.7) 07/07/25 20:07 Lymph # (Auto) 2.5 10^3/uL (0.8-4.8) 07/07/25 20:07 [place] # (Auto) 0.7 10^3/uL (0.2-0.9) 07/07/25 20:07 Eos # (Auto) 0.2 10^3/uL (0.0-0.8) 07/07/25 20:07 Baso # (Auto) 0.1 10^3/uL (0.0-0.1) 07/07/25 20:07 Nucleated RBC % (auto) 0 % 07/07/25 20:07 Nucleated RBCs # 0.0 /100WBC 07/07/25 20:07 PT 16.60 SECONDS (12.1-14.9) H 07/07/25 20:07 INR 1.25 (0.8-1.2) H 07/07/25 20:07 APTT 25.7 SECONDS (23.9-36.7) 07/07/25 20:07 Sodium 141 mmol/L (136-145) 07/07/25 20:07 Potassium 3.1 mmol/L (3.5-5.1) L 07/07/25 20:07 Chloride 102 mmol/L (98-107) 07/07/25 20:07 Carbon Dioxide 25 mmol/L (22-29) 07/07/25 20:07 Anion Gap 17.1 (5-19) 07/07/25 20:07 BUN 17 mg/dL (8-23) 07/07/25 20:07 Creatinine 0.7 mg/dL (0.5-0.9) 07/07/25 20:07 GFR Calculation Not Reportable 07/07/25 20:07 Glucose 119 mg/dL (65-115) H 07/07/25 20:07 POC Glucose 147 mg/dL (70-110) H 07/07/25 20:02 Calculated Osmolality 295 mOsm/kg (285-295) 07/07/25 20:07 Calcium 9.3 mg/dL (8.5-10.5) 07/07/25 20:07 Total Bilirubin 0.3 mg/dL (0.15-1.2) 07/07/25 20:07 AST 22 U/L (0-32) 07/07/25 20:07 ALT 14 U/L (0-33) 07/07/25 20:07 Alkaline Phosphatase 136 U/L (35-105) H 07/07/25 20:07 Total Protein 7.1 g/dL (6.6-8.7) 07/07/25 20:07 Albumin 3.8 g/dL (3.5-5.2) 07/07/25 20:07 Globulin 3.3 g/dL (1.3-4.6) 07/07/25 20:07 Urine Color Yellow (Yellow) 07/07/25 20:49 Urine Appearance Clear (CLEAR) 07/07/25 20:49 Urine pH 5.5 (5-7) 07/07/25 20:49 Ur Specific [place] 1.022 (1.005-1.030) 07/07/25 20:49 Urine Protein Trace (Negative) A 07/07/25 20:49 Urine Glucose (UA) Negative (Normal) 07/07/25 20:49 Urine Ketones Trace (Negative) 07/07/25 20:49 Urine Blood Negative (Negative) 07/07/25 20:49 Urine Nitrate Negative (Negative) 07/07/25 20:49 Urine Bilirubin Negative (Negative) 07/07/25 20:49 Urine Urobilinogen 1.0 mg/dL (Negative) 07/07/25 20:49 Ur Leukocyte Esterase Trace (Negative) A 07/07/25 20:49 Urine RBC 0-2 /hpf (0-2) 07/07/25 20:49 Urine WBC 0-5 /hpf (0-5) 07/07/25 20:49 Ur Squamous Epith Cells 0-5 /hpf (0-5) 07/07/25 20:49 Amorphous Sediment Not Reportable 07/07/25 20:49 Urine Bacteria None seen /hpf (NONE) 07/07/25 20:49 Hyaline Casts 0.81 /lpf 07/07/25 20:49 Urine Opiates Screen Positive ng/mL (Negative) H 07/07/25 20:49 Ur Barbiturates Screen Negative ng/mL (Negative) 07/07/25 20:49 Ur Phencyclidine Scrn Negative ng/mL (Negative) 07/07/25 20:49 Ur Amphetamines Screen Negative ng/mL (Negative) 07/07/25 20:49 U Benzodiazepines Scrn Negative ng/mL (Negative) 07/07/25 20:49 Urine Cocaine Screen Negative ng/mL (Negative) 07/07/25 20:49 U Marijuana (THC) Screen Negative ng/mL (Negative) 07/07/25 20:49 All radiology interpretation(s) finalized by discharge Discharge Plan Discharge Patient Disposition: Admitted As Inpatient Admit Provider: Nestor Garcia Clinical Impression: Acute cerebrovascular accident (CVA), History of stroke, Thrombolytic therapy administered within 2 hours of onset of symptoms, Accelerated hypertension Condition: Stable Coding Level of Care Code ED Operations Systems Specialist for Jeevan Mcintosh
[2025-07-07 20:16] LABS: Hematocrit 39.9 % (36-47); Hemoglobin 13.10 g/dL (11.27-16.99); Mean Corpuscular HGB Conc 32.8 g/dL (30-55); Mean Corpuscular Hemoglobin 27.6 pg (27-33); Mean Corpuscular Volume 84.2 fl (85-98); Nucleated Red Blood Cells % 0 %; Platelet Count 243 10^3/cmm (157-399); Red Blood Count 4.74 10^6/uL (3.85-5.65); White Blood Count 6.48 10^3/uL (3.29-11.43)
--- NOTE | 2025-07-07 20:16 | ECG_ITS ---
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 Measurements Intervals [place] Rate: 73 P: 49 SC: 139 QRS: 69 QRSD: 94 T: 71 QT: 382 QTc: 422 Interpretive Statements SINUS RHYTHM WITH OCCASIONAL VENTRICULAR PREMATURE COMPLEXES WITH OCCASIONAL SUPRAVENTRICULAR PREMATURE COMPLEXES NONSPECIFIC T-WAVE ABNORMALITY Compared to ECG 05/12/2025 04:51:09 Ventricular premature complex(es) now present T-wave abnormality now present Electronically Signed On 07-07-2025 22:44:01 CDT by Rell Palomo M.D. [email or web address] [email or web address]
[2025-07-07 20:27] LABS: INR 1.25 (0.8-1.2); Partial Thromboplastin Time 25.7 SECONDS (23.9-36.7); Prothrombin Time 16.60 SECONDS (12.1-14.9)
[2025-07-07 20:31] LABS: Alanine Aminotransferase 14 U/L (0-33); Albumin Level 3.8 g/dL (3.5-5.2); Alkaline Phosphatase 136 U/L (35-105); Anion Gap 17.1 (5-19); Aspartate Amino Transferase 22 U/L (0-32); Blood Urea Nitrogen 17 mg/dL (8-23); Calcium 9.3 mg/dL (8.5-10.5); Carbon Dioxide 25 mmol/L (22-29); Chloride 102 mmol/L (98-107); Creatinine Clr Calc Pharmacy 44.6030; Globulin 3.3 g/dL (1.3-4.6); Glucose 119 mg/dL (65-115); Osmolality Calculated 295 mOsm/kg (285-295); Potassium 3.1 mmol/L (3.5-5.1); Sodium 141 mmol/L (136-145); Total Protein 7.1 g/dL (6.6-8.7)
[2025-07-07] MEDS: tenecteplase 50mg Kit (STROKE) 14 MG IVP (20:38)
[2025-07-07] MEDS: ondansetron 2 mg/ML SDV 2 mL 4 MG IVP (20:43)
[2025-07-07 20:53] LABS: Slide Review Slide Review Perform
[2025-07-07 21:02] LABS: Glucose Urine UA Negative (Normal); Nitrate Urine Negative (Negative); Specific Gravity, Urine 1.022 (1.005-1.030)
[2025-07-07 21:06] LABS: Add Urine Microscopic? YES
[2025-07-07 21:09] LABS: PCP Screen Urine Negative (Negative)
[2025-07-07 21:33] LABS: UA Slide Review UA Slide Review Perf
--- NOTE | 2025-07-07 22:11 | PC.NURSE ---
Pt verbalizes complaints of sinuses running down throat and dizziness . Pt denies vision changes. No difficulty breathing at this time. MD notified and aware of pt's condition. No new orders at this time.
[2025-07-07] MEDS: LORazepam 1 MG/0.5 ML injection 0.5 MG IVP (23:57)
[2025-07-08] VITALS (189 sets, daily range): BP systolic 89–178; BP diastolic 46–100; PULSE 77–121; RESP 0–34; TEMP 36.9–37.2; O2SAT 78–100
[2025-07-08] MEDS: labetalol 5 mg/mL SDV 20mL 20 MG IVP (00:02)
--- NOTE | 2025-07-08 00:36 | USCV_ITS ---
Debby Velez Age: 85 Gender: F : 1940 Exam Date: 07/08/2025 02:21 Ordering Phys: Nestor Garcia MD Technologist: STANISLAW [place]am [place] [facility] [place]ication: acute stroke, MCA CVA left facial droop, LEFT hemiparesis BP: 153 / 100 HR: 94 Rhythm: Sinus Technical Quality: Adequate MEASUREMENTS (Male / Female) Normal Values 2D ECHO LV Diastolic Diameter PLAX 3.7 cm 4.2 - 5.9 / 3.9 - 5.3 cm IVS Diastolic Thickness 1.7 cm 0.6 - 1.0 / 0.6 - 0.9 cm IVS Systolic Thickness 2.2 cm LVPW Diastolic Thickness 0.9 cm 0.6 - 1.0 / 0.6 - 0.9 cm LVPW Systolic Thickness 1.5 cm LVOT Diameter 1.7 cm LV Ejection Fraction 2D Teich 67.0 % LV Ejection Fraction MOD 4C 55.8 % LV Ejection Fraction MOD 2C 76.7 % LV Ejection Fraction 2C AL 76.9 % LA Diameter 2.7 cm Aorta at Sinotubular Diameter 2.5 cm IVC Diameter 1.6 cm M-MODE LA Ao Ratio MM 1.0 AV Cusp Separation MM 1.6 cm DOPPLER AV Peak Velocity 111.0 cm/s LVOT Peak Velocity 94.0 cm/s AV Area Cont Eq vti 1.3 cm squared AV Area Cont Eq pk 1.9 cm squared MV Peak Velocity 136.0 cm/s MV Area PHT 6.5 cm squared Mitral E to A Ratio 0.8 TV Peak Velocity 255.3 cm/s TR Peak Velocity 265.0 cm/s TR Peak Gradient 28.1 mmHg PV Peak Velocity 79.0 cm/s FINDINGS Left Ventricle Normal left ventricular size and systolic function, EF 56%.. Moderate left ventricular hypertrophy. Grade I/IV diastolic dysfunction (abnormal relaxation filling pattern), normal to mildly elevated filling pressures. Right Ventricle Normal right ventricular size and systolic function. Right Atrium Normal right atrial size. Left Atrium Mildly increased left atrial size. Mitral Valve Moderate mitral annular calcification. Aortic Valve Thickened aortic valve. Tricuspid Valve Tsrf-[id number]-djmhldio tricuspid valve regurgitation. Pulmonic Valve Pulmonic valve not well visualized. Pericardium No pericardial effusion. Aorta Normal aortic annulus size. IVC Normal inferior vena cava. CONCLUSIONS Estimated pulmonary artery peak systolic pressureNormal left ventricular size and systolic function, EF 56%.. Moderate left ventricular hypertrophy. Grade I/IV diastolic dysfunction (abnormal relaxation filling pattern), normal to mildly elevated filling pressures. Mildly increased left atrial size. Moderate mitral annular calcification. Thickened aortic valve. Zcla-[id number]-qynijrki tricuspid valve regurgitation. Estimated pulmonary artery peak systolic pressure 31 mm Hg There is no pericardial effusion. There are no intracardiac masses. Compared to the study from 11/23/2024, there may not be a significant change Dr Rell Palomo MD [facility] (Electronically Signed) Final Date: 08 July 2025 08:11 S
--- NOTE | 2025-07-08 01:13 | PM.HP ---
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 She was outside the window for thrombolytic and she did mostly recover from that stroke with residual weakness still on the left side but 07/07/2025 evening she had acute onset of left-sided weakness could not lift her arm the leg off the bed after getting back to being able to walk and do dishes. Family, neurologist from [place] and Dr. Herring agreed to give tPA. Subsequent to that she was in the ICU and agitated but alert and oriented x 3. She was given 0.5 mg of lorazepam and this acted quickly and she is somnolent now. She awakens and answers question but affect is flat. Notably the patient also had posterior circulation type symptoms 05/12/2025. Patient had echocardiogram 10/2024 which showed LVEF 55 to 60% grade 1 diastolic dysfunction no significant valvular disease. Patient at this time tells me she is in [place] at the hospital. She has a flat affect eyes open staring. Review of Systems Narrative: Unable to fully obtain at this time Medications/Allergies Home Medications ?Medication ?Instructions ?Recorded ?Confirmed ?Last Taken ?Type atorvastatin 40 mg tablet 40 mg PO DAILY 01/22/25 07/03/25 05/11/25 History aspirin 81 mg tablet,delayed 81 mg PO DAILY 05/12/25 07/03/25 05/11/25 History release ferrous sulfate 325 mg (65 mg 325 mg PO DAILY 05/12/25 07/03/25 05/11/25 History iron) tablet mirtazapine 30 mg tablet 30 mg PO BEDTIME 05/12/25 07/03/25 05/11/25 History pantoprazole 40 mg tablet,delayed 40 mg PO DAILY 05/12/25 07/03/25 05/11/25 History release linezolid 600 mg tablet 600 mg PO BID #12 tabs 05/15/25 07/03/25 Unknown Rx amoxicillin 875 mg-potassium 1 tab PO BID 7 days #14 tabs 07/03/25 07/03/25 Unknown Rx clavulanate 125 mg tablet Allergies Allergy/AdvReac Type Severity Reaction Status Date / Time No Known Allergies Allergy Verified 07/03/25 14:04 PFSH Acute PFSH: Medical History (Updated 07/07/25 @ 22:53 by Mabel Herring MD) CVA (cerebral vascular accident) Surgical History History of right knee joint replacement Family History Mother Leukemia Social History Smoking and tobacco/nicotine status: never used tobacco/nicotine Alcohol intake: never Substance/Drug Use: never Vitals/I&O/Wt Last Vital Signs Temp 96.3 F L 07/07/25 19:54 Pulse 99 07/07/25 23:38 Resp 13 07/07/25 21:20 BP 167/130 07/07/25 23:06 Pulse Ox 98 07/07/25 23:38 O2 Del Method Room Air 07/07/25 23:05 Weight last 48 hrs Weight 54.431 kg Physical Exam Narrative: General well-developed well-nourished female thin she is laying peacefully in bed eyes open with heavy lids CV regular rate and rhythm Lungs clear to auscultation bilaterally Abdomen positive bowel tones soft nontender Calves no tenderness cords pretrip edema Neuro patient is able to tell me that she is in [place] in the hospital. Affect is flat she is not following commands well. Right hand she is able to squeeze 4/5 left side 1/5 right arm she is able to get off the bed for over 5 left side 0-1 Right ankle flexion extension 4/5 left side 1+ Data 07/07/25 20:07 07/07/25 20:07 A&P Assessment and plan 1. Thrombolytic therapy administered within 2 hours of onset of symptoms: Monitoring until tomorrow for CT noncontrast to 24 hours. Significant deficit persists 2. Acute cerebrovascular accident (CVA): History of CVA with residual deficit from 10/2024 now with worsening not completely returned to new baseline 3. Accelerated hypertension: Blood pressure controlled with labetalol 10 mg IV every 4 hours for systolic blood pressure goal less than 180 PDMP PDMP Reviewed: Not Reviewed Attestations Medical Necessity Statement*: Patient is admitted to the hospital post thrombolytics will need PT OT and ST evaluation and therapy which will require greater than 2 midnights Coding Level of Care Code 41242 Diagnoses Thrombolytic therapy administered within 2 hours of onset of symptoms Acute cerebrovascular accident (CVA) I63.9 Accelerated hypertension I10 Time Spent (min) 55
[2025-07-08] MEDS: ondansetron 2 mg/ML SDV 2 mL 4 MG IVP ×4 (05:56→23:39)
--- NOTE | 2025-07-08 09:15 | PC.NURSE ---
0810 Patient nauseated and trying to vomit but no results, too early for more zofran, wet rag to forhead and patient back to sleep. 0900 Patient sleeping but slighty restless. Will hold po meds until more zofran can be given.
--- NOTE | 2025-07-08 10:42 | PC.NURSE ---
1035 Patient says still very nauseated after zofran given 40 minutes ago. Speech theraphy here, says will come back when feels better. Placed call into Dr. Shayy Cunningham, left message to return my call per solution make up operator. Unable to give po meds yet.
--- NOTE | 2025-07-08 12:01 | PC.OT ---
OT orders received. RN reports patient is still very nauseous and requests to hold evaluation at this time. Will attempt at a later time when patient is feeling better.
--- NOTE | 2025-07-08 12:03 | PC.NURSE ---
1115 Dr. Holder here, visited with patient, notified of continued nausea even after zofran given, and po meds held, and unable to with severe nausea and speech unable to do eval. Dr. landerosed hold of po meds for now. New nausea med ordered.
--- NOTE | 2025-07-08 13:27 | PC.PT ---
1308: Pt is too nauseated for PT today per KAYLAN Michael. She was just given another dose of nausea medicine to try and help. Nurse recommended holding and reattempting tomorrow.
--- NOTE | 2025-07-08 16:31 | PC.SLP ---
Attempted to assess swallowing. The patient still is complaining of nausea. The patient was able to take several small spoonfuls of ice chips without overt symptoms of aspiration. Multiple swallows were necessary to clear the oral cavity. Assessment could not be completed due to patient nausea, however. The patient did appear to be in less discomfort than earlier assessment attempt. The patient was willing to attempt an oral med. Nursing will try p.o. med with the patient later.
--- NOTE | 2025-07-08 20:00 | PM.MISC ---
Miscellaneous Note Purpose of Documentation: None billable note for follow-up on same-day admission Note: Patient seen and evaluated with right CVA with left-sided hemiparesis. Patient was status post tPA yesterday and to follow-up with repeat CT brain 24 hours following tPA. Patient doing okay able to answer questions on rounds in the emergency room. Patient was rounded on by me and the bedside nurse. Denies any complaints except that she is cold she was covered up in bed comfortable after being evaluated. Will follow-up with his CT of the head at 8 PM as scheduled and could be earlier should condition changes
[2025-07-08 20:13] LABS: Hematocrit 38.6 % (36-47); Hemoglobin 12.60 g/dL (11.27-16.99); Mean Corpuscular HGB Conc 32.6 g/dL (30-55); Mean Corpuscular Hemoglobin 28.2 pg (27-33); Mean Corpuscular Volume 86.4 fl (85-98); Nucleated Red Blood Cells % 0 %; Platelet Count 212 10^3/cmm (157-399); Red Blood Count 4.47 10^6/uL (3.85-5.65); White Blood Count 11.13 10^3/uL (3.29-11.43)
[2025-07-08 20:30] LABS: Anion Gap 16.1 (5-19); Blood Urea Nitrogen 16 mg/dL (8-23); Calcium 9.3 mg/dL (8.5-10.5); Carbon Dioxide 25 mmol/L (22-29); Chloride 101 mmol/L (98-107); Creatinine Clr Calc Pharmacy 44.9355; Glucose 119 mg/dL (65-115); Osmolality Calculated 290 mOsm/kg (285-295); Potassium 3.1 mmol/L (3.5-5.1); Sodium 139 mmol/L (136-145)
--- NOTE | 2025-07-08 21:00 | CTR_ITS ---
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 Radiation optimization: All CT scans at this facility use at least one of these dose optimization techniques: automated exposure control; mA and/or kV adjustment per patient size (includes targeted exams where dose is matched to clinical indication); or iterative reconstruction. COMPARISON: 1. CT head thrombolytic [id number] 07/07/2025 8:06 PM 2. MR head wo con* [id number] 05/12/2025 12:[address] head thrombolytic [id number] 05/12/2025 5:41 AM RADIATION DOSE METRICS: Total DLP (mGy-cm): 1823.28 FINDINGS: Brain: Diffuse cerebral atrophy, consistent with patient's age. No hemorrhage. No evidence of acute territorial infarct. Stable chronic right frontoparietal encephalomalacia and gliosis compatible with chronic infarct. Moderate background bilateral cerebral white matter hypoattenuation likely on the basis of chronic microvascular ischemic change. No mass effect. Cerebral ventricles: Ventricles are in proportion to the degree of atrophy. Paranasal sinuses: Visualized sinuses are unremarkable. No fluid levels. Mastoid air cells: Visualized mastoid air cells are well aerated. Bones: Unremarkable. No acute fracture. Soft tissues: Unremarkable. Vasculature: Bilateral ICA and vertebral artery calcifications. CT/CT head wo con* [id number] IMPRESSION: No acute intracranial findings. ASSESSMENT: ASPECTS (Taylor Stroke Program Early CT Score) is 10.
[2025-07-08] MEDS: morphine 4 mg/mL SDV 1 mL 2 MG IVP (21:47)
[2025-07-08 22:10] LABS: Estmated Average Glucose 126; Hemoglobin A1C 6.0 % (4.0-6.0)
[2025-07-08 22:43] LABS: Cholesterol 109 mg/dL (0-200); HDL Cholesterol 44 mg/dL (60-100); Triglycerides 89 mg/dL (0-150)
[2025-07-09] VITALS (56 sets, daily range): BP systolic 96–169; BP diastolic 44–109; PULSE 63–102; RESP 0–24; TEMP 36.6–36.9; O2SAT 91–100
[2025-07-09 03:56] LABS: Cholesterol 96 mg/dL (0-200); HDL Cholesterol 38 mg/dL (60-100); Triglycerides 87 mg/dL (0-150)
[2025-07-09 04:00] LABS: Estmated Average Glucose 120; Hemoglobin A1C 5.8 % (4.0-6.0)
[2025-07-09] MEDS: lidocaine 1% 5 ML in potassium chloride premix 100 ML 52.5 ML IV ×2 (04:42→06:53)
--- NOTE | 2025-07-09 06:59 | PC.NURSE ---
customer support coordinator rounds 07/08 @ 1030- Left stroke education book on bedside table. Patient is resting in bed with her eyes closed.
[2025-07-09] MEDS: pantoprazole 40 mg SDV IVP (10:11)
[2025-07-09] MEDS: ferrous sulfate EC 325 mg Tablet PO (10:12)
[2025-07-09 11:11] LABS: Iron 93 ug/dL (37-145); Thyroid Stimulating Hormone 1.15 uIU/mL (0.27-4.20); Total Iron Binding Capacity 255 mcg/dl; Unsaturated Iron Binding 162 ug/dL (112-347); Vitamin B12 437 pg/mL (232-1245)
--- NOTE | 2025-07-09 12:30 | PC.SOCIAL ---
IMM Update Updated pt on IMM. No questions voiced. Provided pt a copy. Initialed, dated, & timed a copy & placed in chart.
--- OUTSIDE RECORDS SUMMARY | 2025-07-09 12:31 | XMS_ITS | Clinical Summary ---
Author Organization [facility] Address [address] [place] [address] Phone Care Team Providers Care Canvas Worker Name Role Phone Unavailable Primary Care Provider Unavailabl e Allergies No known active allergies Medications aspirin (ELEANOR CHEWABLE) 81 mg Tablet, Chewable Take 81 mg by mouth daily. Active atorvastatin (LIPITOR) 40 mg tablet Take 40 mg by mouth daily. Active mirtazapine (REMERON) 15 mg tablet Take 15 mg by mouth daily at bedtime. Active acetaminophen (TYLENOL) 325 mg tablet Take 2 Tablets (650 mg) by mouth every 6 hours as needed for Other (See Comment) (See admin instructions) . 5 Active aluminum - magnesium - simethicone (MYLANTA) 200-200-20 mg/5 mL Suspension Take 30 mL by mouth every 2 hours as needed for Indigestion. 5 Active melatonin 3 mg Tablet 1 Tablet (3 mg) by G Tube route daily at bedtime. 5 Active ondansetron (ZOFRAN ODT) 4 mg Tablet, Rapid Dissolve Take 1 Tablet (4 mg) by mouth every 8 hours as needed for Nausea/Emesis . Dissolve tablet on top of tongue, then swallow with saliva. 5 Active pantoprazole (PROTONIX) 40 mg Tablet, Delayed Release (E.C.) Take 1 Tablet (40 mg) by mouth daily. 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 Urinary retention 02/19/2025 Elevated LFTs 02/06/2025 Intra-abdominal fluid collection 02/05/2025 Coagulopathy 01/26/2025 Protein-calorie malnutrition, moderate Endometrial hyperplasia 01/24/2025 Stroke 01/22/2025 Primary hypertension 01/22/2025 Hyperlipidemia 01/22/2025 Choledocholithiasis 01/22/2025 Resolved Problems Problem Noted Date Diagnosed Date Resolved Date Abscess, gallbladder 02/05/2025 025 Right upper quadrant abdominal pain 02/05/2025 02/19/2025 Bile leak 02/05/2025 02/20/2025 Hypernatremia 02/04/2025 02/20/2025 Leukocytosis 02/04/2025 02/20/2025 Melena 02/03/2025 02/20/2025 Acute blood loss anemia 02/03/202501/26 Pleural effusion 01/28/2025 02/20/2025 Hypokalemia 01/27/2025 02/20/2025 Sinus tachycardia 01/26/2025 02/19/2025 Transaminitis 01/23/2025 02/19/2025 Cholangitis 01/23/2025 02/20/2025 Hyperbilirubinemia 01/22/2025 HEATHER (acute kidney injury) 01/22/2025 Encounters Date Type Department Care Team Description 07/02/2025 External Device Data STL ABSTRACTION Provider, Abstract 06/11/2025 External Device Data STL ABSTRACTION Provider, Abstract 06/10/2025 External Device Data STL ABSTRACTION Provider, Abstract 06/06/2025 Orders Only [facility] [address] [address] Paul Ramsey MD Adenocarcinoma of gallbladder (CMS/HCC) (Primary Dx) 05/13/2025 External Device Data STL ABSTRACTION Provider, Abstract 04/24/2025 1:00 PM CDT Office Visit [facility] [address] [facility] [address] [place] [address] Paul Ramsey MD Adenocarcinoma of gallbladder (CMS/HCC) (Primary Dx); Intra-abdominal fluid collection 04/24/2025 12:08 PM CDT - 04/24/2025 11:59 PM CDT Hospital En[facility] [address] [address] Discharge Disposition: Home or Self Care 04/24/2025 Telephone [facility] [place] [address] [place] [address] [address] [place] [address] Paul Ramsey MD orders 04/17/2025 Orders Only [facility] [address] [facility] [address] [place] [address] Paul Ramsey MD Adenocarcinoma of gallbladder (CMS/HCC) (Primary Dx) 04/08/2025 External Device Data STL ABSTRACTION Provider, Abstract from Last 3 Months Social History Tobacco Use Types Packs/Day Years Used Date Smoking Tobacco: Never Tobacco Cessation:Counseling Given: Not Answered Alcohol Use Standard Drinks/Week Comments Not Currently 0 (1 standard drink = 0.6 oz pur e alcohol) Comments Unknown Sex and Gender Information Value Date Recorded Sex Assigned at Not on file 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 Gender Identity Not on file Sexual Orientation Not on file Last Filed Vital Signs Vital Sign Reading Time Taken Comments Blood Pressure 126/70 04/24/2025 1:05 PM CDT Pulse 100 04/24/2025 1:05 PM CDT Temperature 37 C (98.6 F) 04/24/2025 1:05 PM CDT Respiratory Rate 21 03/12/2025 12:43 PM CDT Oxygen Saturation 99% 04/24/2025 1:05 PM CDT Inhaled Oxygen Concentration - - Weight 54 kg (119 lb) 04/24/2025 1:05 PM CDT Height 165.1 cm (5' 5 ) 04/24/2025 1:05 PM CDT Body Mass Index 19.8 04/24/2025 1:05 PM CDT Plan of Treatment Health Maintenance Due Date Last Done Comments DTAP/TDAP/TD VACCINES (1 - Tdap) 1958 PNEUMOCOCCAL VACCINE 50+ YEARS (1 of 1 - PCV) 01/20/19 89 ZOSTER VACCINE (1 of 2) 1989 OSTEOPOROSIS SCREENING 2004 RSV VACCINE (60+ or ) (1 - 1-dose 75+ series) 2014 INFLUENZA VACCINE (#1) 2025 09/21/2023 Medical Devices Implanted Type Area Masonry Inspector Device Identifier Shelf Expiration Date Model / Serial / Lot Clip Ligating Horizon Lrg Ti 10.07x12.38mm 650909 - Csc - [id number] Implanted:Qty: 1 on 01/28/2025 by Curly De Oliveira Jr., MD at [facility] Clip N/A: Abdomen TELEFLEX- WECK CLOSURE SYS [id number] 04/02/2029 [id number] / / [id number] Air Brakes Inspector Ligamax Endo Multi Clip 5mm El5ml - [id number] Implanted:Qty: 1 on 01/28/2025 by Curly De Oliveira Jr., MD at [facility] Clip N/A: Abdomen J&J- [employer] [id number] 08/26/2029 EL5ML / / [id number] Clip Ligating Horizon Lrg Ti 10.07x12.38mm [id number] - [facility] - [id number] Implanted:Qty: 1 on 01/28/2025 by Curly De Oliveira Jr., MD at [facility] Clip N/A: Abdomen TELEFLEX- WECK CLOSURE SYS [id number] 04/29/2029 [id number] / / [id number] Clip Ligating Horizon Med Ti 728059 - Csc - [id number] Implanted:Qty: 1 on 01/28/2025 by Curly De Oliveira Jr., MD at [facility] Clip N/A: Abdomen TELEFLEX- WECK CLOSURE SYS [id number] 09/12/2029 [id number] / / [id number] Clip Ligating Horizon Med Ti [id number] - Csc - [id number] Implanted:Qty: 1 on 01/28/2025 by Curly De Oliveira Jr., MD at [facility] Clip N/A: Abdomen TELEFLEX- WECK CLOSURE SYS [id number] 09/12/2029 [id number] / / [id number] Clip Ligating Horizon Sm 308730 - [id number] Implanted:Qty: 1 on 01/28/2025 by Curly De Oliveira Jr., MD at [facility] Clip N/A: Abdomen TELEFLEX INC [id number] 09/15/2029 / [id number] Clip Ligating Horizon Med Ti [id number] - [facility] - [id number] Implanted:Qty: 1 on 01/28/2025 by Curly De Oliveira Jr., MD at [facility] Clip N/A: Abdomen TELEFLEX- WECK CLOSURE SYS [id number] 09/12/2029 / / [id number] Clip Ligating Horizon Med Ti 888815 - Csc - [id number] Implanted:Qty: 1 on 01/28/2025 by Curly De Oliveira Jr., MD at [facility] Clip N/A: Abdomen TELEFLEX- WECK CLOSURE SYS [id number] 09/12/2029 / [id number] Hemostatic Surgiflo 8ml W/ Thrombin 2994 - [id number] Implanted:Qty: 1 on 01/28/2025 by Curly De Oliveira Jr., MD at [facility] Hemostatic N/A: Abdomen J&J- [employer] [id number] 04/26/2026 2994 / / [id number] Hemostatic Surgicel 6x9in 1945 - [id number] Implanted:Qty: 1 on 01/28/2025 by Curly De Oliveira Jr., MD at [facility] Hemostatic N/A: Abdomen J&J- [employer] [id number] 09/26/2029 1946 / / [id number] Stent Bili Advanix Rx 10fr 7cm [id number] - [id number] Implanted:Qty: 1 on 01/23/2025 by Sydney Deal DO at [facility] Stent N/A: Bile Duct [employer] [id number] 08/09/2026 [id number] / / [id number] Stent Bili Advanix Rx 10fr 7cm [id number] - [id number] Implanted:Qty: 1 on 02/10/2025 by Sydney Deal DO at [facility] Stent N/A: Bile Duct [employer] [id number] 08/23/2026 [id number] / / [id number] Procedures Procedure Name Priority Date/Time Associated Diagnosis Comments COMPREHENSIVE METABOLIC PANEL Stat 04/24/2025 12:14 PM CDT Adenocarcinoma of gallbladder (CMS/HCC) CBC WITH DIFFERENTIAL Stat 04/24/2025 12:14 PM CDT Adenocarcinoma of gallbladder (CMS/HCC) from Last 3 Months Results * (ABNORMAL) CBC WITH DIFFERENTIAL (04/24/2025 12:14 PM CDT) Pathologist [facility] WBC 5.3 4.8 - 10.8 K/uL 04/24/2025 12:24 PM CDT [facility] RBC 4.74 4.20 - 5.40 M/uL 04/24/2025 12:24 PM CDT [facility] HEMOGLOBIN 11.9(L) 12.0 - 16.0 g/dL 04/24/2025 12:24 PM CDT [facility] HEMATOCRIT 39.2 36.0 - 46.0 % 04/24/2025 12:24 PM CDT [facility] MCV 82.7 82.0 - 100.0 fL 04/24/2025 12:24 PM CDT [facility] MCH 25.1(L) 27.0 - 34.0 pg 04/24/2025 12:24 PM CDT [facility] MCHC 30.4(L) 31.0 - 37.0 g/dL 04/24/2025 12:24 PM CDT [facility] RDW 20.2(H) 11.0 - 14.5 % 04/24/2025 12:24 PM CDT [facility] RDW-STDEV 60.8(H) 37.0 - 54.0 fL 04/24/2025 12:24 PM CDT [facility] PLATELETS 242 140 - 440 K/uL 04/24/2025 12:24 PM CDT [facility] MPV 11.9 8.9 - 12.8 fL 04/24/2025 12:24 PM CDT [facility] NEUTROPHILS 58 42 - 75 % 04/24/2025 12:24 PM CDT [facility] LYMPHOCYTES 27 24 - 44 % 04/24/2025 12:24 PM T [facility] MONOCYTES 10 2 - 10 % 04/24/2025 12:24 PM CDT [facility] EOSINOPHILS 4 0 - 7 % 04/24/2025 12:24 PM CDT [facility] BASOPHILS 1 0 - 1 % 04/24/2025 12:24 PM CDT [facility] IMMATURE GRANULOCYTES 0 0 - 2 % 04/24/2025 12:24 PM T [facility] NEUTROPHIL ABSOLUTE 3.10 1.40 - 6.50 K/uL 04/24/2025 12:24 PM CDT [facility] LYMPHOCYTE ABSOLUTE 1.43 1.20 - 4.00 K/uL 04/24/2025 12:24 PM CDT [facility] MONOCYTE ABSOLUTE 0.51 0.10 - 0.60 K/uL 04/24/2025 12:24 PM CDT [facility] EOSINOPHIL ABSOLUTE 0.20 0.00 - 0.70 K/uL 04/24/2025 12:24 PM CDT [facility] BASOPHILS ABSOLUTE 0.04 0.00 - 0.20 K/uL 04/24/2025 12:24 PM CDT [facility] IMMATURE GRANULOCYTES ABSOLUTE 0.02 0.00 - 0.10 K/uL 04/24/2025 12:24 PM CDT [facility] Blood Venipuncture / Unknown 04/24/2025 12:14 PM CDT 04/24/2025 12:17 PM CDT Paul Ramsey MD HEMATOLOGY ORDERABLES Final R esult [facility] CLIA# [id number] [id number] [place] [address] * (ABNORMAL) COMPREHENSIVE METABOLIC PANEL (04/24/2025 12:14 PM CDT) SODIUM 138 136 - 145 mmol/L 04/24/2025 12:43 PM [facility] [place] POTASSIUM 3.4(L) 3.5 - 5.1 mmol/L 04/24/2025 12:43 PM [facility] CHLORIDE 103 98 - 107 mmol/L 04/24/2025 12:43 PM [facility] CO2 24 22 - 29 mmol/L 04/24/2025 12:43 PM [facility] CALCIUM 9.1 8.8 - 10.2 mg/dL 04/24/2025 12:43 PM [facility] BUN 13 8 - 23 mg/dL 04/24/2025 12:43 PM [facility] [place] CREATININE 0.76 0.51 - 0.95 mg/dL 04/24/2025 12:43 PM [facility] Comment:The GFR result is no t clinically significant on patients <18 or >70 years of age. GLUCOSE 129(H) 74 - 99 mg/dL 04/24/2025 12:43 PM [facility] [place] TOTAL PROTEIN 6.7 6.4 - 8.3 g/dL 04/24/2025 12:43 PM [facility] [place] ALBUMIN 3.4(L) 3.5 - 5.2 g/dL 04/24/2025 12:43 PM [facility] BILIRUBIN TOTAL 0.4 0.0 - 1.0 mg/dL 04/24/2025 12:43 PM [facility] ALKALINE PHOSPHATASE 106(H) 35 - 104 U/L 04/24/2025 12:43 PM [facility] AST 35(H) <=33 U/L 04/24/2025 12:43 PM [facility] ALT 21 <=33 U/L 04/24/2025 12:43 PM [facility] GFR >60 mL/min/1.7 3 sq meter 04/24/2025 12:43 PM CDT [facility] Comment:eGFR calculated with 2020 CKD-EPI equation. Vegetarian diet, extremely high or low muscle mass, and may affect results. Cystatin C with Glomerular Filtration Rate is a suitable alternative for these patients. ANION GAP 11 9 - 20 mmol/L 04/24/2025 12:43 PM CDT [facility] Blood Venipuncture / Unknown 04/24/2025 12:14 PM CDT 04/24/2025 12:17 PM CDT us Paul Ramsey MD CHEMISTRY ORDERABLES Final Re sult [facility] CLIA# [id number] [address] [place] [address] from Last 3 Months Insurance [facility] Advance Directives For more information, please contact: [phone] * Full Code (Latest Code Status on File) Date Activated Date Inactivated Comments 03/12/2025 9:55 AM 03/12/2025 2:57 PM * Full Code Date Activated Date Inactivated Comments 03/12/2025 9:54 AM 03/12/2025 9:55 AM * NO CPR (In Event of Cardiopulmonary Arrest) Date Activated Date Inactivated Comments 01/22/2025 9:28 PM 02/20/2025 3:32 PM Question Answer Comments Mechanical Ventilation (for respiratory distress) - Invasive (i.e. intubation): No Mechanical Ventilation (for respiratory distress) - Non-Invasive (i.e. BiPAP, CPAP): Yes * Full Code Date Activated Date Inactivated Comments 01/22/2025 9:08 PM 01/22/2025 9:28 PM
--- OUTSIDE RECORDS SUMMARY | 2025-07-09 12:31 | XMS_ITS ---
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 Past Treatment and Therapy Plans No past plan information found. Lifetime Dose Tracking * Chemical Lifetime Dose Automatic Entry Manual Entr y Effective Dose 25.99 mSv 25.99 mSv 0 mSv Total DLP 1,591.68 DLP 1,591.68 DLP 0 DLP CTDIvol Max 39.69 mGy 39.69 mGy 0 mGy CTDIvol Min 17.4 mGy 17.4 mGy 0 mGy Resolved Problems Problem Noted Date Diagnosed Date [...]
--- OUTSIDE RECORDS SUMMARY | 2025-07-09 12:31 | XMS_ITS | Encounter Summary ---
Author Organization [facility] Address [address] [place] [address] Care Team Providers Care Applications Development Consultant Name Role Phone Unavailable Primary Care Provider Unavailabl e Encounter Details Date Type Department Care Team (Late st Contact Info) Description 07/02/2025 External Device Data [facility] ABSTRACTION Provider, Abstract NO ADDRESS ON FILE Social History Tobacco Use Types Packs/Day Years Used Date Smoking Tobacco: Never Alcohol Use Standard Drinks/Week Comments Not Currently 0 (1 standard drink = 0.6 oz pur e alcohol) Comments Unknown Sex and Gender Information Value Date Recorded Sex Assigned at Not on file 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
--- NOTE | 2025-07-09 12:37 | P.PN_ITS ---
Subjective 2 Subjective: Hospital course, labs appreciated. Examination patient laying comfortably in bed, wakes up to verbal stimulus. On waking up speaks very softly. Awake and alert to self, being in the hospital, reason for hospitalization. Denies any pain. Afraid to eat because of nausea. Vitals/I&O/Wt Last Vital Signs Temp 98.3 F 07/09/25 10:00 Pulse 94 07/09/25 12:00 Resp 16 07/09/25 12:00 BP 140/98 07/09/25 12:00 Pulse Ox 95 07/09/25 12:00 O2 Del Method Nasal Cannula 07/09/25 12:00 O2 Flow Rate 3 07/09/25 12:00 FiO2 21 07/08/25 05:14 07/08/25 07/09/25 07/09/25 22:59 06:59 14:59 Intake Total 105 / 105 Output Total 350 / 350 Balance -245 / -245 Weight last 48 hrs Weight 53.66 kg Weight 55.474 kg Weight 55.474 kg Weight 54.431 kg Physical Exam 2 Narrative: General well-developed well-nourished female thin she is laying peacefully in bed eyes open with heavy lids CV regular rate and rhythm Lungs clear to auscultation bilaterally Abdomen positive bowel tones soft nontender Calves no tenderness cords pretrip edema Neuro patient is able to tell me that she is in [place] in the hospital. Affect is flat she is not following commands well. Right hand she is able to squeeze 4/5 left side 1/5 right arm she is able to get off the bed for over 5 left side 0-1 Right ankle flexion extension 4/5 left side 1+ Data 07/08/25 20:04 07/08/25 20:04 A&P Assessment and plan 1. Thrombolytic therapy administered within 2 hours of onset of symptoms: Monitoring until tomorrow for CT noncontrast to 24 hours. Significant deficit persists 2. Acute cerebrovascular accident (CVA): History of CVA with residual deficit from 10/2024 now with worsening not completely returned to new baseline 3. Accelerated hypertension: Blood pressure controlled with labetalol 10 mg IV every 4 hours for systolic blood pressure goal less than 180 4. Nausea & vomitin. BPPV (benign paroxysmal positional vertigo): 6. Dysphagia: Plan: Plan for the day: CT head 24 hours post tPA appreciated. No concern for bleed. PT/OT/speech evaluation awaited. Patient complaining of nausea. 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 Will most likely start on clear liquid diet after speech evaluation the patient tolerates. Start on IV Protonix 40 mg daily, scopolamine patch. Out of bed to chair. Aspirin, statin. Transfer to [facility] floor. Check A1c, lipid panel, TSH, B12 levels. Echocardiogram Discharge plan: Patient lives with her daughter. Daughter has to go to work daily. Requesting transfer to possible SNF. Case management alerted. Full code Diet as per speech evaluation Protonix for PUD prophylaxis Heparin for DVT prophylaxis. PDMP PDMP Reviewed: Not Reviewed Attestations 2 Medical Necessity Statement*: Requires further hospitalization for post tPA care, nausea biopsy of discharge planning is sought Diagnoses Thrombolytic therapy administered within 2 hours of onset of symptoms Acute cerebrovascular accident (CVA) I63.9 Accelerated hypertension I10 Nausea & vomiting R11.2 BPPV (benign paroxysmal positional vertigo) H81.10 Dysphagia R13.10
[2025-07-09] MEDS: ondansetron 2 mg/ML SDV 2 mL 4 MG IVP (13:12)
[2025-07-10] VITALS (33 sets, daily range): BP systolic 106–161; BP diastolic 59–97; PULSE 62–80; RESP 0–19; TEMP 36.7–37; O2SAT 91–99
[2025-07-10 03:59] LABS: Hematocrit 39.1 % (36-47); Hemoglobin 12.20 g/dL (11.27-16.99); Mean Corpuscular HGB Conc 31.2 g/dL (30-55); Mean Corpuscular Hemoglobin 27.4 pg (27-33); Mean Corpuscular Volume 87.9 fl (85-98); Nucleated Red Blood Cells % 0 %; Platelet Count 162 10^3/cmm (157-399); Red Blood Count 4.45 10^6/uL (3.85-5.65); White Blood Count 5.67 10^3/uL (3.29-11.43)
[2025-07-10 04:23] LABS: Alanine Aminotransferase 13 U/L (0-33); Albumin Level 3.3 g/dL (3.5-5.2); Alkaline Phosphatase 109 U/L (35-105); Anion Gap 13.1 (5-19); Aspartate Amino Transferase 21 U/L (0-32); Blood Urea Nitrogen 17 mg/dL (8-23); Calcium 9.3 mg/dL (8.5-10.5); Carbon Dioxide 29 mmol/L (22-29); Chloride 104 mmol/L (98-107); Creatinine Clr Calc Pharmacy 44.3573; Globulin 2.9 g/dL (1.3-4.6); Glucose 85 mg/dL (65-115); Osmolality Calculated 295 mOsm/kg (285-295); Potassium 4.1 mmol/L (3.5-5.1); Sodium 142 mmol/L (136-145); Total Protein 6.2 g/dL (6.6-8.7)
[2025-07-10 04:28] LABS: Magnesium 1.7 mg/dL (1.7-2.3)
--- NOTE | 2025-07-10 06:17 | PC.NURSE ---
Report called to Jennifer on med-surg. Patient transported in bed. All belongings with patient.
[2025-07-10] MEDS: pantoprazole 40 mg SDV IVP (09:00)
[2025-07-10] MEDS: ferrous sulfate EC 325 mg Tablet PO (09:00)
[2025-07-10] MEDS: ondansetron 2 mg/ML SDV 2 mL 4 MG IVP (10:58)
[2025-07-10 11:21] LABS: SARS Covid-2 Antigen Negative (Negative)
--- NOTE | 2025-07-10 12:23 | P.PN_ITS ---
Subjective 2 Subjective: seen this am reports mild nausea holding up a tray this morning, taking clears and able to keep them down Vitals/I&O/Wt Last Vital Signs Temp 98.6 F 07/10/25 11:28 Pulse 75 07/10/25 11:28 Resp 16 07/10/25 11:28 BP 106/63 07/10/25 11:28 Pulse Ox 95 07/10/25 11:40 O2 Del Method Room Air 07/10/25 11:40 O2 Flow Rate 2 07/10/25 00:00 FiO2 21 07/08/25 05:14 07/09/25 07/10/25 07/10/25 22:59 06:59 14:59 Intake Total 105 / 105 Balance 105 / -225 Weight last 48 hrs Weight 53.46 kg Weight 53.66 kg Physical Exam 2 Narrative: General well-developed well-nourished female thin CV regular rate and rhythm Lungs clear to auscultation bilaterally Abdomen positive bowel tones soft nontender Calves no tenderness cords pretrip edema Neuro AO x3. Affect is flat, follows commands, Right hand she is able to squeeze 4/5 left side 1/5 right arm she is able to get off the bed for over 5 left side 0-1 Right ankle flexion extension 4/5 left side 1+ Data 07/10/25 03:39 07/10/25 03:39 A&P Assessment and plan 1. Thrombolytic therapy administered within 2 hours of onset of symptoms: Monitoring until tomorrow for CT noncontrast to 24 hours. Significant deficit persists 2. Acute cerebrovascular accident (CVA): History of CVA with residual deficit from 10/2024 now with worsening not completely returned to new baseline 3. Accelerated hypertension: Blood pressure controlled with labetalol 10 mg IV every 4 hours for systolic blood pressure goal less than 180 4. Nausea & vomitin. BPPV (benign paroxysmal positional vertigo): 6. Dysphagia: Plan: Plan for the day: CT head 24 hours post tPA appreciated. No concern for bleed. PT/OT/speech evaluation awaited. Patient complaining of nausea. 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 Will most likely start on clear liquid diet after speech evaluation the patient tolerates. Start on IV Protonix 40 mg daily, scopolamine patch. Out of bed to chair. Aspirin, statin. Transfer to [facility] floor. Check A1c, lipid panel, TSH, B12 levels. Echocardiogram Discharge plan: Patient lives with her daughter. Daughter has to go to work daily. Requesting transfer to possible SNF. Case management alerted. Full code Diet as per speech evaluation Protonix for PUD prophylaxis Heparin for DVT prophylaxis. 07/10/2025 Complains of nausea. Has a scopolamine patch in place. Has required 1 dose of Zofran this morning 1 dose yesterday and prior to that [id number]. Nausea is improved compared to before. We will transition to full liquid diet today. once pt able to tolerate diet, will consider dc to [facility]. Folate level 13.8, magnesium 1.7, lipid panel reviewed, hemoglobin A1c 5.8, TSH 1.15. Echo shows EF 56%, moderate left ventricular hypertrophy, grade 1 x 4 diastolic dysfunction. Normal to mildly elevated filling pressures. Continue to work with speech therapy Continue aspirin atorvastatin. PDMP PDMP Reviewed: Not Reviewed Attestations 2 Medical Necessity Statement*: Requires further hospitalization for post tPA care, nausea Diagnoses Thrombolytic therapy administered within 2 hours of onset of symptoms Acute cerebrovascular accident (CVA) I63.9 Accelerated hypertension I10 Nausea & vomiting R11.2 BPPV (benign paroxysmal positional vertigo) H81.10 Dysphagia R13.10
[2025-07-11] VITALS (16 sets, daily range): BP systolic 116–144; BP diastolic 68–75; PULSE 63–73; RESP 16–18; TEMP 36.6–36.8; O2SAT 91–95
[2025-07-11 05:16] LABS: Magnesium 1.7 mg/dL (1.7-2.3)
[2025-07-11] MEDS: ferrous sulfate EC 325 mg Tablet PO (09:02)
[2025-07-11] MEDS: pantoprazole 40 mg SDV IVP (09:02)
--- NOTE | 2025-07-11 10:07 | PC.NURSE ---
branch coordinator rounds today @ 0900 and yesterday am. Today patient is more awake. RN, family, and hospitalist bedside, patient is experiencing involuntary eye/facial twitching on the left. Pt complaining of a headache. No nausea today per pt.
--- NOTE | 2025-07-11 10:33 | PC.SLP ---
Pt lying in bed and barely opened her eyes when her name was called by therapist. Pt shook her head no when therapist asked if she would try eating/drinking.
--- NOTE | 2025-07-11 12:01 | P.PN_ITS ---
Subjective 2 Subjective: seen this morning pt just woke up, appears slightly lethargic has some twitching of left eye Poor oral intake. Daughter at bedside. She states that her PEG tube was recently removed last week Patient is deconditioned from her stroke. This is her second stroke. Follows commands Alert oriented to self and place. Discussed with daughter regarding concerns of patient not having adequate nutrition. Vitals/I&O/Wt Last Vital Signs Temp 98.3 F 07/11/25 11:45 Pulse 73 07/11/25 11:45 Resp 16 07/11/25 11:45 BP 116/69 07/11/25 11:45 Pulse Ox 92 07/11/25 11:45 O2 Del Method Room Air 07/11/25 11:45 O2 Flow Rate 2 07/10/25 00:00 FiO2 21 07/08/25 05:14 Weight last 48 hrs Weight 52.872 kg Weight 53.46 kg Physical Exam 2 Narrative: General well-developed well-nourished female thin CV regular rate and rhythm Lungs clear to auscultation bilaterally Abdomen positive bowel tones soft nontender Calves no tenderness cords pretrip edema Neuro AO x3. Affect is flat, follows commands, Right hand she is able to squeeze 3/5 left side 1/5 right arm she is able to get off the bed for over 5 left side 0-1 Right ankle flexion extension 4/5 left side 1+, left-sided facial droop noted. Appears quite deconditioned and weak. Data 07/10/25 03:39 07/10/25 03:39 A&P Assessment and plan 1. Thrombolytic therapy administered within 2 hours of onset of symptoms: Monitoring until tomorrow for CT noncontrast to 24 hours. Significant deficit persists 2. Acute cerebrovascular accident (CVA): History of CVA with residual deficit from 10/2024 now with worsening not completely returned to new baseline 3. Accelerated hypertension: Blood pressure controlled with labetalol 10 mg IV every 4 hours for systolic blood pressure goal less than 180 4. Nausea & vomitin. BPPV (benign paroxysmal positional vertigo): 6. Dysphagia: Plan: Plan for the day: CT head 24 hours post tPA appreciated. No concern for bleed. PT/OT/speech evaluation awaited. Patient complaining of nausea. 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 Will most likely start on clear liquid diet after speech evaluation the patient tolerates. Start on IV Protonix 40 mg daily, scopolamine patch. Out of bed to chair. Aspirin, statin. Transfer to [facility] floor. Check A1c, lipid panel, TSH, B12 levels. Echocardiogram Discharge plan: Patient lives with her daughter. Daughter has to go to work daily. Requesting transfer to possible SNF. Case management alerted. Full code Diet as per speech evaluation Protonix for PUD prophylaxis Heparin for DVT prophylaxis. 07/10/2025 Complains of nausea. Has a scopolamine patch in place. Has required 1 dose of Zofran this morning 1 dose yesterday and prior to that [id number]. Nausea is improved compared to before. We will transition to full liquid diet today. once pt able to tolerate diet, will consider dc to [facility]. Folate level 13.8, magnesium 1.7, lipid panel reviewed, hemoglobin A1c 5.8, TSH 1.15. Echo shows EF 56%, moderate left ventricular hypertrophy, grade 1 x 4 diastolic dysfunction. Normal to mildly elevated filling pressures. Continue to work with speech therapy Continue aspirin atorvastatin. 07/11/2025 Patient not having adequate nutrition. She is on full liquid diet at this time. Initially was nauseous however that has improved. States she does not feel like eating. Patient is on Remeron 30 at bedtime. We will continue the same. Continue scopolamine patch for nausea. She is able to take her tablets and swallow. Speech therapy consult has been placed. Will place on IV fluids normal saline 125 cc/h. I worry about her nutritional status. After previous stroke daughter states that there were similar concerns and patient was aspirating therefore PEG tube was placed. That was removed last week . I discussed with daughter that patient does not have adequate nutrition we may have to support with a PEG tube once again. Acknowledges that patient has declined compared to before. I will consult dietitian. Will consider PPN for a few days. Continue PT OT Patient will need continued physical therapy going forward. Continue aspirin atorvastatin. Continue out of bed to chair. PDMP PDMP Reviewed: Not Reviewed Attestations 2 Medical Necessity Statement*: Requires further hospitalization for post tPA care, nausea Will need to address nutritional status prior to discharge. Diagnoses Thrombolytic therapy administered within 2 hours of onset of symptoms Acute cerebrovascular accident (CVA) I63.9 Accelerated hypertension I10 Nausea & vomiting R11.2 BPPV (benign paroxysmal positional vertigo) H81.10 Dysphagia R13.10
--- NOTE | 2025-07-11 19:31 | PC.NURSE ---
This nurse missed medication at 1700. Did not show up on [facility] and overlooked on jan.
[2025-07-12] VITALS (9 sets, daily range): BP systolic 127–159; BP diastolic 64–78; PULSE 64–88; RESP 16–18; TEMP 36.4–36.8; O2SAT 91–95
[2025-07-12 05:30] LABS: Hematocrit 36.4 % (36-47); Hemoglobin 11.90 g/dL (11.27-16.99); Mean Corpuscular HGB Conc 32.7 g/dL (30-55); Mean Corpuscular Hemoglobin 28.6 pg (27-33); Mean Corpuscular Volume 87.5 fl (85-98); Nucleated Red Blood Cells % 0 %; Platelet Count 140 10^3/cmm (157-399); Red Blood Count 4.16 10^6/uL (3.85-5.65); White Blood Count 5.17 10^3/uL (3.29-11.43)
[2025-07-12 06:13] LABS: Alanine Aminotransferase 13 U/L (0-33); Albumin Level 3.0 g/dL (3.5-5.2); Alkaline Phosphatase 93 U/L (35-105); Aspartate Amino Transferase 21 U/L (0-32); Blood Urea Nitrogen 18 mg/dL (8-23); Calcium 8.3 mg/dL (8.5-10.5); Carbon Dioxide 25 mmol/L (22-29); Chloride 105 mmol/L (98-107); Creatinine Clr Calc Pharmacy 44.1061; Globulin 2.5 g/dL (1.3-4.6); Glucose 76 mg/dL (65-115); Osmolality Calculated 295 mOsm/kg (285-295); Sodium 142 mmol/L (136-145); Total Protein 5.5 g/dL (6.6-8.7)
[2025-07-12 06:14] LABS: Magnesium 1.5 mg/dL (1.7-2.3)
[2025-07-12 06:16] LABS: Anion Gap 15.4 (5-19); Potassium 3.4 mmol/L (3.5-5.1)
--- NOTE | 2025-07-12 10:47 | XRR_ITS ---
PROCEDURE INFORMATION: Exam: XR Abdomen Exam date and time: 07/12/2025 1:44 PM Age: 85 years old Clinical indication: Abdominal pain; Additional info: Rlq tenderness TECHNIQUE: Imaging protocol: Radiologic exam of the abdomen. Views: Frontal supine view of the abdomen. 1 View. COMPARISON: CT abdomen pelvis w con* [id number] 01/22/2025 12:18 PM FINDINGS: Gastrointestinal tract: Moderate colonic fecal material suggesting constipation. Intraperitoneal space: Right upper quadrant surgical clips. Bones/joints: Unremarkable. XR/XR KUB portable [id number] IMPRESSION: Possible constipation.
[2025-07-12] MEDS: pantoprazole 40 mg SDV IVP (11:11)
[2025-07-12] MEDS: ferrous sulfate EC 325 mg Tablet PO (11:11)
[2025-07-12] MEDS: magnesium sulfate premix 2 GM/50 ML PIGGYBACK IV (11:21)
--- NOTE | 2025-07-12 14:13 | P.PN_ITS ---
Subjective 2 Subjective: seen today complains of abdominal pain walked the halls with PT says she is not hungry Vitals/I&O/Wt Last Vital Signs Temp 97.6 F 07/12/25 12:05 Pulse 79 07/12/25 12:05 Resp 18 07/12/25 12:05 BP 151/74 07/12/25 12:05 Pulse Ox 95 07/12/25 12:05 O2 Del Method Room Air 07/12/25 06:54 O2 Flow Rate 2 07/10/25 00:00 FiO2 21 07/08/25 05:14 07/11/25 07/12/25 07/12/25 22:59 06:59 14:59 Intake Total 1326.667 / 5122.880 1502.833 / 2682.500 435 / 435 Output Total 200 / 200 500 / 700 300 / 300 Balance 1126.667 / 1246.667 735.833 / 1982.500 135 / 135 Weight last 48 hrs Weight 52.872 kg Weight 52.872 kg Physical Exam 2 Narrative: General well-developed well-nourished female thin CV regular rate and rhythm Lungs clear to auscultation bilaterally Abdomen positive bowel tones soft nontender Calves no tenderness cords pretrip edema Neuro AO x3. Affect is flat, follows commands, Right hand she is able to squeeze 3/5 left side 1/5 right arm she is able to get off the bed for over 5 left side 0-1 Right ankle flexion extension 4/5 left side 1+, left-sided facial droop noted. walking today in hallway Data 07/12/25 04:15 07/12/25 04:15 A&P Assessment and plan 1. Thrombolytic therapy administered within 2 hours of onset of symptoms: Monitoring until tomorrow for CT noncontrast to 24 hours. Significant deficit persists 2. Acute cerebrovascular accident (CVA): History of CVA with residual deficit from 10/2024 now with worsening not completely returned to new baseline 3. Accelerated hypertension: Blood pressure controlled with labetalol 10 mg IV every 4 hours for systolic blood pressure goal less than 180 4. Nausea & vomitin. BPPV (benign paroxysmal positional vertigo): 6. Dysphagia: Plan: Plan for the day: CT head 24 hours post tPA appreciated. No concern for bleed. PT/OT/speech evaluation awaited. Patient complaining of nausea. 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 Will most likely start on clear liquid diet after speech evaluation the patient tolerates. Start on IV Protonix 40 mg daily, scopolamine patch. Out of bed to chair. Aspirin, statin. Transfer to [facility]. Check A1c, lipid panel, TSH, B12 levels. Echocardiogram Discharge plan: Patient lives with her daughter. Daughter has to go to work daily. Requesting transfer to possible SNF. Case management alerted. Full code Diet as per speech evaluation Protonix for PUD prophylaxis Heparin for DVT prophylaxis. 07/10/2025 Complains of nausea. Has a scopolamine patch in place. Has required 1 dose of Zofran this morning 1 dose yesterday and prior to that [id number]. Nausea is improved compared to before. We will transition to full liquid diet today. once pt able to tolerate diet, will consider dc to [facility]. Folate level 13.8, magnesium 1.7, lipid panel reviewed, hemoglobin A1c 5.8, TSH 1.15. Echo shows EF 56%, moderate left ventricular hypertrophy, grade 1 x 4 diastolic dysfunction. Normal to mildly elevated filling pressures. Continue to work with speech therapy Continue aspirin atorvastatin. 07/11/2025 Patient not having adequate nutrition. She is on full liquid diet at this time. Initially was nauseous however that has improved. States she does not feel like eating. Patient is on Remeron 30 at bedtime. We will continue the same. Continue scopolamine patch for nausea. She is able to take her tablets and swallow. Speech therapy consult has been placed. Will place on IV fluids normal saline 125 cc/h. I worry about her nutritional status. After previous stroke daughter states that there were similar concerns and patient was aspirating therefore PEG tube was placed. That was removed last week . I discussed with daughter that patient does not have adequate nutrition we may have to support with a PEG tube once again. Acknowledges that patient has declined compared to before. I will consult dietitian. Will consider PPN for a few days. Continue PT OT Patient will need continued physical therapy going forward. Continue aspirin atorvastatin. Continue out of bed to chair. 07/12/2025 pt walking today check KUB today start on bowel regimen discussed with her regarding eating, she was able to eat a cup of peaches continue to address nutrition Speech therapy to work with her today. PDMP PDMP Reviewed: Not Reviewed Attestations 2 Medical Necessity Statement*: Continue to address nutrition. If able to eat and drink better we will consider discharging her Diagnoses Thrombolytic therapy administered within 2 hours of onset of symptoms Acute cerebrovascular accident (CVA) I63.9 Accelerated hypertension I10 Nausea & vomiting R11.2 BPPV (benign paroxysmal positional vertigo) H81.10 Dysphagia R13.10
[2025-07-12] MEDS: sennosides-docusate Tablet 1 TAB PO ×2 (15:12→17:32)
[2025-07-12] MEDS: lactulose oral liq 20 gm/30 mL UDC 10 GM PO (15:12)
[2025-07-13] VITALS (11 sets, daily range): BP systolic 142–163; BP diastolic 62–86; PULSE 60–79; RESP 16–18; TEMP 36.4–36.7; O2SAT 92–96; BMI 19.1
[2025-07-13 06:06] LABS: Hematocrit 39.2 % (36-47); Hemoglobin 12.30 g/dL (11.27-16.99); Mean Corpuscular HGB Conc 31.4 g/dL (30-55); Mean Corpuscular Hemoglobin 27.9 pg (27-33); Mean Corpuscular Volume 88.9 fl (85-98); Nucleated Red Blood Cells % 0 %; Platelet Count 161 10^3/cmm (157-399); Red Blood Count 4.41 10^6/uL (3.85-5.65); White Blood Count 7.43 10^3/uL (3.29-11.43)
[2025-07-13 06:40] LABS: Blood Urea Nitrogen 12 mg/dL (8-23); Calcium 8.3 mg/dL (8.5-10.5); Carbon Dioxide 24 mmol/L (22-29); Chloride 107 mmol/L (98-107); Creatinine Clr Calc Pharmacy 43.8983; Glucose 76 mg/dL (65-115); Magnesium 1.9 mg/dL (1.7-2.3); Osmolality Calculated 293 mOsm/kg (285-295); Sodium 142 mmol/L (136-145)
[2025-07-13 06:52] LABS: Anion Gap 14.6 (5-19); Potassium 3.6 mmol/L (3.5-5.1)
[2025-07-13] MEDS: sennosides-docusate Tablet 1 TAB PO (09:27)
[2025-07-13] MEDS: ferrous sulfate EC 325 mg Tablet PO (09:27)
[2025-07-13] MEDS: pantoprazole 40 mg SDV IVP (09:28)
--- NOTE | 2025-07-13 10:07 | P.PN_ITS ---
Subjective 2 Subjective: Patient able to have 2 bowel movements and feels much better today. She has perked up and has a strong voice this morning. States she would like to have some toast. I discussed with nursing staff to call the kitchen. Patient states she has a desire to eat today and feels hungry. We discussed that she if she is able to start eating then we may consider discharge to nursing facility and may not have to do a PEG tube. She is agreeable and happy to hear that. Had 2 bowel movements overnight. Vitals/I&O/Wt Last Vital Signs Temp 98.0 F 07/13/25 07:44 Pulse 67 07/13/25 07:44 Resp 17 07/13/25 07:44 BP 150/67 07/13/25 07:44 Pulse Ox 92 07/13/25 07:44 O2 Del Method Room Air 07/13/25 07:44 O2 Flow Rate 2 07/10/25 00:00 FiO2 21 07/08/25 05:14 07/12/25 07/13/25 07/13/25 22:59 06:59 14:59 Intake Total 300 / 735 2240 / 2975 Output Total 601 / 901 Balance 300 / 435 1639 / 2074 Weight last 48 hrs Weight 52.22 kg Weight 52.872 kg Physical Exam 2 Narrative: General well-developed well-nourished female thin CV regular rate and rhythm Lungs clear to auscultation bilaterally Abdomen positive bowel tones soft nontender Calves no tenderness cords pretrip edema Neuro AO x3. Affect is flat, follows commands, Right hand she is able to squeeze 3/5 left side 1/5 right arm she is able to get off the bed for over 5 left side 0-1 Right ankle flexion extension 4/5 left side 1+, left-sided facial droop noted. Appears better today. Data 07/13/25 04:09 07/13/25 04:09 A&P Assessment and plan 1. Thrombolytic therapy administered within 2 hours of onset of symptoms: Monitoring until tomorrow for CT noncontrast to 24 hours. Significant deficit persists 2. Acute cerebrovascular accident (CVA): History of CVA with residual deficit from 10/2024 now with worsening not completely returned to new baseline 3. Accelerated hypertension: Blood pressure controlled with labetalol 10 mg IV every 4 hours for systolic blood pressure goal less than 180 4. Nausea & vomitin. BPPV (benign paroxysmal positional vertigo): 6. Dysphagia: Plan: Plan for the day: CT head 24 hours post tPA appreciated. No concern for bleed. PT/OT/speech evaluation awaited. Patient complaining of nausea. 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 Will most likely start on clear liquid diet after speech evaluation the patient tolerates. Start on IV Protonix 40 mg daily, scopolamine patch. Out of bed to chair. Aspirin, statin. Transfer to [facility] floor. Check A1c, lipid panel, TSH, B12 levels. Echocardiogram Discharge plan: Patient lives with her daughter. Daughter has to go to work daily. Requesting transfer to possible SNF. Case management alerted. Full code Diet as per speech evaluation Protonix for PUD prophylaxis Heparin for DVT prophylaxis. 07/10/2025 Complains of nausea. Has a scopolamine patch in place. Has required 1 dose of Zofran this morning 1 dose yesterday and prior to that [id number]. Nausea is improved compared to before. We will transition to full liquid diet today. once pt able to tolerate diet, will consider dc to [facility]. Folate level 13.8, magnesium 1.7, lipid panel reviewed, hemoglobin A1c 5.8, TSH 1.15. Echo shows EF 56%, moderate left ventricular hypertrophy, grade 1 x 4 diastolic dysfunction. Normal to mildly elevated filling pressures. Continue to work with speech therapy Continue aspirin atorvastatin. 07/11/2025 Patient not having adequate nutrition. She is on full liquid diet at this time. Initially was nauseous however that has improved. States she does not feel like eating. Patient is on Remeron 30 at bedtime. We will continue the same. Continue scopolamine patch for nausea. She is able to take her tablets and swallow. Speech therapy consult has been placed. Will place on IV fluids normal saline 125 cc/h. I worry about her nutritional status. After previous stroke daughter states that there were similar concerns and patient was aspirating therefore PEG tube was placed. That was removed last week . I discussed with daughter that patient does not have adequate nutrition we may have to support with a PEG tube once again. Acknowledges that patient has declined compared to before. I will consult dietitian. Will consider PPN for a few days. Continue PT OT Patient will need continued physical therapy going forward. Continue aspirin atorvastatin. Continue out of bed to chair. 07/12/2025 pt walking today check KUB today start on bowel regimen discussed with her regarding eating, she was able to eat a cup of peaches continue to address nutrition Speech therapy to work with her today. 07/13/2025 KUB showed constipation patient started on bowel regimen Had 2 BMs overnight. Continue bowel regimen at this time. Patient has a desire to eat today. We will switch to regular diet soft bite- size. If she is able to tolerate meals orally we will discharge to nursing facility in AM. Patient agreeable. PDMP PDMP Reviewed: Not Reviewed Attestations 2 Medical Necessity Statement*: Continue to address nutrition. Plan to discharge to nursing facility in a.m. Diagnoses Thrombolytic therapy administered within 2 hours of onset of symptoms Acute cerebrovascular accident (CVA) I63.9 Accelerated hypertension I10 Nausea & vomiting R11.2 BPPV (benign paroxysmal positional vertigo) H81.10 Dysphagia R13.10
[2025-07-14] VITALS (7 sets, daily range): BP systolic 143–163; BP diastolic 77–86; PULSE 63–76; RESP 16–17; TEMP 36.3–36.7; O2SAT 93–97
[2025-07-14 05:22] LABS: Hematocrit 36.4 % (36-47); Hemoglobin 11.70 g/dL (11.27-16.99); Mean Corpuscular HGB Conc 32.1 g/dL (30-55); Mean Corpuscular Hemoglobin 27.8 pg (27-33); Mean Corpuscular Volume 86.5 fl (85-98); Nucleated Red Blood Cells % 0 %; Platelet Count 155 10^3/cmm (157-399); Red Blood Count 4.21 10^6/uL (3.85-5.65); White Blood Count 4.65 10^3/uL (3.29-11.43)
[2025-07-14 06:00] LABS: Anion Gap 9.2 (5-19); Blood Urea Nitrogen 9 mg/dL (8-23); Calcium 8.4 mg/dL (8.5-10.5); Carbon Dioxide 27 mmol/L (22-29); Chloride 105 mmol/L (98-107); Creatinine Clr Calc Pharmacy 44.4583; Glucose 92 mg/dL (65-115); Magnesium 1.6 mg/dL (1.7-2.3); Osmolality Calculated 284 mOsm/kg (285-295); Potassium 3.2 mmol/L (3.5-5.1); Sodium 138 mmol/L (136-145)
[2025-07-14 06:05] LABS: Slide Review Slide Review Perform
[2025-07-14] MEDS: magnesium sulfate premix 2 GM/50 ML PIGGYBACK IV (08:04)
[2025-07-14] MEDS: pantoprazole 40 mg SDV IVP (08:05)
[2025-07-14] MEDS: ferrous sulfate EC 325 mg Tablet PO (08:05)
--- NOTE | 2025-07-14 08:46 | XR_ITS ---
WS: [id number] Right ankle, 3 views, 07/14/2025 Clinical Data: pain and unable to bear weight Comparison: None. Findings: No fractures or dislocations are seen. The ankle mortise is normal. There is osteoarthritis in the articulation between the medial talus and medial malleolus. No soft tissue swelling over the medial or lateral malleolus is seen. There is an Achilles spur and plantar spur. 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
--- NOTE | 2025-07-14 09:20 | PM.DCS ---
Discharge Providers Date of Admission: 07/07/25 22:28 Date of Discharge: July 14, 2025 Attending Provider at Admission: Nestor Garcia MD Attending Provider at Discharge: Amanda Bray MD Primary Care Provider: Cat Martínez DO Diagnoses at Discharge Discharge Diagnosis 1. Thrombolytic therapy administered within 2 hours of onset of symptoms: 2. Acute cerebrovascular accident (CVA): 3. Accelerated hypertension: 4. Nausea & vomitin. BPPV (benign paroxysmal positional vertigo): 6. Dysphagia: Reason for Visit Reason for Visit: Left Side Numbness Hospital Course Hospital Course Patient admitted for stroke and did receive TNKase as significant deficit present. Does have a history of prior strokes in the past. Remained stable after TNKase in place. We did have concerns regarding her nutritional status. She had severe constipation which was relieved with bowel regimen. Patient able to eat and drink by the time of discharge. Denied dysphagia. Did have nausea post stroke which eventually improved. She was discharged in stable condition to nursing facility. Physical Exam Narrative: General well-developed well-nourished female thin CV regular rate and rhythm Lungs clear to auscultation bilaterally Abdomen positive bowel tones soft nontender Calves no tenderness cords pretrip edema Neuro AO x3. Affect is flat, follows commands, Right hand she is able to squeeze 3/5 left side 1/5 right arm she is able to get off the bed for over 5 left side 0-1 Right ankle flexion extension 4/5 left side 1+, left-sided facial droop noted. Significant improvement prior to admission. Urinary Catheter Management: Cuadra Latex: Cath Placed During This Visit: yes, but has since been removed by the nurse Reason for Continuing Indwelling Catheter: Other Urinary Catheter Date of Insertion: 07/16/25 Urinary Catheter Time of Insertion: 14:36 Date Urinary Catheter Removed: 07/17/25 Time Urinary Catheter Discontinued: 18:00 Discharge Data Studies Completed and Pending Completed Studies During Hospitalization Category Date Time Status CT head thrombolytic 41170 Stat Cat Scan 07/07/25 19:[address] head wo con* [id number] Routine Cat Scan 07/08/25 21:00 Completed XR KUB portable [id number] Routine Exams 07/12/25 10:47 Completed CV. echo complete* [id number] Routine Ultrasound 07/08/25 00:36 Completed Pending at discharge Category Date Time Status XR ankle RT min 3V* [id number] Stat Exams 07/14/25 08:46 Ordered Radiology Impressions Head CT 07/08/25 21:00 IMPRESSION: No acute intracranial findings. ASSESSMENT: ASPECTS (Connie Stroke Program Early CT Score) is 10. KUB X-Ray 07/12/25 10:47 IMPRESSION: Possible constipation. Laboratory Results WBC 4.65 10^3/uL (3.29-11.43) 07/14/25 04:30 RBC 4.21 10^6/uL (3.85-5.65) 07/14/25 04:30 Hgb 11.70 g/dL (11.27-16.99) 07/14/25 04:30 Hct 36.4 % (36-47) 07/14/25 04:30 MCV 86.5 fl (85-98) 07/14/25 04:30 MCH 27.8 pg (27-33) 07/14/25 04:30 MCHC 32.1 g/dL (30-55) 07/14/25 04:30 RDW 17.2 % (12.1-15.1) H 07/14/25 04:30 Plt Count 155 10^3/cmm (157-399) L 07/14/25 04:30 MPV Not Reportable 07/14/25 04:30 Neut % (Auto) 56.8 % 07/14/25 04:30 Lymph % (Auto) 26.9 % 07/14/25 04:30 Baldwin % (Auto) 10.1 % 07/14/25 04:30 Eos % (Auto) 5.4 % 07/14/25 04:30 Baso % (Auto) 0.6 % 07/14/25 04:30 Neut # (Auto) 2.64 10^3/uL (1.8-7.7) 07/14/25 04:30 Lymph # (Auto) 1.3 10^3/uL (0.8-4.8) 07/14/25 04:30 Baldwin # (Auto) 0.5 10^3/uL (0.2-0.9) 07/14/25 04:30 Eos # (Auto) 0.3 10^3/uL (0.0-0.8) 07/14/25 04:30 Baso # (Auto) 0.0 10^3/uL (0.0-0.1) 07/14/25 04:30 Nucleated RBC % (auto) 0 % 07/14/25 04:30 Nucleated RBCs # 0.0 /100WBC 07/14/25 04:30 PT 16.60 SECONDS (12.1-14.9) H 07/07/25 20:07 INR 1.25 (0.8-1.2) H 07/07/25 20:07 APTT 25.7 SECONDS (23.9-36.7) 07/07/25 20:07 Sodium 138 mmol/L (136-145) 07/14/25 04:30 Potassium 3.2 mmol/L (3.5-5.1) L 07/14/25 04:30 Chloride 105 mmol/L (98-107) 07/14/25 04:30 Carbon Dioxide 27 mmol/L (22-29) 07/14/25 04:30 Anion Gap 9.2 (5-19) 07/14/25 04:30 BUN 9 mg/dL (8-23) 07/14/25 04:30 Creatinine 0.6 mg/dL (0.5-0.9) 07/14/25 04:30 GFR Calculation Not Reportable 07/14/25 04:30 Glucose 92 mg/dL (65-115) 07/14/25 04:30 POC Glucose 147 mg/dL (70-110) H 07/07/25 20:02 Estimat Average Glucose 120 07/09/25 02:57 Hemoglobin A1c 5.8 % (4.0-6.0) 07/09/25 02:57 Calculated Osmolality 284 mOsm/kg (285-295) L 07/14/25 04:30 Calcium 8.4 mg/dL (8.5-10.5) L 07/14/25 04:30 Phosphorus 3.0 mg/dL (2.5-4.5) 07/12/25 04:15 Magnesium 1.6 mg/dL (1.7-2.3) L 07/14/25 04:30 Iron 93 ug/dL (37-145) 07/09/25 02:57 TIBC 255 mcg/dl 07/09/25 02:57 % Saturation 36.4 % (20-50) 07/09/25 02:57 Unsat Iron Binding 162 ug/dL (112-347) 07/09/25 02:57 Total Bilirubin 0.4 mg/dL (0.15-1.2) 07/12/25 04:15 AST 21 U/L (0-32) 07/12/25 04:15 ALT 13 U/L (0-33) 07/12/25 04:15 Alkaline Phosphatase 93 U/L (35-105) 07/12/25 04:15 Total Protein 5.5 g/dL (6.6-8.7) L 07/12/25 04:15 Albumin 3.0 g/dL (3.5-5.2) L 07/12/25 04:15 Globulin 2.5 g/dL (1.3-4.6) 07/12/25 04:15 Triglycerides 87 mg/dL (0-150) 07/09/25 02:57 Cholesterol 96 mg/dL (0-200) 07/09/25 02:57 LDL Cholesterol, Calc 41 mg/dL (50-129) L 07/09/25 02:57 HDL Cholesterol 38 mg/dL (60-100) L 07/09/25 02:57 LDL/HDL Ratio 1.08 RATIO (0.00-3.22) 07/09/25 02:57 Cholesterol/HDL Ratio 2.53 mg/dL (0.0-4.40) 07/09/25 02:57 Vitamin B12 437 pg/mL (232-1245) 07/09/25 02:57 Folate 13.8 ng/mL (4.8-37.3) 07/10/25 03:39 TSH 1.15 uIU/mL (0.27-4.20) 07/09/25 02:57 Urine Color Yellow (Yellow) 07/07/25 20:49 Urine Appearance Clear (CLEAR) 07/07/25 20:49 Urine pH 5.5 (5-7) 07/07/25 20:49 Ur Specific Lafe 1.022 (1.005-1.030) 07/07/25 20:49 Urine Protein Trace (Negative) A 07/07/25 20:49 Urine Glucose (UA) Negative (Normal) 07/07/25 20:49 Urine Ketones Trace (Negative) 07/07/25 20:49 Urine Blood Negative (Negative) 07/07/25 20:49 Urine Nitrate Negative (Negative) 07/07/25 20:49 Urine Bilirubin Negative (Negative) 07/07/25 20:49 Urine Urobilinogen 1.0 mg/dL (Negative) 07/07/25 20:49 Ur Leukocyte Esterase Trace (Negative) A 07/07/25 20:49 Urine RBC 0-2 /hpf (0-2) 07/07/25 20:49 Urine WBC 0-5 /hpf (0-5) 07/07/25 20:49 Ur Squamous Epith Cells 0-5 /hpf (0-5) 07/07/25 20:49 Amorphous Sediment Not Reportable 07/07/25 20:49 Urine Bacteria None seen /hpf (NONE) 07/07/25 20:49 Hyaline Casts 0.81 /lpf 07/07/25 20:49 Urine Opiates Screen Positive ng/mL (Negative) H 07/07/25 20:49 Ur Barbiturates Screen Negative ng/mL (Negative) 07/07/25 20:49 Ur Phencyclidine Scrn Negative ng/mL (Negative) 07/07/25 20:49 Ur Amphetamines Screen Negative ng/mL (Negative) 07/07/25 20:49 U Benzodiazepines Scrn Negative ng/mL (Negative) 07/07/25 20:49 Urine Cocaine Screen Negative ng/mL (Negative) 07/07/25 20:49 U Marijuana (THC) Screen Negative ng/mL (Negative) 07/07/25 20:49 SARS-CoV-2 Ag (Rapid) Negative (Negative) 07/10/25 10:45 Vitals Last Vital Signs Temp 97.5 F L 07/14/25 07:51 Pulse 76 07/14/25 08:00 Resp 17 07/14/25 07:51 BP 143/77 07/14/25 07:51 Pulse Ox 93 07/14/25 08:00 O2 Del Method Room Air 07/14/25 08:00 O2 Flow Rate 2 07/10/25 00:00 FiO2 21 07/08/25 05:14 Discharge Plan Discharge Patient Disposition: Xfer [facility] Condition: Stable Prescriptions: Continued atorvastatin 40 mg tablet 40 mg PO DAILY aspirin 81 mg Tablet,Delayed Release (Dr/Ec) 81 mg PO DAILY mirtazapine 30 mg tablet 30 mg PO BEDTIME ferrous sulfate 325 mg (65 mg iron) tablet 325 mg PO DAILY Discontinued amoxicillin-pot clavulanate 875-125 mg tablet 1 tab PO BID 7 Days Qty: 14 0RF No Action omeprazole 20 mg capsule,delayed release(DR/EC) 20 mg PO BID levofloxacin 750 mg tablet 750 mg PO DAILY 5 Days Qty: 5 0RF acetaminophen 325 mg Tablet 650 mg PO Q6H PRN (Reason: pain/increased temp) bisacodyl [Dulcolax (bisacodyl)] 10 mg Suppository 10 mg OK DAILY PRN (Reason: Constipation) sucralfate 1 gram Tablet 1 g PO AC&BEDTIME 28 Days Qty: 60 0RF metoprolol tartrate 25 mg tablet 12.5 mg PO BID Qty: 30 0RF Ensure Active High Protein Liquid 1 ea PO DAILY Qty: 1656 0RF Discharge Order = DC NOW: Discharge Order (Routine); Ordered 07/14/25 Ordered By: Amanda Bray Referrals: Lakia Santos MD [Physician, Neurology] - 02/25/26 11:00 am Referral Note: Cat Martínez DO [Primary Care Provider, [employer] C[employer] ASSOCIATE] - 1-3 days [facility], [Occupational Therapist] Discharge Diet: Cardiac Discharge Activity: As per PT/OT instructions Patient Instructions: Altered Mental Status (ED), Stroke (DC), Stroke Prevention (DC), Stroke Stoplight Discharge Attestations Time Spent in Discharge Care*: less than 30 min Quality Metrics Clinical Quality Measures [ No reported AMI, CVA or VTE this stay] Coding Level of Care Code Acute Code for [facility] Fwd Diagnoses Thrombolytic therapy administered within 2 hours of onset of symptoms Acute cerebrovascular accident (CVA) I63.9 Accelerated hypertension I10 Nausea & vomiting R11.2 BPPV (benign paroxysmal positional vertigo) H81.10 Dysphagia R13.10
--- NOTE | 2025-07-14 10:11 | PC.SOCIAL ---
IMM Update Pg. 2 of IMM Updated with patient. Copy provided at bedside.
--- NOTE | 2025-07-14 11:48 | PC.NURSE ---
Report called to Comfort MILLER at [facility]. States they will send transport for pt.
--- NOTE | 2025-07-14 11:54 | PC.NURSE ---
Attempted to reach Lila (pt's daughter) to let her know that pt is being transported to [facility] shortly. NO answer, unable to leave voicemail.
--- NOTE | 2025-07-14 12:13 | PC.NURSE ---
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 Pt to transport van via wheelchair with all belongings.
== END 2025-07-14 12:13 | disposition skilled nursing facility (03) | DRG 62 ==
LOC: ER 22:41 → ER IP 22:50 → ICU 23:02 → MEDSURG 07-10 06:09
PROVIDERS: Student in an Organized Health Care Education/Training Program; Admitting Provider Internal Medicine; Emergency Provider Emergency Medicine; PCP Family Medicine; Visit Provider Internal Medicine
DX: I63.9 Cerebral infarction, unspecified (principal); G81.94 Hemiplegia, unspecified affecting left nondominant side; R13.10 Dysphagia, unspecified; R29.705 NIHSS score 5; I10 Essential (primary) hypertension; R11.2 Nausea with vomiting, unspecified; H81.10 Benign paroxysmal vertigo, unspecified ear; K59.00 Constipation, unspecified; Z96.651 Presence of right artificial knee joint; R45.1 Restlessness and agitation; Z79.82 Long term (current) use of aspirin; Z86.73 Personal history of transient ischemic attack (TIA), and cerebral infarction without residual deficits
CPT/HCPCS: 36415; 36416; 70450; 73610; 74018; 80048; 80053; 80061; 80306; 81001; 82607; 82746; 82962; 83036; 83540; 83550; 83735; 84100; 84443; 85025; 85610; 85730; 87426; 92507; 92523; 92526; 92610; 93005; 93306; 94664; 96374; 96375; 97110; 97116; 97161; 97165; 97530; 99285; J0780; J2060; J2270; J2310; J2405; J2470; J3101; J3475; J3480; J3490; J7030; J9999

== ENCOUNTER 2025-07-16 09:45 | Observation (INO) | payer MEDICARE, SELFPAY ==
[2025-07-16] VITALS (32 sets, daily range): BP systolic 90–185; BP diastolic 51–106; PULSE 86–148; RESP 12–35; TEMP 36.7–37.1; O2SAT 87–96; BMI 19.8
--- NOTE | 2025-07-16 09:51 | ECG_ITS ---
[facility] Test Date: 2025-07-16 Pat Name: Debby Velez Department: Room: Gender: Female Equipment Lead: : 1940 Requested By: Arya Ivey Order Number: [id number] Amrit MD: Steven Gamez M.D. Measurements Intervals Boomer Rate: 139 P: 56 WI: 123 QRS: 61 QRSD: 84 T: 197 QT: 283 QTc: 431 Interpretive Statements SINUS TACHYCARDIA LEFT VENTRICULAR HYPERTROPHY AND ST-T CHANGE [VOLTAGE CRITERIA PLUS ST/T ABNORMALITY] Compared to ECG 07/07/2025 20:16:22 Left ventricular hypertrophy now present ST (T wave) deviation now present Sinus rhythm no longer present Ventricular premature complex(es) no longer present T-wave abnormality no longer present Electronically Signed On 07-19-2025 08:53:34 CDT by Steven Gamez M.D. [email or web address] [id number]
--- NOTE | 2025-07-16 09:52 | XR_ITS ---
WS: [id number] Portable AP semiupright chest, 07/16/2025 Clinical Data: dyspnea/cough Comparison: None. Findings: No nodules, masses or effusions are seen. The heart is normal. The pulmonary vascularity is not increased. No pneumonia or pneumothorax is seen. The aortic arch and descending thoracic aorta show tortuosity and calcification. There is a hiatal hernia behind the heart. Monitor leads on the chest wall. XR/XR chest 1V portable [id number] Impression: Atherosclerosis.
--- NOTE | 2025-07-16 09:58 | CT_ITS ---
WS: [id number] CTA CHEST WITH CT ABDOMEN AND PELVIS. HISTORY: Nausea, vomiting and pain. TECHNIQUE: CT angiogram is performed through the chest. Additional imaging is performed through the abdomen and pelvis with IV contrast. Sagittal and coronal reformats have been submitted. MIP imaging also reviewed. All CT scans at [facility] use at least one of these dose optimization techniques: automated exposure control; mA and/or kV adjustment per patient size (includes targeted exams where dose is matched to clinical indication); or iterative reconstruction. Contrast: Omnipaque 350; 95 cc IV. DLP: 619.60 mGy.cm COMPARISON: CT abdomen and pelvis 01/22/2025. CTA 11/23/2024. Chest CTA: Breathing motion artifact. Good opacification of the central pulmonary arteries. Pulmonary artery is dilated. No embolism is noted through the segmental branches. Mild atherosclerosis aorta. No aneurysm. Centrilobular emphysema. Groundglass attenuation and mosaic attenuation noted. 5 mm RIGHT upper lobe pulmonary nodule. Poor inspiration resulting in crowding of the lung markings. No mediastinal or hilar adenopathy. Large hiatal hernia. Hiatal hernia is filled with fluid. There is a small amount of air within the hernia sac. Abdomen CT: Normal size liver with pneumobilia. Prior cholecystectomy. There is a small amount of air also within the common bile duct which is only prominent. No intrahepatic duct dilatation. Previously described extrahepatic and intrahepatic common bile duct dilatation has resolved. Pancreatic atrophy with a mildly prominent pancreatic duct, unchanged. No adrenal mass. Normal spleen. Renal atrophy with bilateral renal cysts. No obstruction. Mild atherosclerosis aorta. Stomach is markedly dilated with fluid and air. Mild gastric wall enhancement. Mild duodenal wall thickening with enhancement. There is a small duodenal diverticulum filled with air and fluid which is increased in size since 01/22/2025. Mild soft tissue edema and anasarca. Normal appendix. Sigmoid diver ticulosis without acute diverticulitis. Pelvic CT: Reidentified is an abnormal endometrium. Marked endometrial thickness which was previously described. Endometrium measures 2.2 cm. There is a small amount of air along the endometrial canal also. Small enhancing foci within the myometrium may be fibroids. Negative urinary bladder. Osteopenia. Increase in thoracic kyphosis. Increase in the lumbar lordosis. CT/CT angio chest w abd pel w con IMPRESSION: 1. No pulmonary embolism. 2. Mild groundglass attenuation could be seen with poor inspiration, breathing motion artifact and small vessel disease. 3. No pneumonia. 4. 5 mm RIGHT upper lobe pulmonary nodule, stable since 11/23/2024. 5. Large hiatal hernia filled with fluid and air. 6. Marked fluid distention of the stomach. 7. Mild gastric and duodenal enhancement and wall thickening. No ulcer is iden tified. Consider gastritis/duodenitis. Duodenal diverticulum. 8. Prior cholecystectomy. 9. Renal atrophy and bilateral renal cysts. 10. Sigmoid diverticulosis without acute diverticulitis. 11. Markedly abnormal endometrium as described on the prior study. Neoplasm is not excluded. There is air within the endometrial cavity along with increased soft tissue. No fistula is identified communicating with the GI tract.
--- OUTSIDE RECORDS SUMMARY | 2025-07-16 10:16 | XMS_ITS ---
Author Organization [facility] Address [address] [place] [address] Phone Care Team Providers Care Oxyacetylene Welder Name Role Phone Unavailable Primary Care Provider [...]
--- OUTSIDE RECORDS SUMMARY | 2025-07-16 10:16 | XMS_ITS | Clinical Summary ---
Author Organization [facility] Address [address] [place] [address] Phone Care Team Providers Care Tool Polishing Machine Operator Name Role Phone Unavailable Primary Care Provider [...] STL ABSTRACTION Provider, Abstract 06/06/2025 Orders Only [facility] [address] [address] Paul Ramsey MD Adenocarcinoma of gallbladder (CMS/HCC) (Primary Dx) 05/13/2025 External Device Data STL ABSTRACTION Provider, Abstract 04/24/2025 1:00 PM CDT Office Visit [facility] [address] [facility] [place] [address] Paul Ramsey MD Adenocarcinoma of gallbladder (CMS/HCC) (Primary Dx); Intra-abdominal fluid collection 04/24/2025 12:08 PM CDT - 04/24/2025 11:59 PM CDT [facility] [address] [place] [address] [place] [address] Discharge Disposition: Home or Self Care 04/24/2025 Telephone [facility] [place] [address] [place] [address] 2 [place] [address] Paul Ramsey MD orders 04/17/2025 Orders Only [facility] [place] [address] [place] [address] 2 [place] [address] Paul Ramsey MD Adenocarcinoma of gallbladder (CMS/HCC) (Primary Dx) from Last 3 Months Social History Tobacco Use Types Packs/Day Years Used Date Smoking Tobacco: Never Tobacco Cessation:Counseling Given: Not Answered Alcohol Use Standard Drinks/Week Comments Not Currently 0 (1 standard drink = 0.6 oz pur e alcohol) Comments Unknown Sex and Gender Information Value Date Recorded Sex Assigned at Not on file Legal 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 Gender Identity Not on file Sexual Orientation [...] 2025 09/21/2023 Medical Devices Implanted Type Area Vp Director Of Creative Strategy Device Identifier Shelf Expiration Date Model / Serial / Lot Clip Ligating Horizon Lrg Ti 10.07x12.38mm 269299 - Csc - [id number] Implanted:Qty: 1 on 01/28/2025 by Curly De Oliveira Jr., MD at [facility] Clip N/A: Abdomen TELEFLEX- WECK CLOSURE SYS [id number] 04/02/2029714010 / / [id number] Decision Science Analyst Ligamax Endo Multi Clip 5mm El5ml - [id number] Implanted:Qty: 1 on 01/28/2025 by Curly De Oliveira Jr., MD at [facility] Clip N/A: Abdomen J&J- [employer] [id number] 08/26/2029 EL5ML / / [id number] Clip Ligating Horizon Lrg Ti 10.07x12.38mm 129014 - [facility] [place] - [id number] Implanted:Qty: 1 on 01/28/2025 by Curly De Oliveira Jr., MD at [facility] Clip N/A: Abdomen TELEFLEX- WECK CLOSURE SYS [id number] 04/29/2029287054 / / [id number] Clip Ligating Horizon Med Ti 764988 - Csc - [id number] Implanted:Qty: 1 on 01/28/2025 by Curly De Oliveira Jr., MD at [facility] Clip N/A: Abdomen TELEFLEX- WECK CLOSURE SYS [id number] 09/12/2029509664 / / [id number] Clip Ligating Horizon Med Ti 735244 - Csc - [id number] Implanted:Qty: 1 on 01/28/2025 by Curly De Oliveira Jr., MD at [facility] Clip N/A: Abdomen TELEFLEX- WECK CLOSURE SYS [id number] 09/12/2029 / / [id number] Clip Ligating Horizon Sm 970721 - [id number] Implanted:Qty: 1 on 01/28/2025 by Curly De Oliveira Jr., MD at [facility] Clip N/A: Abdomen TELEFLEX INC [id number] 09/15/2029 / [id number] Clip Ligating Horizon Med Ti 379758 - Csc - [id number] Implanted:Qty: 1 on 01/28/2025 by Curly De Oliveira Jr., MD at [facility] Clip N/A: Abdomen TELEFLEX- WECK CLOSURE SYS [id number] 09/12/2029 / / [id number] Clip Ligating Horizon Med Ti 695121 - Csc - [id number] Implanted:Qty: 1 on 01/28/2025 by Curly De Oliveira Jr., MD at [facility] Clip N/A: Abdomen TELEFLEX- WECK CLOSURE SYS [id number] 09/12/2029 / / [id number] Hemostatic Surgiflo 8ml W/ Thrombin 2994 - [id number] Implanted:Qty: 1 on 01/28/2025 by Curly De Oliveira Jr., MD at [facility] Hemostatic N/A: Abdomen J&J- [employer] [id number] 04/26/2026 2994 / / [id number] Hemostatic Surgicel 6x9in 1945 - [id number] Implanted:Qty: 1 on 01/28/2025 by Curly De Oliveira Jr., MD at [facility] Hemostatic N/A: Abdomen J&J- [employer] [id number] 09/26/2029 1946 / / [id number] Stent Bili Advanix Rx 10fr 7cm [id number] - [id number] Implanted:Qty: 1 on 01/23/2025 by Sydney Deal DO at [facility] Stent N/A: Bile Duct [employer] [id number] 08/09/2026 [id number] / / [id number] Stent Bili Advanix Rx 10fr 7cm [id number] - [id number] Implanted:Qty: 1 on 02/10/2025 by Sydney Deal DO at [facility] Stent N/A: Bile Duct [employer] [id number] 08/23/2026 [id number] / / [id number] Procedures Procedure Name Priority Date/Time Associated Diagnosis Comments COMPREHENSIVE METABOLIC PANEL Stat 04/24/2025 12:14 PM CDT Adenocarcinoma of gallbladder (CMS/HCC) CBC WITH DIFFERENTIAL Stat 04/24/2025 12:14 PM CDT Adenocarcinoma of gallbladder (CMS/HCC) from Last 3 Months Results * (ABNORMAL) CBC WITH DIFFERENTIAL (04/24/2025 12:14 PM CDT) WBC 5.3 4.8 - 10.8 K/uL 04/24/2025 12:24 PM CDT [facility] RBC 4.74 4.20 - 5.40 M/uL 04/24/2025 12:24 PM CDT [facility] HEMOGLOBIN 11.9(L) 12.0 - 16.0 g/dL 04/24/2025 12:24 PM T [facility] HEMATOCRIT 39.2 36.0 - 46.0 % 04/24/2025 12:24 PM CDT [facility] MCV 82.7 82.0 - 100.0 fL 04/24/2025 12:24 PM CDT [facility] MCH 25.1(L) 27.0 - 34.0 pg 04/24/2025 12:24 PM CDT [facility] MCHC 30.4(L) 31.0 - 37.0 g/dL 04/24/2025 12:24 PM CDT [facility] RDW 20.2(H) 11.0 - 14.5 % 04/24/2025 12:24 PM CDT [facility] RDW-STDEV 60.8(H) 37.0 - 54.0 fL 04/24/2025 12:24 PM CDT [facility] PLATELETS 242 140 - 440 K/uL 04/24/2025 12:24 PM CDT [facility] MPV 11.9 8.9 - 12.8 fL 04/24/2025 12:24 PM CDT [facility] NEUTROPHILS 58 42 - 75 % 04/24/2025 12:24 PM CDT [facility] LYMPHOCYTES 27 24 - 44 % 04/24/2025 12:24 PM CDT [facility] MONOCYTES 10 2 - 10 % 04/24/2025 12:24 PM CDT [facility] EOSINOPHILS 4 0 - 7 % 04/24/2025 12:24 PM CDT [facility] BASOPHILS 1 0 - 1 % 04/24/2025 12:24 PM CDT [facility] IMMATURE GRANULOCYTES 0 0 - 2 % 04/24/2025 12:24 PM CDT [facility] NEUTROPHIL ABSOLUTE 3.10 1.40 - 6.50 K/uL 04/24/2025 12:24 PM CDT [facility] LYMPHOCYTE ABSOLUTE 1.43 1.20 - 4.00 K/uL 04/24/2025 12:24 PM CDT [facility] MONOCYTE ABSOLUTE 0.51 0.10 - 0.60 K/uL 04/24/2025 12:24 PM CDT [facility] EOSINOPHIL ABSOLUTE 0.20 0.00 - 0.70 K/uL 04/24/2025 12:24 PM CDT [facility] BASOPHILS ABSOLUTE 0.04 0.00 - 0.20 K/uL 04/24/2025 12:24 PM CDT [facility] IMMATURE GRANULOCYTES ABSOLUTE 0.02 0.00 - 0.10 K/uL 04/24/2025 12:24 PM CDT [facility] Blood Venipuncture / Unknown 04/24/2025 12:14 PM CDT 04/24/2025 12:17 PM CDT us Paul Ramsey MD HEMATOLOGY ORDERABLES Final R esult [facility] CLIA# [id number] [id number] [place] [address] * (ABNORMAL) COMPREHENSIVE METABOLIC PANEL (04/24/2025 12:14 PM CDT) SODIUM 138 136 - 145 mmol/L 04/24/2025 12:43 PM T [facility] POTASSIUM 3.4(L) 3.5 - 5.1 mmol/L 04/24/2025 12:43 PM T [facility] CHLORIDE 103 98 - 107 mmol/L 04/24/2025 12:43 PM T [facility] CO2 24 22 - 29 mmol/L 04/24/2025 12:43 PM T [facility] CALCIUM 9.1 8.8 - 10.2 mg/dL 04/24/2025 12:43 PM T [facility] BUN 13 8 - 23 mg/dL 04/24/2025 12:43 PM [facility] CREATININE 0.76 0.51 - 0.95 mg/dL 04/24/2025 12:43 PM [facility] Comment:The GFR result is no t clinically significant on patients <18 or >70 years of age. GLUCOSE 129(H) 74 - 99 mg/dL 04/24/2025 12:43 PM [facility] TOTAL PROTEIN 6.7 6.4 - 8.3 g/dL 04/24/2025 12:43 PM [facility] ALBUMIN 3.4(L) 3.5 - 5.2 g/dL 04/24/2025 12:43 PM [facility] BILIRUBIN TOTAL 0.4 0.0 - 1.0 mg/dL 04/24/2025 12:43 PM [facility] ALKALINE PHOSPHATASE 106(H) 35 - 104 U/L 04/24/2025 12:43 PM [facility] AST 35(H) <=33 U/L 04/24/2025 12:43 PM [facility] ALT 21 <=33 U/L 04/24/2025 12:43 PM [facility] GFR >60 mL/min/1.7 3 sq meter 04/24/2025 12:43 PM CDT [facility] Comment:eGFR calculated with 2020 CKD-EPI equation. Vegetarian diet, extremely high or low muscle mass, and may affect results. Cystatin C with Glomerular Filtration Rate is a suitable alternative for these patients. ANION GAP 11 9 - 20 mmol/L 04/24/2025 12:43 PM CDT [facility] Blood Venipuncture / Unknown 04/24/2025 12:14 PM CDT 04/24/2025 12:17 PM CDT us Paul Ramsey MD CHEMISTRY ORDERABLES Final Re sult [facility] CLIA# [id number] [address] [place] [address] from Last 3 Months Insurance [facility] Advance Directives For more information, please contact: [phone] * Full Code (Latest Code Status on [...]
[2025-07-16] MEDS: ondansetron 2 mg/ML SDV 2 mL 4 MG IVP (10:29)
--- NOTE | 2025-07-16 10:32 | W.ED.CHESTPA ---
HPI - Chest Pain General: Chief Complaint: Chest Pain Stated Complaint: N/V SOB Time Seen by Provider: 07/16/25 09:49 History of Present Illness: 85-year-old female presents emergency room complaining of shortness of breath and nausea vomiting she has severe chest discomfort that is little bit worse and she takes a deep breath she was recently hospitalized for a CVA received TNKase was discharged home 2 days ago. She had her PEG tube roommate removed just prior to leaving. They discharged introducing food. She is rating her pain as 10 out of 10. She is mildly short of breath as well. Her oxygen status remained normal she was very tachycardic when she first arrived. EKG shows some T wave inversion and ST depression in the inferior and lateral leads. Associated symptoms: Reports dyspnea; Deny abdominal pain or fever(s) Related Data Home Medications ?Medication ?Instructions ?Recorded ?Confirmed atorvastatin 40 mg tablet 40 mg PO DAILY 01/22/25 07/16/25 aspirin 81 mg tablet,delayed 81 mg PO DAILY 05/12/25 07/16/25 release ferrous sulfate 325 mg (65 mg 325 mg PO DAILY 05/12/25 07/16/25 iron) tablet mirtazapine 30 mg tablet 30 mg PO BEDTIME 05/12/25 07/16/25 pantoprazole 40 mg tablet,delayed 40 mg PO DAILY 05/12/25 07/16/25 release acetaminophen 325 mg tablet 650 mg PO Q6H PRN pain/increased 07/16/25 07/16/25 temp bisacodyl 10 mg rectal suppository 10 mg MT DAILY PRN Constipation 07/16/25 07/16/25 (Dulcolax (bisacodyl)) omeprazole 20 mg capsule,delayed 20 mg PO DAILY 07/16/25 07/16/25 release Previous Rx's ?Medication ?Instructions ?Recorded amoxicillin 875 mg-potassium 1 tab PO BID 3 days #6 tabs 07/13/25 clavulanate 125 mg tablet Allergies Allergy/AdvReac Type Severity Reaction Status Date / Time No Known Allergies Allergy Verified 07/03/25 14:04 Review of Systems Const: Denies: fever(s) or chills Card: Reports: chest pain Resp: Reports: dyspnea GI: Denies: abdominal pain : Denies: dysuria, urinary frequency or urinary urgency Musc: Denies: neck pain or back pain Skin/Breast: Denies: rash PFSH ED PFSH: Medical History BPPV (benign paroxysmal positional vertigo) CVA (cerebral vascular accident) Surgical History History of right knee joint replacement Family History Mother Leukemia Social History Smoking and tobacco/nicotine status: never used tobacco/nicotine Alcohol intake: never Substance/Drug Use: never Physical Exam Const: COMMON NORMALS: no acute distress GENERAL APPEARANCE: cooperative and comfortable ORIENTATION/CONSCIOUSNESS: Yes awake, Yes oriented to person, Yes oriented to place and Yes oriented to time HENMT: COMMON NORMALS: normocephalic, atraumatic and hearing grossly normal bilaterally HEAD & SCALP: normocephalic and atraumatic Resp: COMMON NORMALS: normal respiratory effort, No retractions, No use of accessory muscles and clear to auscultation bilaterally AUSCULTATION: clear to auscultation bilaterally Cardio: COMMON NORMALS: regular rate, regular rhythm and No murmurs present (Cardio) RATE: regular rate RHYTHM: regular rhythm GI: COMMON NORMALS: Soft to palpation and No hepatosplenomegaly present AUSCULTATION: Yes normoactive bowel sounds PALPATION: Yes Soft to palpation, No Tenderness to palpation present (GI), No Guarding due to palpation present (GI) and Yes No hepatosplenomegaly present Extremity: COMMON NORMALS: normal to inspection, capillary refill normal, no clubbing, cyanosis or edema, no calf tenderness and no pedal edema Neuro: SENSORIUM/ORIENTATION: Yes oriented to person, Yes oriented to place and Yes oriented to time Skin: COMMON NORMALS: no rashes or lesions noted GENERAL SKIN EXAM: no rashes or lesions noted Course Vital Signs: Vital signs: Vital Signs Temperature 98.6 F 07/16/25 09:46 Pulse Rate 97 07/16/25 16:30 Respiratory Rate 12 07/16/25 15:45 Blood Pressure 113/62 07/16/25 16:30 Pulse Oximetry 96 07/16/25 16:30 Oxygen Delivery Me thod Room Air 08/20/25 09:46 MDM - Chest Pain Medical Decision Making CT is negative for acute PE. White count is slightly elevated patient continues to be tachycardic. Some moderate hypoxia, The question of some groundglass attenuation thought to be poor inspiration on the CT. She is requiring 3 and half to 4 L of oxygen. Medical Records I reviewed the patient's medical records. Lab Data I reviewed the patient's lab results. 07/16/25 12:00 07/16/25 12:00 Radiology Impressions Chest X-Ray 07/16/25 09:52 Impression: Atherosclerosis. Chest/Abdomen/Pelvis CT 07/16/25 09:58 IMPRESSION: 1. No pulmonary embolism. 2. Mild groundglass attenuation could be seen with poor inspiration, breathing motion artifact and small vessel disease. 3. No pneumonia. 4. 5 mm RIGHT upper lobe pulmonary nodule, stable since 11/23/2024. 5. Large hiatal hernia filled with fluid and air. 6. Marked fluid distention of the stomach. 7. Mild gastric and duodenal enhancement and wall thickening. No ulcer is identified. Consider gastritis/duodenitis. Duodenal diverticulum. 8. Prior cholecystectomy. 9. Renal atrophy and bilateral renal cysts. 10. Sigmoid diverticulosis without acute diverticulitis. 11. Markedly abnormal endometrium as described on the prior study. Neoplasm is not excluded. There is air within the endometrial cavity along with increased soft tissue. No fistula is identified communicating with the GI tract. Laboratory Results WBC 13.55 10^3/uL (3.29-11.43) H 07/16/25 12:00 RBC 4.68 10^6/uL (3.85-5.65) 07/16/25 12:00 Hgb 13.30 g/dL (11.27-16.99) 07/16/25 12:00 Hct 40.5 % (36-47) 07/16/25 12:00 MCV 86.5 fl (85-98) 07/16/25 12:00 MCH 28.4 pg (27-33) 07/16/25 12:00 MCHC 32.8 g/dL (30-55) 07/16/25 12:00 RDW 17.5 % (12.1-15.1) H 07/16/25 12:00 Plt Count 169 10^3/cmm (157-399) 07/16/25 12:00 MPV 11.8 fL (7.4-10.4) H 07/16/25 12:00 Neut % (Auto) 92.3 % 07/16/25 12:00 Lymph % (Auto) 4.0 % 07/16/25 12:00 Quay % (Auto) 3.0 % 07/16/25 12:00 Eos % (Auto) 0.1 % 07/16/25 12:00 Baso % (Auto) 0.1 % 07/16/25 12:00 Neut # (Auto) 12.49 10^3/uL (1.8-7.7) H 07/16/25 12:00 Lymph # (Auto) 0.5 10^3/uL (0.8-4.8) L 07/16/25 12:00 Quay # (Auto) 0.4 10^3/uL (0.2-0.9) 07/16/25 12:00 Eos # (Auto) 0.0 10^3/uL (0.0-0.8) 07/16/25 12:00 Baso # (Auto) 0.0 10^3/uL (0.0-0.1) 07/16/25 12:00 Nucleated RBC % (auto) 0 % 07/16/25 12:00 Nucleated RBCs # 0.0 /100WBC 07/16/25 12:00 Specimen Type Arterial 07/16/25 10:25 Sample Site Brachial, left 07/16/25 10:25 ABG pH 7.41 (7.35-7.45) 07/16/25 10:25 ABG pCO2 32.4 mmHg (35-45) L 07/16/25 10:25 ABG pO2 68.8 mmHg (80.0-100.0) L 07/16/25 10:25 ABG PO2/FiO2 Ratio 327 07/16/25 10:25 ABG HCO3 20.6 mmol/L (22-26) L 07/16/25 10:25 ABG O2 Saturation 94.0 07/16/25 10:25 ABG Base Excess -3.1 mmol/L (-2.0-2.0) L 07/16/25 10:25 Prem Test N/a 07/16/25 10:25 A-a O2 Gradient 5.2 mmHg (5-10) 07/16/25 10:25 Hematocrit 44.7 % (37-47) 07/16/25 10:25 Hgb O2 Saturation 93.3 % (95-100) L 07/16/25 10:25 Carboxyhemoglobin 0.7 %THgb (0.4-20.1) 07/16/25 10:25 Methemoglobin 0.0 % (0.4-1.5) L 07/16/25 10:25 Total Hemoglobin 14.6 g/dL (12-16) 07/16/25 10:25 Sodium 145.0 mmol/L (131-143) H 07/16/25 10:25 Potassium 3.2 mmol/L (3.5-5.0) L 07/16/25 10: Glucose 100.0 mg/dL (70-115) 07/16/25 10:25 Ionized Calcium 1.2 mmol/L (1.1-1.4) 07/16/25 10:25 O2 Delivery Device Room air 07/16/25 10:25 FiO2 21.0 % 07/16/25 10:25 Title Department Manager ID Amh 07/16/25 10:25 Sodium 144 mmol/L (136-145) 07/16/25 12:00 Potassium 3.2 mmol/L (3.5-5.1) L 07/16/25 12:00 Chloride 108 mmol/L (98-107) H 07/16/25 12:00 Carbon Dioxide 23 mmol/L (22-29) 07/16/25 12:00 Anion Gap 16.2 (5-19) 07/16/25 12:00 BUN 11 mg/dL (8-23) 07/16/25 12:00 Creatinine 0.7 mg/dL (0.5-0.9) 07/16/25 12:00 GFR Calculation Not Reportable 07/16/25 12:00 Glucose 84 mg/dL (65-115) 07/16/25 12:00 Calculated Osmolality 297 mOsm/kg (285-295) H 07/16/25 12:00 Lactic Acid 1.4 mmol/L (0.5-2.2) 07/16/25 14:32 Calcium 8.6 mg/dL (8.5-10.5) 07/16/25 12:00 Total Bilirubin 0.6 mg/dL (0.15-1.2) 07/16/25 12:00 AST 43 U/L (0-32) H 07/16/25 12:00 ALT 24 U/L (0-33) 07/16/25 12:00 Alkaline Phosphatase 154 U/L (35-105) H 07/16/25 12:00 Troponin T Baseline 20 ng/L (0-10) H 07/16/25 12:00 Troponin T 120 Minute 25.79 ng/L (0-10) H 07/16/25 15:09 Delta Troponin T 5.79 ABS# (0-10) 07/16/25 15:09 NT-Pro-B Natriuret Pep 523 pg/mL (0-450) H 07/16/25 12:00 Total Protein 6.3 g/dL (6.6-8.7) L 07/16/25 12:00 Albumin 3.4 g/dL (3.5-5.2) L 07/16/25 12:00 Globulin 2.9 g/dL (1.3-4.6) 07/16/25 12:00 Procalcitonin 1.47 ng/mL (0-0.5) H 07/16/25 12:00 Urine Color Yellow (Yellow) 07/16/25 14:32 Urine Appearance Clear (CLEAR) 07/16/25 14:32 Urine pH 5.5 (5-7) 07/16/25 14:32 Ur Specific Clyde 1.034 (1.005-1.030) H 07/16/25 14:32 Urine Protein Trace (Negative) A 07/16/25 14:32 Urine Glucose (UA) Negative (Normal) 07/16/25 14:32 Urine Ketones Negative (Negative) 07/16/25 14:32 Urine Blood Negative (Negative) 07/16/25 14:32 Urine Nitrate Negative (Negative) 07/16/25 14:32 Urine Bilirubin Negative (Negative) 07/16/25 14:32 Urine Urobilinogen 1.0 mg/dL (Negative) 07/16/25 14:32 Ur Leukocyte Esterase Negative (Negative) 07/16/25 14:32 Urine RBC 0-2 /hpf (0-2) 07/16/25 14:32 Urine WBC 0-5 /hpf (0-5) 07/16/25 14:32 Ur Squamous Epith Cells 0-5 /hpf (0-5) 07/16/25 14:32 Amorphous Sediment Not Reportable 07/16/25 14:32 Urine Bacteria None seen /hpf (NONE) 07/16/25 14:32 Hyaline Casts 1.65 /lpf 07/16/25 14:32 Influenza A (PCR) Negative (Negative) 07/16/25 10:48 Influenza Type B (PCR) Negative (Negative) 07/16/25 10:48 RSV (PCR) Negative (Negative) 07/16/25 10:48 SARS-CoV-2 (PCR) Negative (Negative) 07/16/25 10:48 Discharge Plan Discharge Patient Disposition: Admitted As Inpatient Admit Provider: Mitch Joy Condition: Stable Coding Level of Care Code ED Personnel Research Psychologist for Jeevan Mcintosh
[2025-07-16 10:40] LABS: ABG PCO2 32.4 mmHg (35-45); ABG PH Result 7.41 (7.35-7.45); Alveolar-Arterial Oxygen Gradi 5.2 mmHg (5-10); Arterial Blood Gas Hematocrit 44.7 % (37-47); Blood Gas Operator Identificat AMH; Blood Gas Sample Site Brachial, left; Blood Gas Sample Type Arterial; Carboxyhemoglobin 0.7 %THgb (0.4-20.1); Glucose Level-ABG 100.0 mg/dL (70-115); HCO3 ABG 20.6 mmol/L (22-26); Ionized Calcium Level - ABG 1.2 mmol/L (1.1-1.4); Methemoglobin 0.0 % (0.4-1.5); Oxygen Saturation ABG 94.0; PO2 ABG 68.8 mmHg (80.0-100.0); PO2 FiO2 Ratio Arterial Blood 327; Potassium Level - ABG 3.2 mmol/L (3.5-5.0); Sodium Level - ABG 145.0 mmol/L (131-143)
[2025-07-16] MEDS: morphine 4 mg/mL SDV 1 mL IVP ×2 (10:46→12:06)
[2025-07-16] MEDS: nitroglycerin 1 gm/inch oint Pkt 1 INCH TOPICAL (10:46)
[2025-07-16 11:33] LABS: Respiratory Syncytial Virus Ce NEGATIVE (Negative); SARS-CoV-2 PCR NEGATIVE (Negative)
--- NOTE | 2025-07-16 11:45 | PC.PHAR ---
Pt is resident at [facility]
--- NOTE | 2025-07-16 11:51 | ECG_ITS ---
[facility]25[facility]16 Pat Name: Debby Velez Department: Room: Gender: Female Radio Broadcaster: : 1940 Requested By: Arya Ivey Order Number: [id number] Amrit MD: Steven Gamez M.D. Measurements Intervals [place] Rate: 128 P: 61 IL: 131 QRS: 68 QRSD: 77 T: -77 QT: 278 QTc: 406 Interpretive Statements SINUS TACHYCARDIA ST DEVIATION AND MODERATE T-WAVE ABNORMALITY, CONSIDER ANTEROLATERAL ISCHEMIA [-0.1+ mV T-WAVE IN V3-V6] ST DEVIATION AND MODERATE T-WAVE ABNORMALITY, CONSIDER INFERIOR ISCHEMIA [-0.1+ mV T-WAVE IN II/aVF] Compared to ECG 07/16/2025 09:49:23 T-wave abnormality now present Possible ischemia now present Left ventricular hypertrophy no longer present ST (T wave) deviation no longer present Electronically Signed On 07-19-2025 09:44:52 CDT by Steven Gamez M.D. [email or web address]
[2025-07-16 12:09] LABS: Hematocrit 40.5 % (36-47); Hemoglobin 13.30 g/dL (11.27-16.99); Mean Corpuscular HGB Conc 32.8 g/dL (30-55); Mean Corpuscular Hemoglobin 28.4 pg (27-33); Mean Corpuscular Volume 86.5 fl (85-98); Nucleated Red Blood Cells % 0 %; Platelet Count 169 10^3/cmm (157-399); Red Blood Count 4.68 10^6/uL (3.85-5.65); White Blood Count 13.55 10^3/uL (3.29-11.43)
[2025-07-16 12:13] LABS: Slide Review Slide Review Perform
[2025-07-16 12:37] LABS: Troponin(5th) Baseline 20 ng/L (0-10)
[2025-07-16 12:40] LABS: Alanine Aminotransferase 24 U/L (0-33); Albumin Level 3.4 g/dL (3.5-5.2); Alkaline Phosphatase 154 U/L (35-105); Anion Gap 16.2 (5-19); Aspartate Amino Transferase 43 U/L (0-32); Blood Urea Nitrogen 11 mg/dL (8-23); Calcium 8.6 mg/dL (8.5-10.5); Carbon Dioxide 23 mmol/L (22-29); Chloride 108 mmol/L (98-107); Creatinine Clr Calc Pharmacy 44.6030; Globulin 2.9 g/dL (1.3-4.6); Glucose 84 mg/dL (65-115); NT Pro B Type Natriuretic Pept 523 pg/mL (0-450); Osmolality Calculated 297 mOsm/kg (285-295); Potassium 3.2 mmol/L (3.5-5.1); Sodium 144 mmol/L (136-145); Total Protein 6.3 g/dL (6.6-8.7)
[2025-07-16] MEDS: iohexol 350 mg/mL 500 mL Btl (per mL) IV (12:47)
--- NOTE | 2025-07-16 13:09 | P.CONIM_ITS ---
<Statement entered by Steven Gamez M.D - 07/17/25 10:50> Patient was cared for in conjunction with an advanced practice practitioner.? I reviewed the chart and all pertinent data including imaging, telemetry, and laboratory results.? I discussed the patient in detail with the advanced practice practitioner.? Please see?their note for consult note, testing results and agreed upon plan of care for the patient. Patient presentation does not appear to be related to cardiac etiology. At this time continue medical therapy. Providers/Reason For Consult 2 Consulting Physician/Specialty*: Dr Gamez, interventional cardiology Reason for Consult*: Chest pain, tachycardia Requesting Physician: Dr. 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 She had a PET scan performed in February of this year at [facility] in [place] for gallbladder cancer staging: Several small pulmonary nodules too small to characterize with PET scan multiple left rib fractures, hypermetabolic lesion in the caudate lobe felt to be resolving hepatic abscess malignancy not excluded. Additionally hypermetabolic focus along the gallbladder fossa felt to be likely resolving infection or fluid collection but malignancy not excluded. Echocardiogram obtained 07/08/2025: LVEF 56%, moderate LVH, grade 1 diastolic dysfunction, mild to moderate tricuspid regurgitation. [facility] with [facility] pain, nausea/vomiting and shortness of breath. Chest pain is located on the right chest and back, she notes painful inspiration, recent nausea and vomiting. When first encountered, blood pressure was in the 200s systolic, in the ER was 185/106. She is in sinus tachycardia, heart rates 140 bpm. Baseline troponin 20. BNP 523, potassium 3.2. Normal renal function. Review of Systems 2 Const: Denies: fever(s), chills, change in weight, fatigue or diaphoresis Eyes: Denies: change in vision ENMT: Denies: epistaxis Card: Reports: chest pain; Denies: palpitations, irregular heart rhythm, edema, syncope, pre-syncope, dyspnea on exertion, orthopnea or leg pain with exertion Resp: Denies: dyspnea, productive cough or wheezing GI: Reports: nausea and vomiting; Denies: hematemesis, hematochezia or melena : Denies: hematuria Musc: Denies: extremity swelling Acosta/Lymph: Denies: easy bruising or easy bleeding Medications/Allergies Home Medications ?Medication ?Instructions ?Recorded ?Confirmed ?Last Taken ?Type atorvastatin 40 mg tablet 40 mg PO DAILY 01/22/2506/2807/16/25 History aspirin 81 mg tablet,delayed 81 mg PO DAILY 05/12/25 0 07/16/25 07/16/25 History release ferrous sulfate 325 mg (65 mg 325 mg PO DAILY 05/12/25 07/16/25 07/16/25 History iron) tablet mirtazapine 30 mg tablet 30 mg PO BEDTIME 05/12/2507/15/25 History pantoprazole 40 mg tablet,delayed 40 mg PO DAILY 05/1207/16/25 05/11/25 History release amoxicillin 875 mg-potassium 1 tab PO BID 3 days #6 ta bs 07/13/25 07/16/25 07/16/25 Rx clavulanate 125 mg tablet acetaminophen 325 mg tablet 650 mg PO Q6H PRN pain/inc reased 07/16/25 07/16/25 07/15/25 History temp bisacodyl 10 mg rectal suppository 10 mg NV DAILY PRN Constipation 07/16/25 07/16/25 Unknown History (Dulcolax (bisacodyl)) omeprazole 20 mg capsule,delayed 20 mg PO DAILY 07/16/25 07/16/25 History release Allergies Allergy/AdvReac Type Severity Reaction Status Date / Time No Known Allergies Allergy Verified 07/03/25 14:04 PFSH Acute 2 PFSH: Medical History BPPV (benign paroxysmal positional vertigo) CVA (cerebral vascular accident) Surgical History History of right knee joint replacement Family History Mother Leukemia Social History Smoking and tobacco/nicotine status: never used tobacco/nicotine Alcohol intake: never Substance/Drug Use: never Vitals/I&O/Wt Last Vital Signs Temp 98.6 F 07/16/25 09:46 Pulse 125 H 07/16/25 12:30 Resp 18 07/16/25 12:30 BP 122/72 07/16/25 12:30 Pulse Ox 87 L 07/16/25 12:30 O2 Del Method Room Air 07/16/25 09:46 Weight last 48 hrs Weight 120 lb Physical Exam 2 Const: COMMON NORMALS: no acute distress and patient oriented x3 GENERAL APPEARANCE: cooperative and frail appearing ORIENTATION/CONSCIOUSNESS: Yes awake, Yes oriented to person, Yes oriented to place and Yes oriented to time Chest: COMMONS NORMALS: normal inspection of the chest and normal palpation of entire chest wall CHEST: Yes Symmetrical chest wall rise Resp: COMMON NORMALS: No retractions, No use of accessory muscles and clear to auscultation bilaterally EFFORT & INSPECTION: Yes symmetric chest movement and Yes decreased respiratory effort AUSCULTATION: clear to auscultation bilaterally Cardio: COMMON NORMALS: regular rhythm, S1 normal heart sound present, S2 normal heart sound present, No gallops present (Cardio), No clicks present (Cardio), No murmurs present (Cardio) and No rub (Cardio) RATE: tachycardic RHYTHM: regular rhythm HEART SOUNDS: S1 normal heart sound present and S2 normal heart sound present PERIPHERAL PULSES: radial pulses present Extremity: COMMON NORMALS: no pedal edema Neuro: COMMON NORMALS: patient oriented x3 and moves all extremities S ENSORIUM/ORIENTATION: Yes oriented to person, Yes oriented to place and Yes oriented to time Data 07/16/25 12:00 07/16/25 12:00 A&P Assessment and plan 1. Accelerated hypertension: 2. History of stroke: 3. Chest pain: 4. Dyspnea: Plan: Chest pain is atypical, located on the right side (front of chest and back), pain with inspiration and difficult to take a deep breath. CTA of the chest has ruled out PE, aortic dissection. No pneumonia, has right upper lobe pulmonary nodule stable since October 2024. Large hiatal hernia, prior cholecystectomy, markedly abnormal endometrium neoplasm not excluded. Will obtain limited echocardiogram. Continue to trend troponin. She has received Nitropaste and morphine, along with a fluid bolus 1 L. Blood pressure improved, now 105-108 systolic, heart rates improved to 120 bpm. Update: Limited echocardiogram obtained today showed LVEF 60%, no regional wall motion abnormalities. Will plan on medical management of elevated troponin for now, so far it is flat. She has had improvement in the heart rate with hydration. PDMP PDMP Reviewed: Not Reviewed Coding Level of Care Code Acute Code for Chg Fwd Diagnoses Accelerated hypertension I10 History of stroke Z86.73 Chest pain R07.9 Dyspnea R06.00
--- NOTE | 2025-07-16 13:36 | USCV_ITS ---
Debby Velez Age: 85 Gender: F : 1940 Exam Date: 07/16/2025 13:53 Ordering Phys: Britt Lewis Technologist: Exam Location: [facility] [place] Indication: ef BP: 108 / 58 HR: Rhythm: Sinus Technical Quality: Adequate MEASUREMENTS (Male / Female) Normal Values 2D ECHO LV Ejection Fraction MOD 4C 64.3 % LV Ejection Fraction MOD 2C 72.8 % LV Ejection Fraction 2C AL 74.4 % RA Systolic Volume 4C AL 52.3 ml RA Systolic Volume 4C MOD 50.0 ml FINDINGS Left Ventricle Normal left ventricular size, systolic function and wall thickness, with no regional wall motion abnormalities. Left ventricular ejection fraction is estimated at 60%. Right Ventricle Right Atrium Left Atrium Mitral Valve Aortic Valve Tricuspid Valve Pulmonic Valve Pericardium Aorta IVC CONCLUSIONS Limited Echo Normal left ventricular size, systolic function and wall thickness, with no regional wall motion abnormalities. Left ventricular ejection fraction is estimated at 60%. There is no pericardial effusion. Quan Haddad MD (Electronically Signed) Final Date: 16 July 2025 14:22 S
[2025-07-16 14:38] LABS: Glucose Urine UA Negative (Normal); Nitrate Urine Negative (Negative)
[2025-07-16 14:41] LABS: Add Urine Microscopic? YES
[2025-07-16 14:52] LABS: Specific Gravity, Urine 1.034 (1.005-1.030); UA Slide Review UA Slide Review Perf
[2025-07-16 15:01] LABS: Lactic Sepsis W/Reflex 1.4 mmol/L (0.5-2.2)
--- NOTE | 2025-07-16 15:16 | PM.HP ---
Providers/Chief Complaint Primary Care Provider: Cat Martínez DO Chief Complaint: N/V SOB History of Present Illness Debby Velez is a 85 year old female with past medical history of recurrent stroke with most recent stroke on right MCA within last 1 week when she was treated with tenecteplase, PEG tube placement which was eventually removed after recovering from stroke, hypertension, postcholecystectomy presents [facility] the ER today from [facility] after being discharged on 07/14 with concerns for nausea, vomiting which has been ongoing since yesterday afternoon associated with epigastric and retrosternal burning and colicky pain radiating to back getting exacerbated on taking a deep breath and any oral intake. Patient states she is not able to maintain her oral intake since yesterday as every time she tries to eat she ends up throwing up. In the ER she was found to be tachycardic with heart rate going up to 140s. She underwent extensive workup with CT chest abdomen pelvis with contrast which ruled out pneumonia, PE, aortic dissection and was concerning for gastritis and duodenitis with gastric and duodenal wall thickening. On examination patient was seen laying comfortably in bed, chronically sick appearing with heart rate running in 120s getting second bag of IV fluid bolus with blood pressure of 110s systolics saturating more than 95% on 2 L. Review of Systems General: Reports: 10 or more systems reviewed and unremarkable except in HPI and below Const: Denies: fever(s), chills, body aches, change in appetite, change in weight, malaise, night sweats, diaphoresis, change in sleep pattern, daytime sleepiness or snoring Eyes: Denies: change in vision, blurry vision, photophobia, eye discomfort or eye discharge ENMT: Denies: throat pain, enlarged tonsils, hoarseness, mouth pain, oral sores, dry mouth, tinnitus, nasal congestion or post nasal drip Card: Denies: chest pain, palpitations, irregular heart rhythm, edema, swelling of feet/ankles, lightheadedness, syncope, pre-syncope, dyspnea on exertion, orthopnea, leg pain with exertion or acrocyanosis Resp: Denies: dyspnea, productive cough, non-productive cough, wheezing, stridor, pain on inspiration, change in phlegm color, hemoptysis or chest congestion GI: Denies: abdominal pain, nausea, vomiting, hematemesis, coffee ground emesis, dysphagia, heartburn, diarrhea, constipation, bloating, GI cramping, change in bowel habits, pain on defecation, hematochezia or melena : Denies: flank pain, dysuria, urinary frequency, urinary urgency, urinary hesitancy, nocturia or hematuria Musc: Denies: neck pain, back pain, extremity pain, joint pain, joint swelling, joint redness, joint stiffness or limited range of motion Neuro: Denies: headache(s), numbness in extremities, weakness in extremities, sensory changes, lack of coordination, difficulty walking, frequent falls, dizziness, vertigo, confusion, Slurred speech present, difficulty communicating thoughts or seizure-like activity Psych: Denies: anxiety, depression, mood swings, panic attacks, hopelessness or irritability Endo: Denies: polyuria, polydipsia, tired all the time, cold intolerance, excessive sweating, flushing or heat intolerance Acosta/Lymph: Denies: easy bruising or easy bleeding All/Imm: Denies: tongue swelling, facial swelling or acute wheezing Medications/Allergies Home Medications ?Medication ?Instructions ?Recorded ?Confirmed ?Last Taken ?Type atorvastatin 40 mg tablet 40 mg PO DAILY 01/22/25 07/16/25 07/16/25 History aspirin 81 mg tablet,delayed 81 mg PO DAILY 05/12/25 07/16/25 07/16/25 History release ferrous sulfate 325 mg (65 mg 325 mg PO DAILY 05/12/25 07/16/25 07/16/25 History iron) tablet mirtazapine 30 mg tablet 30 mg PO BEDTIME 05/12/25 07/16/25 07/15/25 History pantoprazole 40 mg tablet,delayed 40 mg PO DAILY 05/12/25 07/16/25 05/11/25 History release amoxicillin 875 mg-potassium 1 tab PO BID 3 days #6 tabs 07/13/25 07/16/25 07/16/25 Rx clavulanate 125 mg tablet acetaminophen 325 mg tablet 650 mg PO Q6H PRN pain/increased 07/16/25 07/16/25 07/15/25 History temp bisacodyl 10 mg rectal suppository 10 mg SD DAILY PRN Constipation 07/16/25 07/16/25 Unknown History (Dulcolax (bisacodyl)) omeprazole 20 mg capsule,delayed 20 mg PO DAILY 07/16/25 07/16/25 07/16/25 History release Allergies Allergy/AdvReac Type Severity Reaction Status Date / Time No Known Allergies Allergy Verified 07/03/25 14:04 PFSH Acute PFSH: Medical History (Updated 07/16/25 @ 17:15 by Mitch Joy MD) Acute right MCA stroke History of thrombolytic therapy Presence of externally removable percutaneous endoscopic gastrostomy (PEG) tube BPPV (benign paroxysmal positional vertigo) CVA (cerebral vascular accident) Surgical History (Updated 07/16/25 @ 17:15 by Mitch Joy MD) History of ankle surgery left History of right knee joint replacement Family History Mother Leukemia Social History Smoking and tobacco/nicotine status: never used tobacco/nicotine Alcohol intake: never Substance/Drug Use: never Vitals/I&O/Wt Last Vital Signs Temp 98.6 F 07/16/25 09:46 Pulse 128 H 07/16/25 14:30 Resp 16 07/16/25 14:30 BP 108/58 07/16/25 14:30 Pulse Ox 95 07/16/25 14:30 O2 Del Method Room Air 07/16/25 09:46 Weight last 48 hrs Weight 54.431 kg Physical Exam Narrative: General: No acute distress, AO x3, chronically sick appearing, facial droop on the left side present HEENT: PERRLA, pupils bilaterally equal and reactive Chest: Normal vesicular breath sounds, no added sounds, equal good air entry bilaterally CVS: S1-S2 regular, no murmurs, no tachycardia, no gallops, no rubs Abdomen: Soft, nontender, no organomegaly, bowel sounds present Neuro: Residual weakness present Urinary Catheter Management: Cuadra Latex: Cath Placed During This Visit: yes Urinary Catheter Date of Insertion: 07/16/25 Urinary Catheter Time of Insertion: 14:36 Data 07/16/25 12:00 07/16/25 12:00 Other Labs: Radiology Impressions Chest X-Ray 07/16/25 09:52 Impression: Atherosclerosis. Chest/Abdomen/Pelvis CT 07/16/25 09:58 IMPRESSION: 1. No pulmonary embolism. 2. Mild groundglass attenuation could be seen with poor inspiration, breathing motion artifact and small vessel disease. 3. No pneumonia. 4. 5 mm RIGHT upper lobe pulmonary nodule, stable since 11/23/2024. 5. Large hiatal hernia filled with fluid and air. 6. Marked fluid distention of the stomach. 7. Mild gastric and duodenal enhancement and wall thickening. No ulcer is identified. Consider gastritis/duodenitis. Duodenal diverticulum. 8. Prior cholecystectomy. 9. Renal atrophy and bilateral renal cysts. 10. Sigmoid diverticulosis without acute diverticulitis. 11. Markedly abnormal endometrium as described on the prior study. Neoplasm is not excluded. There is air within the endometrial cavity along with increased soft tissue. No fistula is identified communicating with the GI tract. Laboratory Results WBC 13.55 10^3/uL (3.29-11.43) H 07/16/25 12:00 RBC 4.68 10^6/uL (3.85-5.65) 07/16/25 12:00 Hgb 13.30 g/dL (11.27-16.99) 07/16/25 12:00 Hct 40.5 % (36-47) 07/16/25 12:00 MCV 86.5 fl (85-98) 07/16/25 12:00 MCH 28.4 pg (27-33) 07/16/25 12:00 MCHC 32.8 g/dL (30-55) 07/16/25 12:00 RDW 17.5 % (12.1-15.1) H 07/16/25 12:00 Plt Count 169 10^3/cmm (157-399) 07/16/25 12:00 MPV 11.8 fL (7.4-10.4) H 07/16/25 12:00 Neut % (Auto) 92.3 % 07/16/25 12:00 Lymph % (Auto) 4.0 % 07/16/25 12:00 [place] % (Auto) 3.0 % 07/16/25 12:00 Eos % (Auto) 0.1 % 07/16/25 12:00 Baso % (Auto) 0.1 % 07/16/25 12:00 Neut # (Auto) 12.49 10^3/uL (1.8-7.7) H 07/16/25 12:00 Lymph # (Auto) 0.5 10^3/uL (0.8-4.8) L 07/16/25 12:00 [place] # (Auto) 0.4 10^3/uL (0.2-0.9) 07/16/25 12:00 Eos # (Auto) 0.0 10^3/uL (0.0-0.8) 07/16/25 12:00 Baso # (Auto) 0.0 10^3/uL (0.0-0.1) 07/16/25 12:00 Nucleated RBC % (auto) 0 % 07/16/25 12:00 Nucleated RBCs # 0.0 /100WBC 07/16/25 12:00 Specimen Type Arterial 07/16/25 10:25 Sample Site Brachial, left 07/16/25 10:25 ABG pH 7.41 (7.35-7.45) 07/16/25 10:25 ABG pCO2 32.4 mmHg (35-45) L 07/16/25 10:25 ABG pO2 68.8 mmHg (80.0-100.0) L 07/16/25 10:25 ABG PO2/FiO2 Ratio 327 07/16/25 10:25 ABG HCO3 20.6 mmol/L (22-26) L 07/16/25 10:25 ABG O2 Saturation 94.0 07/16/25 10:25 ABG Base Excess -3.1 mmol/L (-2.0-2.0) L 07/16/25 10:25 Prem Test N/a 07/16/25 10:25 A-a O2 Gradient 5.2 mmHg (5-10) 07/16/25 10:25 Hematocrit 44.7 % (37-47) 07/16/25 10:25 Hgb O2 Saturation 93.3 % (95-100) L 07/16/25 10:25 Carboxyhemoglobin 0.7 %THgb (0.4-20.1) 07/16/25 10:25 Methemoglobin 0.0 % (0.4-1.5) L 07/16/25 10:25 Total Hemoglobin 14.6 g/dL (12-16) 07/16/25 10:25 Sodium 145.0 mmol/L (131-143) H 07/16/25 10:25 Potassium 3.2 mmol/L (3.5-5.0) L 07/16/25 10:25 Glucose 100.0 mg/dL (70-115) 07/16/25 10:25 Ionized Calcium 1.2 mmol/L (1.1-1.4) 07/16/25 10:25 O2 Delivery Device Room air 07/16/25 10:25 FiO2 21.0 % 07/16/25 10:25 Floor Plan Adjuster ID Amh 07/16/25 10:25 Sodium 144 mmol/L (136-145) 07/16/25 12:00 Potassium 3.2 mmol/L (3.5-5.1) L 07/16/25 12:00 Chloride 108 mmol/L (98-107) H 07/16/25 12:00 Carbon Dioxide 23 mmol/L (22-29) 07/16/25 12:00 Anion Gap 16.2 (5-19) 07/16/25 12:00 BUN 11 mg/dL (8-23) 07/16/25 12:00 Creatinine 0.7 mg/dL (0.5-0.9) 07/16/25 12:00 GFR Calculation Not Reportable 07/16/25 12:00 Glucose 84 mg/dL (65-115) 07/16/25 12:00 Calculated Osmolality 297 mOsm/kg (285-295) H 07/16/25 12:00 Lactic Acid 1.4 mmol/L (0.5-2.2) 07/16/25 14:32 Calcium 8.6 mg/dL (8.5-10.5) 07/16/25 12:00 Total Bilirubin 0.6 mg/dL (0.15-1.2) 07/16/25 12:00 AST 43 U/L (0-32) H 07/16/25 12:00 ALT 24 U/L (0-33) 07/16/25 12:00 Alkaline Phosphatase 154 U/L (35-105) H 07/16/25 12:00 Troponin T Baseline 20 ng/L (0-10) H 07/16/25 12:00 Troponin T 120 Minute 25.79 ng/L (0-10) H 07/16/25 15:09 Delta Troponin T 5.79 ABS# (0-10) 07/16/25 15:09 NT-Pro-B Natriuret Pep 523 pg/mL (0-450) H 07/16/25 12:00 Total Protein 6.3 g/dL (6.6-8.7) L 07/16/25 12:00 Albumin 3.4 g/dL (3.5-5.2) L 07/16/25 12:00 Globulin 2.9 g/dL (1.3-4.6) 07/16/25 12:00 Procalcitonin 1.47 ng/mL (0-0.5) H 07/16/25 12:00 Urine Color Yellow (Yellow) 07/16/25 14:32 Urine Appearance Clear (CLEAR) 07/16/25 14:32 Urine pH 5.5 (5-7) 07/16/25 14:32 Ur Specific [place] 1.034 (1.005-1.030) H 07/16/25 14:32 Urine Protein Trace (Negative) A 07/16/25 14:32 Urine Glucose (UA) Negative (Normal) 07/16/25 14:32 Urine Ketones Negative (Negative) 07/16/25 14:32 Urine Blood Negative (Negative) 07/16/25 14:32 Urine Nitrate Negative (Negative) 07/16/25 14:32 Urine Bilirubin Negative (Negative) 07/16/25 14:32 Urine Urobilinogen 1.0 mg/dL (Negative) 07/16/25 14:32 Ur Leukocyte Esterase Negative (Negative) 07/16/25 14:32 Urine RBC 0-2 /hpf (0-2) 07/16/25 14:32 Urine WBC 0-5 /hpf (0-5) 07/16/25 14:32 Ur Squamous Epith Cells 0-5 /hpf (0-5) 07/16/25 14:32 Amorphous Sediment Not Reportable 07/16/25 14:32 Urine Bacteria None seen /hpf (NONE) 07/16/25 14:32 Hyaline Casts 1.65 /lpf 07/16/25 14:32 Influenza A (PCR) Negative (Negative) 07/16/25 10:48 Influenza Type B (PCR) Negative (Negative) 07/16/25 10:48 RSV (PCR) Negative (Negative) 07/16/25 10:48 SARS-CoV-2 (PCR) Negative (Negative) 07/16/25 10:48 Micro: Microbiology 07/16/25 14:32 Blood Culture - Preliminary Blood SPECIMEN COLLECTED A&P Assessment and plan 1. Nausea & vomiting: Does have history of dysphagia in the past. CT abdomen pelvis consistent with significant gastritis and duodenitis with gastric and duodenal wall thickening. Appreciate LFTs. Check lipase. Protonix IV twice daily, Zofran every 6 hour. Carafate ACHS. For now start on clear liquid diet. Patient gives history of cholecystectomy earlier this year which was possibly cancerous though pathology test not present in system. Given wall thickening cannot rule out localized malignancy. Will consult surgery for possible need of EGD and biopsy for further evaluation. Appreciate CT abdomen pelvis results for bowel obstruction. If needed can plan for barium swallow. 2. Dysphagia: 3. Sinus tachycardia: Heart rate running up to 120s. Sinus in nature. CTA negative for PE, aortic dissection. Can be in setting of dehydration vs anxiety. C/w IVF NS @ 100 cc/hr IV metoprolol 2.5 mg one time. Start on metoprolol 25 mg BID to be held for SBP less than 100 mmhg. Telemetry 4. Chest pain: Plan: Continue other chronic home medications goading aspirin, statin, ferrous sulfate, Remeron. CODE STATUS: Discussed in detail with the patient. She does not want any kind of aggressive measures including chest compressions or life support. DNR/DNI. Clear liquid diet. Lovenox for DVT prophylaxis Protonix for PUD prophylaxis PDMP PDMP Reviewed: Not Reviewed Attestations Medical Necessity Statement*: Admit under observation for management of nausea and vomiting, sinus tachycardia in setting of dehydration in a patient with recent history of CVA post tPA Diagnoses Nausea & vomiting R11.2 Dysphagia R13.10 Sinus tachycardia R00.0 Chest pain R07.9
[2025-07-16] MEDS: pantoprazole 40 mg SDV IVP (15:28)
[2025-07-16] MEDS: metoprolol tartrate 1 mg/1 mL SDV 5 mL 2.5 MG IVP (15:28)
[2025-07-16 15:52] LABS: Troponin 5 2HR 25.79 ng/L (0-10); Troponin 5 2HR Delta 5.79 ABS# (0-10)
[2025-07-16 15:59] LABS: Procalcitonin 1.47 ng/mL (0-0.5)
--- NOTE | 2025-07-16 16:18 | ECG_ITS ---
[employer] Test Date: 2025-07-16 Pat Name: Debby Velez Department: Room: 111 Gender: Female Apartment Locator: : 1940 Requested By: Arya Ivey Order Number: [id number] Amrit MD: Steven Gamez M.D. Measurements Intervals [place] Rate: 98 P: 60 ND: 151 QRS: 70 QRSD: 86 T: 78 QT: 359 QTc: 459 Interpretive Statements SINUS RHYTHM NONSPECIFIC T-WAVE ABNORMALITY Compared to ECG 07/16/2025 11:40:59 Sinus tachycardia no longer present Possible ischemia no longer present T-wave abnormality still present Electronically Signed On 07-19-2025 09:44:10 CDT by Steven Gamez M.D. [id number]
--- NOTE | 2025-07-16 17:04 | PC.NURSE ---
Patient transferred from ED to [facility] at 1705 via a bed.
--- NOTE | 2025-07-16 18:55 | PM.CONSULT ---
Providers/Reason For Consult Consulting Physician/Specialty*: Dr. Conteh General Surgery Reason for Consult*: Peptic ulcer disease, cachexia, gallbladder cancer Attending Physician: Mitch Joy MD Primary Care Provider: Cat Martínez DO History of Present Illness History of Present Illness Debby Velez is a 85 year old female known to me for recent PEG tube placement and removal. Medicine worried about peptic ulcer disease and intermittent melena. Currently patient is able to swallow. Patient does report some intermittent epigastric pain. 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 Never saw oncology afterwards for it. CT scan also shows an abnormal endometrium concerning for neoplasm Medications/Allergies Home Medications ?Medication ?Instructions ?Recorded ?Confirmed ?Last Taken ?Type atorvastatin 40 mg tablet 40 mg PO DAILY 01/22/25 07/16/25 07/16/25 History aspirin 81 mg tablet,delayed 81 mg PO DAILY 05/12/25 07/16/25 07/16/25 History release ferrous sulfate 325 mg (65 mg 325 mg PO DAILY 05/12/25 07/16/25 07/16/25 History iron) tablet mirtazapine 30 mg tablet 30 mg PO BEDTIME 05/12/25 07/16/25 07/15/25 History pantoprazole 40 mg tablet,delayed 40 mg PO DAILY 05/12/25 07/16/25 05/11/25 History release amoxicillin 875 mg-potassium 1 tab PO BID 3 days #6 tabs 07/13/25 07/16/25 07/16/25 Rx clavulanate 125 mg tablet acetaminophen 325 mg tablet 650 mg PO Q6H PRN pain/increased 07/16/25 07/16/25 07/15/25 History temp bisacodyl 10 mg rectal suppository 10 mg LA DAILY PRN Constipation 07/16/25 07/16/25 Unknown History (Dulcolax (bisacodyl)) omeprazole 20 mg capsule,delayed 20 mg PO DAILY 07/16/25 07/16/25 07/16/25 History release Allergies Allergy/AdvReac Type Severity Reaction Status Date / Time No Known Allergies Allergy Verified 07/03/25 14:04 Current Medications Generic Name Dose Route Start Last Admin Trade Name Freq PRN Reason Stop Dose Admin Docusate Sodium 100 mg 07/16/25 18:00 07/16/25 18:19 Docusate Sodium 100 Mg Capsule PO 100 mg BID YAQUELIN Administration Enoxaparin Sodium 40 mg 07/16/25 17:03 07/16/25 18:06 Enoxaparin 40 Mg/0.4 Ml Syringe SUBCUT 40 mg Q24H YAQUELIN Administration Sodium Chloride 1,000 mls @ 100 mls/hr 07/16/25 17:03 07/16/25 18:07 Sodium Chloride 0.9% IV 100 mls/hr .Q10H YAQUELIN Administration PFSH Acute PFSH: Medical History (Updated 07/17/25 @ 16:54 by Ron Conteh MD) 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 stroke History of thrombolytic therapy Presence of externally removable percutaneous endoscopic gastrostomy (PEG) tube BPPV (benign paroxysmal positional vertigo) CVA (cerebral vascular accident) Surgical History (Updated 07/16/25 @ 17:15 by Mitch Joy MD) History of ankle surgery left History of right knee joint replacement Family History Mother Leukemia Social History Smoking and tobacco/nicotine status: never used tobacco/nicotine Alcohol intake: never Substance/Drug Use: never Vitals/I&O/Wt Last Vital Signs Temp 98.0 F 07/16/25 17:03 Pulse 93 07/16/25 17:03 Resp 24 H 07/16/25 17:03 BP 96/51 07/16/25 17:03 Pulse Ox 96 07/16/25 17:23 O2 Del Method Nasal Cannula 07/16/25 17:57 O2 Flow Rate 2 07/16/25 17:23 07/16/25 07/16/25 07/16/25 06:59 14:59 22:59 Intake Total 1000 / 1000 Balance 1000 / 1000 Weight last 48 hrs Weight 119 lb Weight 119 lb 4 oz Weight 120 lb Physical Exam Narrative: Cachectic Chest: Unlabored breathing room air. Heart: Regular rate and rhythm. Abdomen: Soft, nontender, nondistended. Urinary Catheter Management: Cuadra Latex: Cath Placed During This Visit: yes Reason for Continuing Indwelling Catheter: Accurate Measurement of Urinary Output in Critically Ill Patients Urinary Catheter Date of Insertion: 07/16/25 Urinary Catheter Time of Insertion: 14:36 Data 07/17/25 04:57 07/17/25 15:33 Micro: Microbiology 07/16/25 16:16 Blood Culture - Preliminary Blood SPECIMEN COLLECTED 07/16/25 14:32 Blood Culture - Preliminary Blood SPECIMEN COLLECTED A&P Assessment and plan 1. Cachexia: Plan: 85-year-old female whom surgery was consulted for peptic ulcer disease, cachexia, history of gallbladder cancer. Recommend continuing PPI and adding sucralfate for peptic ulcer disease. Would not pursue inpatient EGD. Patient should follow-up with oncology for follow-up and possible chemotherapy for gallbladder cancer if this is a true diagnosis. Would not recommend a PEG tube for cachexia. Patient is able to swallow. Consider dronabinol PDMP PDMP Reviewed: Not Reviewed Coding Level of Care Code 39039 Diagnoses Cachexia R64
[2025-07-16 20:27] LABS: Troponin 5 6HR 27.50 ng/L (0-10); Troponin 5 6HR Delta 7.50 ng/L (0-12)
--- NOTE | 2025-07-16 22:47 | PC.NURSE ---
Contacted MD about low BP and having an upcoming metoprolol dose, with BP of 96/51 and HR of 90, MD said to hold metoprolol and recheck BP in one hour. in one hour BP was 90/51 and HR of 87
[2025-07-17] VITALS (23 sets, daily range): BP systolic 80–176; BP diastolic 40–114; PULSE 70–109; RESP 10–21; TEMP 36.4–36.9; O2SAT 82–98
[2025-07-17] MEDS: morphine 4 mg/mL SDV 1 mL 2 MG IVP (05:01)
[2025-07-17 05:44] LABS: Hematocrit 33.8 % (36-47); Hemoglobin 10.80 g/dL (11.27-16.99); Mean Corpuscular HGB Conc 32.0 g/dL (30-55); Mean Corpuscular Hemoglobin 28.8 pg (27-33); Mean Corpuscular Volume 90.1 fl (85-98); Nucleated Red Blood Cells % 0 %; Platelet Count 149 10^3/cmm (157-399); Red Blood Count 3.75 10^6/uL (3.85-5.65); White Blood Count 17.70 10^3/uL (3.29-11.43)
[2025-07-17 06:08] LABS: Alanine Aminotransferase 22 U/L (0-33); Albumin Level 2.7 g/dL (3.5-5.2); Alkaline Phosphatase 99 U/L (35-105); Anion Gap 12.3 (5-19); Aspartate Amino Transferase 35 U/L (0-32); Blood Urea Nitrogen 14 mg/dL (8-23); Calcium 8.0 mg/dL (8.5-10.5); Carbon Dioxide 24 mmol/L (22-29); Chloride 114 mmol/L (98-107); Creatinine Clr Calc Pharmacy 44.7764; Globulin 2.1 g/dL (1.3-4.6); Glucose 97 mg/dL (65-115); Magnesium 1.4 mg/dL (1.7-2.3); Osmolality Calculated 302 mOsm/kg (285-295); Potassium 4.3 mmol/L (3.5-5.1); Sodium 146 mmol/L (136-145); Total Protein 4.8 g/dL (6.6-8.7)
[2025-07-17] MEDS: pantoprazole 40 mg SDV IVP ×2 (06:08→18:20)
[2025-07-17 06:15] LABS: Procalcitonin 14.69 ng/mL (0-0.5)
[2025-07-17] MEDS: ferrous sulfate EC 325 mg Tablet PO (08:13)
--- NOTE | 2025-07-17 08:27 | XR_ITS ---
WS: [id number] Exam: XR chest 1V portable [id number] Date/Time of Exam: 07/17/2025 8:30 AM Reason For Exam: possible asp pna Comparison 07/16/2025. Mild bibasal plaque atelectasis. No acute infiltrates or pneumothorax. Normal cardiomediastinal silhouette. No pleural effusions. Mild chronic elevation of the RIGHT diaphragm. DJD of both shoulders. XR/XR chest 1V portable [id number] IMPRESSION: 1. Bibasal plaque atelectasis. No acute finding.
[2025-07-17] MEDS: piperacillin-tazobactam 3.375 GM in sodium chloride 0.9% (plus) 50 ML IV ×2 (10:12→20:44)
[2025-07-17] MEDS: dextrose 5%-sod chloride 0.45% 1,000 ML 75 ML IV ×2 (10:12→20:45)
--- NOTE | 2025-07-17 11:23 | P.PN_ITS ---
<Statement entered by Steven Gamez M.D - 07/20/25 11:45> Patient was cared for in conjunction with an advanced practice practitioner.? I reviewed the chart and all pertinent data including imaging, telemetry, and laboratory results.? I discussed the patient in detail with the advanced practice practitioner.? Please see?their note for progress note, testing results and agreed upon plan of care for the patient. Subjective 2 Subjective: She has done well overnight, no chest or chest wall pain reported currently. Blood pressures are soft but she is asymptomatic. Heart rates running 80 and 90 bpm, sinus rhythm she did have a short burst of what appears to be SVT at 5 AM. The nurse was in the room with her and patient did not report symptoms. Shortness of breath has resolved. Vitals/I&O/Wt Last Vital Signs Temp 97.5 F L 07/17/25 08:00 Pulse 81 07/17/25 08:14 Resp 19 H 07/17/25 08:00 BP 106/67 07/17/25 08:14 Pulse Ox 98 07/17/25 08:00 O2 Del Method Room Air 07/17/25 04:00 O2 Flow Rate 2 07/16/25 17:23 07/16/25 07/17/25 07/17/25 22:59 06:59 14:59 Intake Total 120 / 2120 1000 / 2120 480 / 480 Output Total 950 / 950 300 / 300 Balance 120 / 1170 50 / 1170 180 / 180 Weight last 48 hrs Weight 121 lb 3.2 oz Weight 119 lb Weight 119 lb 4 oz Weight 120 lb Physical Exam 2 Const: COMMON NORMALS: no acute distress and patient oriented x3 GENERAL APPEARANCE: cooperative and comfortable ORIENTATION/CONSCIOUSNESS: Yes awake, Yes oriented to person and Yes oriented to place Chest: COMMONS NORMALS: normal inspection of the chest and normal palpation of entire chest wall CHEST: Yes Symmetrical chest wall rise Resp: COMMON NORMALS: normal respiratory effort, No retractions, No use of accessory muscles and clear to auscultation bilaterally EFFORT & INSPECTION: Yes symmetric chest movement AUSCULTATION: clear to auscultation bilaterally Cardio: COMMON NORMALS: regular rate, regular rhythm, S1 normal heart sound present, S2 normal heart sound present, No gallops present (Cardio), No clicks present (Cardio), No murmurs present (Cardio) and No rub (Cardio) RATE: r egular rate RHYTHM: regular rhythm HEART SOUNDS: S1 normal heart sound present and S2 normal heart sound present PERIPHERAL PULSES: radial pulses present Extremity: COMMON NORMALS: no pedal edema Neuro: COMMON NORMALS: patient oriented x3 and moves all extremities S ENSORIUM/ORIENTATION: Yes oriented to person and Yes oriented to place Urinary Catheter Management: Cuadra Latex: Cath Placed During This Visit: yes Reason for Continuing Indwelling Catheter: Accurate Measurement of Urinary Output in Critically Ill Patients Urinary Catheter Date of Insertion: 07/16/25 Urinary Catheter Time of Insertion: 14:36 Data 07/17/25 04:57 07/17/25 04:57 Micro: Microbiology 07/16/25 16:16 Blood Culture - Preliminary Blood SPECIMEN COLLECTED 07/16/25 14:32 Blood Culture - Preliminary Blood SPECIMEN COLLECTED A&P Assessment and plan 1. Chest pain: 2. Accelerated hypertension: 3. Sinus tachycardia: 4. History of stroke: Plan: She appears stable from a cardiovascular perspective. Chest pain experienced yesterday felt to be atypical and likely musculoskeletal or GI in nature; she has no chest pain today, nausea has resolved. Mild flat elevation in troponin felt to be demand ischemia from tachycardia. The tachycardia has resolved with hydration and beta ricco. LVEF is normal, 60%. Continue aspirin, metoprolol tartrate and atorvastatin. No further workup recommended at this time. Also she is DNR/DNI. PDMP PDMP Reviewed: Not Reviewed Attestations 2 Medical Necessity Statement*: per hospitalist Coding Level of Care Code Acute Code for [facility] Fwd Diagnoses Chest pain R07.9 Accelerated hypertension I10 Sinus tachycardia R00.0 History of stroke Z86.73
--- NOTE | 2025-07-17 11:34 | P.PN_ITS ---
Subjective 2 Subjective: Little appetite Able to swallow Vitals/I&O/Wt Last Vital Signs Temp 97.5 F L 07/17/25 08:00 Pulse 81 07/17/25 08:14 Resp 19 H 07/17/25 08:00 BP 106/67 07/17/25 08:14 Pulse Ox 98 07/17/25 08:00 O2 Del Method Room Air 07/17/25 04:00 O2 Flow Rate 2 07/16/25 17:23 07/16/25 07/17/25 07/17/25 22:59 06:59 14:59 Intake Total 120 / 1120 1000 / 2120 480 / 480 Output Total 950 / 950 300 / 300 Balance 120 / 1120 50 / 1170 180 / 180 Weight last 48 hrs Weight 121 lb 3.2 oz Weight 119 lb Weight 119 lb 4 oz Weight 120 lb Physical Exam 2 Narrative: Chest: Unlabored breathing room air. Heart: Regular rate and rhythm. Abdomen: Soft, nontender, nondistended. Urinary Catheter Management: Cuadra Latex: Cath Placed During This Visit: yes Reason for Continuing Indwelling Catheter: Accurate Measurement of Urinary Output in Critically Ill Patients Urinary Catheter Date of Insertion: 07/16/25 Urinary Catheter Time of Insertion: 14:36 Data 07/17/25 04:57 07/17/25 15:33 Micro: Microbiology 07/16/25 16:16 Blood Culture - Preliminary Blood SPECIMEN COLLECTED 07/16/25 14:32 Blood Culture - Preliminary Blood SPECIMEN COLLECTED A&P Assessment and plan 1. Cachexia: Plan: 85-year-old female whom surgery was consulted for cachexia, peptic ulcer disease, intermittent melena. Recommend continuing PPI. Consider adding sucralfate. Patient recently had a PEG tube removed. I do not recommend replacing the PEG tube since patient is able to swallow. Patient is willing to try dronabinol which will improve her appetite. Patient is adamant that she does not want a PEG tube. Rest of care per hospitalist. PDMP PDMP Reviewed: Not Reviewed Attestations 2 Medical Necessity Statement*: N/A Coding Level of Care Code 30429 Diagnoses Cachexia R64
--- NOTE | 2025-07-17 12:40 | P.PN_ITS ---
Subjective 2 Subjective: No acute events overnight. Patient states she is bored not feeling nauseous anymore. Feeling better than yesterday. Able to maintain oral intake. Vitals/I&O/Wt Last Vital Signs Temp 97.5 F L 07/17/25 08:00 Pulse 81 07/17/25 08:14 Resp 19 H 07/17/25 08:00 BP 106/67 07/17/25 08:14 Pulse Ox 98 07/17/25 08:00 O2 Del Method Room Air 07/17/25 04:00 O2 Flow Rate 2 07/16/25 17:23 07/16/25 07/17/25 07/17/25 22:59 06:59 14:59 Intake Total 120 / 1120 1000 / 2120 480 / 480 Output Total 950 / 950 300 / 300 Balance 120 / 1120 50 / 1170 180 / 180 Weight last 48 hrs Weight 54.975 kg Weight 53.977 kg Weight 54.091 kg Weight 54.431 kg Physical Exam 2 Narrative: General: No acute distress, AO x3, chronically sick appearing, facial droop on the left side present, tired appearing HEENT: PERRLA, pupils bilaterally equal and reactive Chest: Normal vesicular breath sounds, no added sounds, equal good air entry bilaterally CVS: S1-S2 regular, no murmurs, no tachycardia, no gallops, no rubs Abdomen: Soft, nontender, no organomegaly, bowel sounds present Neuro: Residual weakness present Urinary Catheter Management: Cuadra Latex: Cath Placed During This Visit: yes, but has since been removed by the nurse Reason for Continuing Indwelling Catheter: Accurate Measurement of Urinary Output in Critically Ill Patients Urinary Catheter Date of Insertion: 07/16/25 Urinary Catheter Time of Insertion: 14:36 Date Urinary Catheter Removed: 07/17/25 Time Urinary Catheter Discontinued: 09:25 Data 07/17/25 04:57 07/17/25 04:57 Micro: Microbiology 07/16/25 16:16 Blood Culture - Preliminary Blood SPECIMEN COLLECTED 07/16/25 14:32 Blood Culture - Preliminary Blood SPECIMEN COLLECTED A&P Assessment and plan 1. Nausea & vomiting: Does have history of dysphagia in the past. CT abdomen pelvis consistent with significant gastritis and duodenitis with gastric and duodenal wall thickening. Appreciate improvement in LFTs. Check lipase. Protonix IV twice daily, Zofran every 6 hour. Carafate ACHS. For now continue with clear liquid diet. Patient gives history of cholecystectomy earlier this year which was possibly cancerous though pathology test not present in system. Given wall thickening cannot rule out localized malignancy. Appreciate surgical recommendations. Patient recently had an EGD within last 6 months. As per surgical recommendations for now we will hold off on any further EGD if able to swallow. Appreciate CT abdomen pelvis results for bowel obstruction. If needed can plan for barium swallow. 2. Dysphagia: 3. Sinus tachycardia: Resolved. Continue with IV hydration with D5 half NS t 75 cc/h. Continue with metoprolol 25 mg twice daily to be held for SBP less than 100 mmhg. Telemetry 4. Hypernatremia: Most likely in setting of dehydration. Will switch from NS to D5 NS at 75 cc/h. Repeat BMP in afternoon. 5. Leukocytosis: Worsening leukocytosis today. Worsening procalcitonin as well. Patient has remained hemodynamically stable and afebrile. Does have history of Enterococcus VRE UTI in the past. DC Cuadra catheter. Repeat urinalysis, MRSA swab, follow-up blood culture. Repeat chest x-ray. Empirically for now start on IV Zosyn and oral linezolid. Monitor for diarrhea. 6. Chest pain: Resolved. Most likely in setting of gastritis. PE/aortic dissection/non-ST elevation [place] ruled out. Appreciate cardiology recommendations. 7. Carcinoma of gall bladder: Plan: Continue other chronic home medications goading aspirin, statin, ferrous sulfate, Remeron. CODE STATUS: Discussed in detail with the patient. She does not want any kind of aggressive measures including chest compressions or life support. DNR/DNI. Clear liquid diet. Lovenox for DVT prophylaxis Protonix for PUD prophylaxis PDMP PDMP Reviewed: Not Reviewed Attestations 2 Medical Necessity Statement*: Requires further hospitalization for management of nausea and vomiting in setting of gastritis, worsening leukocytosis, hypernatremia Diagnoses Nausea & vomiting R11.2 Dysphagia R13.10 Sinus tachycardia R00.0 Hypernatremia E87.0 Leukocytosis D72.829 Chest pain R07.9 Carcinoma of gall bladder C23
[2025-07-17 13:36] LABS: Lipase 1737 U/L (13-60)
[2025-07-17 14:25] LABS: MRSA PCR OZH (swab) NOT DETECTED (Not Detecte)
--- NOTE | 2025-07-17 15:53 | PC.NURSE ---
Provider updated that Debby Velez her last 3 blood pressures this afternoon were 100/46 HR 61, 79/37 HR 56, and 83/40 HR 54. She is laying resting in her bed. She is still in sinus rhythm. Manual blood pressure 80/40 with a regular adult cuff that is large on her.
[2025-07-17 16:23] LABS: Anion Gap 12.3 (5-19); Blood Urea Nitrogen 14 mg/dL (8-23); Calcium 7.9 mg/dL (8.5-10.5); Carbon Dioxide 24 mmol/L (22-29); Chloride 111 mmol/L (98-107); Creatinine Clr Calc Pharmacy 44.7764; Glucose 141 mg/dL (65-115); Osmolality Calculated 299 mOsm/kg (285-295); Potassium 4.3 mmol/L (3.5-5.1); Sodium 143 mmol/L (136-145)
--- NOTE | 2025-07-17 17:01 | PC.NURSE ---
Daughter, Moon, is called and updated that patient has been moved up to room 255-2.
--- NOTE | 2025-07-17 19:27 | PC.NURSE ---
Patient arrived to [facility] without a catheter, this nurse is unsure of the time it was removed. Patient voids in a BSC but wears briefs for incontinence.
[2025-07-17] MEDS: albumin 25 G/100 ML BAG 60 G IV (20:38)
[2025-07-18] VITALS (9 sets, daily range): BP systolic 98–144; BP diastolic 52–74; PULSE 62–85; RESP 16–19; TEMP 36.3–37.1; O2SAT 90–97
[2025-07-18] MEDS: albumin 25 G/100 ML BAG 60 G IV ×3 (04:40→22:47)
[2025-07-18] MEDS: pantoprazole 40 mg SDV IVP ×2 (05:01→17:14)
[2025-07-18 05:19] LABS: Hematocrit 33.4 % (36-47); Hemoglobin 10.20 g/dL (11.27-16.99); Mean Corpuscular HGB Conc 30.5 g/dL (30-55); Mean Corpuscular Hemoglobin 28.1 pg (27-33); Mean Corpuscular Volume 92.0 fl (85-98); Nucleated Red Blood Cells % 0 %; Platelet Count 135 10^3/cmm (157-399); Red Blood Count 3.63 10^6/uL (3.85-5.65); White Blood Count 10.36 10^3/uL (3.29-11.43)
[2025-07-18 05:45] LABS: Alanine Aminotransferase 18 U/L (0-33); Albumin Level 2.8 g/dL (3.5-5.2); Alkaline Phosphatase 88 U/L (35-105); Anion Gap 13.5 (5-19); Aspartate Amino Transferase 25 U/L (0-32); Blood Urea Nitrogen 14 mg/dL (8-23); Calcium 8.2 mg/dL (8.5-10.5); Carbon Dioxide 22 mmol/L (22-29); Chloride 111 mmol/L (98-107); Creatinine Clr Calc Pharmacy 45.3259; Globulin 2.2 g/dL (1.3-4.6); Glucose 84 mg/dL (65-115); Magnesium 1.4 mg/dL (1.7-2.3); Osmolality Calculated 296 mOsm/kg (285-295); Potassium 3.5 mmol/L (3.5-5.1); Sodium 143 mmol/L (136-145); Total Protein 5.0 g/dL (6.6-8.7)
[2025-07-18] MEDS: ferrous sulfate EC 325 mg Tablet PO (09:24)
[2025-07-18] MEDS: piperacillin-tazobactam 3.375 GM in sodium chloride 0.9% (plus) 50 ML IV ×2 (09:24→17:13)
--- NOTE | 2025-07-18 10:10 | P.PN_ITS ---
<Statement entered by Steven Gamez M.D - 07/20/25 11:57> Patient was cared for in conjunction with an advanced practice practitioner.? I reviewed the chart and all pertinent data including imaging, telemetry, and laboratory results.? I discussed the patient in detail with the advanced practice practitioner.? Please see?their note for progress note, testing results and agreed upon plan of care for the patient. Subjective 2 Subjective: She has been resting well, no recurrence of chest pain. Sinus rhythm, rates 60 to 70 bpm. Blood pressure ranging 93-122 systolic. Vitals/I&O/Wt Last Vital Signs Temp 98.2 F 07/18/25 12:11 Pulse 74 07/18/25 12:11 Resp 16 07/18/25 12:11 BP 134/74 07/18/25 12:11 Pulse Ox 94 07/18/25 12:11 O2 Del Method Room Air 07/18/25 00:00 O2 Flow Rate 2 07/16/25 17:23 07/17/25 07/18/25 07/18/25 22:59 06:59 14:59 Intake Total 1894.167 / 3313.750 649.583 / 3313.750 Output Total Balance 1894.167 / 3012.750 648.583 / 3012.750 Weight last 48 hrs Weight 125 lb Weight 121 lb 3.2 oz Weight 119 lb Weight 119 lb 4 oz Physical Exam 2 Const: COMMON NORMALS: no acute distress and patient oriented x3 GENERAL APPEARANCE: cooperative and comfortable ORIENTATION/CONSCIOUSNESS: Yes awake, Yes oriented to person, Yes oriented to place and Yes oriented to time Chest: COMMONS NORMALS: normal inspection of the chest and normal palpation of entire chest wall CHEST: Yes Symmetrical chest wall rise Resp: COMMON NORMALS: normal respiratory effort, No retractions, No use of accessory muscles and clear to auscultation bilaterally EFFORT & INSPECTION: Yes symmetric chest movement AUSCULTATION: clear to auscultation bilaterally Cardio: COMMON NORMALS: regular rate, regular rhythm, S1 normal heart sound present, S2 normal heart sound present, No gallops present (Cardio), No clicks present (Cardio), No murmurs present (Cardio) and No rub (Cardio) RATE: r egular rate RHYTHM: regular rhythm HEART SOUNDS: S1 normal heart sound present and S2 normal heart sound present PERIPHERAL PULSES: radial pulses present Extremity: COMMON NORMALS: no pedal edema Neuro: COMMON NORMALS: patient oriented x3 and moves all extremities S ENSORIUM/ORIENTATION: Yes oriented to person, Yes oriented to place and Yes oriented to time Urinary Catheter Management: Cuadra Latex: Cath Placed During This Visit: yes, but has since been removed by the nurse Reason for Continuing Indwelling Catheter: Other Urinary Catheter Date of Insertion: 07/16/25 Urinary Catheter Time of Insertion: 14:36 Date Urinary Catheter Removed: 07/17/25 Time Urinary Catheter Discontinued: 18:00 Data 07/18/25 04:42 07/18/25 04:42 Micro: Microbiology 07/16/25 16:16 Blood Culture - Preliminary Blood NEGATIVE TO DATE 07/16/25 14:32 Blood Culture - Preliminary Blood NEGATIVE TO DATE A&P Assessment and plan 1. History of stroke: 2. Nausea & vomiting: Resolved 3. Sinus tachycardia: Resolved 4. Chest pain: Resolved Plan: She appears to be doing well from a cardiovascular perspective. We will sign off. PDMP PDMP Reviewed: Not Reviewed Attestations 2 Medical Necessity Statement*: per hospitalist Coding Level of Care Code Acute Code for [facility] Fwd Diagnoses History of stroke Z86.73 Nausea & vomiting R11.2 Sinus tachycardia R00.0 Chest pain R07.9
--- NOTE | 2025-07-18 12:55 | P.PN_ITS ---
Subjective 2 Subjective: No acute events overnight. Blood pressures are occasionally soft. She was started on albumin. She states she is feeling better. Able to tolerate liquid diet. Denies any abdominal pain or nausea today. Vitals/I&O/Wt Last Vital Signs Temp 98.2 F 07/18/25 12:11 Pulse 74 07/18/25 12:11 Resp 16 07/18/25 12:11 BP 134/74 07/18/25 12:11 Pulse Ox 94 07/18/25 12:11 O2 Del Method Room Air 07/18/25 00:00 O2 Flow Rate 2 07/16/25 17:23 07/17/25 07/18/25 07/18/25 22:59 06:59 14:59 Intake Total 1894.167 / 2664.167 649.583 / 3313.750 Output Total Balance 1894.167 / 2364.167 648.583 / 3012.750 Weight last 48 hrs Weight 56.699 kg Weight 54.975 kg Weight 53.977 kg Weight 54.091 kg Physical Exam 2 Narrative: General: No acute distress, AO x3, chronically sick appearing, facial droop on the left side present, tired appearing HEENT: PERRLA, pupils bilaterally equal and reactive Chest: Normal vesicular breath sounds, no added sounds, equal good air entry bilaterally CVS: S1-S2 regular, no murmurs, no tachycardia, no gallops, no rubs Abdomen: Soft, nontender, no organomegaly, bowel sounds present Neuro: Residual weakness present Urinary Catheter Management: Cuadra Latex: Cath Placed During This Visit: yes, but has since been removed by the nurse Reason for Continuing Indwelling Catheter: Other Urinary Catheter Date of Insertion: 07/16/25 Urinary Catheter Time of Insertion: 14:36 Date Urinary Catheter Removed: 07/17/25 Time Urinary Catheter Discontinued: 18:00 Data 07/18/25 04:42 07/18/25 04:42 Micro: Microbiology 07/16/25 16:16 Blood Culture - Preliminary Blood NEGATIVE TO DATE 07/16/25 14:32 Blood Culture - Preliminary Blood NEGATIVE TO DATE A&P Assessment and plan 1. Nausea & vomiting: Does have history of dysphagia in the past. CT abdomen pelvis consistent with significant gastritis and duodenitis with gastric and duodenal wall thickening. Appreciate improvement in LFTs. Check lipase. Protonix IV twice daily, Zofran every 6 hour. Carafate ACHS. For now continue with clear liquid diet. Patient gives history of cholecystectomy earlier this year which was possibly cancerous though pathology test not present in system. Given wall thickening cannot rule out localized malignancy. Appreciate surgical recommendations. Patient recently had an EGD within last 6 months. As per surgical recommendations for now we will hold off on any further EGD if able to swallow. Appreciate CT abdomen pelvis results for bowel obstruction. If needed can plan for barium swallow. 2. Dysphagia: 3. Sinus tachycardia: Resolved. Continue with IV hydration with D5 half NS t 75 cc/h. Continue with metoprolol 25 mg twice daily to be held for SBP less than 100 mmhg. Telemetry 4. Hypernatremia: Most likely in setting of dehydration. Will switch from NS to D5 NS at 75 cc/h. Repeat BMP in afternoon. 5. Leukocytosis: Worsening leukocytosis today. Worsening procalcitonin as well. Patient has remained hemodynamically stable and afebrile. Does have history of Enterococcus VRE UTI in the past. DC Cuadra catheter. Repeat urinalysis, MRSA swab, follow-up blood culture. Repeat chest x-ray. Empirically for now start on IV Zosyn and oral linezolid. Monitor for diarrhea. 6. Chest pain: Resolved. Most likely in setting of gastritis. PE/aortic dissection/non-ST elevation [place] ruled out. Appreciate cardiology recommendations. 7. Carcinoma of gall bladder: 8. Pancreatitis: Plan: Continue other chronic home medications goading aspirin, statin, ferrous sulfate, Remeron. CODE STATUS: Discussed in detail with the patient. She does not want any kind of aggressive measures including chest compressions or life support. DNR/DNI. Mechanical Soft diet Lovenox for DVT prophylaxis rotonix for PUD prophylaxis Plan for the day: Nausea and vomiting in setting of pancreatitis. Improving. Advance to mechanical soft diet. Continue Protonix twice daily, Zofran as needed. Leukocytosis has resolved. Leukocytosis most likely reactive. Empirically continue with IV Zosyn and oral linezolid for now. Follow-up blood cultures. UA not yet collected. Continue with D5 half NS at 75 cc/h for now. Repeat BMP in AM. Goal blood pressure less than 140/90 mmHg with mean over 65. Heart rate and blood pressure so far stable. Hold off on antihypertensives or metoprolol for now. Patient would benefit with protein shakes as an outpatient. Discharge plan: Plan to discharge in next 24 hours back to SNF if authorization is achieved. Med rec completed to facilitate discharge on weekend. PDMP PDMP Reviewed: Not Reviewed Attestations 2 Medical Necessity Statement*: Requires further hospitalization for management of nausea and vomiting in setting of gastritis/duodenitis, pancreatitis, dehydration, hypernatremia Diagnoses Nausea & vomiting R11.2 Dysphagia R13.10 Sinus tachycardia R00.0 Hypernatremia E87.0 Leukocytosis D72.829 Chest pain R07.9 Carcinoma of gall bladder C23 Pancreatitis K85.90
[2025-07-18] MEDS: dextrose 5%-sod chloride 0.45% 1,000 ML 75 ML IV (15:13)
[2025-07-19] VITALS: BP 150/69; PULSE 73; RESP 19; TEMP 36.4; O2SAT 96
[2025-07-19] MEDS: piperacillin-tazobactam 3.375 GM in sodium chloride 0.9% (plus) 50 ML IV ×2 (00:34→09:53)
[2025-07-19] MEDS: dextrose 5%-sod chloride 0.45% 1,000 ML 75 ML IV (00:40)
[2025-07-19 04:00] VITALS: BP 132/67; PULSE 72; RESP 20; TEMP 36.8; O2SAT 90
[2025-07-19 05:23] LABS: Hematocrit 30.9 % (36-47); Hemoglobin 10.00 g/dL (11.27-16.99); Mean Corpuscular HGB Conc 32.4 g/dL (30-55); Mean Corpuscular Hemoglobin 29.2 pg (27-33); Mean Corpuscular Volume 90.1 fl (85-98); Nucleated Red Blood Cells % 0 %; Platelet Count 131 10^3/cmm (157-399); Red Blood Count 3.43 10^6/uL (3.85-5.65); White Blood Count 5.68 10^3/uL (3.29-11.43)
[2025-07-19 05:34] VITALS: PULSE 79
[2025-07-19 05:50] LABS: Alanine Aminotransferase 13 U/L (0-33); Albumin Level 3.6 g/dL (3.5-5.2); Alkaline Phosphatase 70 U/L (35-105); Anion Gap 14.2 (5-19); Aspartate Amino Transferase 17 U/L (0-32); Blood Urea Nitrogen 10 mg/dL (8-23); Calcium 8.6 mg/dL (8.5-10.5); Carbon Dioxide 23 mmol/L (22-29); Chloride 114 mmol/L (98-107); Creatinine Clr Calc Pharmacy 45.5864; Globulin 1.8 g/dL (1.3-4.6); Glucose 108 mg/dL (65-115); Magnesium 1.4 mg/dL (1.7-2.3); Osmolality Calculated 306 mOsm/kg (285-295); Potassium 3.2 mmol/L (3.5-5.1); Sodium 148 mmol/L (136-145); Total Protein 5.4 g/dL (6.6-8.7)
[2025-07-19] MEDS: pantoprazole 40 mg SDV IVP (06:06)
[2025-07-19 06:26] LABS: Slide Review Slide Review Perform
[2025-07-19 08:00] VITALS: BP 152/87; PULSE 88; RESP 20; TEMP 36.8; O2SAT 95
[2025-07-19] MEDS: ferrous sulfate EC 325 mg Tablet PO (09:53)
--- NOTE | 2025-07-19 10:09 | PM.DCS ---
Discharge Providers Date of Admission: 07/16/25 15:48 Date of Discharge: July 19, 2025 Attending Provider at Admission: Mitch Joy MD Attending Provider at Discharge: Mitch Joy MD Primary Care Provider: Cat Martínez DO Diagnoses at Discharge Discharge Diagnosis 1. Nausea & vomitin. Dysphagia: 3. Sinus tachycardia: 4. Hypernatremia: 5. Leukocytosis: 6. Chest pain: 7. Carcinoma of gall bladder: 8. 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 Patient states she is not able to maintain her oral intake since yesterday as every time she tries to eat she ends up throwing up. In the ER she was found to be tachycardic with heart rate going up to 140s. She underwent extensive workup with CT chest abdomen pelvis with contrast which ruled out pneumonia, PE, aortic dissection and was concerning for gastritis and duodenitis with gastric and duodenal wall thickening. On examination patient was seen laying comfortably in bed, chronically sick appearing with heart rate running in 120s getting second bag of IV fluid bolus with blood pressure of 110s systolics saturating more than 95% on 2 L. Patient was admitted to the hospital for evaluation and management of significant sinus tachycardia due to dehydration from persistent nausea and vomiting along with chest pain for last 36 hours. ACS, PE, aortic dissection, pneumonia were ruled out. Her symptoms of chest pain are most likely in setting of severe gastritis along with concerns for pancreatitis which are confirmed with elevated lipase. She was started on conservative treatment with clear liquid diet, aggressive PPIs. Electrolytes were replaced. She responded well to the treatment and has been able to tolerate mechanical soft diet for last 24 hours without concerns for nausea and vomiting. She did have episodes of leukocytosis for which transiently she was placed on antibiotics. Her cultures during hospitalization remain negative. She has been discharged in hemodynamically stable condition back to SNF for further rehabilitation on mechanical soft diet, metoprolol 12.5 mg twice daily along with Protonix twice daily and Carafate ACHS. Physical Exam Narrative: General: No acute distress, AO x3, chronically sick appearing, facial droop on the left side present, tired appearing HEENT: PERRLA, pupils bilaterally equal and reactive Chest: Normal vesicular breath sounds, no added sounds, equal good air entry bilaterally CVS: S1-S2 regular, no murmurs, no tachycardia, no gallops, no rubs Abdomen: Soft, nontender, no organomegaly, bowel sounds present Neuro: Residual weakness present Urinary Catheter Management: Cuadra Latex: Cath Placed During This Visit: yes, but has since been removed by the nurse Reason for Continuing Indwelling Catheter: Other Urinary Catheter Date of Insertion: 07/16/25 Urinary Catheter Time of Insertion: 14:36 Date Urinary Catheter Removed: 07/17/25 Time Urinary Catheter Discontinued: 18:00 Discharge Data Studies Completed and Pending Completed Studies During Hospitalization Category Date Time Status CTA chest CT abdomen pelvis [CT Angio Chest + Abdomen Cat Scan 07/16/25 09:58 Completed Pelvis w/ contrast; 71538 + [id number]] Stat XR chest 1V portable [id number] Stat Exams 07/16/25 09:52 Completed CV. echo limited [id number] Routine Ultrasound 07/16/25 13:36 Completed Pending at discharge Category Date Time Status XR chest 1V portable [id number] Routine Exams 07/17/25 08:27 Taken Blood Culture Stat Lab 07/16/25 16:16 Results Urinalysis Routine Lab 07/17/25 08:30 Uncollected Radiology Impressions Chest/Abdomen/Pelvis CT 07/16/25 09:58 IMPRESSION: 1. No pulmonary embolism. 2. Mild groundglass attenuation could be seen with poor inspiration, breathing motion artifact and small vessel disease. 3. No pneumonia. 4. 5 mm RIGHT upper lobe pulmonary nodule, stable since 11/23/2024. 5. Large hiatal hernia filled with fluid and air. 6. Marked fluid distention of the stomach. 7. Mild gastric and duodenal enhancement and wall thickening. No ulcer is identified. Consider gastritis/duodenitis. Duodenal diverticulum. 8. Prior cholecystectomy. 9. Renal atrophy and bilateral renal cysts. 10. Sigmoid diverticulosis without acute diverticulitis. 11. Markedly abnormal endometrium as described on the prior study. Neoplasm is not excluded. There is air within the endometrial cavity along with increased soft tissue. No fistula is identified communicating with the GI tract. Microbiology 07/16/25 16:16 Blood Blood Culture - Preliminary NEGATIVE TO DATE 07/16/25 14:32 Blood Blood Culture - Preliminary NEGATIVE TO DATE Laboratory Results WBC 5.68 10^3/uL (3.29-11.43) 07/19/25 04:35 RBC 3.43 10^6/uL (3.85-5.65) L 07/19/25 04:35 Hgb 10.00 g/dL (11.27-16.99) L 07/19/25 04:35 Hct 30.9 % (36-47) L 07/19/25 04:35 MCV 90.1 fl (85-98) 07/19/25 04:35 MCH 29.2 pg (27-33) 07/19/25 04:35 MCHC 32.4 g/dL (30-55) D 07/19/25 04:35 RDW 17.8 % (12.1-15.1) H 07/19/25 04:35 Plt Count 131 10^3/cmm (157-399) L 07/19/25 04:35 MPV 12.4 fL (7.4-10.4) H 07/19/25 04:35 Neut % (Auto) 69.8 % 07/19/25 04:35 Lymph % (Auto) 15.1 % 07/19/25 04:35 [place] % (Auto) 7.9 % 07/19/25 04:35 Eos % (Auto) 6.3 % 07/19/25 04:35 Baso % (Auto) 0.5 % 07/19/25 04:35 Neut # (Auto) 3.96 10^3/uL (1.8-7.7) 07/19/25 04:35 Lymph # (Auto) 0.9 10^3/uL (0.8-4.8) 07/19/25 04:35 [place] # (Auto) 0.5 10^3/uL (0.2-0.9) 07/19/25 04:35 Eos # (Auto) 0.4 10^3/uL (0.0-0.8) 07/19/25 04:35 Baso # (Auto) 0.0 10^3/uL (0.0-0.1) 07/19/25 04:35 Nucleated RBC % (auto) 0 % 07/19/25 04:35 Nucleated RBCs # 0.0 /100WBC 07/19/25 04:35 Specimen Type Arterial 07/16/25 10:25 Sample Site Brachial, left 07/16/25 10:25 ABG pH 7.41 (7.35-7.45) 07/16/25 10:25 ABG pCO2 32.4 mmHg (35-45) L 07/16/25 10:25 ABG pO2 68.8 mmHg (80.0-100.0) L 07/16/25 10:25 ABG PO2/FiO2 Ratio 327 07/16/25 10:25 ABG HCO3 20.6 mmol/L (22-26) L 07/16/25 10:25 ABG O2 Saturation 94.0 07/16/25 10:25 ABG Base Excess -3.1 mmol/L (-2.0-2.0) L 07/16/25 10:25 Prem Test N/a 07/16/25 10:25 A-a O2 Gradient 5.2 mmHg (5-10) 07/16/25 10:25 Hematocrit 44.7 % (37-47) 07/16/25 10:25 Hgb O2 Saturation 93.3 % (95-100) L 07/16/25 10:25 Carboxyhemoglobin 0.7 %THgb (0.4-20.1) 07/16/25 10:25 Methemoglobin 0.0 % (0.4-1.5) L 07/16/25 10:25 Total Hemoglobin 14.6 g/dL (12-16) 07/16/25 10:25 Sodium 145.0 mmol/L (131-143) H 07/16/25 10:25 Potassium 3.2 mmol/L (3.5-5.0) L 07/16/25 10:25 Glucose 100.0 mg/dL (70-115) 07/16/25 10:25 Ionized Calcium 1.2 mmol/L (1.1-1.4) 07/16/25 10:25 O2 Delivery Device Room air 07/16/25 10:25 FiO2 21.0 % 07/16/25 10:25 Medical Anthropology Director ID [facility] 07/16/25 10:25 Sodium 148 mmol/L (136-145) H 07/19/25 04:35 Potassium 3.2 mmol/L (3.5-5.1) L 07/19/25 04:35 Chloride 114 mmol/L (98-107) H 07/19/25 04:35 Carbon Dioxide 23 mmol/L (22-29) 07/19/25 04:35 Anion Gap 14.2 (5-19) 07/19/25 04:35 BUN 10 mg/dL (8-23) 07/19/25 04:35 Creatinine 0.7 mg/dL (0.5-0.9) 07/19/25 04:35 GFR Calculation Not Reportable 07/19/25 04:35 Glucose 108 mg/dL (65-115) 07/19/25 04:35 POC Glucose 105 mg/dL (70-110) 07/19/25 06:10 Calculated Osmolality 306 mOsm/kg (285-295) H 07/19/25 04:35 Lactic Acid 1.4 mmol/L (0.5-2.2) 07/16/25 14:32 Calcium 8.6 mg/dL (8.5-10.5) 07/19/25 04:35 Phosphorus 2.1 mg/dL (2.5-4.5) L 07/19/25 04:35 Magnesium 1.4 mg/dL (1.7-2.3) L 07/19/25 04:35 Total Bilirubin 0.5 mg/dL (0.15-1.2) 07/19/25 04:35 AST 17 U/L (0-32) 07/19/25 04:35 ALT 13 U/L (0-33) 07/19/25 04:35 Alkaline Phosphatase 70 U/L (35-105) 07/19/25 04:35 Troponin T Baseline 20 ng/L (0-10) H 07/16/25 12:00 Troponin T 120 Minute 25.79 ng/L (0-10) H 07/16/25 15:09 Delta Troponin T 5.79 ABS# (0-10) 07/16/25 15:09 Troponin T Hi Sens 6Hr 27.50 ng/L (0-10) H 07/16/25 18:42 Troponin T Hi Sens 6Hr Delta 7.50 ng/L (0-12) 07/16/25 18:42 NT-Pro-B Natriuret Pep 523 pg/mL (0-450) H 07/16/25 12:00 Total Protein 5.4 g/dL (6.6-8.7) L 07/19/25 04:35 Albumin 3.6 g/dL (3.5-5.2) 07/19/25 04:35 Globulin 1.8 g/dL (1.3-4.6) 07/19/25 04:35 Lipase 1737 U/L (13-60) H 07/17/25 04:57 Procalcitonin 14.69 ng/mL (0-0.5) H 07/17/25 04:57 Urine Color Yellow (Yellow) 07/16/25 14:32 Urine Appearance Clear (CLEAR) 07/16/25 14:32 Urine pH 5.5 (5-7) 07/16/25 14:32 Ur Specific [place] 1.034 (1.005-1.030) H 07/16/25 14:32 Urine Protein Trace (Negative) A 07/16/25 14:32 Urine Glucose (UA) Negative (Normal) 07/16/25 14:32 Urine Ketones Negative (Negative) 07/16/25 14:32 Urine Blood Negative (Negative) 07/16/25 14:32 Urine Nitrate Negative (Negative) 07/16/25 14:32 Urine Bilirubin Negative (Negative) 07/16/25 14:32 Urine Urobilinogen 1.0 mg/dL (Negative) 07/16/25 14:32 Ur Leukocyte Esterase Negative (Negative) 07/16/25 14:32 Urine RBC 0-2 /hpf (0-2) 07/16/25 14:32 Urine WBC 0-5 /hpf (0-5) 07/16/25 14:32 Ur Squamous Epith Cells 0-5 /hpf (0-5) 07/16/25 14:32 Amorphous Sediment Not Reportable 07/16/25 14:32 Urine Bacteria None seen /hpf (NONE) 07/16/25 14:32 Hyaline Casts 1.65 /lpf 07/16/25 14:32 Nasal MRSA (PCR) Not detected (Not Detecte) 07/17/25 12:02 H. pylori IgG Antibody Negative (Negative) 07/17/25 04:57 Influenza A (PCR) Negative (Negative) 07/16/25 10:48 Influenza Type B (PCR) Negative (Negative) 07/16/25 10:48 RSV (PCR) Negative (Negative) 07/16/25 10:48 SARS-CoV-2 (PCR) Negative (Negative) 07/16/25 10:48 Vitals Last Vital Signs Temp 98.2 F 07/19/25 08:00 Pulse 88 07/19/25 08:00 Resp 20 H 07/19/25 08:00 BP 152/87 07/19/25 08:00 Pulse Ox 85 L 07/19/25 08:00 O2 Del Method Nasal Cannula 07/19/25 08:00 O2 Flow Rate 2 07/16/25 17:23 Discharge Plan Discharge Patient Disposition: Xfer SNF Condition: Stable Prescriptions: New sucralfate 1 gram Tablet 1 g PO AC&BEDTIME 28 Days Qty: 60 0RF pantoprazole [Protonix] 40 mg tablet,delayed release (DR/EC) 40 mg PO QAM Qty: 60 0RF Rx Instructions: Twice daily for next 2 weeks followed by once daily metoprolol tartrate 25 mg tablet 12.5 mg PO BID Qty: 30 0RF Ensure Active High Protein Liquid 1 ea PO DAILY Qty: 1656 0RF Continued atorvastatin 40 mg tablet 40 mg PO DAILY aspirin 81 mg Tablet,Delayed Release (Dr/Ec) 81 mg PO DAILY mirtazapine 30 mg tablet 30 mg PO BEDTIME ferrous sulfate 325 mg (65 mg iron) tablet 325 mg PO DAILY acetaminophen 325 mg Tablet 650 mg PO Q6H PRN (Reason: pain/increased temp) bisacodyl [Dulcolax (bisacodyl)] 10 mg Suppository 10 mg IA DAILY PRN (Reason: Constipation) Discontinued amoxicillin-pot clavulanate 875-125 mg tablet 1 tab PO BID 3 Days Qty: 6 0RF pantoprazole 40 mg tablet,delayed release (DR/EC) 40 mg PO DAILY omeprazole 20 mg capsule,delayed release(DR/EC) 20 mg PO DAILY Rx Instructions: TI for Pantoprazole Discharge Order = DC NOW: Discharge Order (Routine); Ordered 07/19/25 Ordered By: Mitch Joy Referrals: [facility] [Outside] Cat Martínez DO [Primary Care Provider, TRACK REPAIR WORKER] Discharge Diet: Advance as tolerated and Soft Mechanical Discharge Activity: Resume usual activity and Increase activity as tolerated Patient Instructions: Opioid Safety, Patient Portal & Latasha Instructions Discharge Attestations Time Spent in Discharge Care*: greater than 30 min Specific Discharge Activities: educating patient, educating and/or supporting family/caregiver, discussing with pcp/other providers, discussing with correctional case manager/social workers/dc planners, documenting/other paperwork and evaluating patient/reviewing data Status at Discharge: Cognitive status at discharge: cognitively intact, Behavioral status at discharge: cooperative, Functional status at discharge: uses cane/walker, Overall status at discharge: patient is back to baseline Quality Metrics Clinical Quality Measures [ No reported AMI, CVA or VTE this stay] Coding Level of Care Code 35830 Total time (in minutes) for Discharge: 65 Diagnoses Nausea & vomiting R11.2 Dysphagia R13.10 Sinus tachycardia R00.0 Hypernatremia E87.0 Leukocytosis D72.829 Chest pain R07.9 Carcinoma of gall bladder C23 Pancreatitis K85.90
[2025-07-19 11:20] VITALS: BP 163/85; PULSE 74; RESP 18; TEMP 36.3; O2SAT 96
--- NOTE | 2025-07-19 11:20 | PC.NURSE ---
Report called to PAUL Cobb at [facility]. Patient to be picked up by daughter and transported to alf. IV removed and all belongings with patient.
--- NOTE | 2025-07-19 12:15 | PC.NURSE ---
Patient transferred into wheelchair. Patient escorted to exit via wheelchair, by OLEGARIO Martinez and daughter. Daughter to transport to [facility]. PAUL Cobb at [facility] notified that patient is leaving at this time.
[2025-07-19 12:17] VITALS: BP 163/85; PULSE 74; RESP 18; TEMP 36.1; O2SAT 96
== END 2025-07-19 12:16 | disposition skilled nursing facility (03) ==
LOC: ER 15:42 → CSU 15:48 → MEDSURG 07-17 17:10
PROVIDERS: Admitting Provider Student in an Organized Health Care Education/Training Program; Emergency Provider Family Medicine; PCP Family Medicine; Visit Provider Student in an Organized Health Care Education/Training Program
DX: R11.2 Nausea with vomiting, unspecified (principal); R13.10 Dysphagia, unspecified; R00.0 Tachycardia, unspecified; E87.0 Hyperosmolality and hypernatremia; D72.829 Elevated white blood cell count, unspecified; R07.9 Chest pain, unspecified; C23 Malignant neoplasm of gallbladder; K85.90 Acute pancreatitis without necrosis or infection, unspecified; Z79.82 Long term (current) use of aspirin; K21.9 Gastro-esophageal reflux disease without esophagitis; Z86.73 Personal history of transient ischemic attack (TIA), and cerebral infarction without residual deficits; I10 Essential (primary) hypertension; R64 Cachexia; Z68.21 Body mass index [BMI] 21.0-21.9, adult; Z66 Do not resuscitate
CPT/HCPCS: 36415; 36416; 36600; 51702; 71045; 71275; 74177; 80048; 80051; 80053; 81001; 82330; 82805; 82962; 83605; 83690; 83735; 83880; 84100; 84145; 84484; 85025; 86677; 87040; 87637; 93005; 93308; 94664; 96365; 96372; 96375; 96376; 97110; 97161; 97166; 97530; 99285; G0378; J0780; J1650; J2270; J2405; J2470; J2543; J3490; J7030; J7040; J7799; J9999; P9046; Q0167

== ENCOUNTER 2025-07-24 11:30 | Inpatient (IN) | payer MEDICARE, SELFPAY ==
[2025-07-24] VITALS (76 sets, daily range): BP systolic 124–201; BP diastolic 57–111; PULSE 0–93; RESP 8–24; TEMP 36.3–36.7; O2SAT 89–100
--- NOTE | 2025-07-24 11:34 | CT_ITS ---
WS: [id number] CT HEAD TECHNIQUE: Noncontrast CT of the head obtained from the skullbase to the vertex. CLINICAL INFORMATION: ACUTE SYMPTOMS OF STROKE COMPARISON: 07/08/2025 DLP: [address] scans at [facility] use at least one of these dose optimization techniques: automated exposure control; mA and/or kV adjustment per patient size (includes targeted exams where dose is matched to clinical indication); or iterative reconstruction. FINDINGS: No evidence of intracranial hemorrhage or mass effect. Ventricular system and basal cisterns are patent. Mild small vessel changes with mild parenchymal volume loss. Chronic RIGHT frontal parietal infarct with encephalomalacia unchanged. No evidence of mass or mass effect. Vascular calcification. Paranasal sinuses and mastoid air cells are well aerated. .Normal visualized soft tissues. Incidental slightly low-lying cerebellar tonsils unchanged. CT/CT head thrombolytic [id number] IMPRESSION: 1. No evidence of intracranial hemorrhage or mass effect. 2. Chronic RIGHT frontal parietal infarct with encephalomalacia unchanged 3. Vascular calcification. 4. No acute intracranial findings. Notified Dr. Herring at 07/24/2025 11:48 AM.
--- NOTE | 2025-07-24 11:38 | XR_ITS ---
WS: [id number] Exam: XR chest 1V portable [id number] Date/Time of Exam: 07/24/2025 11:38 AM Reason For Exam: Weakness Comparison 07/17/2025. Development of RIGHT basal infiltrate suspicious for pneumonia. Remaining lung zones are clear. Chronic interstitial changes. Prominent hiatal hernia. Heart size top limits normal. The mediastinum is normal in contour. No pneumothorax. No pleural effusion. XR/XR chest 1V portable [id number] IMPRESSION: 1. New RIGHT basal infiltrate suspicious for pneumonia.
--- NOTE | 2025-07-24 11:38 | ECG_ITS ---
[facility]: 2025-07[facility]24 Pat Name: Debby Velez Department: Room: Gender: Female Grazing Aide: : 1940 Requested By: Mabel Ivey Order Number: [id number] Amrit MD: Steven Gamez M.D. Measurements Intervals [place] Rate: 66 P: 37 MI: 150 QRS: 63 QRSD: 87 T: 41 QT: 411 QTc: 433 Interpretive Statements SINUS RHYTHM NONSPECIFIC T-WAVE ABNORMALITY Compared to ECG 07/16/2025 16:18:07 No significant changes Electronically Signed On 07-25-2025 22:42:09 CDT by Steven Gamez M.D. [email or web address]
--- NOTE | 2025-07-24 11:39 | W.ED.NEUROSD ---
HPI - Neuro Symptoms/Deficit General: Chief Complaint: Neuro Symptoms/Deficit Stated Complaint: stroke alert Time Seen by Provider: 07/24/25 11:34 History of Present Illness: 85-year-old female with a history of CVA (right MCA), history of thrombolytic therapy, PEG tube, vertigo who [facility] the [facility] with weakness. Concern for left-sided weakness. Actually saw her a couple of weeks ago with a similar complaint and she was given thrombolytic at that time. She does have a history of a right sided stroke with some left-sided arm weakness. Is difficult to say on presentation if this is worse than her baseline. She is a bit confused at times but is able to tell me her name and at 1 point says she thinks this is about similar to her baseline. She had been found slumped [facility] in the [facility]. She is initially hypertensive. Related Data Home Medications ?Medication ?Instructions ?Recorded ?Confirmed atorvastatin 40 mg tablet 40 mg PO DAILY 01/22/25 07/16/25 aspirin 81 mg tablet,delayed 81 mg PO DAILY 05/12/25 07/16/25 release ferrous sulfate 325 mg (65 mg 325 mg PO DAILY 05/12/25 07/16/25 iron) tablet mirtazapine 30 mg tablet 30 mg PO BEDTIME 05/12/25 07/16/25 acetaminophen 325 mg tablet 650 mg PO Q6H PRN pain/increased 07/16/25 07/16/25 temp bisacodyl 10 mg rectal suppository 10 mg IN DAILY PRN Constipation 07/16/25 07/16/25 (Dulcolax (bisacodyl)) Previous Rx's ?Medication ?Instructions ?Recorded food supplemt, lactose-reduced 1 ea PO DAILY #1,656 mL 07/18/25 (Ensure Active High Protein oral liquid) metoprolol tartrate 25 mg tablet 12.5 mg (1/2 x 25 mg) PO BID #30 07/18/25 tabs pantoprazole 40 mg tablet,delayed 40 mg PO QAM #60 tabs 07/18/25 release (Protonix) sucralfate 1 gram tablet 1 g PO AC&BEDTIME 4 weeks #60 tabs 07/18/25 Allergies Allergy/AdvReac Type Severity Reaction Status Date / Time No Known Allergies Allergy Verified 07/03/25 14:04 Review of Systems Narrative: Review of systems [facility] ED PFSH: Medical History (Updated 07/24/25 @ 12:53 by Mabel Herring MD) 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 Skin: Warm, dry. Head: Normocephalic, atraumatic. Neck: Supple, trachea midline. Eye: Extraocular movements are intact. Ears, nose, mouth and throat: Tacky oral mucosa Cardiovascular: Regular, Normal peripheral perfusion. Respiratory: Lungs are clear to auscultation, respirations are non-labored, breath sounds are equal, Symmetrical chest wall expansion. Gastrointestinal: Soft, Nontender, Non distended Musculoskeletal: Normal ROM, no deformity. Neurological: Alert and oriented, patient has slightly slurred speech at times but I think this may be from dry oral mucosa. No facial droop. She does have some weakness in her left arm with drift. Also has some weakness in both of her legs but worse than her left. This really does not appear much different than my exam a couple of weeks ago. Psychiatric: Cooperative, appropriate mood & affect. Course Vital Signs: Vital signs: Vital Signs Temperature 98.1 F 07/24/25 12:10 Pulse Rate 68 07/24/25 12:45 Respiratory Rate 18 07/24/25 12:45 Blood Pressure 156/65 07/24/25 12:45 Pulse Oximetry 95 07/24/25 12:45 Oxygen Delivery Me thod Nasal Cannula 07/24/25 12:45 Oxygen Flow Rate 4 07/24/25 12:45 MDM - Neuro Symptoms/Deficit Medical Decision Making Medical decision making: Differential diagnosis for patient with focal neurologic deficit(s) includes but not limited to and based on the above HPI, review of systems and physical exam: ischemic stroke, hemorrhagic stroke and embolic stroke secondary to atrial fibrillation), TIA, Kaminski's palsey, metabolic encephalopathy with previous stroke. Orders placed to evaluate differential diagnosis based on the above differential, HPI and physical exam EKG: Time 1232. Rate 66. Normal sinus rhythm, nonspecific ST-T changes, no ectopy, normal IN & QRS intervals, This was reviewed and interpreted by myself the ER physician at 1238 CT head: Old right encephalomalacia. No acute intracranial process. no intracranial hemorrhage, no evidence of acute infarct. no evidence of acute fracture.This was reviewed and interpreted by myself the ER physician. Consultation: I spoke with Dr. Santos who saw the patient in the emergency room. She feels that the symptoms are no different from her old symptoms and at this point she does not warrant TNKase. Particular given that she is received it recently. Chest x-ray: New right infiltrate suspicious for pneumonia. This was reviewed and interpreted by myself the emergency room physician. I also reviewed the radiology report. Lab Review: Laboratory results were reviewed and interpreted by myself the emergency room physician. No leukocytosis. No anemia. No renal failure. Potassium is quite low at 2.6. Lactate is very elevated at 5.6. I reviewed the patient's medical record. Reexamination: Patient has had increased oxygen requirements and is up to 4 L nasal cannula. She is sleeping comfortably but does awake. Still with some left arm weakness which seems to be chronic. Generalized weakness still present. Consultation: I spoke with Dr. Campbell with the hospitalist service who agrees to admission. Assessment and plan: Healthcare associated bacterial pneumonia Hypoxemia Hypokalemia Possible sepsis Lactic acidosis History of right-sided stroke with left-sided arm weakness Metabolic encephalopathy ?No leukocytosis but she does have a very high lactic acid and a oxygen requirement. Source is pneumonia in the right lower lobe. Would have concern for aspiration. She was quite hypertensive on presentation but dropped without any intervention down to 156/65 which would also be concerning for sepsis -1.5 L normal saline bolus. 30 mL/kg sepsis bolus -Broad-spectrum antibiotics were administered. -Sepsis quality measures. -Lactic acid with a reflex was ordered. -Blood cultures were ordered. ?I reevaluated the patient's volume status after sepsis fluids were given. -I discussed the patient with the hospitalist on-call who is admitting the patient. - Discussed findings and plan with patient. Answered any questions. - All laboratory values were reviewed and interpreted personally by myself, the ER physician - All imaging was reviewed and interpreted personally by myself, the ER physician. - Evaluation and treatment of this problem were appropriate in the emergency setting Critical Care: -I spent a total of >35 minutes of critical care time managing the patient, independent of any other practitioner. -The time involved in the performance of separately reportable procedures was not counted towards critical care time. Lab Data 07/24/25 11:59 07/24/25 11:[address] 07/24/25 11:34 IMPRESSION: 1. No evidence of intracranial hemorrhage or mass effect. 2. Chronic RIGHT frontal parietal infarct with encephalomalacia unchanged 3. Vascular calcification. 4. No acute intracranial findings. Notified Dr. Herring at 07/24/2025 11:48 AM. Chest X-Ray 07/24/25 11:38 IMPRESSION: 1. New RIGHT basal infiltrate suspicious for pneumonia. Laboratory Results WBC 6.20 10^3/uL (3.29-11.43) 07/24/25 11:59 RBC 4.16 10^6/uL (3.85-5.65) 07/24/25 11:59 Hgb 11.90 g/dL (11.27-16.99) 07/24/25 11:59 Hct 37.0 % (36-47) 07/24/25 11:59 MCV 88.9 fl (85-98) 07/24/25 11:59 MCH 28.6 pg (27-33) 07/24/25 11:59 MCHC 32.2 g/dL (30-55) 07/24/25 11:59 RDW 16.4 % (12.1-15.1) H 07/24/25 11:59 Plt Count 235 10^3/cmm (157-399) 07/24/25 11:59 MPV 11.3 fL (7.4-10.4) H 07/24/25 11:59 Neut % (Auto) 62.6 % 07/24/25 11:59 Lymph % (Auto) 24.7 % 07/24/25 11:59 Phelps % (Auto) 8.1 % 07/24/25 11:59 Eos % (Auto) 3.5 % 07/24/25 11:59 Baso % (Auto) 0.8 % 07/24/25 11:59 Neut # (Auto) 3.88 10^3/uL (1.8-7.7) 07/24/25 11:59 Lymph # (Auto) 1.5 10^3/uL (0.8-4.8) 07/24/25 11:59 Phelps # (Auto) 0.5 10^3/uL (0.2-0.9) 07/24/25 11:59 Eos # (Auto) 0.2 10^3/uL (0.0-0.8) 07/24/25 11:59 Baso # (Auto) 0.1 10^3/uL (0.0-0.1) 07/24/25 11:59 Nucleated RBC % (auto) 0 % 07/24/25 11:59 Nucleated RBCs # 0.0 /100WBC 07/24/25 11:59 PT 17.20 SECONDS (12.1-14.9) H 07/24/25 11:59 INR 1.32 (0.8-1.2) H 07/24/25 11:59 APTT 25.3 SECONDS (23.9-36.7) 07/24/25 11:59 Sodium 142 mmol/L (136-145) 07/24/25 11:59 Potassium 2.6 mmol/L (3.5-5.1) L* 07/24/25 11:59 Chloride 102 mmol/L (98-107) 07/24/25 11:59 Carbon Dioxide 24 mmol/L (22-29) 07/24/25 11:59 Anion Gap 18.6 (5-19) 07/24/25 11:59 BUN 8 mg/dL (8-23) 07/24/25 11:59 Creatinine 0.8 mg/dL (0.5-0.9) 07/24/25 11:59 GFR Calculation Not Reportable 07/24/25 11:59 Glucose 117 mg/dL (65-115) H 07/24/25 11:59 POC Glucose 82 mg/dL (70-110) 07/24/25 11:51 Calculated Osmolality 293 mOsm/kg (285-295) 07/24/25 11:59 Lactic Acid 5.6 mmol/L (0.5-2.2) H* 07/24/25 11:59 Calcium 8.9 mg/dL (8.5-10.5) 07/24/25 11:59 Total Bilirubin 0.5 mg/dL (0.15-1.2) 07/24/25 11:59 AST 22 U/L (0-32) 07/24/25 11:59 ALT 18 U/L (0-33) 07/24/25 11:59 Alkaline Phosphatase 101 U/L (35-105) 07/24/25 11:59 Total Protein 6.3 g/dL (6.6-8.7) L 07/24/25 11:59 Albumin 3.8 g/dL (3.5-5.2) 07/24/25 11:59 Globulin 2.5 g/dL (1.3-4.6) 07/24/25 11:59 Urine Color Yellow (Yellow) 07/24/25 12:40 Urine Appearance Clear (CLEAR) 07/24/25 12:40 Urine pH 5.5 (5-7) 07/24/25 12:40 Ur Specific [place] 1.015 (1.005-1.030) 07/24/25 12:40 Urine Protein 1+ (Negative) A 07/24/25 12:40 Urine Glucose (UA) Negative (Normal) 07/24/25 12:40 Urine Ketones Negative (Negative) 07/24/25 12:40 Urine Blood Negative (Negative) 07/24/25 12:40 Urine Nitrate Negative (Negative) 07/24/25 12:40 Urine Bilirubin Negative (Negative) 07/24/25 12:40 Urine Urobilinogen 1.0 mg/dL (Negative) 07/24/25 12:40 Ur Leukocyte Esterase Negative (Negative) 07/24/25 12:40 Amorphous Sediment Not Reportable 07/24/25 12:40 Urine Opiates Screen Negative ng/mL (Negative) 07/24/25 12:40 Ur Barbiturates Screen Negative ng/mL (Negative) 07/24/25 12:40 Ur Phencyclidine Scrn Negative ng/mL (Negative) 07/24/25 12:40 Ur Amphetamines Screen Negative ng/mL (Negative) 07/24/25 12:40 U Benzodiazepines Scrn Negative ng/mL (Negative) 07/24/25 12:40 Urine Cocaine Screen Negative ng/mL (Negative) 07/24/25 12:40 U Marijuana (THC) Screen Negative ng/mL (Negative) 07/24/25 12:40 All radiology interpretation(s) finalized by discharge Discharge Plan Discharge Patient Disposition: Admitted As Inpatient Clinical Impression: Healthcare associated bacterial pneumonia, Acute metabolic encephalopathy, Generalized weakness, Hypokalemia, Hypoxemia Condition: Stable Coding Level of Care Code ED Stump Shooter for Jeevan Mcintosh
--- OUTSIDE RECORDS SUMMARY | 2025-07-24 11:43 | XMS_ITS ---
Author Organization [facility] Address [address] [place] [address] Phone Care Team Providers Care Winder Contort Operator Name Role Phone Unavailable Primary Care [...]
--- OUTSIDE RECORDS SUMMARY | 2025-07-24 11:43 | XMS_ITS | Clinical Summary ---
Author Organization [facility] Address [address] [place] [address] Phone Care Team Providers Care Shot Peen Operator Name Role Phone Unavailable Primary Care [...] STL ABSTRACTION Provider, Abstract 06/06/2025 Orders Only [facility] [address] [address] Paul Ramsey MD Adenocarcinoma of gallbladder (CMS/HCC) (Primary Dx) 05/13/2025 External Device Data STL ABSTRACTION Provider, Abstract 04/24/2025 1:00 PM CDT Office Visit [facility] [address] [facility] [place] [address] Paul Ramsey MD Adenocarcinoma of gallbladder (CMS/HCC) (Primary Dx); Intra-abdominal fluid collection 04/24/2025 12:08 PM CDT - 04/24/2025 11:59 PM CDT Hospital Encounter [facility] [address] [facility] [address] [place] [address] Discharge Disposition: Home or Self Care 04/24/2025 Telephone [facility] [place] [address] [facility] [place] [address] Paul Ramsey MD orders from Last 3 Months Social History Tobacco Use Types Packs/Day Years Used Date Smoking Tobacco: Never Tobacco Cessation:Counseling Given: Not Answered Alcohol Use Standard Drinks/Week Comments Not Currently 0 (1 standard drink = 0.6 oz pur e alcohol) Feeling Safe Answer Date Recorded Are you in a relationship wi th someone who hurts you emotionally and/or physically? 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 Gender Identity Not on file Sexual Orientation [...] 2025 09/21/2023 Medical Devices Implanted Type Area Lifter Driver Device Identifier Shelf Expiration Date Model / Serial / Lot Clip Ligating Horizon Lrg Ti 10.07x12.38mm [id number] - Csc - [id number] Implanted:Qty: 1 on 01/28/2025 by Curly De Oliveira Jr., MD at [facility] Clip N/A: Abdomen TELEFLEX- WECK CLOSURE SYS [id number] 04/02/2029 [id number] / / [id number] Coin Machine Assembler Ligamax Endo Multi Clip 5mm El5ml - [id number] Implanted:Qty: 1 on 01/28/2025 by Curly De Oliveira Jr., MD at [facility] Clip N/A: Abdomen J[employer]J- [employer] [id number] 08/26/2029 EL5ML / / [id number] Clip Ligating Horizon Lrg Ti 10.07x12.38mm [id number] - [facility] - [id number] Implanted:Qty: 1 on 01/28/2025 by Curly De Oliveira Jr., MD at [facility] Clip N/A: Abdomen TELEFLEX- WECK CLOSURE SYS [id number] 04/29/2029 [id number] / / [id number] Clip Ligating Horizon Med Ti 813697 - Csc - [id number] Implanted:Qty: 1 on 01/28/2025 by Curly De Oliveira Jr., MD at [facility] Clip N/A: Abdomen TELEFLEX- WECK CLOSURE SYS [id number] 09/12/2029 [id number] / / [id number] Clip Ligating Horizon Med Ti 990783 - Csc - [id number] Implanted:Qty: 1 on 01/28/2025 by Curly De Oliveira Jr., MD at [facility] Clip N/A: Abdomen TELEFLEX- WECK CLOSURE SYS [id number] 09/12/2029 [id number] / / [id number] Clip Ligating Horizon Sm [id number] - [id number] Implanted:Qty: 1 on 01/28/2025 by Curly De Oliveira Jr., MD at [facility] Clip N/A: Abdomen TELEFLEX INC [id number] 09/15/2029K24004 85 Clip Ligating Horizon Med Ti 627906 - Csc - [id number] Implanted:Qty: 1 on 01/28/2025 by Curly De Oliveira Jr., MD at [facility] Clip N/A: Abdomen TELEFLEX- WECK CLOSURE SYS [id number] 09/12/2029 / [id number] Clip Ligating Horizon Med Ti [id number] - Csc - [id number] Implanted:Qty: 1 on 01/28/2025 by Curly De Oliveira Jr., MD at [facility] Clip N/A: Abdomen TELEFLEX- WECK CLOSURE SYS [id number] 09/12/2029K24004 89 Hemostatic Surgiflo 8ml W/ Thrombin 2994 - [id number] Implanted:Qty: 1 on 01/28/2025 by Curly De Oliveira Jr., MD at [facility] Hemostatic N/A: Abdomen J&J- [employer] [id number] 04/26/2026 2994 / / [id number] Hemostatic Surgicel 6x9in 1945 - [id number] Implanted:Qty: 1 on 01/28/2025 by Curly De Oliveira Jr., MD at [facility] Hemostatic N/A: Abdomen J&J- [employer] [id number] 09/26/2029 1947 / / [id number] Stent Bili Advanix Rx 10fr 7cm [id number] - [id number] Implanted:Qty: 1 on 01/23/2025 by Sydney Deal DO at [facility] Stent N/A: Bile Duct [employer] [id number] 08/09/2026 [id number] / / [id number] Stent Bili Advanix Rx 10fr 7cm [id number] - [id number] Implanted:Qty: 1 on 02/10/2025 by Sydney Deal DO at [facility] Stent N/A: Bile Duct [employer] [id number] 08/23/2026 [id number] / / [id number] Procedures Procedure Name Priority Date/Time Associated Diagnosis Comments COMPREHENSIVE METABOLIC PANEL Stat 04/24/2025 12:14 PM CDT Adenocarcinoma of gallbladder (CMS/HCC) CBC WITH DIFFERENTIAL Stat 04/24/2025 12:14 PM CDT Adenocarcinoma of gallbladder (CMS/HCC) from Last 3 Months Results * (ABNORMAL) CBC WITH DIFFERENTIAL (04/24/2025 12:14 PM CDT) WBC 5.3 4.8 - 10.8 K/uL 04/24/2025 12:24 PM CDT [facility] [place] RBC 4.74 4.20 - 5.40 M/uL 04/24/2025 12:24 PM CDT [facility] [place] HEMOGLOBIN 11.9(L) 12.0 - 16.0 g/dL 04/24/2025 12:24 PM T [facility] [place] HEMATOCRIT 39.2 36.0 - 46.0 % 04/24/2025 12:24 PM CDT [facility] [place] MCV 82.7 82.0 - 100.0 fL 04/24/2025 12:24 PM CDT [facility] [place] MCH 25.1(L) 27.0 - 34.0 pg 04/24/2025 12:24 PM CDT [facility] [place] MCHC 30.4(L) 31.0 - 37.0 g/dL 04/24/2025 12:24 PM T [facility] [place] RDW 20.2(H) 11.0 - 14.5 % 04/24/2025 12:24 PM CDT [facility] [place] RDW-STDEV 60.8(H) 37.0 - 54.0 fL 04/24/2025 12:24 PM CDT [facility] [place] PLATELETS 242 140 - 440 K/uL 04/24/2025 12:24 PM CDT [facility] [place] MPV 11.9 8.9 - 12.8 fL 04/24/2025 12:24 PM CDT [facility] [place] NEUTROPHILS 58 42 - 75 % 04/24/2025 12:24 PM CDT [facility] [place] LYMPHOCYTES 27 24 - 44 % 04/24/2025 12:24 PM CDT [facility] [place] MONOCYTES 10 2 - 10 % 04/24/2025 12:24 PM CDT [facility] [place] EOSINOPHILS 4 0 - 7 % 04/24/2025 12:24 PM CDT [facility] [place] BASOPHILS 1 0 - 1 % 04/24/2025 12:24 PM CDT [facility] [place] IMMATURE GRANULOCYTES 0 0 - 2 % 04/24/2025 12:24 PM T [facility] [place] NEUTROPHIL ABSOLUTE 3.10 1.40 - 6.50 K/uL 04/24/2025 12:24 PM CDT [facility] [place] LYMPHOCYTE ABSOLUTE 1.43 1.20 - 4.00 K/uL 04/24/2025 12:24 PM CDT [facility] [place] MONOCYTE ABSOLUTE 0.51 0.10 - 0.60 K/uL 04/24/2025 12:24 PM CDT [facility] [place] EOSINOPHIL ABSOLUTE 0.20 0.00 - 0.70 K/uL 04/24/2025 12:24 PM CDT [facility] [place] BASOPHILS ABSOLUTE 0.04 0.00 - 0.20 K/uL 04/24/2025 12:24 PM CDT [facility] [place] IMMATURE GRANULOCYTES ABSOLUTE 0.02 0.00 - 0.10 K/uL 04/24/2025 12:24 PM CDT [facility] [place] Blood Venipuncture / Unknown 04/24/2025 12:14 PM CDT 04/24/2025 12:17 PM CDT Paul Ramsey MD HEMATOLOGY ORDERABLES Final R esult [facility] [place] CLIA# [id number] [facility] [address] [place] [address] * (ABNORMAL) COMPREHENSIVE METABOLIC PANEL (04/24/2025 12:14 PM CDT) SODIUM 138 136 - 145 mmol/L 04/24/2025 12:43 PM T [facility] [place] POTASSIUM 3.4(L) 3.5 - 5.1 mmol/L 04/24/2025 12:43 PM T [facility] [place] CHLORIDE 103 98 - 107 mmol/L 04/24/2025 12:43 PM T [facility] [place] CO2 24 22 - 29 mmol/L 04/24/2025 12:43 PM T [facility] [place] CALCIUM 9.1 8.8 - 10.2 mg/dL 04/24/2025 12:43 PM T [facility] [place] BUN 13 8 - 23 mg/dL 04/24/2025 12:43 PM [facility] [place] CREATININE 0.76 0.51 - 0.95 mg/dL 04/24/2025 12:43 PM [facility] [place] Comment:The GFR result is no t clinically significant on patients <18 or >70 years of age. GLUCOSE 129(H) 74 - 99 mg/dL 04/24/2025 12:43 PM [facility] [place] TOTAL PROTEIN 6.7 6.4 - 8.3 g/dL 04/24/2025 12:43 PM [facility] [place] ALBUMIN 3.4(L) 3.5 - 5.2 g/dL 04/24/2025 12:43 PM [facility] [place] BILIRUBIN TOTAL 0.4 0.0 - 1.0 mg/dL 04/24/2025 12:43 PM [facility] [place] ALKALINE PHOSPHATASE 106(H) 35 - 104 U/L 04/24/2025 12:43 PM [facility] [place] AST 35(H) <=33 U/L 04/24/2025 12:43 PM [facility] [place] ALT 21 <=33 U/L 04/24/2025 12:43 PM CDT [facility] GFR >60 mL/min/1.7 3 sq meter 04/24/2025 12:43 PM CDT [facility] Comment:eGFR calculated with 2020 CKD-EPI equation. Vegetarian diet, extremely high or low muscle mass, and may affect results. Cystatin C with Glomerular Filtration Rate is a suitable alternative for these patients. ANION GAP 11 9 - 20 mmol/L 04/24/2025 12:43 PM CDT [facility] Blood Venipuncture / Unknown 04/24/2025 12:14 PM CDT 04/24/2025 12:17 PM CDT Paul Ramsey MD CHEMISTRY ORDERABLES Final Re sult [facility] CLIA# [id number] [address] [place] [address] from Last 3 Months Insurance [facility] Advance Directives For more information, please contact: [phone] * Full Code (Latest Code Status on [...]
--- OUTSIDE RECORDS SUMMARY | 2025-07-24 11:43 | XMS_ITS ---
Author Organization Unknown Medications Date Medication Dosage DosageUnit StartDate StopDate StopReason Active DoseQuantity DoseUnit Dispense DispenseUnit Refills NdcCode DrugCode PharmacyId IsPrescription MappedMedication Srcstatus Custom 04/16 11:54 :41 Jevity 1.5 Oscar 0.06 gram-1.5 kcal/mL oral liquid 04/16/2025 00:00:00 5 00:00:00 Removed 0 9000 ml 3 [id number] 320 False Inactive 04/16 00:00 :00 Jevity 1.5 Oscar 0.06 gram-1.5 kcal/mL oral liquid 04/16/2025 00:00:00 5 00:00:00 Other 0 [id number] 34 False Inactive
--- NOTE | 2025-07-24 11:49 | PC.NURSE ---
Called [facility] for medication list verification they state she is not on any blood thinners only 81 mg aspirin .
[2025-07-24 12:07] LABS: Hematocrit 37.0 % (36-47); Hemoglobin 11.90 g/dL (11.27-16.99); Mean Corpuscular HGB Conc 32.2 g/dL (30-55); Mean Corpuscular Hemoglobin 28.6 pg (27-33); Mean Corpuscular Volume 88.9 fl (85-98); Nucleated Red Blood Cells % 0 %; Platelet Count 235 10^3/cmm (157-399); Red Blood Count 4.16 10^6/uL (3.85-5.65); White Blood Count 6.20 10^3/uL (3.29-11.43)
--- NOTE | 2025-07-24 12:11 | PM.SAN ---
Stroke Alert Activation ED Arrival Date: 07/24/25 ED Arrival Time: 11:24 ED Physican at Bedside: 11:34 Last Known Normal/at Baseline: 2-3 hours ago Other Last Known Well Infomation: She was sent from the longterm for worsening left-sided weakness. She is not on a blood thinner. She was hospitalized here starting 07/07/2025 for a right middle cerebral artery stroke treated with TNK on 07/[address] Herring. She was discharged on 07/[address] Bray documented pretty much flaccid left hemiparesis. She was readmitted 07/16 through 07/19/2022 with nausea and vomiting and then returned to the longterm. She has lost a lot of weight. She had a severe stroke in October with flaccid left hemiparesis at that time, out of the window for treatment. She had to have a PEG tube. She was managed by Dr. Montelongo and had a long stay. She had a feeding tube put in that was later taken out. Stroke Alert Activation Time: 11:24 Stroke MD @ Bedside Time: 11:50 NIH stroke score NIHSS: Level Of Consciousness - 1a: 0 Level Of Consciousness Questions - 1b: One Correct Level Of Consciousness Commands - 1c: Both Correct Best Gaze - 2: Normal Visual Byers - 3: Complete Hemianopia (Left homonymous) Facial Palsy - 4: Partial Paralysis Motor Arm Right - 5: Drift Motor Arm Left - 5: Effort Against Saunemin Motor Leg Right - 6: Drift Motor Leg Left - 6: Effort Against Saunemin (Pain with passive range of motion) Limb Ataxia - 7: Absent Sensory - 8: Normal Best Language - 9: No Aphasia Dysarthia - 10: Mild/Moderate Dysarthia Extinction And Inattention - 11: 0 Score: Total Score: 12 Stroke Alert Data/Treatment Time to CT of Head: 11:33 CT Impression: She has atrophy in the right middle cerebral artery distribution from large stroke. Old right posterior cerebral artery stroke Of course the hospitalists did previous MRI 05/12/2025 with no additional information gained from that study. There was right middle cerebral artery stroke in evolution. No sign of stroke in the posterior cerebral artery territory at that time so presumably her visual field cut is from the previous right middle cerebral artery stroke Stroke Risk Factors: hypertension tPA Contraindication: tPA Contraindication: Treatment not indcated tPA Admin Prior to Arrival: No Other Patient & Family Education: This patient is not a candidate for further thrombolytic therapy. She just received thrombolytic therapy recently. She is severely cachectic and appears profoundly morbidly ill. 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 She has chronic findings on the left and is generally debilitated. Other Information: I think it would be reasonable for her to return to the longterm rather than being admitted as there is nothing further we can do for her. Critical Care Time Critical Care Time: 30 - 74 mins A&P PDMP PDMP Reviewed: Not Reviewed Coding Level of Care Code Acute Code for Chg Fwd
[2025-07-24 12:19] LABS: INR 1.32 (0.8-1.2); Prothrombin Time 17.20 SECONDS (12.1-14.9)
[2025-07-24 12:20] LABS: Partial Thromboplastin Time 25.3 SECONDS (23.9-36.7)
[2025-07-24 12:24] LABS: Alanine Aminotransferase 18 U/L (0-33); Albumin Level 3.8 g/dL (3.5-5.2); Alkaline Phosphatase 101 U/L (35-105); Anion Gap 18.6 (5-19); Aspartate Amino Transferase 22 U/L (0-32); Blood Urea Nitrogen 8 mg/dL (8-23); Calcium 8.9 mg/dL (8.5-10.5); Carbon Dioxide 24 mmol/L (22-29); Chloride 102 mmol/L (98-107); Creatinine Clr Calc Pharmacy 44.6030; Globulin 2.5 g/dL (1.3-4.6); Glucose 117 mg/dL (65-115); Osmolality Calculated 293 mOsm/kg (285-295); Sodium 142 mmol/L (136-145); Total Protein 6.3 g/dL (6.6-8.7)
[2025-07-24 12:28] LABS: Lactic Sepsis W/Reflex 5.6 mmol/L (0.5-2.2); Potassium 2.6 mmol/L (3.5-5.1)
[2025-07-24 12:57] LABS: Glucose Urine UA Negative (Normal); Nitrate Urine Negative (Negative); Specific Gravity, Urine 1.015 (1.005-1.030)
[2025-07-24 12:59] LABS: Add Urine Microscopic? YES
[2025-07-24 13:03] LABS: PCP Screen Urine Negative (Negative)
--- NOTE | 2025-07-24 13:24 | PC.PHAR ---
pt is from [facility]
[2025-07-24 13:32] LABS: UA Slide Review UA Slide Review Perf
[2025-07-24 13:46] LABS: ABG PCO2 44.8 mmHg (35-45); ABG PH Result 7.41 (7.35-7.45); Alveolar-Arterial Oxygen Gradi 14.1 mmHg (5-10); Arterial Blood Gas Hematocrit 36.8 % (37-47); Blood Gas Allen Test Pos; Blood Gas LPM 4.0 %; Blood Gas Operator Identificat glc; Blood Gas Sample Site Radial, right; Blood Gas Sample Type Arterial; Carboxyhemoglobin 0.9 %THgb (0.4-20.1); Glucose Level-ABG 99.0 mg/dL (70-115); HCO3 ABG 28.6 mmol/L (22-26); Ionized Calcium Level - ABG 1.1 mmol/L (1.1-1.4); Methemoglobin 0.3 % (0.4-1.5); Oxygen Saturation ABG 97.3; PO2 ABG 93.7 mmHg (80.0-100.0); PO2 FiO2 Ratio Arterial Blood 260; Potassium Level - ABG 2.5 mmol/L (3.5-5.0); Sodium Level - ABG 143.0 mmol/L (131-143)
[2025-07-24 13:52] LABS: Reflex Lactate Order REFLEX LACTIC ORDERD
[2025-07-24 15:16] LABS: Lactic Acid level (Lactate) 1.8 mmol/L (0.5-2.2)
--- NOTE | 2025-07-24 15:51 | P.HP_ITS ---
Providers/Chief Complaint 2 Primary Care Provider: Cat Martínez DO Chief Complaint: stroke alert History of Present Illness History as per the previous notes and the patient: the patient is tired and weak, however was able to interact and mentioned about her left sided weakness that was bothering her. 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 It is difficult to say on presentation if this is worse than her baseline since she reported that she is having weakness but the affected side is more or less is the same as unaffected side. She has been alert in conversation but is able to tell her name and report weakness and tired. however not able to give much history since her voice was not audible. she was able to answer qs at times with nodding. she knows that she is not hospital and is not feeling well. as per the notes, She had been found slumped over in the bathroom at the group home and had abrasion on her right arm. she did not report any chest pain, dizziness, sob, presyncope or syncope, any nausea or vomiting but has been nodding yes to generalised weakness feeling. Review of Systems 2 General: Reports: 10 or more systems reviewed and unremarkable except in HPI and below Medications/Allergies Home Medications ?Medication ?Instructions ?Recorded ?Confirmed ?Last Taken ?Type atorvastatin 40 mg tablet 40 mg PO DAILY 01/22/25 08/07/2107/24/25 History aspirin 81 mg tablet,delayed 81 mg PO DAILY 05/12/25 0 07/24/25 07/24/25 History release ferrous sulfate 325 mg (65 mg 325 mg PO DAILY 05/12/25 07/24/25 07/22/25 History iron) tablet mirtazapine 30 mg tablet 30 mg PO BEDTIME 05/12/2507/23/25 History acetaminophen 325 mg tablet 650 mg PO Q6H PRN pain/inc reased 07/16/25 07/24/25 07/24/25 History temp bisacodyl 10 mg rectal suppository 10 mg MO DAILY PRN Constipation 07/16/25 07/24/25 Unknown History (Dulcolax (bisacodyl)) food supplemt, lactose-reduced 1 ea PO DAILY #1,656 mL 07/18/25 07/24/25 Unknown Rx (Ensure Active High Protein oral liquid) metoprolol tartrate 25 mg tablet 12.5 mg (1/2 x 25 mg) PO BID #30 07/18/25 07/24/25 07/24/25 Rx tabs sucralfate 1 gram tablet 1 g PO AC&BEDTIME 4 weeks #6 0 tabs 07/18/25 07/24/25 07/24/25 Rx omeprazole 20 mg capsule,delayed 20 mg PO BID [id number] 07/24/25 07/24/25 07/24/25 History release Allergies Allergy/AdvReac Type Severity Reaction Status Date / Time No Known Allergies Allergy Verified 07/03/25 14:04 PFSH Acute 2 PFSH: Medical History (Updated 07/24/25 @ 22:54 by Cyndi Campbell MD) 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 stroke History of thrombolytic therapy Presence of externally removable percutaneous endoscopic gastrostomy (PEG) tube BPPV (benign paroxysmal positional vertigo) CVA (cerebral vascular accident) Surgical History History of ankle surgery left History of right knee joint replacement Family History Mother Leukemia Social History Smoking and tobacco/nicotine status: never used tobacco/nicotine Alcohol intake: never Substance/Drug Use: never Vitals/I&O/Wt Last Vital Signs Temp 98.1 F 07/24/25 12:10 Pulse 68 07/24/25 12:45 Resp 18 07/24/25 12:45 BP 156/65 07/24/25 12:45 Pulse Ox 95 07/24/25 12:45 O2 Del Method Nasal Cannula 07/24/25 12:45 O2 Flow Rate 4 07/24/25 12:45 Weight last 48 hrs Weight 54.431 kg Physical Exam 2 Narrative: General: Alert oriented to place and person, with feeling of being generally tired but able to protect her airways, looks dry, weak and frail with features of physical deconditioning and cachexia. HEENT: Normocephalic, atraumatic, EOMI, breathing comfortably Cardio: Regular rate rhythm, normal S1-S2, no murmurs rubs gallops, JVD normal Respiratory: Good bilateral air entry, no wheezes no rhonchi appreciated GI: Abdomen soft, nontender, nondistended, normoactive bowel sounds present all 4 quadrants, Neuro: grossly no facial assymetry, no nystagmus no focal neurological signs, cant assess gait since the pt is unable to stand, reflexes equivocal, cerebellar tests unable to perform due to generalised weakness, she is alert. Behavior: Appropriate and cooperative, Extremities: Pulses 2+, mild trace pedal edema Skin: left arm bruising, no skin rashes noticed grossly Data 07/24/25 11:59 07/24/25 11:59 Micro: Microbiology 07/24/25 11:50 Blood Culture - Preliminary Blood SPECIMEN COLLECTED 07/24/25 11:50 Blood Culture - Preliminary Blood SPECIMEN COLLECTED A&P Assessment and plan 1. Hypoxemia: 2. Generalized weakness: 3. Acute metabolic encephalopathy: 4. Cachexia: 5. Accelerated hypertension: 6. History of stroke: 7. Sepsis: 8. Protein calorie malnutrition: Plan: sepsis criteria met : increased lactate, decrease capillary refill, increase RR, Patient presented with likely metabolic encephalopathy and further workup to be done - CT head was unremarkable - 2 sets of blood cultures, urine cultures, chest x-ray sent discussion Lactate series Maintain 2 IV bore cannulas Broad-spectrum antibiotics coverage likely considering pneumonia, ceftriaxone and azithromycin IV bolus given in the ER, follow lactate H/O fall: left shoulder XR did not show any dislocation or fracture OT/PT evaluation Left-sided weakness: CT head negative, continue with aspirin and atorvastatin Neurology on board and advised no further intervention, since the patient wont benefit further considering her multiple comorbid illnesses and age fraility with poor prognosis OT PT and speech evaluation Pneumonia: Chest x-ray showed right basilar infiltrates Continue on ceftriaxone and azithromycin Respiratory viral panel Urine and blood cultures to follow Altered mentation/possible toxic versus metabolic encephalopathy: TSH repeat Monitor and correct electrolytes specially magnesium and phosphorus Vitamin B12 and B1 Neurochecks Q4 physical deconditioning/ severe malnourishment: dietitian consult DVT: Heparin twice daily Diet: Resume cardiac diet after speech/swallow evaluation PDMP PDMP Reviewed: Not Reviewed Attestations 2 Medical Necessity Statement*: Patient will stay more than 2 midnights in the hospital for further management of left-sided weakness and pneumonia to be treated with OT PT eval patient neurology on board and for management of pneumonia with antibiotics Time Spent in Patient Care: 16 - 35 minutes (>than 50% of time sp ent in counselling and/or direct pt care on unit) . Coding Level of Care Code 48419 Diagnoses Hypoxemia R09.02 Generalized weakness R53.1 Acute metabolic encephalopathy G93.41 Cachexia R64 Accelerated hypertension I10 History of stroke Z86.73 Sepsis A41.9 Protein calorie malnutrition E46
[2025-07-24] MEDS: linezolid premix 600 MG/300 ML PREMIX 300 MG IV (15:52)
[2025-07-24 16:23] LABS: Magnesium 1.5 mg/dL (1.7-2.3); Thyroid Stimulating Hormone 4.20 uIU/mL (0.27-4.20)
--- NOTE | 2025-07-24 16:46 | PC.NURSE ---
ANTIBIOTICS DELAYED DUE TO IV ISSUES. IV PLACED BY EMS NO LONGER APPROPRIATELY FLUSHING AND MULTIPLE FAILED ATTEMPTS AT IV START.
[2025-07-24] MEDS: cefTRIAXone 1,000 mg SDV 1000 MG IVP (17:54)
[2025-07-24] MEDS: potassium chloride premix 100 ML 25 MEQ IV (17:56)
[2025-07-24] MEDS: heparin 5,000 unit/mL INJ 1 mL 5000 UNIT SUBCUT (17:57)
[2025-07-24] MEDS: magnesium sulfate premix 2 GM/50 ML PIGGYBACK IV (17:58)
--- NOTE | 2025-07-24 18:28 | PC.NURSE ---
Arrived from ED at this time. AO to self year and month and living in [facility] long-term.
--- NOTE | 2025-07-24 20:28 | XRR_ITS ---
PROCEDURE INFORMATION: Exam: XR Left Shoulder Exam date and time: 07/24/2025 9:16 PM Age: 85 years old Clinical indication: Pain; Shoulder; Left; Additional info: Pain/possible fall TECHNIQUE: Imaging protocol: Radiologic exam of the left shoulder. Views: 2 or more views. COMPARISON: CR XR chest 1V portable [id number] 07/24/2025 11:58 AM FINDINGS: Bones/joints: No acute fracture or dislocation of the left shoulder. Amorphous calcific density in the region of the supraspinatus, compatible with calcific tendinitis. Acute/subacute mildly displaced nonsegmental fractures of left posterolateral ribs 5 through 9, better seen on CT chest from 07/16/2025. Soft tissues: Unremarkable. XR/XR shoulder LT min 2V* [id number] IMPRESSION: 1. No acute fracture or dislocation of the left shoulder. 2. Amorphous calcific density in the region of the left supraspinatus, compatible with calcific tendinitis. 3. Acute/subacute mildly displaced nonsegmental fractures of left posterolateral ribs 5 through 9, better seen on CT chest from 07/16/2025.
[2025-07-25] VITALS (60 sets, daily range): BP systolic 151–190; BP diastolic 63–144; PULSE 63–91; RESP 13–34; TEMP 36.1–36.3; O2SAT 91–97
[2025-07-25] MEDS: hyDRALAzine 20 mg/mL INJ 1 mL 10 MG IVP (00:04)
--- NOTE | 2025-07-25 01:46 | PC.NURSE ---
Start of shift patient failed nursing bedside dysphagia screening, Dr. Holder contacted and telephone orders for NPO received at this time Patient also noted to have a blood pressure of 201/104 Dr. Holder contacted and received telephone orders for 10mg Hydralazine IVP Q6H PRN at this time
[2025-07-25 04:15] LABS: Hematocrit 37.0 % (36-47); Hemoglobin 12.40 g/dL (11.27-16.99); Mean Corpuscular HGB Conc 33.5 g/dL (30-55); Mean Corpuscular Hemoglobin 29.1 pg (27-33); Mean Corpuscular Volume 86.9 fl (85-98); Nucleated Red Blood Cells % 0 %; Platelet Count 220 10^3/cmm (157-399); Red Blood Count 4.26 10^6/uL (3.85-5.65); White Blood Count 5.71 10^3/uL (3.29-11.43)
[2025-07-25] MEDS: heparin 5,000 unit/mL INJ 1 mL 5000 UNIT SUBCUT (04:36)
[2025-07-25 04:44] LABS: Estmated Average Glucose 117; Hemoglobin A1C 5.7 % (4.0-6.0)
[2025-07-25 04:47] LABS: Lactic Sepsis W/Reflex 0.9 mmol/L (0.5-2.2)
[2025-07-25 04:53] LABS: Alanine Aminotransferase 16 U/L (0-33); Albumin Level 3.6 g/dL (3.5-5.2); Alkaline Phosphatase 97 U/L (35-105); Anion Gap 17.7 (5-19); Aspartate Amino Transferase 20 U/L (0-32); Blood Urea Nitrogen 6 mg/dL (8-23); Calcium 8.5 mg/dL (8.5-10.5); Carbon Dioxide 22 mmol/L (22-29); Chloride 108 mmol/L (98-107); Creatinine Clr Calc Pharmacy 46.0594; Globulin 2.6 g/dL (1.3-4.6); Glucose 74 mg/dL (65-115); Osmolality Calculated 296 mOsm/kg (285-295); Sodium 145 mmol/L (136-145); Total Protein 6.2 g/dL (6.6-8.7)
[2025-07-25 04:55] LABS: Respiratory Syncytial Virus Ce NEGATIVE (Negative); SARS-CoV-2 PCR NEGATIVE (Negative)
[2025-07-25 04:57] LABS: Potassium 2.7 mmol/L (3.5-5.1)
[2025-07-25 05:02] LABS: Cholesterol 102 mg/dL (0-200); HDL Cholesterol 34 mg/dL (60-100); Triglycerides 118 mg/dL (0-150)
--- NOTE | 2025-07-25 05:17 | PC.NURSE ---
Hypokalemia Patient has a potassium level of 2.7 this morning; Dr. Holder contacted and received telephone orders at this time to infuse 60 meq of potassium through IV
[2025-07-25] MEDS: lidocaine 1% 5 ML in potassium chloride premix 100 ML 52.5 ML IV (05:30)
[2025-07-25 06:20] LABS: Coronavirus 229E,HKU1,NL63,OC4 Not Detected (NOT DETECT); Parainfluenza Virus Type 1 Not Detected (NOT DETECT); Parainfluenza Virus Type 2 Not Detected (NOT DETECT); Parainfluenza Virus Type 3 Not Detected (NOT DETECT); Parainfluenza Virus Type 4 Not Detected (NOT DETECT); SARS-COV-2 Not Detected (NOT DETECT)
[2025-07-25] MEDS: lidocaine 1% 5 ML in potassium chloride premix 100 ML 26.25 ML IV (09:07)
[2025-07-25] MEDS: ferrous sulfate EC 325 mg Tablet PO (09:26)
[2025-07-25] MEDS: potassium chloride premix 100 ML 25 MEQ IV (10:16)
[2025-07-25] MEDS: ondansetron 2 mg/ML SDV 2 mL 4 MG IVP (11:28)
[2025-07-25 14:57] LABS: Blood Urea Nitrogen 7 mg/dL (8-23); Calcium 8.5 mg/dL (8.5-10.5); Carbon Dioxide 19 mmol/L (22-29); Chloride 109 mmol/L (98-107); Creatinine Clr Calc Pharmacy 45.2625; Glucose 81 mg/dL (65-115); Osmolality Calculated 291 mOsm/kg (285-295); Sodium 142 mmol/L (136-145)
[2025-07-25 14:58] LABS: Anion Gap 18.2 (5-19); Potassium 4.2 mmol/L (3.5-5.1)
--- NOTE | 2025-07-25 15:02 | PM.DCS ---
Discharge Providers Date of Admission: 07/24/25 17:13 Date of Discharge: July 25, 2025 Attending Provider at Admission: Cyndi Campbell MD Attending Provider at Discharge: Cyndi Campbell MD Primary Care Provider: Cat Martínez DO Diagnoses at Discharge Discharge Diagnosis 1. Hypoxemia: 2. Generalized weakness: 3. Acute metabolic encephalopathy: 4. Cachexia: 5. Accelerated hypertension: 6. History of stroke: 7. Sepsis: 8. Protein calorie malnutrition: Reason for Visit Reason for Visit: stroke alert Brief History: History as per the previous notes and the patient: the patient is tired and weak, however was able to interact and mentioned about her left sided weakness that was bothering her. 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 It is difficult to say on presentation if this is worse than her baseline since she reported that she is having weakness but the affected side is more or less is the same as unaffected side. She has been alert in conversation but is able to tell her name and report weakness and tired. however not able to give much history since her voice was not audible. she was able to answer qs at times with nodding. she knows that she is not hospital and is not feeling well. as per the notes, She had been found slumped over in the bathroom at the half-way and had abrasion on her right arm. she did not report any chest pain, dizziness, sob, presyncope or syncope, any nausea or vomiting but has been nodding yes to generalised weakness feeling. Hospital Course Hospital Course Patient admitted as a case of left-sided weakness however further evaluation did not reveal any focal neurological deficit and seems the patient has generalized weakness. The patient was seen by the neurologist and further recommended no intervention since she already on maximum therapy as per the guidelines. Patient further management was done investigations were sent. CT head was done and did not show any acute intracranial pathology or stroke. Chest x-ray showed right basal infiltrates for possible pneumonia. The patient was kept on ceftriaxone and azithromycin. The patient overall status improved. Potassium was quite low and corrected accordingly with follow-up of lab that was reassuring. Urine analysis was not remarkable and urine culture but pending and blood cultures did not show growth before discharge. And viral panel was also negative. TSH and phosphorous was normal The patient was oriented and much better during her stay of hospital course and improved gradually. The hospital course was uncomplicated. Patient to be discharged on oral antibiotics for possible pneumonia back to half-way. Physical Exam Narrative: General: Alert oriented to place and person, with signs of physical deconditioning and cachexia however is cooperative and interactive. HEENT: Normocephalic, atraumatic, EOMI, breathing comfortably Cardio: Regular rate rhythm, normal S1-S2, no murmurs rubs gallops, JVD normal Respiratory: Good bilateral air entry, no wheezes no rhonchi appreciated GI: Abdomen soft, nontender, nondistended, normoactive bowel sounds present all 4 quadrants, Neuro: grossly no facial assymetry, no nystagmus no focal neurological signs, cant assess gait since the pt is unable to stand, reflexes equivocal, cerebellar tests unable to perform due to generalised weakness, she is alert. Overall unremarkable gross examination Behavior: Appropriate and cooperative, Extremities: Mild trace edema, pallor positive Skin: left arm bruising, no skin rashes noticed grossly Discharge Data Studies Completed and Pending Completed Studies During Hospitalization Category Date Time Status CT head thrombolytic [id number] Stat Cat Scan 07/24/25 11:34 Completed XR chest 1V portable [id number] Stat Exams 07/24/25 11:38 Completed XR shoulder LT min 2V* [id number] Routine Exams 07/24/25 20:28 Completed Pending at discharge Category Date Time Status Blood Culture Stat Lab 07/24/25 11:50 Results Urine Culture Stat Lab 07/24/25 12:40 Received Radiology Impressions Head CT 07/24/25 11:34 IMPRESSION: 1. No evidence of intracranial hemorrhage or mass effect. 2. Chronic RIGHT frontal parietal infarct with encephalomalacia unchanged 3. Vascular calcification. 4. No acute intracranial findings. Notified Dr. Herring at 07/24/2025 11:48 AM. Chest X-Ray 07/24/25 11:38 IMPRESSION: 1. New RIGHT basal infiltrate suspicious for pneumonia. Shoulder X-Ray 07/24/25 20:28 IMPRESSION: 1. No acute fracture or dislocation of the left shoulder. 2. Amorphous calcific density in the region of the left supraspinatus, compatible with calcific tendinitis. 3. Acute/subacute mildly displaced nonsegmental fractures of left posterolateral ribs 5 through 9, better seen on CT chest from 07/16/2025. Laboratory Results WBC 5.71 10^3/uL (3.29-11.43) 07/25/25 03:25 RBC 4.26 10^6/uL (3.85-5.65) 07/25/25 03:25 Hgb 12.40 g/dL (11.27-16.99) 07/25/25 03:25 Hct 37.0 % (36-47) 07/25/25 03:25 MCV 86.9 fl (85-98) 07/25/25 03:25 MCH 29.1 pg (27-33) 07/25/25 03:25 MCHC 33.5 g/dL (30-55) 07/25/25 03:25 RDW 16.1 % (12.1-15.1) H 07/25/25 03:25 Plt Count 220 10^3/cmm (157-399) 07/25/25 03:25 MPV 12.1 fL (7.4-10.4) H 07/25/25 03:25 Neut % (Auto) 61.2 % 07/25/25 03:25 Lymph % (Auto) 24.7 % 07/25/25 03:25 [place] % (Auto) 8.9 % 07/25/25 03:25 Eos % (Auto) 3.9 % 07/25/25 03:25 Baso % (Auto) 0.9 % 07/25/25 03:25 Neut # (Auto) 3.50 10^3/uL (1.8-7.7) 07/25/25 03:25 Lymph # (Auto) 1.4 10^3/uL (0.8-4.8) 07/25/25 03:25 [place] # (Auto) 0.5 10^3/uL (0.2-0.9) 07/25/25 03:25 Eos # (Auto) 0.2 10^3/uL (0.0-0.8) 07/25/25 03:25 Baso # (Auto) 0.1 10^3/uL (0.0-0.1) 07/25/25 03:25 Nucleated RBC % (auto) 0 % 07/25/25 03:25 Nucleated RBCs # 0.0 /100WBC 07/25/25 03:25 PT 17.20 SECONDS (12.1-14.9) H 07/24/25 11:59 INR 1.32 (0.8-1.2) H 07/24/25 11:59 APTT 25.3 SECONDS (23.9-36.7) 07/24/25 11:59 Specimen Type Arterial 07/24/25 13:34 Sample Site Radial, right 07/24/25 13:34 ABG pH 7.41 (7.35-7.45) 07/24/25 13:34 ABG pCO2 44.8 mmHg (35-45) 07/24/25 13:34 ABG pO2 93.7 mmHg (80.0-100.0) 07/24/25 13:34 ABG PO2/FiO2 Ratio 260 07/24/25 13:34 ABG HCO3 28.6 mmol/L (22-26) H 07/24/25 13:34 ABG O2 Saturation 97.3 07/24/25 13:34 ABG Base Excess 3.4 mmol/L (-2.0-2.0) H 07/24/25 13:34 Prem Test Pos 07/24/25 13:34 A-a O2 Gradient 14.1 mmHg (5-10) H 07/24/25 13:34 Hematocrit 36.8 % (37-47) L 07/24/25 13:34 Hgb O2 Saturation 96.2 % (95-100) 07/24/25 13:34 Carboxyhemoglobin 0.9 %THgb (0.4-20.1) 07/24/25 13:34 Methemoglobin 0.3 % (0.4-1.5) L 07/24/25 13:34 Total Hemoglobin 12.0 g/dL (12-16) 07/24/25 13:34 Sodium 143.0 mmol/L (131-143) 07/24/25 13:34 Potassium 2.5 mmol/L (3.5-5.0) L 07/24/25 13:34 Glucose 99.0 mg/dL (70-115) 07/24/25 13:34 Ionized Calcium 1.1 mmol/L (1.1-1.4) 07/24/25 13:34 O2 Delivery Device Nc 07/24/25 13:34 O2 Liters/Min 4.0 % 07/24/25 13:34 FiO2 36.0 % 07/24/25 13:34 Head Of Business Development ID glc 07/24/25 13:34 Sodium 142 mmol/L (136-145) 07/25/25 14:32 Potassium 4.2 mmol/L (3.5-5.1) 07/25/25 14:32 Chloride 109 mmol/L (98-107) H 07/25/25 14:32 Carbon Dioxide 19 mmol/L (22-29) L 07/25/25 14:32 Anion Gap 18.2 (5-19) 07/25/25 14:32 BUN 7 mg/dL (8-23) L 07/25/25 14:32 Creatinine 0.5 mg/dL (0.5-0.9) 07/25/25 14:32 GFR Calculation Not Reportable 07/25/25 14:32 Glucose 81 mg/dL (65-115) 07/25/25 14:32 POC Glucose 82 mg/dL (70-110) 07/24/25 11:51 Estimat Average Glucose 117 07/25/25 03:25 Hemoglobin A1c 5.7 % (4.0-6.0) 07/25/25 03:25 Calculated Osmolality 291 mOsm/kg (285-295) 07/25/25 14:32 Lactic Acid 0.9 mmol/L (0.5-2.2) 07/25/25 03:25 Lactic Acid (Sepsis) 1.8 mmol/L (0.5-2.2) 07/24/25 14:53 Calcium 8.5 mg/dL (8.5-10.5) 07/25/25 14:32 Phosphorus 3.6 mg/dL (2.5-4.5) 07/24/25 11:59 Magnesium 1.5 mg/dL (1.7-2.3) L 07/24/25 11:59 Total Bilirubin 0.5 mg/dL (0.15-1.2) 07/25/25 03:25 AST 20 U/L (0-32) 07/25/25 03:25 ALT 16 U/L (0-33) 07/25/25 03:25 Alkaline Phosphatase 97 U/L (35-105) 07/25/25 03:25 Total Protein 6.2 g/dL (6.6-8.7) L 07/25/25 03:25 Albumin 3.6 g/dL (3.5-5.2) 07/25/25 03:25 Globulin 2.6 g/dL (1.3-4.6) 07/25/25 03:25 Triglycerides 118 mg/dL (0-150) 07/25/25 03:25 Cholesterol 102 mg/dL (0-200) 07/25/25 03:25 LDL Cholesterol, Calc 44 mg/dL (50-129) L 07/25/25 03:25 HDL Cholesterol 34 mg/dL (60-100) L 07/25/25 03:25 LDL/HDL Ratio 1.29 RATIO (0.00-3.22) 07/25/25 03:25 Cholesterol/HDL Ratio 3.00 mg/dL (0.0-4.40) 07/25/25 03:25 TSH 4.20 uIU/mL (0.27-4.20) 07/24/25 11:59 Urine Color Yellow (Yellow) 07/24/25 12:40 Urine Appearance Clear (CLEAR) 07/24/25 12:40 Urine pH 5.5 (5-7) 07/24/25 12:40 Ur Specific Mill[place] 1.015 (1.005-1.030) 07/24/25 12:40 Urine Protein 1+ (Negative) A 07/24/25 12:40 Urine Glucose (UA) Negative (Normal) 07/24/25 12:40 Urine Ketones Negative (Negative) 07/24/25 12:40 Urine Blood Negative (Negative) 07/24/25 12:40 Urine Nitrate Negative (Negative) 07/24/25 12:40 Urine Bilirubin Negative (Negative) 07/24/25 12:40 Urine Urobilinogen 1.0 mg/dL (Negative) 07/24/25 12:40 Ur Leukocyte Esterase Negative (Negative) 07/24/25 12:40 Urine RBC 0-2 /hpf (0-2) 07/24/25 12:40 Urine WBC 0-5 /hpf (0-5) 07/24/25 12:40 Ur Squamous Epith Cells 0-5 /hpf (0-5) 07/24/25 12:40 Amorphous Sediment Not Reportable 07/24/25 12:40 Urine Bacteria None seen /hpf (NONE) 07/24/25 12:40 Hyaline Casts 2.46 /lpf 07/24/25 12:40 Urine Opiates Screen Negative ng/mL (Negative) 07/24/25 12:40 Ur Barbiturates Screen Negative ng/mL (Negative) 07/24/25 12:40 Ur Phencyclidine Scrn Negative ng/mL (Negative) 07/24/25 12:40 Ur Amphetamines Screen Negative ng/mL (Negative) 07/24/25 12:40 U Benzodiazepines Scrn Negative ng/mL (Negative) 07/24/25 12:40 Urine Cocaine Screen Negative ng/mL (Negative) 07/24/25 12:40 U Marijuana (THC) Screen Negative ng/mL (Negative) 07/24/25 12:40 Adenovirus (PCR) Not detected (NOT DETECT) 07/25/25 04:08 C. pneumoniae DNA (PCR) Not detected (NOT DETECT) 07/25/25 04:08 Coronavirus 229E (PCR) Not detected (NOT DETECT) 07/25/25 04:08 Human Metapneumovir PCR Not detected (NOT DETECT) 07/25/25 04:08 Influenza A (H1) PCR Not detected (NOT DETECT) 07/25/25 04:08 Influenza A (PCR) Negative (Negative) 07/25/25 04:08 Influ A (H1/09) PCR Not detected (NOT DETECT) 07/25/25 04:08 Influenza A (H3) PCR Not detected (NOT DETECT) 07/25/25 04:08 Influenza Type A (PCR) Not detected (NOT DETECT) 07/25/25 04:08 Influenza Type B (PCR) Negative (Negative) 07/25/25 04:08 Influenza Type B (PCR) Not detected (NOT DETECT) 07/25/25 04:08 M. pneumoniae (PCR) Not detected (NOT DETECT) 07/25/25 04:08 Parainfluenza 1 (PCR) Not detected (NOT DETECT) 07/25/25 04:08 Parainfluenza 2 (PCR) Not detected (NOT DETECT) 07/25/25 04:08 Parainfluenza 3 (PCR) Not detected (NOT DETECT) 07/25/25 04:08 Parainfluenza 4 (PCR) Not detected (NOT DETECT) 07/25/25 04:08 RSV (PCR) Negative (Negative) 07/25/25 04:08 RSV Type A (PCR) Not detected (NOT DETECT) 07/25/25 04:08 RSV Type B (PCR) Not detected (NOT DETECT) 07/25/25 04:08 Entero/Rhino (PCR) Not detected (NOT DETECT) 07/25/25 04:08 SARS-CoV-2 (PCR) Negative (Negative) 07/25/25 04:08 SARS-CoV-2 (PCR) Not detected (NOT DETECT) 07/25/25 04:08 Vitals Last Vital Signs Temp 97.3 F L 07/25/25 04:16 Pulse 63 07/25/25 11:01 Resp 25 H 07/25/25 11:01 BP 158/107 07/25/25 11:01 Pulse Ox 96 07/25/25 11:01 O2 Del Method Nasal Cannula 07/24/25 18:31 O2 Flow Rate 4 07/24/25 12:45 Discharge Plan Discharge Patient Disposition: Xfer SNF Condition: Stable Prescriptions: New levofloxacin 750 mg tablet 750 mg PO DAILY 5 Days Qty: 5 0RF Continued omeprazole 20 mg capsule,delayed release(DR/EC) 20 mg PO BID atorvastatin 40 mg tablet 40 mg PO DAILY aspirin 81 mg Tablet,Delayed Release (Dr/Ec) 81 mg PO DAILY mirtazapine 30 mg tablet 30 mg PO BEDTIME ferrous sulfate 325 mg (65 mg iron) tablet 325 mg PO DAILY acetaminophen 325 mg Tablet 650 mg PO Q6H PRN (Reason: pain/increased temp) bisacodyl [Dulcolax (bisacodyl)] 10 mg Suppository 10 mg NE DAILY PRN (Reason: Constipation) sucralfate 1 gram Tablet 1 g PO AC&BEDTIME 28 Days Qty: 60 0RF metoprolol tartrate 25 mg tablet 12.5 mg PO BID Qty: 30 0RF Ensure Active High Protein Liquid 1 ea PO DAILY Qty: 1656 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 OK for DC: Neurology Discharge Order = DC NOW: Discharge Order (Routine); Ordered 07/25/25 Ordered By: Cyndi Campbell Referrals: Cat Martínez DO [Primary Care Provider, ASSOCIATE PROFESSOR OF MUSIC] Discharge Diet: Advance as tolerated Discharge Activity: Limit activity as instructed and Use walker/crutches as instructed Patient Instructions: Opioid Safety, Patient Portal & Latasha Instructions Discharge Attestations Time Spent in Discharge Care*: greater than 30 min Specific Discharge Activities: educating patient, educating and/or supporting family/caregiver, discussing with pcp/other providers, discussing with rn field case manager/social workers/dc planners, documenting/other paperwork and evaluating patient/reviewing data Status at Discharge: Cognitive status at discharge: cognitively intact, Behavioral status at discharge: cooperative, Functional status at discharge: other assisted ambulation, Overall status at discharge: patient is back to baseline Quality Metrics Clinical Quality Measures [ No reported AMI, CVA or VTE this stay] Coding Level of Care Code 68689 Diagnoses Hypoxemia R09.02 Generalized weakness R53.1 Acute metabolic encephalopathy G93.41 Cachexia R64 Accelerated hypertension I10 History of stroke Z86.73 Sepsis A41.9 Protein calorie malnutrition E46
--- NOTE | 2025-07-25 16:28 | PC.NURSE ---
all d/c instructions educated to patient, unable to get ahold of daughter, report called to [facility]. [facility] transport arrived to take patient back to [facility]
== END 2025-07-25 16:30 | disposition skilled nursing facility (03) | DRG 871 ==
LOC: ER 12:49 → ICU 17:14
PROVIDERS: Admitting Provider Student in an Organized Health Care Education/Training Program; Emergency Provider Emergency Medicine; PCP Family Medicine; Visit Provider Student in an Organized Health Care Education/Training Program
DX: A41.9 Sepsis, unspecified organism (principal); G93.41 Metabolic encephalopathy; J15.9 Unspecified bacterial pneumonia; E46 Unspecified protein-calorie malnutrition; E87.20 Acidosis, unspecified; R09.02 Hypoxemia; Z68.20 Body mass index [BMI] 20.0-20.9, adult; E87.6 Hypokalemia; I10 Essential (primary) hypertension; Y95 Nosocomial condition; I69.334 Monoplegia of upper limb following cerebral infarction affecting left non-dominant side; Z79.82 Long term (current) use of aspirin; Z85.89 Personal history of malignant neoplasm of other organs and systems; Z96.651 Presence of right artificial knee joint
CPT/HCPCS: 36415; 36416; 36600; 70450; 71045; 73030; 80048; 80051; 80053; 80061; 80306; 81001; 82330; 82805; 82962; 83036; 83605; 83735; 84100; 84443; 85025; 85610; 85730; 87040; 87086; 87486; 87581; 87633; 87637; 92523; 92610; 93005; 96365; 96367; 96372; 96375; 97116; 97161; 97165; 99285; J0360; J0456; J0696; J1644; J2020; J2185; J2405; J3475; J3480; J7030; J7040; J7050; J9999

== ENCOUNTER 2025-07-29 10:37 | Inpatient (IN) | payer MEDICARE, SELFPAY ==
[2025-07-29] VITALS (15 sets, daily range): BP systolic 114–227; BP diastolic 56–113; PULSE 86–122; RESP 15–28; TEMP 36.2–36.9; O2SAT 90–98; BMI 20.7
--- NOTE | 2025-07-29 10:36 | XRR_ITS ---
PROCEDURE INFORMATION: Exam: XR Chest Exam date and time: 07/29/2025 10:38 AM Age: 85 years old Clinical indication: Other: AMS; Additional info: CVA TECHNIQUE: Imaging protocol: Radiologic exam of the chest. Views: 1 view. COMPARISON: CR XR chest 1V portable [id number] 07/24/2025 11:58 AM FINDINGS: Lungs: Substantially decreased right basilar airspace disease. No new pulmonary opacity. Pleural spaces: Unremarkable. No pleural effusion. No pneumothorax. Heart/Mediastinum: Unremarkable. No cardiomegaly. Bones/joints: Unremarkable. XR/XR chest 1V portable [id number] IMPRESSION: Substantially decreased right basilar airspace disease.
--- NOTE | 2025-07-29 10:36 | CT_ITS ---
WS: [id number] CT HEAD NONCONTRAST HISTORY: Symptoms of acute stroke TECHNIQUE: Contiguous axial imaging performed through the brain. Bone and soft tissue windows. Sagittal and coronal reformats reviewed. All CT scans at [facility] use at least one of these dose optimization techniques: automated exposure control; mA and/or kV adjustment per patient size (includes targeted exams where dose is matched to clinical indication); or iterative reconstruction. DLP: 1052.12 mGy COMPARISON: 07/24/2025 No acute intracranial hemorrhage, midline shift or mass effect. Mild cerebral and cerebellar atrophy. Encephalomalacia from a remote infarct centered in the RIGHT frontoparietal lobe. No obvious interval change. No new infarct. Mild small vessel disease. Ventricles: Normal size with no hydrocephalus. Paranasal sinuses: As visualized are clear. Mastoid air cells: Well pneumatized. Calvarium and scalp: Hyperostosis frontalis interna. No fracture. CT/CT head thrombolytic [id number] IMPRESSION: 1. Study compromised by motion artifact. 2. No acute intracranial hemorrhage or edema. 3. Remote RIGHT frontoparietal infarct with encephalomalacia. Notified Carolin Lizarraga MD at 07/29/2025 10:49 AM.
--- OUTSIDE RECORDS SUMMARY | 2025-07-29 10:43 | XMS_ITS ---
Author Organization [facility] Address [address] [place] [address] Phone Care Team Providers Care Hospice Clinical Manager Name Role Phone Unavailable Primary Care Provider [...]
--- OUTSIDE RECORDS SUMMARY | 2025-07-29 10:43 | XMS_ITS | Clinical Summary ---
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 Gender Identity Not on file Sexual Orientation [...] 2025 09/21/2023 Medical Devices Implanted Type Area Dowel Machine Operator Device Identifier Shelf Expiration Date Model / Serial / Lot Clip Ligating Horizon Lrg Ti 10.07x12.38mm [id number] - [facility] [place] - [id number] Implanted:Qty: 1 on 01/28/2025 by Curly De Oliveira Jr., MD at [facility] Clip N/A: Abdomen TELEFLEX- [employer] SYS [id number] 04/02/2029 [id number] / / [id number] Validation Analyst Ligamax Endo Multi Clip 5mm El5ml - [id number] Implanted:Qty: 1 on 01/28/2025 by Curly De Oliveira Jr., MD at [facility] Clip N/A: Abdomen J&J- [employer] [id number] 08/26/2029 EL5ML / / [id number] Clip Ligating Horizon Lrg Ti 10.07x12.38mm [id number] - [facility] [place] - [id number] Implanted:Qty: 1 on 01/28/2025 by Curly De Oliveira Jr., MD at [facility] Clip N/A: Abdomen TELEFLEX- WECK CLOSURE SYS [id number] 04/29/2029 / / [id number] Clip Ligating Horizon Med Ti [id number] - [facility] [place] - [id number] Implanted:Qty: 1 on 01/28/2025 by Curly D eOliveira Jr., MD at [facility] Clip N/A: Abdomen TELEFLEX- WECK CLOSURE SYS [id number] 09/12/2029 / [id number] Clip Ligating Horizon Med Ti [id number] - [facility] [place] - [id number] Implanted:Qty: 1 on 01/28/2025 by Curly De Oliveira Jr., MD at [facility] Clip N/A: Abdomen TELEFLEX- WECK CLOSURE SYS [id number] 09/12/2029 / / [id number] Clip Ligating Horizon Sm [id number] - [id number] Implanted:Qty: 1 on 01/28/2025 by Curly De Oliveira Jr., MD at [facility] Clip N/A: Abdomen TELEFLEX INC [id number] 09/15/2029 / [id number] Clip Ligating Horizon Med Ti [id number] - [facility] [place] - [id number] Implanted:Qty: 1 on 01/28/2025 by Curly De Oliveira Jr., MD at [facility] Clip N/A: Abdomen TELEFLEX- WECK CLOSURE SYS [id number] 09/12/2029 / / [id number] Clip Ligating Horizon Med Ti 532172 - [facility] - [id number] Implanted:Qty: 1 on 01/28/2025 by Curly De Oliveira Jr., MD at [facility] Clip N/A: Abdomen TELEFLEX- WECK CLOSURE SYS [id number] 09/12/2029 [id number] / / [id number] Hemostatic Surgiflo 8ml W/ Thrombin 2994 - [id number] Implanted:Qty: 1 on 01/28/2025 by Curly De Oliveira Jr., MD at [facility] Hemostatic N/A: Abdomen J&J- [employer] [id number] 04/26/2026 2994 / / [id number] Hemostatic Surgicel 6x9in 194 - [id number] Implanted:Qty: 1 on 01/28/2025 by Curly De Oliveira Jr., MD at [facility] Hemostatic N/A: Abdomen J&J- [employer] [id number] 09/26/2029 1946 / / [id number] Stent Bili Advanix Rx 10fr 7cm [id number] - [id number] Implanted:Qty: 1 on 01/23/2025 by Sydney Deal DO at [facility] Stent N/A: Bile Duct [employer] [id number] 08/09/2026 [id number] / / [id number] Stent Bili Advanix Rx 10fr 7cm [id number] - [id number] Implanted:Qty: 1 on 02/10/2025 by Sydney Deal DO at [facility] Stent N/A: Bile Duct [employer] [id number] 08/23/2026 [id number] / / [id number] Insurance [facility] Advance Directives For more information, please contact: [phone] * Full Code (Latest Code Status on [...]
--- NOTE | 2025-07-29 10:55 | ED_ITS ---
HPI - General Adult 2 General: Chief complaint: Neuro Symptoms/Deficit Stated complaint: LEFT SIDED WEAKNESS Source: patient and EMS Mode of arrival: EMS History of Present Illness: 85-year-old female who has had a history of previous strokes in the past per EMS patient was sent here by assisted [facility] that they felt she had some increased left-sided weakness today she has left-sided weakness from old strokes. Patient here is able to tell me her name where she is from she was admitted last week for same she denies any chest pain or headache patient did miss her metoprolol dose this morning Associated symptoms: Deny chest pain, dyspnea, headache(s), nausea, rash or vomiting Related Data Home Medications ?Medication ?Instructions ?Recorded ?Confirmed atorvastatin 40 mg tablet 40 mg PO DAILY 01/22/2501/21 aspirin 81 mg tablet,delayed 81 mg PO DAILY 05/12/25 0 07/29/25 release ferrous sulfate 325 mg (65 mg 325 mg PO .QOD 05/12/25 07/29/25 iron) tablet mirtazapine 30 mg tablet 30 mg PO BEDTIME 05/12/25 acetaminophen 325 mg tablet 650 mg PO Q6H PRN pain/inc reased 07/16/25 07/29/25 temp bisacodyl 10 mg rectal suppository [address] DAILY PRN Constipation 07/16/25 07/29/25 (Dulcolax (bisacodyl)) omeprazole 20 mg capsule,delayed 20 mg PO BID [id number] 07/24/25 07/29/25 release Previous Rx's ?Medication ?Instructions ?Recorded food supplemt, lactose-reduced 1 ea PO DAILY #1,656 mL 07/18/25 (Ensure Active High Protein oral liquid) metoprolol tartrate 25 mg tablet 12.5 mg (1/2 x 25 mg) PO BID #30 07/18/25 tabs sucralfate 1 gram tablet 1 g PO AC&BEDTIME 4 weeks #6 0 tabs 07/18/25 levofloxacin 750 mg tablet 750 mg PO DAILY 5 days #5 t abs 07/25/25 Allergies Allergy/AdvReac Type Severity Reaction Status Date / Time No Known Allergies Allergy Verified 07/03/25 14:04 Review of Systems 2 Const: Denies: fever(s), chills, body aches or change in appetite ENMT: Denies: throat pain or dental pain Card: Denies: chest pain Resp: Denies: dyspnea GI: Denies: abdominal pain, nausea, vomiting or diarrhea Musc: Denies: neck pain or back pain Skin/Breast: Denies: rash Neuro: Reports: weakness in extremities; Denies: headache(s) PFSH ED 2 PFSH: Medical History 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 stroke History of thrombolytic therapy Presence of externally removable percutaneous endoscopic gastrostomy (PEG) tube BPPV (benign paroxysmal positional vertigo) CVA (cerebral vascular accident) Surgical History History of ankle surgery left History of right knee joint replacement Family History Mother Leukemia Social History Smoking and tobacco/nicotine status: never used tobacco/nicotine Alcohol intake: never Substance/Drug Use: never Physical Exam 2 Const: COMMON NORMALS: patient oriented x3 HENMT: COMMON NORMALS: normocephalic and atraumatic HEAD & SCALP: n ormocephalic and atraumatic Eye: COMMON NORMALS: Equal, round and reactive pupils present and EOMs intact bilaterally PUPIL: Yes Equal, round and reactive pupils present Neck/C-Spine: COMMON NORMALS: full ROM and supple Chest: COMMONS NORMALS: normal inspection of the chest and normal palpation of entire chest wall Resp: COMMON NORMALS: normal respiratory effort, No retractions, No use of accessory muscles and clear to auscultation bilaterally AUSCULTATION: clear to auscultation bilaterally Cardio: COMMON NORMALS: regular rate, regular rhythm and No murmurs present (Cardio) RATE: regular rate RHYTHM: regular rhythm GI: COMMON NORMALS: Normal to inspection, nondistended, normoactive bowel sounds present, Soft to palpation, non-tender and no masses PALPATION: Yes Soft to palpation Extremity: COMMON NORMALS: normal to inspection and full ROM Neuro: COMMON NORMALS: patient oriented x3 and moves all extremities OTHER: 5 out of 5 strength the right side she d oes have weakness left side that is from previous stroke patient is able to answer most my questions correctly Psych: COMMON NORMALS: mental status grossly normal, Normal thought process present and cooperative THOUGHT PROCESS: Normal thought process present Skin: COMMON NORMALS: no rashes or lesions noted and no wounds GENERAL SKIN EXAM: no rashes or lesions noted Course 2 Reevaluation(s): Reevaluation #1: Patient had a seizure lasting roughly 30 seconds she was given Ativan. Patient is now postictal at this time. Time: 12:25 Vital Signs: Vital signs: Vital Signs Temperature 98.5 F 07/29/25 11:06 Pulse Rate 87 07/29/25 11:06 Respiratory Rate 28 H 07/29/25 11:06 Blood Pressure 179/82 07/29/25 11:06 Pulse Oximetry 98 07/29/25 11:06 Oxygen Delivery Me thod Room Air 07/29/25 11:06 MDM - General Adult Medical Decision Making Patient presents here with generalized weakness she has no signs of acute stroke all her weakness is from her old stroke no new findings here was going to discharge and she had had a seizure did have to give her Ativan she is postictal spoke to hospitalist will admit at this time Medical Records I reviewed the patient's medical records. Lab Data I reviewed the patient's lab results. 07/29/25 10:55 07/29/25 10:55 Radiology Impressions Chest X-Ray 07/29/25 10:36 IMPRESSION: Substantially decreased right basilar airspace disease. Head CT 07/29/25 10:36 IMPRESSION: 1. Study compromised by motion artifact. 2. No acute intracranial hemorrhage or edema. 3. Remote RIGHT frontoparietal infarct with encephalomalacia. Notified Carolin Lizarraga MD at 07/29/2025 10:49 AM. Laboratory Results WBC 4.61 10^3/uL (3.29-11.43) 07/29/25 10:55 RBC 4.27 10^6/uL (3.85-5.65) 07/29/25 10:55 Hgb 12.20 g/dL (11.27-16.99) 07/29/25 10:55 Hct 38.0 % (36-47) 07/29/25 10:55 MCV 89.0 fl (85-98) 07/29/25 10:55 MCH 28.6 pg (27-33) 07/29/25 10:55 MCHC 32.1 g/dL (30-55) 07/29/25 10:55 RDW 17.2 % (12.1-15.1) H 07/29/25 10:55 Plt Count 197 10^3/cmm (157-399) 07/29/25 10:55 MPV 12.4 fL (7.4-10.4) H 07/29/25 10:55 Neut % (Auto) 55.8 % 07/29/25 10:55 Lymph % (Auto) 33.4 % 07/29/25 10:55 Meigs % (Auto) 6.9 % 07/29/25 10:55 Eos % (Auto) 3.0 % 07/29/25 10:55 Baso % (Auto) 0.7 % 07/29/25 10:55 Neut # (Auto) 2.57 10^3/uL (1.8-7.7) 07/29/25 10:55 Lymph # (Auto) 1.5 10^3/uL (0.8-4.8) 07/29/25 10:55 [place] # (Auto) 0.3 10^3/uL (0.2-0.9) 07/29/25 10:55 Eos # (Auto) 0.1 10^3/uL (0.0-0.8) 07/29/25 10:55 Baso # (Auto) 0.0 10^3/uL (0.0-0.1) 07/29/25 10:55 Nucleated RBC % (auto) 0 % 07/29/25 10:55 Nucleated RBCs # 0.0 /100WBC 07/29/25 10:55 PT 13.90 SECONDS (12.1-14.9) 07/29/25 10:55 INR 1.00 (0.8-1.2) 07/29/25 10:55 APTT 25.8 SECONDS (23.9-36.7) 07/29/25 10:55 Sodium 143 mmol/L (136-145) 07/29/25 10:55 Potassium 3.5 mmol/L (3.5-5.1) 07/29/25 10:55 Chloride 103 mmol/L (98-107) 07/29/25 10:55 Carbon Dioxide 29 mmol/L (22-29) 07/29/25 10:55 Anion Gap 14.5 (5-19) 07/29/25 10:55 BUN 7 mg/dL (8-23) L 07/29/25 10:55 Creatinine 0.5 mg/dL (0.5-0.9) 07/29/25 10:55 GFR Calculation Not Reportable 07/29/25 10:55 Glucose 94 mg/dL (65-115) 07/29/25 10:55 Calculated Osmolality 294 mOsm/kg (285-295) 07/29/25 10:55 Calcium 9.3 mg/dL (8.5-10.5) 07/29/25 10:55 Total Bilirubin 0.6 mg/dL (0.15-1.2) 07/29/25 10:55 AST 28 U/L (0-32) 07/29/25 10:55 ALT 13 U/L (0-33) 07/29/25 10:55 Alkaline Phosphatase 104 U/L (35-105) 07/29/25 10:55 Total Protein 6.7 g/dL (6.6-8.7) 07/29/25 10:55 Albumin 3.9 g/dL (3.5-5.2) 07/29/25 10:55 Globulin 2.8 g/dL (1.3-4.6) 07/29/25 10:55 All radiology interpretation(s) finalized by discharge EKG Data EKG 1: I personally reviewed and interpreted this EKG as follows: EKG interpretation date: 07/29/25 EKG interpretation time: 10:59 Interpretation: nsr hr [address] elevation qrs 90 qtc 431 Computer generated interpretation: Chest X-Ray 07/29/25 10:36 IMPRESSION: Substantially decreased right basilar airspace disease. Head CT 07/29/25 10:36 IMPRESSION: 1. Study compromised by motion artifact. 2. No acute intracranial hemorrhage or edema. 3. Remote RIGHT frontoparietal infarct with encephalomalacia. Notified Carolin Lizarraga MD at 07/29/2025 10:49 AM. Discharge Plan Discharge Patient Disposition: Admitted As Inpatient Admit Provider: Santhosh Kemp Clinical Impression: Generalized weakness Condition: Stable Discharge Diet: Advance as tolerated Discharge Activity: Resume usual activity Coding Level of Care Code ED Wash Barrel Leader for Chg Fwd
--- NOTE | 2025-07-29 10:59 | ECG_ITS ---
[facility] Test Date: 2025-07-29 Pat Name: Debby Velez Department: Room: Gender: Female Board Operator: : 1940 Requested By: Carolin Lizarraga Order Number: [id number] Amrit MD: Rell Palomo M.D. Measurements Intervals [place] Rate: 79 P: 22 NV: 140 QRS: 54 QRSD: 90 T: 16 QT: 396 QTc: 456 Interpretive Statements SINUS RHYTHM NONSPECIFIC T-WAVE ABNORMALITY Compared to ECG 07/24/2025 12:32:04 No significant changes Electronically Signed On 07-29-2025 20:48:23 CDT by Rell Palomo M.D. [id number] [id number]
[2025-07-29] MEDS: hyDRALAzine 20 mg/mL INJ 1 mL 10 MG IVP ×2 (11:02→12:41)
[2025-07-29 11:06] LABS: Hematocrit 38.0 % (36-47); Hemoglobin 12.20 g/dL (11.27-16.99); Mean Corpuscular HGB Conc 32.1 g/dL (30-55); Mean Corpuscular Hemoglobin 28.6 pg (27-33); Mean Corpuscular Volume 89.0 fl (85-98); Nucleated Red Blood Cells % 0 %; Platelet Count 197 10^3/cmm (157-399); Red Blood Count 4.27 10^6/uL (3.85-5.65); White Blood Count 4.61 10^3/uL (3.29-11.43)
[2025-07-29 11:21] LABS: Alanine Aminotransferase 13 U/L (0-33); Albumin Level 3.9 g/dL (3.5-5.2); Alkaline Phosphatase 104 U/L (35-105); Aspartate Amino Transferase 28 U/L (0-32); Blood Urea Nitrogen 7 mg/dL (8-23); Calcium 9.3 mg/dL (8.5-10.5); Carbon Dioxide 29 mmol/L (22-29); Chloride 103 mmol/L (98-107); Globulin 2.8 g/dL (1.3-4.6); Glucose 94 mg/dL (65-115); Osmolality Calculated 294 mOsm/kg (285-295); Sodium 143 mmol/L (136-145); Total Protein 6.7 g/dL (6.6-8.7)
[2025-07-29 11:22] LABS: Anion Gap 14.5 (5-19); Potassium 3.5 mmol/L (3.5-5.1)
[2025-07-29 11:30] LABS: INR 1.00 (0.8-1.2); Prothrombin Time 13.90 SECONDS (12.1-14.9)
[2025-07-29 11:31] LABS: Partial Thromboplastin Time 25.8 SECONDS (23.9-36.7)
--- NOTE | 2025-07-29 11:45 | PC.NURSE ---
NIH stroke scale not completed d/t pt having prior stroke hx and having left sided weakness at baseline. pt is new to [facility] and staff is unable to give pts absolute baseline.
[2025-07-29] MEDS: LORazepam 1 MG/0.5 ML injection 0.5 MG IM (12:37)
[2025-07-29] MEDS: labetalol 5 mg/mL SDV 20mL 10 MG IVP (12:43)
--- NOTE | 2025-07-29 12:45 | PC.NURSE ---
pts IV was taken out and pt was waiting on ride from [facility] after being d/c from the ED. upon [facility] arrival, [facility] staff told this RN she would like to speak to the doctor regarding the patients tremors. staff is unable to tell the provider the pts baseline and states that she hasnt been at the facility long. this RN went to put in a verbal order for ativan given by Dr. Lizarraga to help with the patients tremors. after drawing up medication, the tech alerted this RN to the room. upon arrival to the room pt appeared to be convulsing, was unable to answer questions, and had a blank stare. pts O2 saturation was in the 50's when she was hooked back up to monitor before giving meds. ativan administered IM, and jaw thrust preformed by Dr. Lizarraga and pts saturation came up without supplemental O2.
--- NOTE | 2025-07-29 13:14 | ECG_ITS ---
[facility] Date: 2025-07-29 Pat Name: Debby Velez Department: Room: Gender: Female Mold Hoister: : 1940 Requested By: Carolin Lizarraga Order Number: [id number] Amrit MD: Rell Palomo M.D. Measurements Intervals [place] Rate: 105 P: 50 MA: 160 QRS: 56 QRSD: 91 T: 31 QT: 369 QTc: 489 Interpretive Statements SINUS TACHYCARDIA ST DEVIATION AND MODERATE T-WAVE ABNORMALITY, CONSIDER ANTEROLATERAL ISCHEMIA [-0.1+ mV T-WAVE IN V3-V6] Compared to ECG 07/29/2025 10:59:01 Possible ischemia now present Sinus rhythm no longer present T-wave abnormality still present Electronically Signed On 07-29-2025 21:49:26 CDT by Rell Palomo M.D. [id number] [id number]
--- NOTE | 2025-07-29 14:24 | PC.PHAR ---
Pt is from [facility]
--- NOTE | 2025-07-29 14:59 | P.HP_ITS ---
Providers/Chief Complaint 2 Admitting Physician: Santhosh Kemp MD Primary Care Provider: Cat Martínez DO Chief Complaint: LEFT SIDED WEAKNESS History of Present Illness Debby Velez is a 85 year old female past medical history of CVA, with residual left-sided weakness, history of right MCA stroke, history of tenecteplase 07/08/2025, hypertension, status post cholecystectomy, history PEG tube placement then removal for poor oral intake after CVA, history of benign positional vertigo, history of carcinoma the gallbladder, who presents [facility] for worsening left-sided weakness. Currently patient has received Ativan, is postictal, she awakens, but easily falls back asleep, she localizes pain, withdraws from pain, responds to her name, she moves her right arm, the right leg, at times she is able to squeeze my fingers on the right, she does move her left arm, but is not able to follow commands, test test strength, she does spontaneously move her left leg, does not follow commands to test strength, she does withdraw from pain, left arm, left leg, no facial droop, pupils are equal round reactive to light, GCS score is 10, according to ER provider patient had a seizure like episode in the emergency room, no prior history of seizures, blood pressure 179/82, pulse 87, respiratory rate 20, she is 98% on room air, I spoke to prison facility, who reports that cell this morning was walking with a wheeled walker, she does have left-sided weakness but since she has significantly improved, she this morning had an episode of becoming unresponsive at times, developing tremors of her left hand progressing to generalized tremors, associate with confusion, she also had complaints of chest discomfort Medications/Allergies Home Medications ?Medication ?Instructions ?Recorded ?Confirmed ?Last Taken ?Type atorvastatin 40 mg tablet 40 mg PO DAILY 01/22/2501/2107/28/25 History aspirin 81 mg tablet,delayed 81 mg PO DAILY 05/12/25 0 07/29/25 07/28/25 History release ferrous sulfate 325 mg (65 mg 325 mg PO .QOD 05/12/25 07/29/25 07/27/25 History iron) tablet mirtazapine 30 mg tablet 30 mg PO BEDTIME 05/12/2507/28/25 History acetaminophen 325 mg tablet 650 mg PO Q6H PRN pain/inc reased 07/16/25 07/29/25 07/29/25 History temp bisacodyl 10 mg rectal suppository 10 mg [place] DAILY PRN Constipation 07/16/25 07/29/25 Unknown History (Dulcolax (bisacodyl)) food supplemt, lactose-reduced 1 ea PO DAILY #1,656 mL 07/18/25 07/29/25 07/28/25 Rx (Ensure Active High Protein oral liquid) metoprolol tartrate 25 mg tablet 12.5 mg (1/2 x 25 mg) PO BID #30 07/18/25 07/29/25 07/28/25 Rx tabs sucralfate 1 gram tablet 1 g PO AC&BEDTIME 4 weeks #6 0 tabs 07/18/25 07/29/25 07/29/25 Rx omeprazole 20 mg capsule,delayed 20 mg PO BID [id number] 07/24/25 07/29/25 07/28/25 History release levofloxacin 750 mg tablet 750 mg PO DAILY 5 days #5 t abs 07/25/25 07/29/25 07/28/25 Rx Allergies Allergy/AdvReac Type Severity Reaction Status Date / Time No Known Allergies Allergy Verified 07/03/25 14:04 PFSH Acute 2 PFSH: Medical History (Updated 07/29/25 @ 16:08 by Santhosh Kemp MD) 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 stroke History of thrombolytic therapy Presence of externally removable percutaneous endoscopic gastrostomy (PEG) tube BPPV (benign paroxysmal positional vertigo) CVA (cerebral vascular accident) Surgical History History of ankle surgery left History of right knee joint replacement Family History Mother Leukemia Social History Smoking and tobacco/nicotine status: never used tobacco/nicotine Alcohol intake: never Substance/Drug Use: never Vitals/I&O/Wt Last Vital Signs Temp 98.5 F 07/29/25 11:06 Pulse 87 07/29/25 11:06 Resp 28 H 07/29/25 11:06 BP 179/82 07/29/25 11:06 Pulse Ox 98 07/29/25 11:06 O2 Del Method Room Air 07/29/25 11:06 07/28/25 07/29/25 07/29/25 22:59 06:59 14:59 Intake Total 0 / 0 Balance 0 / 0 Physical Exam 2 Const: COMMON NORMALS: no acute distress EXAM LIMITATIONS: altered mental status ORIENTATION/CONSCIOUSNESS: Yes awake and Yes confused; not oriented to person, not oriented to place and not oriented to time Resp: COMMON NORMALS: normal respiratory effort, No retractions, No use of accessory muscles and clear to auscultation bilaterally AUSCULTATION: clear to auscultation bilaterally Cardio: COMMON NORMALS: regular rate, regular rhythm, S1 normal heart sound present and S2 normal heart sound present RATE: regular rate RHYTHM: r egular rhythm HEART SOUNDS: S1 normal heart sound present and S2 normal heart sound present GI: COMMON NORMALS: Normal to inspection, nondistended, normoactive bowel sounds present, Soft to palpation and non-tender Extremity: COMMON NORMALS: no calf tenderness and no pedal edema Neuro: OTHER: Able to follow commands on the right side, move her right arm to command, squeeze my fingers able to move her right leg, she does spontaneously move her left arm, left leg, but does not follow commands to do neurologic testing, no facial droop, no slurring of her words, pupils equal round reactive to light, GCS score is 10 Data 07/29/25 10:55 07/29/25 10:55 A&P Assessment and plan 1. Accelerated hypertension: 2. Acute encephalopathy: Plan: Acute encephalopathy - Etiology unclear - Concerns for possible seizure, seizure-like episodes witnessed by nursing staff at prison facility, witnessed by ER staff - She does have left-sided weakness from a prior stroke, but according to residential she is ambulatory and her left side is still functional, in the emergency room, she she is not moving her left arm or left leg to commands, but is moving the right - She is globally encephalopathic at times - She is status post Ativan due to seizure in the emergency room - Her arrival to the emergency room was at 10:26 AM -NIH stroke scale is difficult to assess given her global encephalopathy, she does have left-sided weakness compared to the right, I would have her NIH stroke scale at 14 - her recent history of ischemic CVA status post TNKase 07/07/2025 -Prior head CT shows remote right frontoparietal infarct with encephalomalacia Carotid artery ultrasound May 13 CONCLUSIONS Right ICA stenosis <50%. Mild atheromatous plaque right carotid bulb/ICA. Left ICA stenosis <50%. Moderate atheromatous plaque left carotid bulb/ICA. Intimal thickening in the common carotid arteries and internal carotid arteries bilaterally. Normal antegrade Doppler flow noted in the right vertebral artery. Normal antegrade Doppler flow noted in the left vertebral artery. -MRI of the brain in May 12 shows a remote right MCA territory infarct with encephalomalacia -In the emergency room she had seizure-like episode, was given 1 mg of Ativan, now appears to be postictal, she can follow some commands, she does move the right side right arm right leg but does not to commands with the left side, she does spontaneously move the left arm and left leg, at times is globally encephalopathic Plan - Keppra thousand twice daily - Neurochecks - NIH stroke scale - Aspiration precautions - Seizure precautions - Aspirin, statin - Urinalysis pending History of gallbladder adenocarcinoma? -PET scan 03/21/2025 -Shows decreased size of peripherally hypermetabolic lesion in the caudate lobe, probably resolving hepatic abscess although malignancy is not excluded -Hypermetabolic focus along the gallbladder fossa is likely related to resolving infection/fluid collection, malignancy cannot be excluded -Abnormal thickening of the endometrial stripe could be secondary to polyp, neoplasm or hyperplasia PDMP PDMP Reviewed: Not Reviewed Attestations 2 Medical Necessity Statement*: Patient requires hospitalization, inpatient, greater than 2 midnights, for acute encephalopathy, highly suspicious for acute seizure Diagnoses Accelerated hypertension I10 Acute encephalopathy G93.40
[2025-07-29 16:08] LABS: NT Pro B Type Natriuretic Pept 1011 pg/mL (0-450); Procalcitonin 0.10 ng/mL (0-0.5)
--- NOTE | 2025-07-29 16:25 | ECG_ITS ---
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 Measurements Intervals [place] Rate: 113 P: 57 TX: 156 QRS: 56 QRSD: 86 T: 21 QT: 348 QTc: 478 Interpretive Statements SINUS TACHYCARDIA NONSPECIFIC ST & T-WAVE ABNORMALITY ABNORMAL RHYTHM ECG Compared to ECG 07/29/2025 13:14:35 Possible ischemia no longer present T-wave abnormality still present Electronically Signed On 07-29-2025 21:48:53 CDT by Rell Palomo M.D. [id number] [id number]
[2025-07-29 18:07] LABS: Troponin(5th) Baseline 33 ng/L (0-10)
[2025-07-29] MEDS: pantoprazole 40 mg SDV IVP (18:40)
[2025-07-29] MEDS: levETIRAcetam 1,000 MG/100 ML PREMIX 400 MG IV (18:40)
--- NOTE | 2025-07-29 19:33 | PC.NURSE ---
This RN assumed care of this patient. This RN went in to attempt to do an assessment and neuro checks. Pt is lethargic from medications given in the ER. Pt is resting in bed comfortably but is only responding to painful stimuli. Pt is not opening her eyes or speaking at this time. This RN completed the admission assessment based on chart review and observation. This RN will continue to monitor until the end of this RNs shift and will attempt to preform a NIH and proper neuro assessment once pt is more alert. Pt does not appear to be in pain or any distress at this time. Bed alarm and telemetry are on and pt is in a room near the nurse's station.
[2025-07-29 19:44] LABS: Troponin 5 2HR 38.29 ng/L (0-10); Troponin 5 2HR Delta 5.29 ABS# (0-10)
[2025-07-29 19:56] LABS: Estmated Average Glucose 105; Hemoglobin A1C 5.3 % (4.0-6.0)
[2025-07-29 20:00] LABS: Cholesterol 105 mg/dL (0-200); HDL Cholesterol 35 mg/dL (60-100); Thyroid Stimulating Hormone 1.23 uIU/mL (0.27-4.20); Triglycerides 146 mg/dL (0-150)
--- NOTE | 2025-07-29 22:04 | ECG_ITS ---
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 Measurements Intervals [place] Rate: 80 P: 47 OR: 152 QRS: 65 QRSD: 88 T: 52 QT: 412 QTc: 477 Interpretive Statements SINUS RHYTHM NONSPECIFIC ST & T-WAVE ABNORMALITY Compared to ECG 07/29/2025 16:25:33 Sinus tachycardia no longer present T-wave abnormality still present Electronically Signed On 08-01-2025 20:49:10 CDT by Rell Palomo M.D. [email or web address] [id number]
[2025-07-29 23:50] LABS: Troponin 5 6HR 36.23 ng/L (0-10); Troponin 5 6HR Delta 3.23 ng/L (0-12)
[2025-07-30] VITALS (13 sets, daily range): BP systolic 130–175; BP diastolic 63–90; PULSE 76–100; RESP 15–24; TEMP 36.8–37.2; O2SAT 90–97
[2025-07-30 05:56] LABS: Hematocrit 37.8 % (36-47); Hemoglobin 12.40 g/dL (11.27-16.99); Mean Corpuscular HGB Conc 32.8 g/dL (30-55); Mean Corpuscular Hemoglobin 29.3 pg (27-33); Mean Corpuscular Volume 89.4 fl (85-98); Nucleated Red Blood Cells % 0 %; Platelet Count 177 10^3/cmm (157-399); Red Blood Count 4.23 10^6/uL (3.85-5.65); White Blood Count 5.96 10^3/uL (3.29-11.43)
[2025-07-30 06:24] LABS: Alanine Aminotransferase 12 U/L (0-33); Albumin Level 3.6 g/dL (3.5-5.2); Alkaline Phosphatase 99 U/L (35-105); Aspartate Amino Transferase 21 U/L (0-32); Blood Urea Nitrogen 8 mg/dL (8-23); Calcium 9.0 mg/dL (8.5-10.5); Carbon Dioxide 26 mmol/L (22-29); Chloride 103 mmol/L (98-107); Creatinine Clr Calc Pharmacy 45.1092; Globulin 2.7 g/dL (1.3-4.6); Glucose 78 mg/dL (65-115); Osmolality Calculated 295 mOsm/kg (285-295); Sodium 144 mmol/L (136-145); Total Protein 6.3 g/dL (6.6-8.7)
[2025-07-30 06:26] LABS: Anion Gap 18.1 (5-19); Potassium 3.1 mmol/L (3.5-5.1)
--- NOTE | 2025-07-30 06:42 | PC.NURSE ---
PT WAS ABLE TO WAKE UP TO VERBAL STIMULI AND TOUCH BY THIS RN. THIS RN ATTEMPTED TO COMPLETE THE NIH ASSESSMENT. PT WAS VERY LIMITED IN THEIR PARTICIPATION. PT WAS ABLE TO TELL THIS RN HER NAME AND THAT SHE WANTED TO ROLL ON HER SIDE BUT WAS UNABLE/UNWILLING TO OPEN THEIR EYES AND FOLLOW COMMANDS TO ACCURATELY PREFORM THE NIH ASSESSMENT. PT IS RESTING COMFORTABLY IN BED AT THIS TIME. THIS RN WILL PASS ALONG TO DAYSHIFT RN.
--- NOTE | 2025-07-30 09:53 | PC.CHAP ---
Pastoral Care Encounter/Spiritual Assessment Type of Contact [] Declined returned item clerk visit [] Patient/Family/Request visit [] Outpatient visit [] Follow-up visit [] Physician referral [] Code/Alert [] Routine visit [] Staff referral [] Actively dying [x] Patient sleeping [] Family support [] [] Out of room [] Palliative care [] [] Receiving care in room [] Pre-surgical visit [] Trauma [] Long length of stay [] ICU visit [] Other: Relational/Emotional Strength [] Patient feels connected with others/family/visitors/staff [] Distress [] Loneliness/isolation [] Abandonment Spirituality of Patient [] Person of [place] [] Attends Moravian of their [place] [] Believes in Prayer [] Reads Bible or Yazidi materials [] There are Spiritual issues to be addressed Manufacturing 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 Interventions [] Prayer [] Active listening [] Non-anxious presence [] Spiritual/emotional support [] Crisis/trauma care [] Spiritual counseling [] Bereavement support [] Provided bereavement packet [] Provided Bible/devotional materials [] Provided toy/stuffed animal, coloring book to patient or family member [] Provided Communion [] Anointing/[place] [] Salvation [] Completed spiritual assessment [] Other: Impact on Illness or Injury [] Angry [] Fearful [] Anxious [] Often cries [] Exhaustion [] Unable to work [] Unable to attend christianity [] Unable to walk/stand [] Unable to read [] Unable to drive [] Unable to eat/drink [] Unable to sleep [] Unable to be with family [] Patient intubated [] Other: Summary Time spent with patient
[2025-07-30] MEDS: morphine 4 mg/mL SDV 1 mL 2 MG IVP (11:14)
--- NOTE | 2025-07-30 11:15 | CT_ITS ---
WS: [id number] CT HEAD NONCONTRAST HISTORY: seizures TECHNIQUE: Contiguous axial imaging performed through the brain. Bone and soft tissue windows. Sagittal and coronal reformats reviewed. All CT scans at [facility] use at least one of these dose optimization techniques: automated exposure control; mA and/or kV adjustment per patient size (includes targeted exams where dose is matched to clinical indication); or iterative reconstruction. DLP: 1801.58 mGy.cm COMPARISON: 07/29/2025, 07/24/2025, 07/08/2025 Significant motion artifact. Taking into consideration the amount of motion artifact no obvious interval change since the most recent CTs. Prior RIGHT frontal parietal encephalomalacia with gliosis is reidentified. These changes were present on several most recent exams. There is no obvious progression. The amount of motion is limiting evaluation for subtle changes. No hemorrhage is identified. No midline shift. Ventricles: Normal size with no hydrocephalus. Paranasal sinuses: Limited by motion artifact. Mastoid air cells: Well pneumatized. Calvarium and scalp: Hyperostosis frontalis interna. CT/CT head wo con* [id number] IMPRESSION: 1. This examination is significantly limited by motion artifact. 2. No large areas of hemorrhage identified. 3. Remote RIGHT frontoparietal encephalomalacia and prior infarct appears stab le. 4. No hydrocephalus or midline shift.
[2025-07-30] MEDS: LORazepam 1 MG/0.5 ML injection IVP ×2 (11:25→23:49)
[2025-07-30] MEDS: levETIRAcetam 1,000 MG/100 ML PREMIX 400 MG IV ×2 (11:25→17:50)
--- NOTE | 2025-07-30 14:11 | PC.SLP ---
Pt has had Kepra and Ativan and is not alert to participate with [employer] P[facility]IAT[facility] at this time.
[2025-07-30 15:13] LABS: Glucose Urine UA Negative (Normal); Nitrate Urine Negative (Negative); Specific Gravity, Urine 1.011 (1.005-1.030)
[2025-07-30 15:18] LABS: Add Urine Microscopic? YES; PCP Screen Urine Negative (Negative)
[2025-07-30] MEDS: phenytoin 100 MG in sodium chloride 0.9% 20 ML, non-DEHP filter tubing onc 1 EACH 104 MG IV (15:57)
--- NOTE | 2025-07-30 16:08 | PC.NURSE ---
gis instructor observed SN Ricky obtain a UA on patient via a straight cath. Pt tolerated well.
[2025-07-30] MEDS: pantoprazole 40 mg SDV IVP (17:50)
[2025-07-30] MEDS: HYDROmorphone 0.5 MG/0.5 ML INJ IVP (18:03)
--- NOTE | 2025-07-30 18:07 | ECG_ITS ---
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 Measurements Intervals [place] Rate: 90 P: 61 WI: 119 QRS: 70 QRSD: 131 T: 31 QT: 377 QTc: 463 Interpretive Statements SINUS RHYTHM WITH SHORT WI INTERVAL INTRAVENTRICULAR CONDUCTION DELAY [130+ ms QRS DURATION] INTERPRETATION BASED ON A DEFAULT AGE OF 40 YEARS Compared to ECG 07/29/2025 22:14:39 Short WI interval now present Intraventricular conduction delay now present T-wave abnormality no longer present Electronically Signed On 07-30-2025 23:49:59 CDT by Rell Palomo M.D. [id number]
--- NOTE | 2025-07-30 18:15 | P.PN_ITS ---
Subjective 2 Subjective: - Patient was examined multiple times th roughout the day - Patient was examined this morning - Daughters at bedside - Krupa is alert to person, somewhat to place, not to time she is able to follow commands she is moving her right arm, moving her right leg she is able to squeeze my finger she is able to smile for me, - She does spontaneously move the left a rm, left leg, but she has significant weakness of the left arm and the left leg - She is having myoclonic jerks of her l eft shoulder, left hand - Which started early this morning - She has been given Keppra overnight - Discussed with nursing staff, and dora menendez at bedside that we will give her another 1 g of Keppra and consult neurology - Concerns for focal nonconvulsive statu s epilepticus without impairment of consciousness, associated with her prior history of stroke, as Lucia continues to follow commands, but has this focal seizure that is persisting - Discussed with daughter trying multipl e anticonvulsive therapy to help control her seizure - Readdress as well as CODE STATUS, curr steph Guardado does not have capacity to make decisions, she would like Zedamien to be a full code, but also notes that Krupa has said in the past that she wanted to be DNR/DNI, after discussing the risk benefits of all options, daughter tells me that she wants Debby to be a full code - She was given a gram of Keppra, Ativan , started on normal saline - Reexamined, continues to have focal se izures, she is drowsy after the Ativan, but can awake and can follow commands but falls back asleep continues to have focal seizure of left arm, does not involve the left leg, I cannot discern any facial twitching -Repeat head CT no acute intracranial bl eed - She was given another 1 g of IV Keppra - On upon reexamination I would say the frequency of the seizure has improved - Discussed with Dr. Santos, who will come and see patient, discussed other anticonvulsive therapy - Will try Dilantin, given her weight, I tried 100 mg of Dilantin - She is more alert awake she can follow commands she is able to report to me that she has back pain, she is moving her right arm right leg, she is moving her left leg at times, but continues to have focal nonconvulsive status epilepticus without impairment of consciousness - Daughter at bedside, had a detailed di scussion with her, discussed trying loading dose Depacon, and if she does not respond to Depacon, will start loading dose of Dilantin as she tolerated 100 mg, will start 200 mg IV every 8 hours her Dilantin loading dose for 24 hours - Readdressed Krupa's CODE STATUS, Sherron remains a full code, discussed the possibility of intubation, mechanical ventilation, her daughter wants to think on this, but is okay for with her being a full code -Sherron reports to me that she continues to have back pain this despite the morphine will put an order for Dilaudid - During my examinations Lucia is on room air, normotensive, she is moving her right arm, moving her right leg, she is able to follow some commands, she is able to move the bedsheets with the right arm, continues to have focal nonconvulsive status epilepticus without impairment of consciousness - Discussed moving to the ICU, - Will monitor throughout the night Vitals/I&O/Wt Last Vital Signs Temp 98.7 F 07/30/25 15:36 Pulse 100 07/30/25 15:36 Resp 17 07/30/25 15:36 BP 136/90 07/30/25 15:36 Pulse Ox 90 07/30/25 15:36 O2 Del Method Room Air 07/30/25 15:36 07/30/25 07/30/25 07/30/25 06:59 14:59 22:59 Intake Total 100 / 100 22 / 122 Output Total 60 / 60 Balance 100 / 100 -38 / 62 Weight last 48 hrs Weight 56.019 kg Weight 56.654 kg Physical Exam 2 Const: COMMON NORMALS: no acute distress ORIENTATION/CONSCIOUSNESS: Yes awake and Yes oriented to person; not oriented to place and not oriented to time OTHER: Can follow commands Eye: COMMON NORMALS: Equal, round and reactive pupils present PUPIL: Yes Equal, round and reactive pupils present Resp: COMMON NORMALS: normal respiratory effort, No retractions, No use of accessory muscles and clear to auscultation bilaterally AUSCULTATION: clear to auscultation bilaterally Cardio: COMMON NORMALS: regular rate, regular rhythm, S1 normal heart sound present and S2 normal heart sound present RATE: regular rate RHYTHM: r egular rhythm HEART SOUNDS: S1 normal heart sound present and S2 normal heart sound present GI: COMMON NORMALS: Normal to inspection, nondistended, normoactive bowel sounds present and non-tender Extremity: COMMON NORMALS: no pedal edema Neuro: SENSORIUM/ORIENTATION: Yes oriented to person, No oriented to place and No oriented to time OTHER: She moves her right arm, moves her right legs is able to follow commands able to squeeze my fingers able to smile for me She can move her left leg, she does have ability to plantarflex, dorsiflex her left leg She is able to squeeze my finger on the left, although significantly diminished Significant left-sided weakness She has myoclonic jerks/movement left shoulder, left arm No facial twitching She is able to answer basic yes or no questions Able to tell me that she has back pain She can follow commands, localize pain, Data 07/30/25 05:36 07/30/25 05:36 A&P Assessment and plan 1. Non-convulsive seizure disorder with status epilepticus: 2. Accelerated hypertension: 3. 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 - Plan - Neurology consulted - Will moved to ICU - Status post 3000 mg of IV Keppra - Status post 100 mg IV Dilantin - Will give 500 mg IV Depacon - If no response, will give her loading dose of Dilantin 300 mg IV every 8 hours, Acute encephalopathy - Etiology focal nonconvulsive status epilepticus with out impairment of consciousness - Concerns for possible seizure, seizure-like episodes witnessed by nursing staff at half-way facility, witnessed by ER staff - She does have left-sided weakness from a prior stroke, but according to long-term she is ambulatory and her left side is still functional, in the emergency room, she she is not moving her left arm or left leg to commands, but is moving the right -Continues to have significant left-sided weakness, new CVA? 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 Mild atheromatous plaque right carotid bulb/ICA. Left ICA stenosis <50%. Moderate atheromatous plaque left carotid bulb/ICA. Intimal thickening in the common carotid arteries and internal carotid arteries bilaterally. Normal antegrade Doppler flow noted in the right vertebral artery. Normal antegrade Doppler flow noted in the left vertebral artery. -MRI of the brain in May 12 shows a remote right MCA territory infarct with encephalomalacia -In the emergency room she had seizure-like episode, was given 1 mg of Ativan, now appears to be postictal, she can follow some commands, she does move the right side right arm right leg but does not to commands with the left side, she does spontaneously move the left arm and left leg, at times is globally encephalopathic Plan - Seizure precautions - Neurochecks - NIH stroke scale - Aspiration precautions - Seizure precautions - Aspirin, statin - Urinalysis pending History of gallbladder adenocarcinoma? -PET scan 03/21/2025 -Shows decreased size of peripherally hypermetabolic lesion in the caudate lobe, probably resolving hepatic abscess although malignancy is not excluded -Hypermetabolic focus along the gallbladder fossa is likely related to resolving infection/fluid collection, malignancy cannot be excluded -Abnormal thickening of the endometrial stripe could be secondary to polyp, neoplasm or hyperplasia Full code Lovenox for DVT prophylaxis PDMP PDMP Reviewed: Not Reviewed Attestations 2 Medical Necessity Statement*: Patient requires hospitalization for focal nonconvulsive status epilepticus without impairment of consciousness Coding Level of Care Code Critical Care >/= 30 minutes Critical care time (in minutes): 45 The high probability of a clinically significant, sudden or life threatening deterioration, as referenced in this documentation, required my full and direct attention, intervention and personal management. The critical care time shown is in addition to time spent performing any reported separately billable procedures and includes the following: [x] Data and vital sign review and interpretation [x ] Patient assessment, examination and intervention [x] Medication orders and management [x] Patient/Family updates as able [x] Care Coordination and Documentation. Diagnoses Non-convulsive seizure disorder with status epilepticus G40.901 Accelerated hypertension I10 Acute encephalopathy G93.40
[2025-07-30 19:21] LABS: Hematocrit 35.0 % (36-47); Hemoglobin 11.30 g/dL (11.27-16.99); Mean Corpuscular HGB Conc 32.3 g/dL (30-55); Mean Corpuscular Hemoglobin 29.2 pg (27-33); Mean Corpuscular Volume 90.4 fl (85-98); Nucleated Red Blood Cells % 0 %; Platelet Count 185 10^3/cmm (157-399); Red Blood Count 3.87 10^6/uL (3.85-5.65); White Blood Count 8.10 10^3/uL (3.29-11.43)
[2025-07-30] MEDS: [UNRECOGNIZED DRUG - REMARK] 104 MG IV (19:34)
[2025-07-30 19:48] LABS: Alanine Aminotransferase 11 U/L (0-33); Albumin Level 3.6 g/dL (3.5-5.2); Alkaline Phosphatase 91 U/L (35-105); Anion Gap 18.4 (5-19); Aspartate Amino Transferase 22 U/L (0-32); Blood Urea Nitrogen 9 mg/dL (8-23); Calcium 8.7 mg/dL (8.5-10.5); Carbon Dioxide 24 mmol/L (22-29); Chloride 105 mmol/L (98-107); Creatinine Clr Calc Pharmacy 45.1092; Globulin 2.5 g/dL (1.3-4.6); Glucose 78 mg/dL (65-115); Magnesium 1.4 mg/dL (1.7-2.3); Osmolality Calculated 296 mOsm/kg (285-295); Potassium 3.4 mmol/L (3.5-5.1); Sodium 144 mmol/L (136-145); Thyroid Stimulating Hormone 4.57 uIU/mL (0.27-4.20); Total Protein 6.1 g/dL (6.6-8.7)
[2025-07-31] VITALS (50 sets, daily range): BP systolic 109–196; BP diastolic 54–139; PULSE 69–106; RESP 14–47; TEMP 36.2–36.6; O2SAT 74–100
[2025-07-31] MEDS: [UNRECOGNIZED DRUG - REMARK] 104 MG IV ×3 (00:04→15:39)
--- NOTE | 2025-07-31 01:21 | PC.NURSE ---
NIH scale Unable to complete NIH stroke scale at this time due to patient lethargy, as well as sedation via Ativan due to restlessness and pulling at lines/monitoring.
[2025-07-31] MEDS: LORazepam 1 MG/0.5 ML injection IVP ×2 (04:26→23:11)
[2025-07-31 05:31] LABS: Hematocrit 34.9 % (36-47); Hemoglobin 11.00 g/dL (11.27-16.99); Mean Corpuscular HGB Conc 31.5 g/dL (30-55); Mean Corpuscular Hemoglobin 28.9 pg (27-33); Mean Corpuscular Volume 91.8 fl (85-98); Nucleated Red Blood Cells % 0 %; Platelet Count 151 10^3/cmm (157-399); Red Blood Count 3.80 10^6/uL (3.85-5.65); White Blood Count 5.22 10^3/uL (3.29-11.43)
[2025-07-31] MEDS: levETIRAcetam 1,000 MG/100 ML PREMIX 400 MG IV ×2 (05:32→15:39)
[2025-07-31 05:52] LABS: Alanine Aminotransferase 9 U/L (0-33); Albumin Level 3.4 g/dL (3.5-5.2); Alkaline Phosphatase 88 U/L (35-105); Anion Gap 13.4 (5-19); Aspartate Amino Transferase 20 U/L (0-32); Blood Urea Nitrogen 8 mg/dL (8-23); Calcium 8.4 mg/dL (8.5-10.5); Carbon Dioxide 27 mmol/L (22-29); Chloride 105 mmol/L (98-107); Creatinine Clr Calc Pharmacy 44.2996; Globulin 2.2 g/dL (1.3-4.6); Glucose 71 mg/dL (65-115); Osmolality Calculated 291 mOsm/kg (285-295); Potassium 3.4 mmol/L (3.5-5.1); Sodium 142 mmol/L (136-145); Total Protein 5.6 g/dL (6.6-8.7)
--- NOTE | 2025-07-31 08:01 | XR_ITS ---
WS: [id number] Portable AP supine chest, 07/31/2025 Clinical Data: sob Comparison: Portable chest, 07/29/2025 Findings: The right basilar opacity is not changed. No nodules, masses or effusions are seen. The heart is enlarged. The pulmonary vascularity is not increased. No pneumothorax is seen. The aortic arch shows tortuosity. The patient is rotated to the right. There are monitor leads on the chest wall. XR/XR chest 1V portable [id number] Impression: 1. No change in minimal right basilar opacity. 2. Cardiomegaly and atherosclerosis.
--- NOTE | 2025-07-31 08:01 | PC.NURSE ---
This nurse assessed everything they could for the NIH stroke scale for the patient. Patient could not participate for most of the NIH stroke scale.
[2025-07-31] MEDS: valproic acid inj 1,000 MG in sodium chloride 0.9% 50 ML 55 MG IV (08:22)
--- NOTE | 2025-07-31 10:15 | PC.SLP ---
COMMERCIAL ARTIST marivel attemped again-no arousal state for safe feeding/swallowing-nursing stated no swallow noted in their assessment-significantly ill patient
[2025-07-31] MEDS: dexmedeTOMIDine 0.9 % NaCL 400 MCG/100 ML PREMIX IV (11:52)
[2025-07-31] MEDS: cefTRIAXone 1,000 mg SDV 1000 MG IVP (12:01)
[2025-07-31] MEDS: PHENobarbital 130 mg/mL SDV 1 mL 60 MG IVP (15:39)
--- NOTE | 2025-07-31 16:07 | PC.OT ---
Attempted skilled OT treatment. Pt did not arouse with multiple verbal/tactile cues from therapist and from daughter present in room.
--- NOTE | 2025-07-31 17:36 | P.CONIM_ITS ---
Providers/Reason For Consult 2 Consulting Physician/Specialty*: Dr. Lakia Santos, neurology Reason for Consult*: Epilepsy partialis continua, motor Requesting Physician: Dr. Kemp Attending Physician: Santhosh Kemp MD Primary Care Provider: Cat Martínez DO History of Present Illness History of Present Illness Anais is a 85-year-old woman when she came in with strokelike symptoms a few days ago on 07/24/2025. 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 She was pretty much flaccid. She was back in the emergency department with worsening weakness 07/07/2025 and received TNK on the advice of the [facility] stroke team. She had the same symptoms when she returned on 07/24 and at that time her CAT scan showed atrophy and a very large right middle cerebral artery distribution consistent with infarction of most of that entire vessel. I thought that the findings on her exam were consistent with her previous stroke and I thought she appeared premorbid from cachexia. She was put in for 24 hours and discharged when nothing repairable was discovered. She returned again 07/29/2025 with a report that she was more weak on the left. She was noted to have a left-sided seizure and was treated with Ativan and admitted. She has had left motor epilepsy partialis continua throughout her stay. Dr. Kemp called me and I advised that she receive 3 g of Keppra IV and if that was ineffective we would move toward a second anticonvulsant. After that she received a gram of Dilantin and I asked him to increase that dose as well. Since then she received 500 mg of Depacon and I asked him to give her a gram and that was done. She continues to have continuous focal seizures on the left, intermittent. The patient is obtunded. She is extremely frail. Against the patient's expressed wishes, her daughter has requested that she be full code, full CPR, etc. Review of Systems 2 Narrative: She has not been febrile. Medications/Allergies Home Medications ?Medication ?Instructions ?Recorded ?Confirmed ?Last Taken ?Type atorvastatin 40 mg tablet 40 mg PO DAILY 01/22/25/01/2107/28/25 History aspirin 81 mg tablet,delayed 81 mg PO DAILY 05/12/25 0 07/29/25 07/28/25 History release ferrous sulfate 325 mg (65 mg 325 mg PO .QOD 05/12/25 07/29/25 07/27/25 History iron) tablet mirtazapine 30 mg tablet 30 mg PO BEDTIME 05/12/2507/28/25 History acetaminophen 325 mg tablet 650 mg PO Q6H PRN pain/inc reased 07/16/25 07/29/25 07/29/25 History temp bisacodyl 10 mg rectal suppository 10 mg NC DAILY PRN Constipation 07/16/25 07/29/25 Unknown History (Dulcolax (bisacodyl)) food supplemt, lactose-reduced 1 ea PO DAILY #1,656 mL 07/18/25 07/29/25 07/28/25 Rx (Ensure Active High Protein oral liquid) metoprolol tartrate 25 mg tablet 12.5 mg (1/2 x 25 mg) PO BID #30 07/18/25 07/29/25 07/28/25 Rx tabs sucralfate 1 gram tablet 1 g PO AC&BEDTIME 4 weeks #6 0 tabs 07/18/25 07/29/25 07/29/25 Rx omeprazole 20 mg capsule,delayed 20 mg PO BID [id number] 07/24/25 07/29/25 07/28/25 History release levofloxacin 750 mg tablet 750 mg PO DAILY 5 days #5 t abs 07/25/25 07/29/25 07/28/25 Rx Allergies Allergy/AdvReac Type Severity Reaction Status Date / Time No Known Allergies Allergy Verified 07/03/25 14:04 Current Medications Generic Name Dose Route Start Last Admin Trade Name Freq PRN Reason Stop Dose Admin Acetaminophen 650 mg 07/29/25 18:07 07/30/25 09:10 Acetaminophen 325 Mg Tablet PO 650 mg Q6H PRN Administration Mild/Mod Pain Or Temp >/= 101 Aspirin 81 mg 07/30/25 09:00 07/31/25 08:08 Aspirin 81 Mg Ec Tablet PO Not Given DAILY YAQUELIN Atorvastatin Calcium 40 mg 07/30/25 09:00 07/31/25 08:08 Atorvastatin 40 Mg Tablet PO Not Given DAILY YAQUELIN Ceftriaxone Sodium 1,000 mg 07/31/25 12:00 07/31/25 12:01 Ceftriaxone 1,000 Mg Sdv IVP 1,000 mg Q24H YAQUELIN Administration Protocol Enoxaparin Sodium 40 mg 07/29/25 18:07 07/30/25 17:50 Enoxaparin 40 Mg/0.4 Ml Syringe SUBCUT 40 mg Q24H YAQUELIN Administration Sodium Chloride 1,000 mls @ 125 mls/hr 07/30/25 11:15 07/31/25 12:06 Sodium Chloride 0.9% IV 125 mls/hr .Q8H YAQUELIN Administration Phenytoin 200 mg/ Sodium 40 mls @ 104 mls/hr 07/30/25 19:00 07/31/25 15:39 Chloride/ IV Miscellaneous IV 07/31/25 18:59 104 mls/hr Supplies Q6H YAQUELIN Administration Dextrose 125 mls @ 750 mls/hr 07/30/25 21:32 07/30/25 22:18 D10w IV Infused PRN PRN Infusion HYPOGLYCEMIA Dexmedetomidine/Sodium Chloride 400 mcg in 100 mls @ 0 mls/hr 07/31/25 10:45 07/31/25 16:39 Precedex IV 0 mcg/kg/hr .Q0M YAQUELIN 0 mls/hr Protocol Titration Per Protocol Lorazepam 1 mg 07/30/25 11:14 07/31/25 04:26 Lorazepam 1 Mg/0.5 Ml Injection IVP 1 mg Q4H PRN Administration ANXIETY Metoprolol Tartrate 12.5 mg 07/30/25 17:00 07/31/25 16:42 Metoprolol Tartrate 25 Mg Tablet PO Not Given BID@0500,1700 YAQUELIN Mirtazapine 30 mg 07/29/25 21:00 07/30/25 23:00 Mirtazapine 30 Mg Tablet PO Not Given BEDTIME YAQUELIN Pantoprazole Sodium 40 mg 07/29/25 18:07 07/30/25 17:50 Pantoprazole 40 Mg Sdv IVP 40 mg Q24H YAQUELIN Administration Sucralfate 1 gm 07/29/25 18:07 07/31/25 16:42 Sucralfate 1 Gm Tablet PO Not Given AC&BEDTIME YAQUELIN PFSH Acute 2 PFSH: Medical History 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 stroke History of thrombolytic therapy Presence of externally removable percutaneous endoscopic gastrostomy (PEG) tube BPPV (benign paroxysmal positional vertigo) CVA (cerebral vascular accident) Surgical History History of ankle surgery left History of right knee joint replacement Family History Mother Leukemia Social History Smoking and tobacco/nicotine status: never used tobacco/nicotine Alcohol intake: never Substance/Drug Use: never Vitals/I&O/Wt Last Vital Signs Temp 97.2 F L 07/31/25 05:38 Pulse 69 07/31/25 16:00 Resp 20 H 07/31/25 16:00 BP 146/91 07/31/25 16:00 Pulse Ox 98 07/31/25 16:00 O2 Del Method Nasal Cannula 07/31/25 16:00 O2 Flow Rate 2 07/31/25 16:00 07/31/25 07/31/25 07/31/25 06:59 14:59 22:59 Intake Total 758.75 / 2200.75 1040.179 / 1040.179 11.773 / 1051.952 Output Total 750 / 750 Balance 758.75 / 2140.75 1040.179 / 1040.179 -738.227 / 301.952 Weight last 48 hrs Weight 117 lb 14.4 oz Weight 123 lb 8 oz Weight 124 lb 14.4 oz Physical Exam 2 Narrative: Cachectic ancient woman laying on her left side in the ICU bed. She is breathing on her own and her breathing pattern is appropriate. Mental status exam: She moans in response to stimulation. She does not follow commands. Cranial nerves: I previously demonstrated left homonymous hemianopsia but she is not attentive enough to respond to threat. Oculocephalic movements intact. Left facial weakness based on flattening of the left nasolabial fold. Motor: She has vigorous 1/s clonic movements of the left shoulder. I am not seeing movements in the left leg. She has paratonic rigidity on the right. Toes upgoing. HEENT: Cachectic with wasting of the temporalis muscles and all of the scalp muscles. Neck: Her neck is somewhat stiff which is not different from my last exam. Chest: Clear to auscultation Cardiovascular: Heart sounds normal without murmur or gallop. Extremities very thin and cachectic CT scans of the head performed 07/24/2025, 07/29/2025 and 07/30/2025 all demonstrate atrophy in the entire posterior branch right middle cerebral artery distribution, consistent with her CAT scans from October and November. The evolution of her stroke in the right parietal region can be seen from the loss of suero-white differentiation in October to atrophy in November and progressive atrophy in that region with repeated CAT scans. There is nothing atypical about the appearance of this evolving right middle cerebral artery stroke. Further definition of that lesion to confirm the diagnosis was obtained 05/12/2025 on MRI during inpatient stay for Dr. Vidal when the patient presented with generalized weakness. Data 07/31/25 04:40 07/31/25 04:40 A&P Assessment and plan 1. Epilepsia partialis continua, intractable epilepsy, pharmacoresistant: This 85-year-old woman is in very poor health with cachexia, progressive weight loss and progressive failure to thrive over the course of the last 9 months. She had a devastating stroke in October that left her with left hemiparesis and has had fluctuating weakness on the left with no progression of her right middle cerebral artery stroke. She is in focal motor status epilepticus which can persist for months to years and is appropriately treated back at the [place] [facility]. I will add high-dose IV lacosamide. There is no role for using respiratory suppressing high dose benzodiazepines IV as would be done with generalized status. A recent review of cases of focal motor status epilepticus in adults document that stroke is a frequent etiology in patients of this age and as in this case, and that it may persist for months to years. It tends to be drug-resistant. Some literature documents that the prognosis is poor. The best option at this time is to transfer the patient back to the [place] [facility] and I will be glad to manage her as an outpatient. 2. History of stroke: She had a large posterior branch right middle cerebral artery stroke in October and fluctuating left-sided weakness since then. Plan: Discussed repeatedly with Dr. Garduno in the last several days and I apologize that I have not been at bedside until today but he and I have communicated repeatedly. PDMP PDMP Reviewed: Not Reviewed Consult Attestations 2 Medical Necessity Statement: New onset of focal status epilepticus Coding Level of Care Code Acute Code for Chg Fwd Diagnoses Epilepsia partialis continua, intractable epilepsy, pharmacoresistant G40.119 History of stroke Z86.73
--- NOTE | 2025-07-31 17:55 | P.PN_ITS ---
Subjective 2 Subjective: - [facility] - It into the evening - Early in the morning she was seated sh e continues to have focal partial seizure of the left arm, no twitching of the face, no seizure of the left leg, she does squeeze my right hand, she does move her right leg, she does not move the left arm or the left leg, she does not at times follow commands, she is much more encephalopathic this morning, high aspiration risk, kept n.p.o. - Patient Keppra was increased to thousa nd every 8 hours - She is currently receiving loading dos e of Dilantin - After consultation with Dr. Santos she was given 1000 mg of Depacon - She did receive Ativan in the night - She was reexamined earlier in the [facility], she was sat up to the side of the bed by physical therapy, she is able to sit, but does not move the left upper and left lower extremity, continues to have focal seizure over the left arm, does not follow commands is more confused this morning, her GCS score is 8-9, she is maintaining her airway, normotensive, on 2 - Patient was given a trial of 60 mg of phenobarbital -The amplitude of her focal seizure has improved but persist, her GCS score remains 8, she does awaken but falls back asleep, she remains on 2 L, maintaining her airway, normotensive, - Patient's daughter is at is at bedside - I had a detailed discussion with greg bajwa's daughter - Discussed results overall condition, s he is significantly deconditioned, BMI 19.6, significant protein calorie malnutrition, now she has left-sided weakness, which could be certainly a new stroke or could be from her seizure, nonetheless she is less interactive, which certainly could be the seizure medications, but I am worried about her overall condition, my worry is that this is going to be her condition, she has significant morbidity and mortality, I think her overall prognosis is poor - Discussed options of continued medical intervention versus hospice - However patient's daughter tells me th at Krupa's sisters lived into their 100s, and she wants to keep her mom a full code, and she wants to continue to do all interventions -Discussed with her that currently and Z elias's condition intubation would carry significant in my opinion morbidity, resulted in further deconditioning and she would likely remain dependent on life support, and overall prognosis would be poor - We talked about the possibility of int ubating Krupa, placing her on sedating medications to see if that could break her seizures, however patient's daughter wants to think on this, she wants us to get a second opinion from neurology at [facility] - Spoke to Dr. Santos, we will try la cosamide, - Continue Keppra 1500 mg every 8 hours - She should complete her Dilantin loadi ng dose at 6 PM, - She is also received about 1500 mg of Depacon in the last 24 hours - We Will obtain Dilantin levels, Depako te levels, Keppra levels - I spoke to neurology, at [facility], who recommended continuing medical intervention, trying lacosamide as above, no urgency in intubating patient, continuing to try medical invention, they said that if patient does not show any significant clinical progress we can certainly reach out again to see what further interventions that they recommend or possible transfer - Spoke to patient's daughter this evenmarita ng, discussed my discussion with Dr. Santos, Dr. Santos's consultation, my consultation with neurology at [facility], discussed continue medical admission trying lacosamide checking drug levels, and monitoring her for the next 24 hours, patient's daughter is in agreement Vitals/I&O/Wt Last Vital Signs Temp 97.2 F L 07/31/25 05:38 Pulse 69 07/31/25 16:00 Resp 20 H 07/31/25 16:00 BP 146/91 07/31/25 16:00 Pulse Ox 98 07/31/25 16:00 O2 Del Method Nasal Cannula 07/31/25 16:00 O2 Flow Rate 2 07/31/25 16:00 07/31/25 07/31/25 07/31/25 06:59 14:59 22:59 Intake Total 758.75 / 2200.75 1040.179 / 1040.179 11.773 / 1051.952 Output Total 750 / 750 Balance 758.75 / 2140.75 1040.179 / 1040.179 -738.227 / 301.952 Weight last 48 hrs Weight 53.479 kg Weight 56.019 kg Weight 56.654 kg Physical Exam 2 Const: COMMON NORMALS: no acute distress ORIENTATION/CONSCIOUSNESS: Yes awake; not oriented to person, not oriented to place and not oriented to time Eye: OTHER: Pupil equal round reactive to light Resp: COMMON NORMALS: normal respiratory effort, No retractions, No use of accessory muscles and clear to auscultation bilaterally AUSCULTATION: clear to auscultation bilaterally Cardio: COMMON NORMALS: regular rate, regular rhythm, S1 normal heart sound present and S2 normal heart sound present RATE: regular rate RHYTHM: r egular rhythm HEART SOUNDS: S1 normal heart sound present and S2 normal heart sound present GI: COMMON NORMALS: Normal to inspection, nondistended, normoactive bowel sounds present and non-tender Extremity: COMMON NORMALS: no pedal edema NARRATIVE EXTREMITY EXAM: Left upper extremity seizure like activity Neuro: SENSORIUM/ORIENTATION: No oriented to person, No oriented to place and No oriented to time Data 07/31/25 04:40 07/31/25 04:40 A&P Assessment and plan 1. Accelerated hypertension: 2. Acute encephalopathy: 3. Epilepsia partialis continua, intractable epilepsy, pharmacoresistant: Plan: Epilepsia partialis continua, intractable epilepsy pharmacal resistant - Plan - Neurology consulted - Will monitor - 1500 mg IV Keppra every 8 hours - Completing loading dose of Dilantin at 6 PM, check Dilantin levels, will hold off on further doses of Dilantin based upon what her Dilantin levels are this evening, in the morning - Status post 1500 mg IV Depacon recheck Depakote levels - Has not responded to 60 mg of phenobarbital - Started on lacosamide 100 mg IV every 12 hours will recheck level tomorrow morning Acute encephalopathy - Likely secondary to epilepsia partialis continua, intractable epilepsy, pharmacal resistant - Concerns for possible seizure, seizure-like episodes witnessed by nursing staff at alf facility, witnessed by ER staff - She does have left-sided weakness from a prior stroke, but according to [facility] she is ambulatory and her left side is still functional, in the emergency room, she she is not moving her left arm or left leg to commands, but is moving the right -Continues to have significant left-sided weakness, new CVA? 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 Mild atheromatous plaque right carotid bulb/ICA. Left ICA stenosis <50%. Moderate atheromatous plaque left carotid bulb/ICA. Intimal thickening in the common carotid arteries and internal carotid arteries bilaterally. Normal antegrade Doppler flow noted in the right vertebral artery. Normal antegrade Doppler flow noted in the left vertebral artery. -MRI of the brain in May 12 shows a remote right MCA territory infarct with encephalomalacia -In the emergency room she had seizure-like episode, was given 1 mg of Ativan, now appears to be postictal, she can follow some commands, she does move the right side right arm right leg but does not to commands with the left side, she does spontaneously move the left arm and left leg, at times is globally encephalopathic Plan - Seizure precautions - Neurochecks - NIH stroke scale - Aspiration precautions - Seizure precautions - Aspirin, statin - Urinalysis pending History of gallbladder adenocarcinoma? -PET scan 03/21/2025 -Shows decreased size of peripherally hypermetabolic lesion in the caudate lobe, probably resolving hepatic abscess although malignancy is not excluded -Hypermetabolic focus along the gallbladder fossa is likely related to resolving infection/fluid collection, malignancy cannot be excluded -Abnormal thickening of the endometrial stripe could be secondary to polyp, neoplasm or hyperplasia Concerns for aspiration pneumonia, keep n.p.o., IV Rocephin Full code Lovenox for DVT prophylaxis PDMP PDMP Reviewed: Not Reviewed Attestations 2 Medical Necessity Statement*: Patient requires hospitalization for acute encephalopathy, epilepsy partialis continua, intractable epilepsy Diagnoses Accelerated hypertension I10 Acute encephalopathy G93.40 Epilepsia partialis continua, intractable epilepsy, pharmacoresistant G40.119
[2025-07-31] MEDS: pantoprazole 40 mg SDV IVP (18:31)
[2025-07-31] MEDS: LORazepam 1 MG/0.5 ML injection 2 MG IVP (18:31)
[2025-07-31] MEDS: levETIRAcetam 1,500 MG/100 ML PREMIX 400 MG IV (19:55)
--- NOTE | 2025-07-31 20:32 | PC.NURSE ---
Non admin PO meds: Patient unable to take PO meds, Dr. Joy notified, night PO meds held.
[2025-08-01] VITALS (39 sets, daily range): BP systolic 104–214; BP diastolic 50–132; PULSE 66–106; RESP 5–35; TEMP 36.6–37.1; O2SAT 91–100; BMI 18.8
[2025-08-01] MEDS: glucagon 1 mg/mL KIT 1 mL IM (03:24)
[2025-08-01] MEDS: levETIRAcetam 1,500 MG/100 ML PREMIX 400 MG IV ×2 (03:31→12:14)
[2025-08-01] MEDS: dextrose 5%-sod chloride 0.9% 1,000 ML 125 ML IV ×2 (04:04→12:15)
--- NOTE | 2025-08-01 04:22 | XRR_ITS ---
PROCEDURE INFORMATION: Exam: XR Chest Exam date and time: 08/01/2025 4:24 AM Age: 85 years old Clinical indication: Other: Respiratory changes; Additional info: Resp change TECHNIQUE: Imaging protocol: Radiologic exam of the chest. Views: 1 view. COMPARISON: CR XR chest 1V portable [id number] 07/31/2025 8:08 AM FINDINGS: Lungs: Minimal, wispy right basilar subsegmental atelectasis. The upper lung zones are clear. No pulmonary vascular congestion. The chest remains slightly rotated to the right. Pleural spaces: Unremarkable. No pleural effusion. No pneumothorax. Heart/Mediastinum: The heart size is stable. Bones/joints: No acute osseous lesions. Stable chronic degenerative changes of the shoulders. Soft tissues: Unremarkable. XR/XR chest 1V portable [id number] IMPRESSION: Minimal right basilar subsegmental atelectasis, otherwise clear chest.
[2025-08-01] MEDS: glucose 40% Gel 15 gm UDC PO (04:29)
[2025-08-01 04:42] LABS: ABG PCO2 38.6 mmHg (35-45); ABG PH Result 7.43 (7.35-7.45); Alveolar-Arterial Oxygen Gradi 11.8 mmHg (5-10); Arterial Blood Gas Hematocrit 37.4 % (37-47); Blood Gas Allen Test Pos; Blood Gas LPM 2.0 %; Blood Gas Operator Identificat BD; Blood Gas Sample Site Brachial, left; Blood Gas Sample Type Arterial; Carboxyhemoglobin 1.2 %THgb (0.4-20.1); Glucose Level-ABG 125.0 mg/dL (70-115); HCO3 ABG 25.3 mmol/L (22-26); Ionized Calcium Level - ABG 1.1 mmol/L (1.1-1.4); Methemoglobin 0.9 % (0.4-1.5); Oxygen Saturation ABG 91.9; PO2 ABG 59.6 mmHg (80.0-100.0); PO2 FiO2 Ratio Arterial Blood 212; Potassium Level - ABG 2.7 mmol/L (3.5-5.0); Sodium Level - ABG 140.0 mmol/L (131-143)
[2025-08-01 05:24] LABS: Hematocrit 34.6 % (36-47); Hemoglobin 11.20 g/dL (11.27-16.99); Mean Corpuscular HGB Conc 32.4 g/dL (30-55); Mean Corpuscular Hemoglobin 29.2 pg (27-33); Mean Corpuscular Volume 90.3 fl (85-98); Nucleated Red Blood Cells % 0 %; Platelet Count 171 10^3/cmm (157-399); Red Blood Count 3.83 10^6/uL (3.85-5.65); White Blood Count 8.36 10^3/uL (3.29-11.43)
[2025-08-01] MEDS: metoprolol tartrate 1 mg/1 mL SDV 5 mL 2.5 MG IVP ×4 (05:29→16:38)
[2025-08-01 05:51] LABS: Alanine Aminotransferase 11 U/L (0-33); Albumin Level 3.2 g/dL (3.5-5.2); Alkaline Phosphatase 88 U/L (35-105); Anion Gap 16.8 (5-19); Aspartate Amino Transferase 24 U/L (0-32); Blood Urea Nitrogen 7 mg/dL (8-23); Calcium 8.2 mg/dL (8.5-10.5); Carbon Dioxide 23 mmol/L (22-29); Chloride 103 mmol/L (98-107); Creatinine Clr Calc Pharmacy 43.6633; Globulin 2.4 g/dL (1.3-4.6); Glucose 125 mg/dL (65-115); Osmolality Calculated 289 mOsm/kg (285-295); Sodium 140 mmol/L (136-145); Total Protein 5.6 g/dL (6.6-8.7)
[2025-08-01 06:03] LABS: Potassium 2.8 mmol/L (3.5-5.1)
[2025-08-01] MEDS: lidocaine 1% 5 ML in potassium chloride premix 100 ML 52.5 ML IV ×2 (07:22→09:29)
--- NOTE | 2025-08-01 08:51 | PC.SLP ---
OWNER evaluation attempted however nursing stated to hold speech therapy due to seizure activity and low arousal. Nursing stated patient currently not handling secretions.
--- NOTE | 2025-08-01 10:45 | USCV_ITS ---
Debby Velez Age: 85 Gender: F : 1940 Exam Date: 08/01/2025 10:57 Ordering Phys: Santhosh Kemp MD Technologist: Exam Location: [facility] [place] [facility] [place] Indication: ef BP: 171 / 111 HR: Rhythm: Sinus Technical Quality: Adequate MEASUREMENTS (Male / Female) Normal Values 2D ECHO LV Diastolic Diameter PLAX 3.6 cm 4.2 - 5.9 / 3.9 - 5.3 cm IVS Diastolic Thickness 1.3 cm 0.6 - 1.0 / 0.6 - 0.9 cm IVS Systolic Thickness 1.3 cm LVPW Diastolic Thickness 1.3 cm 0.6 - 1.0 / 0.6 - 0.9 cm LVPW Systolic Thickness 1.5 cm LVOT Diameter 2.0 cm LV Ejection Fraction 2D Teich 64.8 % LV Ejection Fraction MOD 4C 45.4 % LV Ejection Fraction MOD 2C 54.9 % LV Ejection Fraction 2C AL 55.7 % LA Diameter 4.4 cm Aorta at Sinotubular Diameter 2.9 cm FINDINGS Left Ventricle Normal left ventricular size, systolic function and wall thickness, with no regional wall motion abnormalities. Left ventricular ejection fraction is estimated at 60%. Right Ventricle Right Atrium Left Atrium Moderately increased left atrial size. Mitral Valve Aortic Valve Tricuspid Valve Pulmonic Valve Pericardium Aorta IVC CONCLUSIONS Limited echocardiogram Normal left ventricular size, systolic function and wall thickness, with no regional wall motion abnormalities. Left ventricular ejection fraction is estimated at 60%. Moderately increased left atrial size. There is no pericardial effusion. Quan Haddad MD (Electronically Signed) Final Date: 01 August 2025 11:42 S
[2025-08-01] MEDS: cefTRIAXone 1,000 mg SDV 1000 MG IVP (12:15)
[2025-08-01] MEDS: propofol 1,000 MG/100 ML INJ 1.54 MG IV (14:00)
--- NOTE | 2025-08-01 14:11 | XR_ITS ---
WS: [id number] Portable AP upright chest, 08/01/2025, 1441 hours Clinical Data: intubation Comparison: Portable chest, 08/01/2025, 0430 hours Findings: The endotracheal tube ends above the jonah. The basilar subsegmental atelectasis is visible above the right diaphragm. No nodules, masses or effusions are seen. The heart is normal. The pulmonary vascularity is not increased. No pneumothorax is seen. The diaphragms are flattened. The aortic arch is tortuous. There is an enteric tube ending in the stomach. Monitor leads are on the chest wall. The aortic arch and descending thoracic aorta show tortuosity. XR/XR chest 1V portable [id number] Impression: 1. Satisfactory placement of endotracheal tube and enteric tube. 2. Atherosclerosis and hyperinflation. 3. Minimal right basilar atelectasis.
--- NOTE | 2025-08-01 14:13 | PM.ACPR ---
Acute Procedures Intubation: Time out performed: Yes Sedative: etomidate Mg given: 5 Paralytic: succinylcholine Mg given: 50 Laryngoscope: Haseeb ET tube size: 8 Tube secured depth (cm): 23 Tube secured location: lips Tube placement confirmation: visualized tube passing through cords, equal breath sounds bilaterally, confirmation by capnometry and color change noted Patient tolerated procedure: well and no complications Additional comments: Consent obtained from daughter over the phone after discussion of risks benefits and alternatives, not limited to but including difficulties with intubation, respiratory failure, laryngeal injury, lung mechanical insulation injury, difficulty with extubation, hemodynamic instability, arrhythmia, electrolyte abnormalities and other potential complications understanding these, noted. Requested to proceed with intubation.
--- NOTE | 2025-08-01 14:22 | PM.TDS ---
Transfer Summary Providers Date of Admission: 07/29/25 14:09 Date of Discharge/Transfer: 08/01/25 Attending Provider at Admission: Santhosh Kemp MD Attending Provider at Transfer: Baldomero Vidal Primary Care Provider: Cat Martínez DO Transfer Plans: Anticipated date of transfer: 08/01/25. Diagnoses at Discharge Discharge Diagnosis 1. Accelerated hypertension: 2. Acute encephalopathy: 3. Epilepsia partialis continua, intractable epilepsy, pharmacoresistant: 4. History of stroke: Reason for Visit Reason for Visit LEFT SIDED WEAKNESS Brief History: Debby Velez is a 85 year old female past medical history of CVA, with residual left-sided weakness, history of right MCA stroke, history of tenecteplase 07/08/2025, hypertension, status post cholecystectomy, history PEG tube placement then removal for poor oral intake after CVA, history of benign positional vertigo, history of carcinoma the gallbladder, who presents [facility] for worsening left-sided weakness. Received Ativan, was postictal, awakens, but easily falls back asleep, she localizes pain, withdraws from pain, responds to her name, she moves her right arm, the right leg, at times she is able to squeeze my fingers on the right, she does move her left arm, but is not able to follow commands, test test strength, she does spontaneously move her left leg, does not follow commands to test strength, she does withdraw from pain, left arm, left leg, no facial droop, pupils are equal round reactive to light, GCS score is 10, according to ER provider patient had a seizure like episode in the emergency room, no prior history of seizures, blood pressure 179/82, pulse 87, respiratory rate 20, she is 98% on room air, Previously was walking with a wheeled walker, she does have left-sided weakness but since she has significantly improved, she had an episode of becoming unresponsive at times, developing tremors of her left hand progressing to generalized tremors, associate with confusion, she also had complaints of chest discomfort Hospital Course Hospital Course She was continued on Keppra twice daily, however, with persistent focal seizure-like activity found to be in epilepsia partialis continua and so far has not responded to addition of phenytoin as well as a dose of phenobarbital and a loading dose of Depakote. She was assessed by neurology here with recommendation for continued outpatient management. However, with further worsening mental status with persistent seizure symptoms on the left side with left-sided weakness as well, unable to mobilize, per family request neurology service at [facility] was also contacted and transfer had been considered on 07/31. Vimpat was recommended as an additional measure and started at 100 mg every 12 hours on 07/31, and she was continued on Keppra. Overnight with persistent seizures, diminished arousal, intermittently not protecting her airway, with episodes of desaturation down into the 50s, with episodes of hypoglycemia since last night while n.p.o. requiring glucose infusion, further discussions took place with family with overnight hospitalist who upon consideration of goals of care requested during the day to pursue continued treatment of seizures, and as per prior discussion wanting to pursue intubation and PEG. On reaching back out to [facility] neurology and discussing persistence of seizure activity she is accepted for transfer on family request for further assessment and management in their neuro ICU. Per prior discussion also recommend proceeding with intubation; per discussion with family they still want to pursue this in lieu of discussed option of supportive care and comfort measures even with understanding that these seizures are likely very difficult or impossible to break or resolve, understanding risks with intubation mechanical intubation, risk of difficulty of weaning or that she may end up needing tracheostomy, other complicating factors. At this time they want to pursue transfer with continued attempts of getting the seizures under control. To aid in this Vimpat as per discussion with neurology is also increased to 200 mg with airway secured prior to transfer. Family will then further revisit PEG tube replacement depending on her condition. History of gallbladder adenocarcinoma? -PET scan 03/21/2025 -Shows decreased size of peripherally hypermetabolic lesion in the caudate lobe, probably resolving hepatic abscess although malignancy is not excluded -Hypermetabolic focus along the gallbladder fossa is likely related to resolving infection/fluid collection, malignancy cannot be excluded -Abnormal thickening of the endometrial stripe could be secondary to polyp, neoplasm or hyperplasia Physical Exam Const: GENERAL APPEARANCE: lethargic ORIENTATION/CONSCIOUSNESS: Yes lethargic HENMT: COMMON NORMALS: oropharynx normal Neck/C-Spine: COMMON NORMALS: no JVD Resp: COMMON NORMALS: normal respiratory effort and clear to auscultation bilaterally AUSCULTATION: clear to auscultation bilaterally Cardio: COMMON NORMALS: no JVD, regular rhythm, S1 normal heart sound present, S2 normal heart sound present and No murmurs present (Cardio) RHYTHM: regular rhythm HEART SOUNDS: S1 normal heart sound present and S2 normal heart sound present GI: COMMON NORMALS: Normal to inspection, nondistended, normoactive bowel sounds present, Soft to palpation and non-tender PALPATION: Yes Soft to palpation Extremity: COMMON NORMALS: no joint enlargement and no pedal edema Neuro: SENSORIUM/ORIENTATION: Yes lethargic OTHER: Intermittent seizure activity involving left upper extremity, face Skin: COMMON NORMALS: no rashes or lesions noted GENERAL SKIN EXAM: no rashes or lesions noted Urinary Catheter Management: Cuadra: Cath Placed During This Visit: yes Urinary Catheter Date of Insertion: 08/01/25 Urinary Catheter Time of Insertion: 13:59 TS Data Studies Completed and Pending Pending at discharge Category Date Time Status CXRP [XR chest 1V portable [id number]] Urgent Exams 08/01/25 14:11 Ordered KEPPRA [Levetiracetam Immunoassy] Routine Lab 07/31/25 18:45 Received Lacosamide (Vimpat) Routine Lab 08/01/25 05:05 Received Magnesium Routine Lab 08/01/25 11:18 Ordered Potassium Routine Lab 08/01/25 14:00 Ordered Urinalysis Routine Lab 07/30/25 20:58 Uncollected Completed Studies During Hospitalization Category Date Time Status CT head thrombolytic [id number] Stat Cat Scan 07/29/25 10:[address] head wo con* [id number] Routine Cat Scan 07/30/25 11:15 Completed XR chest 1V portable [id number] Routine Exams 07/31/25 08:01 Completed XR chest 1V portable [id number] Stat Exams 07/29/25 10:36 Completed XR chest 1V portable [id number] Stat Exams 08/01/25 04:22 Completed CV. echo limited [id number] Routine Ultrasound 08/01/25 10:45 Completed Laboratory Last Values WBC 8.36 10^3/uL (3.29-11.43) 08/01/25 05:05 RBC 3.83 10^6/uL (3.85-5.65) L 08/01/25 05:05 Hgb 11.20 g/dL (11.27-16.99) L 08/01/25 05:05 Hct 34.6 % (36-47) L 08/01/25 05:05 MCV 90.3 fl (85-98) 08/01/25 05:05 MCH 29.2 pg (27-33) 08/01/25 05:05 MCHC 32.4 g/dL (30-55) 08/01/25 05:05 RDW 16.7 % (12.1-15.1) H 08/01/25 05:05 Plt Count 171 10^3/cmm (157-399) 08/01/25 05:05 MPV 11.5 fL (7.4-10.4) H 08/01/25 05:05 Neut % (Auto) 77.3 % 08/01/25 05:05 Lymph % (Auto) 10.4 % 08/01/25 05:05 Pitkin % (Auto) 6.9 % 08/01/25 05:05 Eos % (Auto) 4.5 % 08/01/25 05:05 Baso % (Auto) 0.7 % 08/01/25 05:05 Neut # (Auto) 6.45 10^3/uL (1.8-7.7) 08/01/25 05:05 Lymph # (Auto) 0.9 10^3/uL (0.8-4.8) 08/01/25 05:05 Pitkin # (Auto) 0.6 10^3/uL (0.2-0.9) 08/01/25 05:05 Eos # (Auto) 0.4 10^3/uL (0.0-0.8) 08/01/25 05:05 Baso # (Auto) 0.1 10^3/uL (0.0-0.1) 08/01/25 05:05 Nucleated RBC % (auto) 0 % 08/01/25 05:05 Nucleated RBCs # 0.0 /100WBC 08/01/25 05:05 PT 13.90 SECONDS (12.1-14.9) 07/29/25 10:55 INR 1.00 (0.8-1.2) 07/29/25 10:55 APTT 25.8 SECONDS (23.9-36.7) 07/29/25 10:55 Specimen Type Arterial 08/01/25 04:30 Sample Site Brachial, left 08/01/25 04:30 ABG pH 7.43 (7.35-7.45) 08/01/25 04:30 ABG pCO2 38.6 mmHg (35-45) 08/01/25 04:30 ABG pO2 59.6 mmHg (80.0-100.0) L 08/01/25 04:30 ABG PO2/FiO2 Ratio 212 08/01/25 04:30 ABG HCO3 25.3 mmol/L (22-26) 08/01/25 04:30 ABG O2 Saturation 91.9 08/01/25 04:30 ABG Base Excess 1.0 mmol/L (-2.0-2.0) 08/01/25 04:30 Prem Test Pos 08/01/25 04:30 A-a O2 Gradient 11.8 mmHg (5-10) H 08/01/25 04:30 Hematocrit 37.4 % (37-47) 08/01/25 04:30 Hgb O2 Saturation 89.9 % (95-100) L 08/01/25 04:30 Carboxyhemoglobin 1.2 %THgb (0.4-20.1) 08/01/25 04:30 Methemoglobin 0.9 % (0.4-1.5) 08/01/25 04:30 Total Hemoglobin 12.2 g/dL (12-16) 08/01/25 04:30 Sodium 140.0 mmol/L (131-143) 08/01/25 04:30 Potassium 2.7 mmol/L (3.5-5.0) L 08/01/25 04:30 Glucose 125.0 mg/dL (70-115) H 08/01/25 04:30 Ionized Calcium 1.1 mmol/L (1.1-1.4) 08/01/25 04:30 O2 Delivery Device Nc 08/01/25 04:30 O2 Liters/Min 2.0 % 08/01/25 04:30 FiO2 28.0 % 08/01/25 04:30 Pickle Processor ID Bd 08/01/25 04:30 Sodium 140 mmol/L (136-145) 08/01/25 05:05 Potassium 2.8 mmol/L (3.5-5.1) L* 08/01/25 05:05 Chloride 103 mmol/L (98-107) 08/01/25 05:05 Carbon Dioxide 23 mmol/L (22-29) 08/01/25 05:05 Anion Gap 16.8 (5-19) 08/01/25 05:05 BUN 7 mg/dL (8-23) L 08/01/25 05:05 Creatinine 0.5 mg/dL (0.5-0.9) 08/01/25 05:05 GFR Calculation Not Reportable 08/01/25 05:05 Glucose 125 mg/dL (65-115) H 08/01/25 05:05 POC Glucose 95 mg/dL (70-110) 08/01/25 10:19 Estimat Average Glucose 105 07/29/25 19:19 Hemoglobin A1c 5.3 % (4.0-6.0) 07/29/25 19:19 Calculated Osmolality 289 mOsm/kg (285-295) 08/01/25 05:05 Calcium 8.2 mg/dL (8.5-10.5) L 08/01/25 05:05 Magnesium 1.4 mg/dL (1.7-2.3) L 07/30/25 19:00 Total Bilirubin 0.5 mg/dL (0.15-1.2) 08/01/25 05:05 AST 24 U/L (0-32) 08/01/25 05:05 ALT 11 U/L (0-33) 08/01/25 05:05 Alkaline Phosphatase 88 U/L (35-105) 08/01/25 05:05 Troponin T Baseline 33 ng/L (0-10) H 07/29/25 17:07 Troponin T 120 Minute 38.29 ng/L (0-10) H 07/29/25 19:19 Delta Troponin T 5.29 ABS# (0-10) 07/29/25 19:19 Troponin T Hi Sens 6Hr 36.23 ng/L (0-10) H 07/29/25 23:18 Troponin T Hi Sens 6Hr Delta 3.23 ng/L (0-12) 07/29/25 23:18 NT-Pro-B Natriuret Pep 1011 pg/mL (0-450) H 07/29/25 10:55 Total Protein 5.6 g/dL (6.6-8.7) L 08/01/25 05:05 Albumin 3.2 g/dL (3.5-5.2) L 08/01/25 05:05 Globulin 2.4 g/dL (1.3-4.6) 08/01/25 05:05 Triglycerides 146 mg/dL (0-150) 07/29/25 19:19 Cholesterol 105 mg/dL (0-200) 07/29/25 19:19 LDL Cholesterol, Calc 41 mg/dL (50-129) L 07/29/25 19:19 HDL Cholesterol 35 mg/dL (60-100) L 07/29/25 19:19 LDL/HDL Ratio 1.17 RATIO (0.00-3.22) 07/29/25 19:19 Cholesterol/HDL Ratio 3.00 mg/dL (0.0-4.40) 07/29/25 19:19 Procalcitonin 0.10 ng/mL (0-0.5) 07/29/25 10:55 TSH 4.57 uIU/mL (0.27-4.20) H 07/30/25 19:00 Urine Color Yellow (Yellow) 07/30/25 14:40 Urine Appearance Clear (CLEAR) 07/30/25 14:40 Urine pH 6.5 (5-7) 07/30/25 14:40 Ur Specific Jadwin 1.011 (1.005-1.030) 07/30/25 14:40 Urine Protein Trace (Negative) A 07/30/25 14:40 Urine Glucose (UA) Negative (Normal) 07/30/25 14:40 Urine Ketones Trace (Negative) 07/30/25 14:40 Urine Blood Negative (Negative) 07/30/25 14:40 Urine Nitrate Negative (Negative) 07/30/25 14:40 Urine Bilirubin Negative (Negative) 07/30/25 14:40 Urine Urobilinogen 0.2 mg/dL (Negative) 07/30/25 14:40 Ur Leukocyte Esterase Negative (Negative) 07/30/25 14:40 Urine RBC 0-2 /hpf (0-2) 07/30/25 14:40 Urine WBC 0-5 /hpf (0-5) 07/30/25 14:40 Ur Squamous Epith Cells 0-5 /hpf (0-5) 07/30/25 14:40 Amorphous Sediment Not Reportable 07/30/25 14:40 Urine Bacteria None seen /hpf (NONE) 07/30/25 14:40 Hyaline Casts 0.81 /lpf 07/30/25 14:40 Urine Opiates Screen Positive ng/mL (Negative) H 07/30/25 14:40 Ur Barbiturates Screen Negative ng/mL (Negative) 07/30/25 14:40 Phenytoin 5.0 ug/mL (10-20) L 08/01/25 05:05 Valproic Acid 17.4 ug/mL (50-100) L 08/01/25 05:05 Ur Phencyclidine Scrn Negative ng/mL (Negative) 07/30/25 14:40 Ur Amphetamines Screen Negative ng/mL (Negative) 07/30/25 14:40 U Benzodiazepines Scrn Positive ng/mL (Negative) H 07/30/25 14:40 Urine Cocaine Screen Negative ng/mL (Negative) 07/30/25 14:40 U Marijuana (THC) Screen Negative ng/mL (Negative) 07/30/25 14:[address] 07/30/25 11:15 IMPRESSION: 1. This examination is significantly limited by motion artifact. 2. No large areas of hemorrhage identified. 3. Remote RIGHT frontoparietal encephalomalacia and prior infarct appears stable. 4. No hydrocephalus or midline shift. Chest X-Ray 08/01/25 04:22 IMPRESSION: Minimal right basilar subsegmental atelectasis, otherwise clear chest. Recent Clincial Data Last Vital Signs Temp 97.9 F 08/01/25 07:30 Pulse 66 08/01/25 13:00 Resp 18 08/01/25 13:00 BP 129/57 08/01/25 13:00 Pulse Ox 100 08/01/25 13:00 O2 Del Method Nasal Cannula 08/01/25 13:00 O2 Flow Rate 2 08/01/25 13:00 Vital Signs Temp Pulse Resp BP Pulse Ox O2 Del Method O2 Del Method 08/01/25 13:00 66 18 129/57 100 Nasal Cannula 08/01/25 12:30 74 18 149/75 98 08/01/25 12:00 74 17 165/93 100 08/01/25 11:30 97 27 H 157/132 98 Nasal Cannula 08/01/25 11:00 95 34 H 171/111 96 08/01/25 10:30 90 27 H 177/97 99 08/01/25 10:00 87 29 H 151/73 97 08/01/25 09:55 72 100 Nasal Cannula 08/01/25 09:30 78 35 H 162/99 100 08/01/25 09:00 78 22 H 104/50 100 Nasal Cannula 08/01/25 08:30 70 5 L 112/56 100 08/01/25 08:00 85 17 162/109 100 08/01/25 07:30 97.9 F 81 15 132/64 100 Nasal Cannula 08/01/25 07:00 85 20 H 186/95 100 08/01/25 06:30 88 21 H 176/96 94 08/01/25 06:00 85 25 H 171/88 95 08/01/25 05:57 69 08/01/25 05:30 104 H 30 H 149/74 95 Nasal Cannula 08/01/25 05:00 95 22 H 164/78 95 Nasal Cannula 08/01/25 04:30 98.8 F 104 H 22 H 178/101 95 Nasal Cannula 08/01/25 04:00 102 H 30 H 91 Nasal Cannula 08/01/25 03:30 106 H 24 H 174/127 96 Nasal Cannula 08/01/25 03:00 105 H 23 H 185/101 94 Nasal Cannula 08/01/25 02:30 97 24 H 169/88 98 Nasal Cannula O2 Flow Rate O2 Flow Rate 08/01/25 13:00 2 08/01/25 12:30 08/01/25 12:00 08/01/25 11:30 2 08/01/25 11:00 08/01/25 10:30 08/01/25 10:00 08/01/25 09:55 2 08/01/25 09:30 08/01/25 09:00 2 08/01/25 08:30 08/01/25 08:00 08/01/25 07:30 2 08/01/25 07:00 08/01/25 06:30 08/01/25 06:00 08/01/25 05:57 08/01/25 05:30 2 08/01/25 05:00 2 08/01/25 04:30 2 08/01/25 04:00 2 08/01/25 03:30 2 08/01/25 03:00 2 08/01/25 02:30 2 Intake & Output/Weight 07/30/25 07/31/25 08/01/2525 06:59 06:59 06:59 06:59 Intake Total 100 / 100 2200.75 / 2200.75 3316.119 / 3316.119 1105 / 1105 Output Total 60 / 60 750 / 750 Balance 100 / 100 2140.75 / 2140.75 2566.119 / 2566.119 1105 / 1105 Weight 56.019 kg 53.479 kg 51.483 kg Vitals Last Vital Signs Temp 97.9 F 08/01/25 07:30 Pulse 66 08/01/25 13:00 Resp 18 08/01/25 13:00 BP 129/57 08/01/25 13:00 Pulse Ox 100 08/01/25 13:00 O2 Del Method Nasal Cannula 08/01/25 13:00 O2 Flow Rate 2 08/01/25 13:00 TS Medications Medications Acetaminophen (Acetaminophen 325 Mg Tablet) 650 mg PO Q6H PRN PRN Reason: Mild/Mod Pain Or Temp >/= 101 Last Admin: 07/30/25 09:10 Dose: 650 mg Aspirin (Aspirin 81 Mg Ec Tablet) 81 mg PO DAILY [facility] Last Admin: 08/01/25 08:10 Dose: Not Given Atorvastatin Calcium (Atorvastatin 40 Mg Tablet) 40 mg PO DAILY [facility] Last Admin: 08/01/25 08:10 Dose: Not Given Ceftriaxone Sodium (Ceftriaxone 1,000 Mg Sdv) 1,000 mg IVP Q24H [facility]; Protocol Last Admin: 08/01/25 12:15 Dose: 1,000 mg Enoxaparin Sodium (Enoxaparin 40 Mg/0.4 Ml Syringe) 40 mg SUBCUT Q24H [facility] Last Admin: 07/31/25 18:31 Dose: 40 mg Etomidate (Etomidate 2 Mg/Ml Inj Sdv 10 Ml) 15.44 mg 0.3 mg/kg (15.44 mg) IVP ONCE PRN PRN Reason: PROCEDURE Hydralazine HCl (Hydralazine 20 Mg/Ml Inj 1 Ml) 10 mg IVP Q4H PRN PRN Reason: HYPERTENSION Hydromorphone HCl (Hydromorphone 0.5 Mg/0.5 Ml Inj) 0.5 mg IVP Q4H PRN PRN Reason: pain Levetiracetam (Keppra) 1,500 mg in 100 mls @ 400 mls/hr IV Q8H [facility] Last Admin: 08/01/25 12:14 Dose: 400 mls/hr Dextrose/Sodium Chloride (Dextrose 5%-Sod Chloride 0.9%) 1,000 mls @ 125 mls/hr IV .Q8H [facility] Last Admin: 08/01/25 12:15 Dose: 125 mls/hr Propofol (Diprivan) 1,000 mg in 100 mls @ 0 mls/hr IV .Q0M [facility]; Protocol Lacosamide 200 mg/ Sodium (Chloride) 70 mls @ 120 mls/hr IV Q12H [facility] Lacosamide 100 mg/ Sodium (Chloride) 60 mls @ 120 mls/hr IV ONCE ONE Stop: 08/01/25 14:50 Lorazepam (Lorazepam 1 Mg/0.5 Ml Injection) 1 mg IVP Q4H PRN PRN Reason: ANXIETY Last Admin: 07/31/25 23:11 Dose: 1 mg Metoprolol Tartrate (Metoprolol Tartrate 1 Mg/1 Ml Sdv 5 Ml) 2.5 mg IVP Q4H [facility] Last Admin: 08/01/25 12:15 Dose: 2.5 mg Mirtazapine (Mirtazapine 30 Mg Tablet) 30 mg PO BEDTIME [facility] Last Admin: 07/31/25 20:31 Dose: Not Given Naloxone HCl (Naloxone 0.4 Mg/Ml Sdv) 0.1 mg IVP Q2M PRN PRN Reason: OPIATERV Ondansetron HCl (Ondansetron 2 Mg/Ml Sdv 2 Ml) 4 mg IVP Q8H PRN PRN Reason: vomiting, or N/V if npo Pantoprazole Sodium (Pantoprazole 40 Mg Sdv) 40 mg IVP Q24H [facility] Last Admin: 07/31/25 18:31 Dose: 40 mg Succinylcholine Chloride (Succinylcholine 20 Mg/Ml Sdv 10ml) 50 mg IV ONCE PRN PRN Reason: PROCEDURE Sucralfate (Sucralfate 1 Gm Tablet) 1 gm PO AC&BEDTIME [facility] Last Admin: 08/01/25 11:35 Dose: Not Given Discontinued Medications Aspirin (Aspirin 300 Mg Supp) 300 mg MD ONCE ONE Stop: 07/29/25 16:20 Last Admin: 07/29/25 17:45 Dose: 300 mg Glucagon (Glucagon 1 Mg/Ml Kit 1 Ml) 1 mg IM ONCE ONE Stop: 08/01/25 03:12 Last Admin: 08/01/25 03:24 Dose: 1 mg Glucose (Glucose 40% Gel 15 Gm Udc) 15 gm PO NOW ONE Stop: 08/01/25 04:17 Last Admin: 08/01/25 04:29 Dose: 15 gm Hydralazine HCl (Hydralazine 20 Mg/Ml Inj 1 Ml) 10 mg IVP ONCE ONE Stop: 07/29/25 10:57 Last Admin: 07/29/25 11:02 Dose: 10 mg Hydralazine HCl (Hydralazine 20 Mg/Ml Inj 1 Ml) 10 mg IVP ONCE ONE Stop: 07/29/25 12:28 Last Admin: 07/29/25 12:41 Dose: 10 mg Hydromorphone HCl (Hydromorphone 0.5 Mg/0.5 Ml Inj) 0.5 mg IVP ONCE ONE Stop: 07/30/25 17:58 Last Admin: 07/30/25 18:03 Dose: 0.5 mg Levetiracetam (Keppra) 1,000 mg in 100 mls @ 400 mls/hr IV Q24H [facility] Last Infusion: 07/29/25 19:19 Dose: Infused Levetiracetam (Keppra) 1,000 mg in 100 mls @ 400 mls/hr IV ONCE ONE Stop: 07/30/25 11:25 Last Infusion: 07/30/25 12:08 Dose: Infused Levetiracetam (Keppra) 1,000 mg in 100 mls @ 400 mls/hr IV Q12H [facility] Last Infusion: 07/31/25 05:51 Dose: Infused Sodium Chloride (Sodium Chloride 0.9%) 1,000 mls @ 125 mls/hr IV .Q8H [facility] Last Infusion: 08/01/25 04:02 Dose: 0 mls/hr Levetiracetam (Keppra) 1,000 mg in 100 mls @ 400 mls/hr IV ONCE ONE Stop: 07/30/25 15:17 Last Admin: 07/30/25 19:09 Dose: Not Given Phenytoin 100 mg/ Sodium Chloride/ IV Miscellaneous Supplies 22 mls @ 104 mls/hr IV Q12H [facility] Last Infusion: 07/30/25 17:52 Dose: Infused Valproic Acid 500 mg/ Sodium (Chloride) 55 mls @ 55 mls/hr IV ONCE ONE Stop: 07/30/25 19:00 Last Infusion: 07/30/25 20:34 Dose: Infused Phenytoin 200 mg/ Sodium Chloride/ IV Miscellaneous Supplies 24 mls @ 104 mls/hr IV Q8H [facility] Stop: 07/31/25 08:32 Last Admin: 07/30/25 20:34 Dose: Not Given Phenytoin 200 mg/ Sodium Chloride/ IV Miscellaneous Supplies 40 mls @ 104 mls/hr IV Q6H [facility] Stop: 07/31/25 18:59 Last Admin: 07/31/25 15:39 Dose: 104 mls/hr Dextrose (D10w) 125 mls @ 750 mls/hr IV PRN PRN PRN Reason: HYPOGLYCEMIA Last Admin: 08/01/25 03:00 Dose: 750 mls/hr Levetiracetam (Keppra) 1,000 mg in 100 mls @ 400 mls/hr IV Q8H [facility] Last Infusion: 07/31/25 18:31 Dose: Infused Valproic Acid 1,000 mg/ Sodium (Chloride) 60 mls @ 55 mls/hr IV ONCE ONE Stop: 07/31/25 10:05 Last Admin: 07/31/25 08:22 Dose: 55 mls/hr Dexmedetomidine/Sodium Chloride (Precedex) 400 mcg in 100 mls @ 0 mls/hr IV .Q0M [facility]; Protocol Last Titration: 07/31/25 16:39 Dose: 0 mcg/kg/hr, 0 mls/hr Lacosamide 100 mg/ Sodium (Chloride) 60 mls @ 120 mls/hr IV Q12H [facility] Last Admin: 08/01/25 07:23 Dose: 120 mls/hr Dextrose/Sodium Chloride (Dextrose 5%-Sod Chloride 0.9%) Confirm Administered Dose 1,000 mls @ as directed .ROUTE .STK-MED ONE Stop: 08/01/25 04:04 Last Admin: 08/01/25 04:43 Dose: Not Given Lidocaine HCl 5 ml/ Potassium (Chloride) 105 mls @ 26.25 mls/hr IV ONCE ONE Stop: 08/01/25 10:22 Lidocaine HCl 5 ml/ Potassium (Chloride) 105 mls @ 52.5 mls/hr IV Q2H [facility] Stop: 08/01/25 10:59 Last Admin: 08/01/25 09:29 Dose: 52.5 mls/hr Labetalol HCl (Labetalol 5 Mg/Ml Sdv 20ml) 10 mg IVP ONCE ONE Stop: 07/29/25 12:32 Last Admin: 07/29/25 12:43 Dose: 10 mg Lorazepam (Lorazepam 1 Mg/0.5 Ml Injection) 0.5 mg IM ONCE ONE Stop: 07/29/25 12:31 Last Admin: 07/29/25 12:37 Dose: 0.5 mg Lorazepam (Lorazepam 1 Mg/0.5 Ml Injection) 1 mg IVP ONCE ONE Stop: 07/30/25 11:13 Last Admin: 07/30/25 11:25 Dose: 1 mg Lorazepam (Lorazepam 1 Mg/0.5 Ml Injection) 2 mg IVP ONCE ONE Stop: 07/31/25 18:13 Last Admin: 07/31/25 18:31 Dose: 2 mg Metoprolol Tartrate (Metoprolol Tartrate 25 Mg Tablet) 12.5 mg PO BID [facility] Last Admin: 07/30/25 09:50 Dose: 12.5 mg Metoprolol Tartrate (Metoprolol Tartrate 25 Mg Tablet) 12.5 mg PO BID@0500,1700 [facility] Last Admin: 07/31/25 16:42 Dose: Not Given Morphine Sulfate (Morphine 4 Mg/Ml Sdv 1 Ml) 2 mg IVP Q4H PRN PRN Reason: SEVERE PAIN Last Admin: 07/30/25 11:14 Dose: 2 mg Phenobarbital Sodium (Phenobarbital 130 Mg/Ml Sdv 1 Ml) 60 mg IVP ONCE ONE Stop: 07/31/25 14:36 Last Admin: 07/31/25 15:39 Dose: 60 mg Potassium Chloride (Potassium Chloride Er 20 Meq Tablet) 40 meq PO ONCE ONE Stop: 07/30/25 10:19 Last Admin: 07/30/25 11:14 Dose: 40 meq Allergies No Known Allergies Allergy (Verified 07/03/25 14:04) Home Medications atorvastatin 40 mg tablet 40 mg PO DAILY 01/22/25 [History Confirmed 07/29/25] aspirin 81 mg tablet,delayed release 81 mg PO DAILY 05/12/25 [History Confirmed 07/29/25] ferrous sulfate 325 mg (65 mg iron) tablet 325 mg PO .QOD 05/12/25 [History Confirmed 07/29/25] mirtazapine 30 mg tablet 30 mg PO BEDTIME 05/12/25 [History Confirmed 07/29/25] acetaminophen 325 mg tablet 650 mg PO Q6H PRN pain/increased temp 07/16/25 [History Confirmed 07/29/25] bisacodyl 10 mg rectal suppository (Dulcolax (bisacodyl)) 10 mg MD DAILY PRN Constipation 07/16/25 [History Confirmed 07/29/25] food supplemt, lactose-reduced (Ensure Active High Protein oral liquid) 1 ea PO DAILY #1,656 mL 07/18/25 [Rx Confirmed 07/29/25] metoprolol tartrate 25 mg tablet 12.5 mg (1/2 x 25 mg) PO BID #30 tabs 07/18/25 [Rx Confirmed 07/29/25] sucralfate 1 gram tablet 1 g PO AC&BEDTIME 4 weeks #60 tabs 07/18/25 [Rx Confirmed 07/29/25] omeprazole 20 mg capsule,delayed release 20 mg PO BID [id number] 07/24/25 [History Confirmed 07/29/25] levofloxacin 750 mg tablet 750 mg PO DAILY 5 days #5 tabs 07/25/25 [Rx Confirmed 07/29/25] Discharge Plan Discharge Patient Disposition: Xfer Short-Term Hosp Condition: Stable Prescriptions: No Action omeprazole 20 mg capsule,delayed release(DR/EC) 20 mg PO BID levofloxacin 750 mg tablet 750 mg PO DAILY 5 Days Qty: 5 0RF atorvastatin 40 mg tablet 40 mg PO DAILY aspirin 81 mg Tablet,Delayed Release (Dr/Ec) 81 mg PO DAILY mirtazapine 30 mg tablet 30 mg PO BEDTIME ferrous sulfate 325 mg (65 mg iron) tablet 325 mg PO .QOD acetaminophen 325 mg Tablet 650 mg PO Q6H PRN (Reason: pain/increased temp) bisacodyl [Dulcolax (bisacodyl)] 10 mg Suppository 10 mg MD DAILY PRN (Reason: Constipation) sucralfate 1 gram Tablet 1 g PO AC&BEDTIME 28 Days Qty: 60 0RF metoprolol tartrate 25 mg tablet 12.5 mg PO BID Qty: 30 0RF Ensure Active High Protein Liquid 1 ea PO DAILY Qty: 1656 0RF Referrals: Cat Martínez DO [Primary Care Provider, EDUCATION RESEARCH ANALYST] Discharge Diet: Advance as tolerated Discharge Activity: Resume usual activity Patient Instructions: Weakness (ED), Opioid Safety, Patient Portal & Latasha Instructions Transfer Attestations Time Spent in Transfer Care: greater than 30 min Status at Transfer: Cognitive status at transfer: cognitively intact; Behavioral status at transfer: cooperative; Quality Metrics Clinical Quality Measures [ No reported AMI, CVA or VTE this stay] Coding Level of Care Code 40933 Total time (in minutes) for Discharge: 60 Diagnoses Accelerated hypertension I10 Acute encephalopathy G93.40 Epilepsia partialis continua, intractable epilepsy, pharmacoresistant G40.119 History of stroke Z86.73
--- NOTE | 2025-08-01 14:23 | PC.SOCIAL ---
IMM updated IMM dated and initialed, copy placed in chart and copy given to patient.
[2025-08-01] MEDS: etomidate 2 mg/mL INJ SDV 10 mL 15.44 MG IVP (14:28)
[2025-08-01] MEDS: succinylcholine 20 mg/mL SDV 10mL 50 MG IV (14:29)
--- NOTE | 2025-08-01 14:32 | PC.NURSE ---
Patient was successfully intubated at [address] Vidal.
--- NOTE | 2025-08-01 14:38 | PC.NUTR ---
Received tube feeding consult. Recommend Jevity 1.5 beginning at 15mls/hr, increasing 10mls Q8H as tolerated until goal rate of 35mls/hr is reached, with FWF of 100mls Q4H or per MD discretion.
--- NOTE | 2025-08-01 15:18 | PC.NURSE ---
Report was called to [facility] in [place] [facility]. Number is [phone].
[2025-08-01 15:35] LABS: Potassium 3.7 mmol/L (3.5-5.1)
[2025-08-01 15:43] LABS: Magnesium 1.4 mg/dL (1.7-2.3)
--- NOTE | 2025-08-01 15:48 | PC.OT ---
Hold OT treatment at this time due per nursing to pt intubated and being transferred.
[2025-08-01 15:51] LABS: ABG PCO2 30.1 mmHg (35-45); ABG PH Result 7.51 (7.35-7.45); Arterial Blood Gas Hematocrit 36.8 % (37-47); Blood Gas Operator Identificat GD; Blood Gas Sample Site Brachial, right; Blood Gas Sample Type Arterial; Carboxyhemoglobin 0.9 %THgb (0.4-20.1); Glucose Level-ABG 146.0 mg/dL (70-115); HCO3 ABG 23.8 mmol/L (22-26); Ionized Calcium Level - ABG 1.1 mmol/L (1.1-1.4); Methemoglobin 0.3 % (0.4-1.5); Oxygen Saturation ABG 98.3; PO2 ABG 87.7 mmHg (80.0-100.0); Potassium Level - ABG 3.0 mmol/L (3.5-5.0); Sodium Level - ABG 139.0 mmol/L (131-143)
[2025-08-01 15:52] LABS: Alveolar-Arterial Oxygen Gradi 11.3 mmHg (5-10); Blood Gas Tidal Volume 0.40; PEEP 6.0 cmH20; PO2 FiO2 Ratio Arterial Blood 292
[2025-08-01 16:00] LABS: Glucose Urine UA Negative (Normal); Nitrate Urine Negative (Negative); Specific Gravity, Urine 1.015 (1.005-1.030)
[2025-08-01 16:02] LABS: Add Urine Microscopic? YES
[2025-08-01 16:11] LABS: UA Slide Review UA Slide Review Perf
[2025-08-01] MEDS: magnesium sulfate premix 4 GM/100 ML PREMIX IV (16:15)
[2025-08-01] MEDS: propofol 1,000 MG/100 ML INJ 9.27 MG IV (17:15)
--- NOTE | 2025-08-01 17:52 | PC.NURSE ---
Patient was picked up by [facility] critical care ambulance at 1726. Patient was stable during transfer.
[2025-08-02 11:19] LABS: Levetiracetam Immunoassy 49.6 mcg/mL (6.0-46.0)
== END 2025-08-01 17:26 | disposition short-term general hospital (02) | DRG 100 ==
LOC: ER 11:32 → ER IP 14:09 → MEDSURG 17:32 → ICU 07-30 21:10
PROVIDERS: Specialist; Student in an Organized Health Care Education/Training Program; Admitting Provider Family Medicine; Emergency Provider Emergency Medicine; PCP Family Medicine; Visit Provider Internal Medicine
DX: G40.119 Localization-related (focal) (partial) symptomatic epilepsy and epileptic syndromes with simple partial seizures, intractable, without status epilepticus (principal); J69.0 Pneumonitis due to inhalation of food and vomit; G93.40 Encephalopathy, unspecified; I69.954 Hemiplegia and hemiparesis following unspecified cerebrovascular disease affecting left non-dominant side; R64 Cachexia; Z68.1 Body mass index [BMI] 19.9 or less, adult
CPT/HCPCS: 36415; 36416; 36600; 51702; 70450; 71045; 80051; 80053; 80061; 80164; 80177; 80185; 80299; 80306; 81001; 82330; 82805; 82962; 83036; 83735; 83880; 84132; 84145; 84443; 84484; 85025; 85610; 85730; 87070; 87205; 93005; 93306; 93308; 94002; 94664; 94799; 96372; 96374; 96375; 96376; 97162; 97167; 97530; 99285; A4222; C9254; J0330; J0360; J0696; J1165; J1171; J1610; J1650; J1953; J2060; J2270; J2470; J2560; J2704; J3475; J3480; J3490; J7030; J7042; J7799; J9999